=== PATIENT | female | born 1955 | race American Indian/Alaskan Native ===

== ENCOUNTER 2016-10-08 13:28 | Emergency (ER) | payer MEDICARE ==
--- NOTE | 2016-10-08 15:08 | Emergency Department Report ---
Chief Complaint: Urogenital-Female Stated Complaint: BURNING IN PRIVATE AREA Time Seen by Provider: 10/08/16 15:02 - HPI History of Present Illness: 61-year-old female comes in for complaint of vaginal discharge times one week. Patient reports that is very itchy and burning and increase urinary frequency and diarrhea. Patient has a past medical history of diabetes as now well controlled hypertension that is not well controlled. He should reports that she 's been using [id number] Monistat 7 days and not working. - Exam Vital Signs: Vital Signs 10/08/16 14:19 Temperature 98.1 F Pulse Rate 83 Respiratory 16 Rate Blood Pressure 211/122 O2 Sat by Pulse 97 Oximetry Physical Exam: Alert and oriented 3. Cardiovascular S1-S2 regular rate and rhythm respiratory clear to auscultation bilateral MSE screening note: Focused history and physical exam performed. Due to findings the following was ordered: Is been evaluated by physicians in as E provider. We will order a CBC CMP UA. ED Disposition for MSE Condition: Stable
[2016-10-08] MEDS ORDERED: CATAPRES PO ONE (15:20)
[2016-10-08 15:40] LABS: Hematocrit 46.9 % (30.3-42.9); Hemoglobin 15.7 gm/dl (10.1-14.3); Mean Corpuscular HGB Conc 34 % (30-34); Mean Corpuscular Hemoglobin 31 pg (28-32); Mean Corpuscular Volume 93 fl (79-97); Platelet Count 192 K/mm3 (140-440); Red Blood Count 5.06 M/mm3 (3.65-5.03); Red Cell Distribution Width 13.6 % (13.2-15.2); White Blood Count 5.1 K/mm3 (4.5-11.0)
[2016-10-08 16:03] LABS: Alanine Aminotransferase 14 units/L (7-56); Albumin 3.8 g/dL (3.9-5); Albumin/Globulin Ratio 1.1 %; Alkaline Phosphatase 60 units/L (35-129); Anion Gap 22 mmol/L; Bilirubin,Total 0.7 mg/dL (0.1-1.2); Blood Urea Nitrogen 6 mg/dL (7-17); Calcium 8.9 mg/dL (8.4-10.2); Carbon Dioxide 21 mmol/L (22-30); Chloride 99.4 mmol/L (98-107); Glucose 408 mg/dL (65-100); Potassium 4.2 mmol/L (3.6-5.0); Sodium 138 mmol/L (137-145); Total Protein 7.2 g/dL (6.3-8.2)
[2016-10-08 16:15] LABS: Bilirubin,Urine NEG (Negative); Blood,Urine NEG (Negative); Ketones,Urine TR mg/dL (Negative); Leukocyte Esterase,Urine TR (Negative); Nitrite,Urine POS (Negative); Protein,Urine <15 mg/dL mg/dL (Negative); Urobilinogen,Urine < 2.0 mg/dL (<2.0)
[2016-10-08 17:06] VITALS: BP 223/121
--- NOTE | 2016-10-12 13:47 | ED Elopement Review ---
ED Pt Elopement review - Results review Lab results: Laboratory Tests 10/08/16 10/08/16 10/08/16 14:25 15:28 15:28 WBC 5.1 RBC 5.06 H Hgb 15.7 H Hct 46.9 H MCV 93 MCH 31 MCHC 34 RDW 13.6 Plt Count 192 Carbon Dioxide 21 L BUN 6 L Creatinine 0.6 L Estimated GFR > 60 BUN/Creatinine Ratio 10.00 Glucose 408 H POC Glucose 367 H Calcium 8.9 Total Bilirubin 0.7 AST 13 ALT 14 Alkaline Phosphatase 60 Total Protein 7.2 Albumin 3.8 L Albumin/Globulin Ratio 1.1 Urine Color Urine Turbidity Urine pH Urine Protein Urine Glucose (UA) Urine Ketones Urine Blood Urine Nitrite Urine Bilirubin Urine Urobilinogen Ur Leukocyte Esterase Urine WBC (Auto) Urine RBC (Auto) U Epithel Cells (Auto) 10/08/16 15:40 WBC RBC Hgb Hct MCV MCH MCHC RDW Plt Count Carbon Dioxide BUN Creatinine Estimated GFR BUN/Creatinine Ratio Glucose POC Glucose Calcium Total Bilirubin AST ALT Alkaline Phosphatase Total Protein Albumin Albumin/Globulin Ratio Urine Color Yellow Urine Turbidity Clear Urine pH 5.0 Urine Protein <15 mg/dl Urine Glucose (UA) >=500 Urine Ketones Tr Urine Blood Neg Urine Nitrite Pos Urine Bilirubin Neg Urine Urobilinogen < 2.0 Ur Leukocyte Esterase Tr Urine WBC (Auto) 4.0 Urine RBC (Auto) 2.0 U Epithel Cells (Auto) 2.0 - Call Back decision Pt Call Back Decision: Call pt to return to ED SHANI (severe HTN)
== END 2016-10-08 22:36 | disposition left against medical advice (07) ==
LOC: ED 13:28
DX: N89.8 Other specified noninflammatory disorders of vagina (principal); E11.9 Type 2 diabetes mellitus without complications; I10 Essential (primary) hypertension; Z53.21 Procedure and treatment not carried out due to patient leaving prior to being seen by health care provider
CPT/HCPCS: 36415; 80053; 81001; 82962; 85027

== ENCOUNTER 2017-12-12 00:16 | Emergency (ER) | payer MEDICARE ==
[2017-12-12 02:12] LABS: Basophils # (Auto) 0.1 K/mm3 (0.0-0.1); Basophils % (Auto) 0.9 % (0.0-1.8); Eosinophils # (Auto) 0.2 K/mm3 (0.0-0.4); Eosinophils % (Auto) 3.9 % (0.0-4.3); Hematocrit 47.1 % (30.3-42.9); Hemoglobin 16.3 gm/dl (10.1-14.3); Lymphocytes # (Auto) 2.9 K/mm3 (1.2-5.4); Mean Corpuscular HGB Conc 35 % (30-34); Mean Corpuscular Hemoglobin 31 pg (28-32); Mean Corpuscular Volume 91 fl (79-97); Monocytes # (Auto) 0.3 K/mm3 (0.0-0.8); Monocytes % (Auto) 4.4 % (0.0-7.3); Platelet Count 210 K/mm3 (140-440); Red Blood Count 5.21 M/mm3 (3.65-5.03); Red Cell Distribution Width 13.4 % (13.2-15.2)
[2017-12-12] MEDS ORDERED: PERCOCET 5/325 PO ONE (02:16)
[2017-12-12] MEDS ORDERED: TORADOL IM ONE (02:16)
--- NOTE | 2017-12-12 02:24 | Emergency Department Report ---
ED Chest Pain HPI - General Chief Complaint: Chest Pain Stated Complaint: RT SIDE BODY PAIN Time Seen by Provider: 12/12/17 02:15 Source: patient Mode of arrival: Ambulatory Limitations: No Limitations - History of Present Illness Initial Comments: Ms. Jiang is a 62 yo female with hx of CVA DM HTN with right sided chest pain since near syncopal episode in Doctor's office on Friday. NO leg pain. NO hx of DVT. +tobacco use MD Complaint: chest pain -: Gradual, week(s) (1) Onset: during rest Pain Location: right chest Pain Radiation: other (shoulder) Severity: severe Severity scale (0 -10): 7 Quality: sharp Worsens With: movement - Related Data Home Medications Medication Instructions Recorded Confirmed Last Taken Aspirin [Aspirin BABY CHEW TAB] 81 mg PO QDAY 04/19/16 04/19/16 Unknown AtorvaSTATin 40 mg PO QDAY 04/19/16 04/19/16 Unknown Clopidogrel [Plavix] 75 mg PO QDAY 04/19/16 04/19/16 Unknown Ferrous Sulfate [Feosol 325 MG tab] 325 mg PO QDAY 04/19/16 04/19/16 Unknown Nitrostat 0.4 mg PO QDAY 04/19/16 04/19/16 Unknown metFORMIN [Glucophage] 1,000 mg PO BID 04/19/16 04/19/16 Unknown Previous Rx's Medication Instructions Recorded Last Taken Type Aspirin EC [Aspirin Enteric Coated 81 mg PO QDAY #30 tablet 12/20/15 Unknown Rx TAB] AtorvaSTATin [Lipitor] 40 mg PO QHS #30 tablet 12/20/15 Unknown Rx Carvedilol [Coreg] 25 mg PO BID #60 tablet 12/20/15 Unknown Rx Clopidogrel [Plavix] 75 mg PO QDAY #30 tablet 12/20/15 Unknown Rx Insulin NPH/Regular [NovoLIN 70/30] 30 unit SUB-Q BIDDIAB #3 units 12/20/15 Unknown Rx Losartan [Cozaar] 100 mg PO QDAY #30 tablet 12/20/15 Unknown Rx amLODIPine [Norvasc] 10 mg PO DAILY #30 tablet 12/20/15 Unknown Rx metFORMIN [Glucophage] 500 mg PO BID #60 tablet 12/20/15 Unknown Rx Cyclobenzaprine [Flexeril] 10 mg PO TID PRN #14 tablet 01/13/16 Unknown Rx Furosemide [Lasix] 20 mg PO QDAY #30 tablet 01/13/16 Unknown Rx HYDROcodone/APAP 5-325 [[place] 1 - 2 each PO Q6HR PRN #14 tablet 01/13/16 Unknown Rx 5/325] Ibuprofen [Motrin 800 MG tab] 800 mg PO Q8HR PRN #20 tablet 01/13/16 Unknown Rx Carvedilol [Coreg] 25 mg PO QDAY #30 tablet 04/19/16 Unknown Rx Clotrimazole [[place] Itch] 1 applic TP BID 28 Days cream..g. 04/19/16 Unknown Rx Fluconazole [Diflucan TAB] 150 mg PO QWEEK #2 tablet 04/19/16 Unknown Rx Furosemide [Lasix TAB] 80 mg PO QDAY #30 tablet 04/19/16 Unknown Rx Losartan [Cozaar] 100 mg PO QDAY #30 tablet 04/19/16 Unknown Rx amLODIPine [Norvasc] 10 mg PO QDAY #30 tablet 04/19/16 Unknown Rx traMADol [Ultram 50 MG tab] 50 mg PO Q6HR PRN #20 tablet 04/19/16 Unknown Rx HYDROcodone/ACETAMINOPHEN [[place] 1 each PO Q6H PRN #10 tablet 12/12/17 Unknown Rx 10-325 Tablet] Allergies Allergy/AdvReac Type Severity Reaction Status Date / Time MARIAN Inhibitors Allergy Angioedema Verified 11/15/16 15:42 esomeprazole magnesium Allergy Swelling Verified 11/15/16 15:42 [From Nexium] labetalol Allergy Itching Verified 11/15/16 15:42 Heart Score - HEART Score History: Slightly suspicious EKG: Normal Age: 45-65 Risk factors: > 3 risk factors or hx of atherosclerotic disease Troponin: < normal limit HEART Score: 3 ED Review of Systems ROS: Stated complaint: RT SIDE BODY PAIN Other details as noted in HPI Comment: All other systems reviewed and negative Respiratory: denies: cough Cardiovascular: chest pain Gastrointestinal: denies: abdominal pain ED Past Medical Hx - Past Medical History Previous Medical History?: Yes Hx Hypertension: Yes Hx CVA: Yes Hx Congestive Heart Failure: No Hx Diabetes: Yes Hx Pulmonary Embolism: No Hx Asthma: No Hx COPD: No Hx Tuberculosis: No Additional medical history: Angina - Surgical History Past Surgical History?: Yes Additional Surgical History: bilateral hip replacement; ankle surgery; back surgery - Social History Smoking Status: Current Every Day Smoker Substance Use Type: None - Medications Home Medications: Home Medications Medication Instructions Recorded Confirmed Last Taken Type Aspirin EC [Aspirin Enteric Coated 81 mg PO QDAY #30 tablet 12/20/15 01/13/16 Unknown Rx TAB] AtorvaSTATin [Lipitor] 40 mg PO QHS #30 tablet 12/20/15 01/13/16 Unknown Rx Carvedilol [Coreg] 25 mg PO BID #60 tablet 12/20/15 01/13/16 Unknown Rx Clopidogrel [Plavix] 75 mg PO QDAY #30 tablet 12/20/15 01/13/16 Unknown Rx Insulin NPH/Regular [NovoLIN 70/30] 30 unit SUB-Q BIDDIAB #3 units 12/20/15 Unknown Rx Losartan [Cozaar] 100 mg PO QDAY #30 tablet 12/20/15 01/13/16 Unknown Rx amLODIPine [Norvasc] 10 mg PO DAILY #30 tablet 12/20/15 01/13/16 Unknown Rx metFORMIN [Glucophage] 500 mg PO BID #60 tablet 12/20/15 01/13/16 Unknown Rx Cyclobenzaprine [Flexeril] 10 mg PO TID PRN #14 tablet 01/13/16 Unknown Rx Furosemide [Lasix] 20 mg PO QDAY #30 tablet 01/13/16 Unknown Rx HYDROcodone/APAP 5-325 [[place] 1 - 2 each PO Q6HR PRN #14 tablet 01/13/16 Unknown Rx 5/325] Ibuprofen [Motrin 800 MG tab] 800 mg PO Q8HR PRN #20 tablet 01/13/16 Unknown Rx Aspirin [Aspirin BABY CHEW TAB] 81 mg PO QDAY 04/19/16 04/19/16 Unknown History AtorvaSTATin 40 mg PO QDAY 04/19/16 04/19/16 Unknown History Carvedilol [Coreg] 25 mg PO QDAY #30 tablet 04/19/16 Unknown Rx Clopidogrel [Plavix] 75 mg PO QDAY 04/19/16 04/19/16 Unknown History Clotrimazole [Jock Itch] 1 applic TP BID 28 Days cream..g. 04/19/16 Unknown Rx Ferrous Sulfate [Feosol 325 MG tab] 325 mg PO QDAY 04/19/16 04/19/16 Unknown History Fluconazole [Diflucan TAB] 150 mg PO QWEEK #2 tablet 04/19/16 Unknown Rx Furosemide [Lasix TAB] 80 mg PO QDAY #30 tablet 04/19/16 Unknown Rx Losartan [Cozaar] 100 mg PO QDAY #30 tablet 04/19/16 Unknown Rx Nitrostat 0.4 mg PO QDAY 04/19/16 04/19/16 Unknown History amLODIPine [Norvasc] 10 mg PO QDAY #30 tablet 04/19/16 Unknown Rx metFORMIN [Glucophage] 1,000 mg PO BID 04/19/16 04/19/16 Unknown History traMADol [Ultram 50 MG tab] 50 mg PO Q6HR PRN #20 tablet 04/19/16 Unknown Rx HYDROcodone/ACETAMINOPHEN [[place] 1 each PO Q6H PRN #10 tablet 12/12/17 Unknown Rx 10-325 Tablet] ED Physical Exam - General Limitations: No Limitations General appearance: alert, in no apparent distress - Head Head exam: Present: atraumatic, normocephalic - Eye Eye exam: Present: normal appearance - ENT ENT exam: Present: mucous membranes moist - Neck Neck exam: Present: normal inspection - Respiratory Respiratory exam: Present: normal lung sounds bilaterally. Absent: respiratory distress, wheezes, rales, rhonchi - Cardiovascular Cardiovascular Exam: Present: regular rate, normal rhythm. Absent: systolic murmur, diastolic murmur, rubs, gallop - GI/Abdominal GI/Abdominal exam: Present: soft, normal bowel sounds. Absent: distended, tenderness, guarding, rebound - Extremities Exam Extremities exam: Present: normal inspection - Back Exam Back exam: Present: normal inspection - Neurological Exam Neurological exam: Present: alert, oriented X3 - Psychiatric Psychiatric exam: Present: normal affect, normal mood - Skin Skin exam: Present: warm, dry, intact, normal color. Absent: rash - Other Other exam information: right chest very tender to touch ED Course Vital Signs 12/12/17 12/12/17 01:32 02:51 Temperature 98.7 F Pulse Rate 83 Respiratory 17 20 Rate Blood Pressure 160/81 O2 Sat by Pulse 96 98 Oximetry FRANSISCO score - Fransisco Score Age > 65: (0) No Aspirin use within the Past 7 Days: (0) No 3 or more CAD Risk Factors: (1) Yes 2 or more Angina events in past 24 hrs: (0) No Known CAD with more than 50% Stenosis: (0) No Elevated Cardiac Markers: (0) No ST Deviation Greater than 0.5mm: (0) No FRANSISCO Score: 1 ED Medical Decision Making - Lab Data Result diagrams: 12/12/17 01:57 12/12/17 01:57 Laboratory Results - last 24 hr 12/12/17 12/12/17 12/12/17 01:57 01:57 01:57 WBC 6.3 RBC 5.21 H Hgb 16.3 H Hct 47.1 H MCV 91 MCH 31 MCHC 35 H RDW 13.4 Plt Count 210 Lymph % (Auto) 47.0 H [place] % (Auto) 4.4 Eos % (Auto) 3.9 Baso % (Auto) 0.9 Lymph # 2.9 [place] # 0.3 Eos # 0.2 Baso # 0.1 Seg Neutrophils % 43.8 Seg Neutrophils # 2.7 D-Dimer Sodium 139 Potassium 4.1 Chloride 101.5 Carbon Dioxide 24 Anion Gap 18 BUN 16 Creatinine 0.6 L Estimated GFR > 60 BUN/Creatinine Ratio 27 Glucose 310 H Calcium 8.9 Troponin T < 0.010 HCG, Qual Negative 12/12/17 02:19 WBC RBC Hgb Hct MCV MCH MCHC RDW Plt Count Lymph % (Auto) [place] % (Auto) Eos % (Auto) Baso % (Auto) Lymph # [place] # Eos # Baso # Seg Neutrophils % Seg Neutrophils # D-Dimer 138.77 Sodium Potassium Chloride Carbon Dioxide Anion Gap BUN Creatinine Estimated GFR BUN/Creatinine Ratio Glucose Calcium Troponin T HCG, Qual Vital Signs - 24 hr 12/12/17 12/12/17 01:32 02:51 Temperature 98.7 F Pulse Rate 83 Respiratory 17 20 Rate Blood Pressure 160/81 O2 Sat by Pulse 96 98 Oximetry - EKG Data 12/12/17 03:02 EKG obtained at 128 Normal Sinus rhythm rate of 85 bpm normal axis normal intervals no ST elevation diffuse T-wave inversions nonspecific T wave pattern - Medical Decision Making Ms. Jiang presents with musculoskeletal chest pain. Prescribed 10 tablets of [place]. Normal d-dimer. No indication of ACS. No indication of PTX or pneumonia. Critical care attestation.: If time is entered above; I have spent that time in minutes in the direct care of this critically ill patient, excluding procedure time. ED Disposition Clinical Impression: Chest wall pain Disposition: DC- TO HOME OR SELFCARE Is pt being admited?: No Does the pt Need Aspirin: No Condition: Stable Instructions: Chest Pain (ED), Thoracic Pain (ED) Prescriptions: HYDROcodone/ACETAMINOPHEN [[place] 10-325 Tablet] 1 each PO Q6H PRN #10 tablet PRN Reason: Pain Referrals: PRIMARY CARE, [Primary Care Provider] - 3-5 Days Time of Disposition: 03:44
--- NOTE | 2017-12-12 02:30 | XRay Report ---
FINAL REPORT EXAM: XR CHEST ROUTINE 2V HISTORY: chest pain COMPARISON: CT of the chest from December 2015. FINDINGS:: Frontal and lateral views of the chest obtained. Cardiac silhouette is within normal limits. No focal consolidation or effusion. No pneumothorax. Visualized bony thorax is grossly intact. IMPRESSION:: No acute findings.
[2017-12-12 02:35] LABS: BUN/Creatinine Ratio 27; Blood Urea Nitrogen 16 mg/dL (7-17); Calcium 8.9 mg/dL (8.4-10.2); Hemolysis Index 10
[2017-12-12 03:51] VITALS: BP 142/74
== END 2017-12-12 03:52 | disposition home or self-care (01) ==
LOC: ED 00:16
DX: R07.89 Other chest pain (principal); I10 Essential (primary) hypertension; E11.9 Type 2 diabetes mellitus without complications; F17.200 Nicotine dependence, unspecified, uncomplicated
CPT/HCPCS: 36415; 71046; 80048; 84484; 84703; 85025; 85379; 93005; 93010; 96372; 99284; J1885

== ENCOUNTER 2018-03-31 15:17 | Emergency (ER) | payer MEDICARE ==
--- NOTE | 2018-03-31 20:42 | Emergency Department Report ---
ED Fall HPI - General Chief Complaint: Dyspnea/Respdistress Stated Complaint: CHEST PAIN, NUMBNESS DOWN RT SIDE Time Seen by Provider: 03/31/18 20:29 Source: patient Mode of arrival: Ambulatory - History of Present Illness Initial Comments: Patient is 62 years old female with history of hypertension and CVA and bilateral hip replacement. Patient presented to the ER complaining of fall happened 2 days ago. 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 Complaint: fall -: Sudden, days(s) Fall From: standing Place Fall Occurred: work Loss of Consciousness: unsure Location: chest, pelvis Severity: moderate Context: tripped/slipped - Related Data Home Medications Medication Instructions Recorded Confirmed Last Taken Aspirin [Aspirin BABY CHEW TAB] 81 mg PO QDAY 04/19/16 04/19/16 Unknown AtorvaSTATin 40 mg PO QDAY 04/19/16 04/19/16 Unknown Clopidogrel [Plavix] 75 mg PO QDAY 04/19/16 04/19/16 Unknown Ferrous Sulfate [Feosol 325 MG tab] 325 mg PO QDAY 04/19/16 04/19/16 Unknown Nitrostat 0.4 mg PO QDAY 04/19/16 04/19/16 Unknown metFORMIN [Glucophage] 1,000 mg PO BID 04/19/16 04/19/16 Unknown Previous Rx's Medication Instructions Recorded Last Taken Type Aspirin EC [Aspirin Enteric Coated 81 mg PO QDAY #30 tablet 12/20/15 Unknown Rx TAB] AtorvaSTATin [Lipitor] 40 mg PO QHS #30 tablet 12/20/15 Unknown Rx Carvedilol [Coreg] 25 mg PO BID #60 tablet 12/20/15 Unknown Rx Clopidogrel [Plavix] 75 mg PO QDAY #30 tablet 12/20/15 Unknown Rx Insulin NPH/Regular [NovoLIN 70/30] 30 unit SUB-Q BIDDIAB #3 units 12/20/15 Unknown Rx Losartan [Cozaar] 100 mg PO QDAY #30 tablet 12/20/15 Unknown Rx amLODIPine [Norvasc] 10 mg PO DAILY #30 tablet 12/20/15 Unknown Rx metFORMIN [Glucophage] 500 mg PO BID #60 tablet 12/20/15 Unknown Rx Cyclobenzaprine [Flexeril] 10 mg PO TID PRN #14 tablet 01/13/16 Unknown Rx Furosemide [Lasix] 20 mg PO QDAY #30 tablet 01/13/16 Unknown Rx HYDROcodone/APAP 5-325 [[place] 1 - 2 each PO Q6HR PRN #14 tablet 01/13/16 Unknown Rx 5/325] Ibuprofen [Motrin 800 MG tab] 800 mg PO Q8HR PRN #20 tablet 01/13/16 Unknown Rx Carvedilol [Coreg] 25 mg PO QDAY #30 tablet 04/19/16 Unknown Rx Clotrimazole [Jock Itch] 1 applic TP BID 28 Days cream..g. 04/19/16 Unknown Rx Fluconazole [Diflucan TAB] 150 mg PO QWEEK #2 tablet 04/19/16 Unknown Rx Furosemide [Lasix TAB] 80 mg PO QDAY #30 tablet 04/19/16 Unknown Rx Losartan [Cozaar] 100 mg PO QDAY #30 tablet 04/19/16 Unknown Rx amLODIPine [Norvasc] 10 mg PO QDAY #30 tablet 04/19/16 Unknown Rx traMADol [Ultram 50 MG tab] 50 mg PO Q6HR PRN #20 tablet 04/19/16 Unknown Rx HYDROcodone/ACETAMINOPHEN [[place] 1 each PO Q6H PRN #10 tablet 12/12/17 Unknown Rx 10-325 Tablet] Allergies Allergy/AdvReac Type Severity Reaction Status Date / Time MARIAN Inhibitors Allergy Angioedema Verified 11/15/16 15:42 esomeprazole magnesium Allergy Swelling Verified 11/15/16 15:42 [From Nexium] labetalol Allergy Itching Verified 11/15/16 15:42 ED Review of Systems ROS: Stated complaint: CHEST PAIN, NUMBNESS DOWN RT SIDE Other details as noted in HPI Comment: All other systems reviewed and negative Constitutional: denies: chills, fever Respiratory: orthopnea, shortness of breath, SOB with exertion. denies: cough, wheezing Gastrointestinal: denies: abdominal pain, nausea, vomiting Musculoskeletal: denies: back pain, arthralgia Neurological: denies: headache, weakness, numbness, paresthesias, confusion, abnormal gait ED Past Medical Hx - Past Medical History Previous Medical History?: Yes Hx Hypertension: Yes Hx CVA: Yes (2016) Hx Congestive Heart Failure: No Hx Diabetes: Yes Hx Pulmonary Embolism: No Hx Asthma: No Hx COPD: No Hx Tuberculosis: No Additional medical history: Angina, Vertigo - Surgical History Past Surgical History?: Yes Additional Surgical History: bilateral hip replacement; ankle surgery; back surgery - Social History Smoking Status: Current Every Day Smoker Substance Use Type: None - Medications Home Medications: Home Medications Medication Instructions Recorded Confirmed Last Taken Type Aspirin EC [Aspirin Enteric Coated 81 mg PO QDAY #30 tablet 12/20/15 01/13/16 Unknown Rx TAB] AtorvaSTATin [Lipitor] 40 mg PO QHS #30 tablet 12/20/15 01/13/16 Unknown Rx Carvedilol [Coreg] 25 mg PO BID #60 tablet 12/20/15 01/13/16 Unknown Rx Clopidogrel [Plavix] 75 mg PO QDAY #30 tablet 12/20/15 01/13/16 Unknown Rx Insulin NPH/Regular [NovoLIN 70/30] 30 unit SUB-Q BIDDIAB #3 units 12/20/15 Unknown Rx Losartan [Cozaar] 100 mg PO QDAY #30 tablet 12/20/15 01/13/16 Unknown Rx amLODIPine [Norvasc] 10 mg PO DAILY #30 tablet 12/20/15 01/13/16 Unknown Rx metFORMIN [Glucophage] 500 mg PO BID #60 tablet 12/20/15 01/13/16 Unknown Rx Cyclobenzaprine [Flexeril] 10 mg PO TID PRN #14 tablet 01/13/16 Unknown Rx Furosemide [Lasix] 20 mg PO QDAY #30 tablet 01/13/16 Unknown Rx HYDROcodone/APAP 5-325 [[place] 1 - 2 each PO Q6HR PRN #14 tablet 01/13/16 Unknown Rx 5/325] Ibuprofen [Motrin 800 MG tab] 800 mg PO Q8HR PRN #20 tablet 01/13/16 Unknown Rx Aspirin [Aspirin BABY CHEW TAB] 81 mg PO QDAY 04/19/16 04/19/16 Unknown History AtorvaSTATin 40 mg PO QDAY 04/19/16 04/19/16 Unknown History Carvedilol [Coreg] 25 mg PO QDAY #30 tablet 04/19/16 Unknown Rx Clopidogrel [Plavix] 75 mg PO QDAY 04/19/16 04/19/16 Unknown History Clotrimazole [Jock Itch] 1 applic TP BID 28 Days cream..g. 04/19/16 Unknown Rx Ferrous Sulfate [Feosol 325 MG tab] 325 mg PO QDAY 04/19/16 04/19/16 Unknown History Fluconazole [Diflucan TAB] 150 mg PO QWEEK #2 tablet 04/19/16 Unknown Rx Furosemide [Lasix TAB] 80 mg PO QDAY #30 tablet 04/19/16 Unknown Rx Losartan [Cozaar] 100 mg PO QDAY #30 tablet 04/19/16 Unknown Rx Nitrostat 0.4 mg PO QDAY 04/19/16 04/19/16 Unknown History amLODIPine [Norvasc] 10 mg PO QDAY #30 tablet 04/19/16 Unknown Rx metFORMIN [Glucophage] 1,000 mg PO BID 04/19/16 04/19/16 Unknown History traMADol [Ultram 50 MG tab] 50 mg PO Q6HR PRN #20 tablet 04/19/16 Unknown Rx HYDROcodone/ACETAMINOPHEN [[place] 1 each PO Q6H PRN #10 tablet 12/12/17 Unknown Rx 10-325 Tablet] ED Physical Exam - General Limitations: No Limitations General appearance: alert, in no apparent distress - Head Head exam: Present: atraumatic, normocephalic, normal inspection - Eye Eye exam: Present: normal appearance - ENT ENT exam: Present: normal exam - Neck Neck exam: Present: normal inspection - Respiratory Respiratory exam: Present: normal lung sounds bilaterally. Absent: respiratory distress, wheezes, rales, rhonchi, chest wall tenderness, accessory muscle use, decreased breath sounds, prolonged expiratory - Cardiovascular Cardiovascular Exam: Present: regular rate, normal rhythm, normal heart sounds - GI/Abdominal GI/Abdominal exam: Present: soft, normal bowel sounds. Absent: distended, tenderness, guarding, rebound, rigid, organomegaly, mass, bruit, pulsatile mass , hernia - Extremities Exam Extremities exam: Present: other (right hip tenderness, no deformity or dislocation.) - Back Exam Back exam: Present: normal inspection, full ROM. Absent: tenderness, CVA tenderness (R), CVA tenderness (L), muscle spasm, paraspinal tenderness, vertebral tenderness, rash noted - Neurological Exam Neurological exam: Present: alert, oriented X3, CN II-XII intact, normal gait, reflexes normal - Skin Skin exam: Present: warm, intact, normal color ED Course Vital Signs 03/31/18 15:55 Temperature 98.9 F Pulse Rate 100 H Respiratory 18 Rate Blood Pressure 123/95 O2 Sat by Pulse 99 Oximetry ED Medical Decision Making - Lab Data Result diagrams: 03/31/18 21:00 03/31/18 21:00 - EKG Data -: EKG Interpreted by Co EKG shows normal: sinus rhythm Rate: normal - EKG Data Interpretation: no acute changes - Radiology Data Radiology results: report reviewed Referring Physician: MONCHO MCDONALD Patient Name: RAMEZ OSORIO Date of : 1955 Sex: Female Report Date: 2018-03-31 Report Status: Finalized Findings [address] [address] XRay Report Signed Patient: RAMEZ GARZA MR#: [id number] : 1955 Acct:[id number] Age/Sex: 62 / F ADM Date: 03/31/18 Loc: ED Attending Dr: Ordering Physician: MONCHO MCDONALD Date of Service: 03/31/18 Procedure(s): XR hip 2-3V RT Accession Number(s): [id number] cc: MONCHO MCDONALD Fluoro Time In Minutes: FINAL REPORT PROCEDURE: XR HIP 2-3V RT TECHNIQUE: LEFT hip radiographs, 2 views each, including AP view of the pelvis. HISTORY: hip pain COMPARISON: No prior studies are available for comparison. FINDINGS: Fracture (s) and/or Dislocation(s): None . Joint space(s): Bilateral total hip prostheses are noted with satisfactory alignment. Soft tissues: Normal. Bone mineralization: Normal. Foreign bodies: None. IMPRESSION: No acute fracture Bilateral hip prostheses are unremarkable. Transcribed By: [facility] [place] Dictated By: TATY SHEIKH Electronically Authenticated By: TATY SHEIKH Signed Date/Time: 03/31/182137 Referring Physician: MONCHO MCDONALD Patient Name: RAMEZ OSORIO Date of : 1955 Sex: Female Report Date: 2018-03-31 Report Status: Finalized Findings [address] [address] XRay Report Signed Patient: RAMEZ GARZA MR#: [id number] : 1955 Acct:[id number] Age/Sex: 62 / F ADM Date: 03/31/18 Loc: ED Attending Dr: Ordering Physician: MONCHO MCDONALD Date of Service: 03/31/18 Procedure(s): XR chest 1V ap Accession Number(s): [id number] cc: MONCHO MCDONALD Fluoro Time In Minutes: FINAL REPORT PROCEDURE: XR CHEST 1V AP TECHNIQUE: Chest radiograph anteroposterior view. CPT 55959 HISTORY: Dyspnea COMPARISON: 12/12/2017 FINDINGS: Heart: Normal. Mediastinum/Vessels: Normal. Lungs/Pleural space: Normal. Bony thorax: No acute osseous abnormality. Life support devices: None. IMPRESSION: No acute cardiopulmonary abnormality. Transcribed By: [facility] [place] Dictated By: TATY SHEIKH Electronically Authenticated By: TATY SHEIKH Signed Date/Time: 03/31/182136 DD/ 36 TD/TT: 03/31/182136 DD/ 37 TD/TT: 03/31/182137 Critical care attestation.: If time is entered above; I have spent that time in minutes in the direct care of this critically ill patient, excluding procedure time. ED Disposition Clinical Impression: Contusion of hip, right, Shortness of breath, Fall Disposition: DC-01 TO HOME OR SELFCARE Is pt being admited?: No Condition: Stable Instructions: Contusion in Adults (ED), Dyspnea (ED), Fall Prevention for Older Adults (ED) Referrals: JASON FERRER MD [Primary Care Provider] - 3-5 Days
[2018-03-31 21:23] LABS: Basophils % (Auto) 0.4 % (0.0-1.8); Eosinophils # (Auto) 0.3 K/mm3 (0.0-0.4); Eosinophils % (Auto) 3.8 % (0.0-4.3); Hematocrit 47.1 % (30.3-42.9); Hemoglobin 16.2 gm/dl (10.1-14.3); Lymphocytes # (Auto) 2.8 K/mm3 (1.2-5.4); Mean Corpuscular HGB Conc 34 % (30-34); Mean Corpuscular Hemoglobin 31 pg (28-32); Mean Corpuscular Volume 91 fl (79-97); Monocytes # (Auto) 0.4 K/mm3 (0.0-0.8); Monocytes % (Auto) 5.6 % (0.0-7.3); Platelet Count 212 K/mm3 (140-440); Red Blood Count 5.18 M/mm3 (3.65-5.03); Red Cell Distribution Width 13.9 % (13.2-15.2)
--- NOTE | 2018-03-31 21:41 | XRay Report ---
FINAL REPORT PROCEDURE: XR CHEST 1V AP TECHNIQUE: Chest radiograph anteroposterior view. CPT 97577 HISTORY: Dyspnea COMPARISON: 12/12/2017 FINDINGS: Heart: Normal. Mediastinum/Vessels: Normal. Lungs/Pleural space: Normal. Bony thorax: No acute osseous abnormality. Life support devices: None. IMPRESSION: No acute cardiopulmonary abnormality.
--- NOTE | 2018-03-31 21:43 | XRay Report ---
FINAL REPORT PROCEDURE: XR HIP 2-3V RT TECHNIQUE: LEFT hip radiographs, 2 views each, including AP view of the pelvis. HISTORY: hip pain COMPARISON: No prior studies are available for comparison. FINDINGS: Fracture (s) and/or Dislocation(s): None . Joint space(s): Bilateral total hip prostheses are noted with satisfactory alignment. Soft tissues: Normal. Bone mineralization: Normal. Foreign bodies: None. IMPRESSION: No acute fracture Bilateral hip prostheses are unremarkable.
[2018-03-31 21:45] LABS: BUN/Creatinine Ratio 19; Blood Urea Nitrogen 13 mg/dL (7-17); Calcium 9.7 mg/dL (8.4-10.2)
[2018-03-31 21:46] LABS: Alanine Aminotransferase 9 units/L (7-56); Albumin 4.4 g/dL (3.9-5); Hemolysis Index 7
[2018-03-31 22:01] VITALS: BP 132/89
== END 2018-03-31 22:30 | disposition home or self-care (01) ==
LOC: ED 15:17
DX: S70.01XA Contusion of right hip, initial encounter (principal); I10 Essential (primary) hypertension; E11.9 Type 2 diabetes mellitus without complications; I20.9 Angina pectoris, unspecified; F17.200 Nicotine dependence, unspecified, uncomplicated; Z96.643 Presence of artificial hip joint, bilateral; Z79.82 Long term (current) use of aspirin; Z88.8 Allergy status to other drugs, medicaments and biological substances; W01.198A Fall on same level from slipping, tripping and stumbling with subsequent striking against other object, initial encounter; Y93.89 Activity, other specified; Y92.89 Other specified places as the place of occurrence of the external cause; Y99.8 Other external cause status
CPT/HCPCS: 36415; 71045; 80053; 83880; 84484; 85025; 93005; 93010; 99284

== ENCOUNTER 2018-04-05 16:59 | Emergency (ER) | payer MEDICARE ==
[2018-04-05] MEDS ORDERED: BOOSTRIX IM ONE (17:49)
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
--- NOTE | 2018-04-05 20:05 | XRay Report ---
FINAL REPORT EXAM: XR HIP 2-3V LT HISTORY: left hip injury TECHNIQUE: AP pelvis and two views left hip were performed Comparison: Right hip 03/31/2018 FINDINGS: There are bilateral hip prostheses. The left hip prosthesis shows non screwed acetabular component. There is no subsidence of the femoral stem or significant periprosthetic lucency. There are arterial calcifications. The femoral head does not appear to be dislocated. There is mild superior migration of the left acetabular component relative to the right, unchanged. There is advanced degenerative arthritis of the imaged lower lumbar spine. IMPRESSION: No acute fracture or dislocation identified. Bilateral hip prostheses unchanged. Advanced degenerative arthritis lower lumbar spine.
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
[2018-04-05] MEDS ORDERED: XYLOCAINE 1% 20 mL ONE (20:53)
== END 2018-04-05 22:05 | disposition home or self-care (01) ==
LOC: ED 16:59
DX: S01.511A Laceration without foreign body of lip, initial encounter (principal); S80.812A Abrasion, left lower leg, initial encounter; S80.811A Abrasion, right lower leg, initial encounter; S60.512A Abrasion of left hand, initial encounter; S60.511A Abrasion of right hand, initial encounter; M25.552 Pain in left hip; I10 Essential (primary) hypertension; E11.9 Type 2 diabetes mellitus without complications; F17.200 Nicotine dependence, unspecified, uncomplicated; Z86.73 Personal history of transient ischemic attack (TIA), and cerebral infarction without residual deficits; Z88.8 Allergy status to other drugs, medicaments and biological substances; Z79.82 Long term (current) use of aspirin; Y04.8XXA Assault by other bodily force, initial encounter; Y93.89 Activity, other specified; Y92.89 Other specified places as the place of occurrence of the external cause; Y99.8 Other external cause status
CPT/HCPCS: 70450; 70486; 90471; 90715; 99284

== ENCOUNTER 2018-04-16 14:38 | Emergency (ER) | payer MEDICARE ==
[2018-04-16 15:06] VITALS: BP 159/102
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
[2018-04-16] MEDS ORDERED: PERCOCET 5/325 PO ONE (18:14)
[2018-04-16] MEDS ORDERED: CLEOCIN PO ONE (18:14)
[2018-04-16] MEDS ORDERED: TRIPLE ANTIBIOTIC TP ONE (18:22)
== END 2018-04-16 18:45 | disposition home or self-care (01) ==
LOC: ED 14:38
DX: T81.31XA Disruption of external operation (surgical) wound, not elsewhere classified, initial encounter (principal); I10 Essential (primary) hypertension; E11.9 Type 2 diabetes mellitus without complications; F17.200 Nicotine dependence, unspecified, uncomplicated; Z86.73 Personal history of transient ischemic attack (TIA), and cerebral infarction without residual deficits; Z79.82 Long term (current) use of aspirin; Z79.4 Long term (current) use of insulin; Z88.8 Allergy status to other drugs, medicaments and biological substances
CPT/HCPCS: 82962; 99283; A6250

== ENCOUNTER 2018-12-22 22:39 | Inpatient (IN) | payer MEDICARE ==
[2018-12-22] MEDS ORDERED: DIPRIVAN 10 MG/ML 1,000 MG/100 ML BOTTLE IV ONE (23:02)
[2018-12-22] MEDS: DIPRIVAN 10 MG/ML 1,000 MG/100 ML BOTTLE IV SCH (23:10)
[2018-12-22] MEDS ORDERED: ARTIFICIAL TEARS OPHTH OINT OU PRN (23:34)
[2018-12-22] MEDS ORDERED: NACL 0.9% 500 ML IV PRN (23:34)
[2018-12-22] MEDS ORDERED: VASELINE LIP THERAPY TP PRN (23:34)
--- NOTE | 2018-12-22 23:38 | Emergency Department Report ---
<EDDI BOWDEN - Last Filed: 12/23/18 02:18> ED CPR HPI - General Chief Complaint: Cardiac Arrest/CPR Stated Complaint: CARDIAC ARREST Time Seen by Provider: 12/22/18 23:32 Source: EMS (verbal report received from EMS.ems notes not available at time of chart dictation), RN notes reviewed, old records reviewed Mode of arrival: Stretcher Limitations: Altered Mental Status, Physical Limitation, Other - History of Present Illness Initial Comments: This is a 63-year-old female. Patient is not known to this provider previously. The patient has a history of obesity and alcohol hypertension, diabetes. The patient was brought to the hospital by emergency medical services has an out of hospital cardiac arrest. As per verbal report from EMS, the patient was complaining of chest pain, nausea, and then collapsed. Initially, the patient had thready pulses and was in a normal sinus rhythm. As per EMS verbal report, patient arrested in the field, and lost pulses. Rhythm in the field is pulseless electrical activity. EMS unable to intubate, and places Gerard airway, patient received multiple rounds of epinephrine in the field, and high quality CPR. Upon arrival to the emergency room, pupils are 2-3 mm bilaterally, and do not react to light, patient has a GCS of 3, is pulseless, in a pulseless electrical activity rhythm, and is receiving active CPR. Patient continues to receive high quality CPR, and standard ACLS medications. Patient is pulseless for approximately 10-12 minutes in the emergency room. She is also pulseless by EMS report 8-10 minutes prior to arrival. Ultimately, pulses are reobtained, and the patient regains normal sinus rhythm in the emergency room. She remains in a coma and obtunded, and is therefore intubated, without need for rapid sequence induction, using video laryngoscopy. Please note that EMS indicates the patient did not fall or hit her head. In addition, patient had labile hemodynamics, and an emergent right-sided internal jugular central line was placed by myself, using ultrasound guidance, 1 attempt, with no obvious difficulty. Patient initially had an abnormal EKG, with nonspecific findings, and this EKG was transmitted to the fishing worker, Dr. High, who reviewed the EKG, and indicated that the patient did not meet criteria for emergent act ivation of the catheterization lab. Recommends initiation of heparinization assuming no intracranial hemorrhage or aortic dissection. Case discussed with critical care physician, Dr. Ballesteros, who agreed with placement into the intensive care unit. In addition, this hospital does not have a hypothermia protocol, therefore, critical care physician does not recommend initiation of hypothermia. Given history of chest pain, cardiac arrest and collapse, and emergent CT scan of the chest and brain are ordered to exclude intracranial hemorrhage, and aortic dissection, pulmonary embolus. The patient is currently sedated on propofol, no family or friends are currently available for collateral information. MD Complaint: stopped breathing -: minute(s) Place: home Initial Findings in the Field: sinus rhythm, other rhythm ROSC in the Field: No Associated Symptoms: chest pain Treatments Prior to Arrival: intubation, other airway device, chest compressions, epinephrine mgs # - Related Data Home Medications Medication Instructions Recorded Confirmed Last Taken Aspirin [Aspirin BABY CHEW TAB] 81 mg PO QDAY 04/19/16 04/19/16 Unknown AtorvaSTATin 40 mg PO QDAY 04/19/16 04/19/16 Unknown Clopidogrel [Plavix] 75 mg PO QDAY 04/19/16 04/19/16 Unknown Ferrous Sulfate [Feosol 325 MG tab] 325 mg PO QDAY 04/19/16 04/19/16 Unknown Nitrostat 0.4 mg PO QDAY 04/19/16 04/19/16 Unknown metFORMIN [Glucophage] 1,000 mg PO BID 04/19/16 04/19/16 Unknown Previous Rx's Medication Instructions Recorded Last Taken Type Aspirin EC [Aspirin Enteric Coated 81 mg PO QDAY #30 tablet 12/20/15 Unknown Rx TAB] AtorvaSTATin [Lipitor] 40 mg PO QHS #30 tablet 12/20/15 Unknown Rx Carvedilol [Coreg] 25 mg PO BID #60 tablet 12/20/15 Unknown Rx Clopidogrel [Plavix] 75 mg PO QDAY #30 tablet 12/20/15 Unknown Rx Insulin NPH/Regular [NovoLIN 70/30] 30 unit SUB-Q BIDDIAB #3 units 12/20/15 Unknown Rx Losartan [Cozaar] 100 mg PO QDAY #30 tablet 12/20/15 Unknown Rx amLODIPine [Norvasc] 10 mg PO DAILY #30 tablet 12/20/15 Unknown Rx metFORMIN [Glucophage] 500 mg PO BID #60 tablet 12/20/15 Unknown Rx Cyclobenzaprine [Flexeril] 10 mg PO TID PRN #14 tablet 01/13/16 Unknown Rx Furosemide [Lasix] 20 mg PO QDAY #30 tablet 01/13/16 Unknown Rx HYDROcodone/APAP 5-325 [Creswell 1 - 2 each PO Q6HR PRN #14 tablet 01/13/16 Unknown Rx 5/325] Ibuprofen [Motrin 800 MG tab] 800 mg PO Q8HR PRN #20 tablet 01/13/16 Unknown Rx Carvedilol [Coreg] 25 mg PO QDAY #30 tablet 04/19/16 Unknown Rx Clotrimazole [Jock Itch] 1 applic TP BID 28 Days cream..g. 04/19/16 Unknown Rx Fluconazole [Diflucan TAB] 150 mg PO QWEEK #2 tablet 04/19/16 Unknown Rx Furosemide [Lasix TAB] 80 mg PO QDAY #30 tablet 04/19/16 Unknown Rx Losartan [Cozaar] 100 mg PO QDAY #30 tablet 04/19/16 Unknown Rx amLODIPine [Norvasc] 10 mg PO QDAY #30 tablet 04/19/16 Unknown Rx traMADol [Ultram 50 MG tab] 50 mg PO Q6HR PRN #20 tablet 04/19/16 Unknown Rx HYDROcodone/ACETAMINOPHEN [Creswell 1 each PO Q6H PRN #10 tablet 12/12/17 Unknown Rx 10-325 Tablet] Ondansetron [Zofran Odt] 4 mg PO Q8HR PRN #14 tab.rapdis 03/31/18 Unknown Rx traMADol [Ultram 50 MG tab] 50 mg PO Q4HR PRN #14 tablet 03/31/18 Unknown Rx Ondansetron [Zofran Odt] 4 mg PO Q8HR PRN #14 tab.rapdis 04/05/18 Unknown Rx traMADol [Ultram 50 MG tab] 50 mg PO Q4HR PRN #14 tablet 04/05/18 Unknown Rx Bacitracin Zinc Oint [Antibiotic 1 applicatio TP BID #1 tube 04/16/18 Unknown Rx Oint] Clindamycin [Clindamycin CAP] 300 mg PO Q6H #28 capsule 04/16/18 Unknown Rx oxyCODONE /ACETAMINOPHEN [Percocet 1 tab PO Q6HR PRN #14 tablet 04/16/18 Unknown Rx 5/325] Allergies Allergy/AdvReac Type Severity Reaction Status Date / Time MARIAN Inhibitors Allergy Angioedema Verified 11/15/16 15:42 esomeprazole magnesium Allergy Swelling Verified 11/15/16 15:42 [From Nexium] labetalol Allergy Itching Verified 11/15/16 15:42 ED Review of Systems Comment: Unobtainable due to pts medical conditions ED Past Medical Hx - Past Medical History Hx Hypertension: Yes Hx CVA: Yes (2016) Hx Congestive Heart Failure: No Hx Diabetes: Yes Hx Pulmonary Embolism: No Hx Asthma: No Hx COPD: No Hx Tuberculosis: No Additional medical history: Angina, Vertigo - Surgical History Additional Surgical History: bilateral hip replacement; ankle surgery; back surgery - Social History Smoking Status: Current Every Day Smoker Substance Use Type: None - Medications Home Medications: Home Medications Medication Instructions Recorded Confirmed Last Taken Type Aspirin EC [Aspirin Enteric Coated 81 mg PO QDAY #30 tablet 12/20/15 01/13/16 Unknown Rx TAB] AtorvaSTATin [Lipitor] 40 mg PO QHS #30 tablet 12/20/15 01/13/16 Unknown Rx Carvedilol [Coreg] 25 mg PO BID #60 tablet 12/20/15 01/13/16 Unknown Rx Clopidogrel [Plavix] 75 mg PO QDAY #30 tablet 12/20/15 01/13/16 Unknown Rx Insulin NPH/Regular [NovoLIN 70/30] 30 unit SUB-Q BIDDIAB #3 units 12/20/15 01/13/16 Unknown Rx Losartan [Cozaar] 100 mg PO QDAY #30 tablet 12/20/15 01/13/16 Unknown Rx amLODIPine [Norvasc] 10 mg PO DAILY #30 tablet 12/20/15 01/13/16 Unknown Rx metFORMIN [Glucophage] 500 mg PO BID #60 tablet 12/20/15 01/13/16 Unknown Rx Cyclobenzaprine [Flexeril] 10 mg PO TID PRN #14 tablet 01/13/16 Unknown Rx Furosemide [Lasix] 20 mg PO QDAY #30 tablet 01/13/16 Unknown Rx HYDROcodone/APAP 5-325 [C[place]well 1 - 2 each PO Q6HR PRN #14 tablet 01/13/16 Unknown Rx 5/325] Ibuprofen [Motrin 800 MG tab] 800 mg PO Q8HR PRN #20 tablet 01/13/16 Unknown Rx Aspirin [Aspirin BABY CHEW TAB] 81 mg PO QDAY 04/19/16 04/19/16 Unknown History AtorvaSTATin 40 mg PO QDAY 04/19/16 04/19/16 Unknown History Carvedilol [Coreg] 25 mg PO QDAY #30 tablet 04/19/16 Unknown Rx Clopidogrel [Plavix] 75 mg PO QDAY 04/19/16 04/19/16 Unknown History Clotrimazole [Jock Itch] 1 applic TP BID 28 Days cream..g. 04/19/16 Unknown Rx Ferrous Sulfate [Feosol 325 MG tab] 325 mg PO QDAY 04/19/16 04/19/16 Unknown History Fluconazole [Diflucan TAB] 150 mg PO QWEEK #2 tablet 04/19/16 Unknown Rx Furosemide [Lasix TAB] 80 mg PO QDAY #30 tablet 04/19/16 Unknown Rx Losartan [Cozaar] 100 mg PO QDAY #30 tablet 04/19/16 Unknown Rx Nitrostat 0.4 mg PO QDAY 04/19/16 04/19/16 Unknown History amLODIPine [Norvasc] 10 mg PO QDAY #30 tablet 04/19/16 Unknown Rx metFORMIN [Glucophage] 1,000 mg PO BID 04/19/16 04/19/16 Unknown History traMADol [Ultram 50 MG tab] 50 mg PO Q6HR PRN #20 tablet 04/19/16 Unknown Rx HYDROcodone/ACETAMINOPHEN [C[place]well 1 each PO Q6H PRN #10 tablet 12/12/17 Unknown Rx 10-325 Tablet] Ondansetron [Zofran Odt] 4 mg PO Q8HR PRN #14 tab.rapdis 03/31/18 Unknown Rx traMADol [Ultram 50 MG tab] 50 mg PO Q4HR PRN #14 tablet 03/31/18 Unknown Rx Ondansetron [Zofran Odt] 4 mg PO Q8HR PRN #14 tab.rapdis 04/05/18 Unknown Rx traMADol [Ultram 50 MG tab] 50 mg PO Q4HR PRN #14 tablet 04/05/18 Unknown Rx Bacitracin Zinc Oint [Antibiotic 1 applicatio TP BID #1 tube 04/16/18 Unknown Rx Oint] Clindamycin [Clindamycin CAP] 300 mg PO Q6H #28 capsule 04/16/18 Unknown Rx oxyCODONE /ACETAMINOPHEN [Percocet 1 tab PO Q6HR PRN #14 tablet 04/16/18 Unknown Rx 5/325] ED Physical Exam - General Limitations: Other (GCS of 3, nonverbal) General appearance: obtunded - Head Head exam: Present: atraumatic, normocephalic - Eye Eye exam: Present: other (pupils 2-3 mm, not reactive to light) - ENT ENT exam: Present: normal orophraynx, normal external ear exam, other (copious secretions noted in the oropharynx) - Neck Neck exam: Present: normal inspection. Absent: tenderness, meningismus - Respiratory Respiratory exam: Present: respiratory distress, wheezes, rhonchi - Cardiovascular Cardiovascular Exam: Present: normal rhythm, normal heart sounds. Absent: irregular rhythm, diastolic murmur - GI/Abdominal GI/Abdominal exam: Present: soft. Absent: distended, tenderness, guarding, rebound, normal bowel sounds - Rectal Rectal exam: Present: normal inspection - External exam: Present: normal external exam - Extremities Exam Extremities exam: Present: normal inspection, other (2+ pulses noted in the bilateral upper, lower extremities. Compartments soft. No long bony tenderne ss. The pelvis is stable.). Absent: calf tenderness - Back Exam Back exam: Present: normal inspection. Absent: tenderness, CVA tenderness (R), paraspinal tenderness - Neurological Exam Neurological exam: Present: altered, other (nonverbal, GCS of 3) - Psychiatric Psychiatric exam: Present: other (patient is nonverbal) - Skin Skin exam: Present: dry ED Course - Reevaluation(s) Reevaluation #1: 12/23/18 01:44 CT scan of the chest demonstrates no aortic dissection or pulmonary embolus. Post-CPR sequelae are reviewed and appreciated. Reevaluation #2: 12/23/18 02:18 Family and the bedside. Discussed laboratory studies, prognosis, CT scan of the chest with family. CT scan of the brain interpretation is pending. Care transferred to the overnight physician, Dr. Oli Hdz, to follow-up on CT scan of the brain. Plan is to initiate anticoagulation with unfractionated heparin, if CT scan shows no bleed, and admit patient to the medical service. - Central Line Placement Right IJ Consent Obtained: emergent situation Time Out Performed: Yes Patient Placed on Monitor/Pulse Ox: Yes MD Prep: mask, gown, gloves Central Line Prep: Chlorhexidine scrub Local Anesthesia Used: Lidocaine 1% Amount of Anesthesia Used (mls): 6 Ultrasound Used for Placement: Yes Central Line Lumen Inserted: triple Bloods Obtained for Lab: Yes Central Line Position: good blood return, all ports aspirated, flus, sutured in place with 2-0 Dressing Applied: Tegaderm Post Procedure X-Ray: tip of catheter in good p Patient Tolerated Procedure: well Complications: none - Intubation Time Out Performed: No (emergency situation) Sedative: none Laryngoscope: fiberoptic video scope Size: 4 ET Tube Size: 8 Tube Secured Depth (cm): 23 Tube Secured Location: teeth Tube Placement Confirmation: visualized tube passing t Patient Tolerated Procedure: well Intubation Complications: none ED Medical Decision Making - Lab Data Result diagrams: 12/22/18 23:44 12/22/18 23:44 Lab Results 12/22/18 12/22/18 12/22/18 Range/Units 23:44 23:44 23:44 WBC 12.1 H (4.5-11.0) K/mm3 RBC 4.30 (3.65-5.03) M/mm3 Hgb 13.4 (10.1-14.3) gm/dl Hct 40.4 (30.3-42.9) % MCV 94 (79-97) fl MCH 31 (28-32) pg MCHC 33 (30-34) % RDW 14.3 (13.2-15.2) % Lymph % (Auto) 25.1 (13.4-35.0) % Leon % (Auto) 2.6 (0.0-7.3) % Eos % (Auto) 1.4 (0.0-4.3) % Baso % (Auto) 0.7 (0.0-1.8) % Lymph # 3.0 (1.2-5.4) K/mm3 Leon # 0.3 (0.0-0.8) K/mm3 Eos # 0.2 (0.0-0.4) K/mm3 Baso # 0.1 (0.0-0.1) K/mm3 Seg Neutrophils % 70.2 H (40.0-70.0) % Seg Neutrophils # 8.5 H (1.8-7.7) K/mm3 PT 14.1 (12.2-14.9) Sec. INR 1.03 (0.87-1.13) APTT 25.4 (24.2-36.6) Sec. CK-MB (CK-2) 4.9 H (0.0-4.0) ng/mL Troponin T < 0.010 (0.00-0.029) ng/mL Plasma/Serum Alcohol (0-0.07) % 12/22/18 Range/Units 23:44 WBC (4.5-11.0) K/mm3 RBC (3.65-5.03) M/mm3 Hgb (10.1-14.3) gm/dl Hct (30.3-42.9) % MCV (79-97) fl MCH (28-32) pg MCHC (30-34) % RDW (13.2-15.2) % Lymph % (Auto) (13.4-35.0) % Leon % (Auto) (0.0-7.3) % Eos % (Auto) (0.0-4.3) % Baso % (Auto) (0.0-1.8) % Lymph # (1.2-5.4) K/mm3 Leon # (0.0-0.8) K/mm3 Eos # (0.0-0.4) K/mm3 Baso # (0.0-0.1) K/mm3 Seg Neutrophils % (40.0-70.0) % Seg Neutrophils # (1.8-7.7) K/mm3 PT (12.2-14.9) Sec. INR (0.87-1.13) APTT (24.2-36.6) Sec. CK-MB (CK-2) (0.0-4.0) ng/mL Troponin T (0.00-0.029) ng/mL Plasma/Serum Alcohol < 0.01 (0-0.07) % - EKG Data -: EKG Interpreted by Sd EKG shows normal: sinus rhythm Rate: normal - EKG Data 12/23/18 01:45 EKG #1 demonstrates normal sinus, 81 bpm, normal axis, QTC prolonged, incomplete right bundle branch block, premature ventricular contractions, ST depression in inferior leads, abnormal EKG, not consistent with ST elevation myocardial infarction. EKG #2 demonstrates sinus, 88 bpm, normal axis, QTC prolonged, poor R-wave progression, abnormal EKG, consistent with ST elevation myocardial infarction. - Radiology Data Radiology results: report reviewed, image reviewed Print Report Referring Physician: EDDI BOWDEN Patient Name: RAMEZ OSORIO Date of : 1955 Sex: Female Report Date: 2018-12-23 Report Status: Finalized Findings [address] [address] XRay Report Signed Patient: RAMEZ GARZA MR#: [id number] 800 : 1955 Acct:[id number] Age/Sex: 63 / F ADM Date: 12/22/18 Loc: ED Attending Dr: Ordering Physician: EDDI BOWDEN MD Date of Service: 12/22/18 Procedure(s): XR chest 1V ap Accession Number(s): [id number] cc: EDDI BOWDEN MD Fluoro Time In Minutes: PROCEDURE: XR CHEST 1V AP TECHNIQUE: Chest radiograph single view. HISTORY: ETT placement COMPARISONS: March 31, 2018 . FINDINGS: Heart: Normal. Mediastinum/Vessels: Normal. Lungs/Pleural space: Mild vascular congestion. No effusion or pneumothorax. Bony thorax: No acute osseous abnormality. Life support devices: The endotracheal tube ends 4 cm above the yuni. A right central catheter ends in the SVC. IMPRESSION: Mild vascular congestion. No acute consolidation, effusion or pneumothorax. The endotracheal tube ends 4 cm above the yuni. This document is electronically signed by Luly Richardson DO., December 23 2018 12:08:53 AM ET Transcribed By: [facility] Dictated By: LULY RICHARDSON MD Electronically Authenticated By: LULY RICHARDSON MD Signed Date/Time: 12/23/18 0010 ort Referring Physician: EDDI BOWDEN Patient Name: RAMEZ OSORIO Date of : 1955 Sex: Female Report Date: 2018-12-23 Report Status: Finalized Findings [address] [address] Cat Scan Report Signed Patient: RAMEZ GARZA MR#: [id number] 800 : 1955 Acct:[id number] Age/Sex: 63 / F ADM Date: 12/22/18 Loc: ED Attending Dr: Ordering Physician: EDDI BOWDEN MD Date of Service: 12/22/18 Procedure(s): CT angio chest Accession Number(s): [id number] cc: EDDI BOWDEN MD PROCEDURE: CT ANGIO CHEST Reconstructions were reviewed. TECHNIQUE: A CT angiogram was performed following the intravenous injection of iodinated contrast. Rotational, sagittal, and coronal MIP HISTORY: CP CARDIAC ARREST COMPARISONS: Chest x-ray 12/22/2018 FINDINGS: The heart size is normal. Fluid is not seen. The lungs are diffusely congested. There is no evidence of pulmonary embolus. There is no evidence of aortic dissection. The thoracic aorta is normal in caliber. The lungs reveal diffuse interstitial edema with patchy airspace disease noted in both upper lobes lingula right middle lobe and both lower lobes. There is a very small right-sided effusion. In the upper abdomen the adrenal glands appear normal. There is a nondisplaced obliquely oriented fracture of the body of the sternum which is of uncertain age. There are several acute nondisplaced right anterior rib fractures. . The tip of the ET tube is just above the yuni. The skeletal structures otherwise reveal disc degeneration in the dorsal spine. IMPRESSION: No evidence of pulmonary embolus or aortic dissection. Pulmonary congestion with interstitial edema and bilateral airspace disease com patible with pulmonary edema. Small right-sided effusion. Nondisplaced obliquely oriented fracture of the body of the sternum which is of uncertain age. Several acute right anterior rib fractures noted. Satisfactory intubation.. This document is electronically signed by Nikki Frank MD., December 23 2018 01:05:56 AM ET Transcribed By: RB Dictated By: NIKKI FRANK MD Electronically Authenticated By: NIKKI FRANK MD Signed Date/Time: 12/23/18 0108 DD/ TD/TT: 12/23/18 0049 Critical Care Time: Yes Critical care time in (mins) excluding proc time.: 60 ED Disposition Clinical Impression: Cardiopulmonary arrest Disposition: DC-09 OP ADMIT IP TO THIS HOSP Is pt being admited?: Yes Condition: Critical Referrals: DINORAH ARTHUR MD [Primary Care Provider] - 3-5 Days <MONCHO MCDONALD - Last Filed: 12/23/18 04:30> ED Review of Systems ROS: Stated complaint: CARDIAC ARREST Other details as noted in HPI ED Course Vital Signs 12/22/18 12/22/18 12/22/18 22:44 22:46 23:00 Pulse Rate 94 H 89 87 Respiratory 51 H 19 14 Rate Blood Pressure 194/114 O2 Sat by Pulse 100 Oximetry 12/22/18 12/22/18 12/23/18 23:15 23:31 00:41 Pulse Rate 114 H 90 Respiratory 16 18 Rate Blood Pressure 178/109 178/109 O2 Sat by Pulse 100 99 100 Oximetry 12/23/18 12/23/18 12/23/18 00:45 01:00 01:15 Pulse Rate 87 88 87 Respiratory 22 21 21 Rate Blood Pressure 92/44 100/60 99/58 O2 Sat by Pulse 99 96 95 Oximetry 12/23/18 12/23/18 12/23/18 01:30 01:45 01:55 Pulse Rate 85 83 83 Respiratory 20 22 Rate Blood Pressure 77/45 88/49 O2 Sat by Pulse 97 94 96 Oximetry 12/23/18 12/23/18 12/23/18 02:00 02:15 04:00 Pulse Rate 82 82 83 Respiratory 20 20 Rate Blood Pressure 113/71 118/68 121/70 O2 Sat by Pulse 96 95 100 Oximetry ED Medical Decision Making - Lab Data Result diagrams: 12/22/18 23:44 12/22/18 23:44 - Medical Decision Making CT brain reviewed and is negative for acute finding. Patient is started on heparin drip as per Dr. High recommendation. I discussed the patient is Dr. Karla Rock, she agreed to admit the patient to medical service. Critical care attestation.: If time is entered above; I have spent that time in minutes in the direct care of this critically ill patient, excluding procedure time.
[2018-12-22] MEDS ORDERED: NACL 0.9% 1000 ML 1,000 ML ONE (23:53)
[2018-12-23] MEDS ORDERED: NACL 0.9% 500 ML 500 ML IV ONE
[2018-12-23 00:03] LABS: Basophils # (Auto) 0.1 K/mm3 (0.0-0.1); Basophils % (Auto) 0.7 % (0.0-1.8); Eosinophils # (Auto) 0.2 K/mm3 (0.0-0.4); Eosinophils % (Auto) 1.4 % (0.0-4.3); Hematocrit 40.4 % (30.3-42.9); Hemoglobin 13.4 gm/dl (10.1-14.3); Lymphocytes % (Auto) 25.1 % (13.4-35.0); Mean Corpuscular HGB Conc 33 % (30-34); Mean Corpuscular Volume 94 fl (79-97); Monocytes # (Auto) 0.3 K/mm3 (0.0-0.8); Monocytes % (Auto) 2.6 % (0.0-7.3); Red Cell Distribution Width 14.3 % (13.2-15.2)
--- NOTE | 2018-12-23 00:10 | XRay Report ---
PROCEDURE: XR CHEST 1V AP TECHNIQUE: Chest radiograph single view. HISTORY: ETT placement COMPARISONS: March 31, 2018 . FINDINGS: Heart: Normal. Mediastinum/Vessels: Normal. Lungs/Pleural space: Mild vascular congestion. No effusion or pneumothorax. Bony thorax: No acute osseous abnormality. Life support devices: The endotracheal tube ends 4 cm above the yuni. A right central catheter ends in the SVC. IMPRESSION: Mild vascular congestion. No acute consolidation, effusion or pneumothorax. The endotrac heal tube ends 4 cm above the yuni. This document is electronically signed by Luly Richardson DO., December 23 2018 12:08:53 AM ET
[2018-12-23 00:12] LABS: INR 1.03 (0.87-1.13)
[2018-12-23 00:13] LABS: Partial Thromboplastin Time 25.4 Sec. (24.2-36.6)
[2018-12-23 00:25] LABS: Creatine Kinase MB 4.9 ng/mL (0.0-4.0)
[2018-12-23 00:27] LABS: Alanine Aminotransferase 430 units/L (7-56); Albumin 3.5 g/dL (3.9-5); BUN/Creatinine Ratio 17; Blood Urea Nitrogen 15 mg/dL (7-17); Calcium 8.7 mg/dL (8.4-10.2); Hemolysis Index 29
--- NOTE | 2018-12-23 01:08 | Cat Scan Report ---
PROCEDURE: CT ANGIO CHEST Reconstructions were reviewed. TECHNIQUE: A CT angiogram was performed following the intravenous injection of iodinated contrast. R otational, sagittal, and coronal MIP HISTORY: CP CARDIAC ARREST COMPARISONS: Chest x-ray 12/22/2018 FINDINGS: The heart size is normal. Fluid is not seen. The lungs are diffusely congested. There is no evidence of pulmonary embolus. Ther e is no evidence of aortic dissection. The thoracic aorta is normal in caliber. The lungs reveal diff use interstitial edema with patchy airspace disease noted in both upper lobes lingula right middle lo be and both lower lobes. There is a very small right-sided effusion. In the upper abdomen the adrenal glands appear normal. There is a nondisplaced obliquely oriented fracture of the body of the sternum which is of uncertain age. There are several acute nondisplaced right anterior rib fractures. . The tip of the ET tube is just above the yuni. The skeletal structures otherwise reveal disc degenerati on in the dorsal spine. IMPRESSION: No evidence of pulmonary embolus or aortic dissection. Pulmonary congestion with interstitial edema and bilateral airspace disease compatible with pulmonary edema. Small right-sided effusion. Nondisplaced obliquely oriented fracture of the body of the sternum which is of uncertain age. Severa l acute right anterior rib fractures noted. Satisfactory intubation.. This document is electronically signed by Jermaine Frank MD., December 23 2018 01:05:56 AM KATHIE
[2018-12-23] MEDS ORDERED: NACL 0.9% 1000 ML 1,000 ML ONE ×2 (01:27→11:43)
[2018-12-23] MEDS ORDERED: ZOFRAN ONE (01:52)
[2018-12-23] MEDS ORDERED: LEVOPHED DRIP 4 MG/NS 250 ML 4 MG/250 ML BAG IV ONE (01:54)
[2018-12-23 02:00] LABS: Platelet Count 68 K/mm3 (140-440)
[2018-12-23] MEDS ORDERED: LEVOPHED DRIP 4 MG/NS 250 ML 4 MG/250 ML BAG IV SCH (02:00)
[2018-12-23] MEDS ORDERED: ZOFRAN IV ONE (02:00)
--- NOTE | 2018-12-23 04:08 | Cat Scan Report ---
PROCEDURE: CT HEAD/BRAIN WO CON TECHNIQUE: Routine axial imaging was obtained of the brain without IV contrast. HISTORY: ams cardiac arrest COMPARISONS: 04/05/2018 FINDINGS: There is no evidence of acute stroke or hemorrhage. The ventricular system is appropriate in size and is symmetric. There is residual contrast enhancement of the vessels around the [place] to the earlier contrast injection. The visualized sinuses are clear. The mastoid air cells are we ll pneumatized. The calvarium appears intact. IMPRESSION: No acute intracranial process.. This document is electronically signed by Jermaine Frank MD., December 23 2018 04:06:43 AM ET
[2018-12-23 04:24] LABS: Creatine Kinase MB 15.5 ng/mL (0.0-4.0)
[2018-12-23] MEDS ORDERED: HEPARIN 10,000 UNITS/10 ML IV ONE (04:25)
--- NOTE | 2018-12-23 05:08 | History and Physical Report ---
History of Present Illness Date of examination: 12/23/18 History of present illness: 61-year-old woman with a history of hypertension, diabetes. The emergency room chart was brought to the emergency room because she complained of chest pain and subsequently had a cardiac arrest at home. She was resuscitated for 10 minutes in the field and then 10 minutes here in the emergency room. Unable to reach family, review of systems unobtainable PAST MEDICAL HISTORY: hypertension, diabetes. PAST SURGICAL HISTORY: Unknown SOCIAL HISTORY: Unknown FAMILY HISTORY:Unknown Medications and Allergies Allergies Allergy/AdvReac Type Severity Reaction Status Date / Time MARIAN Inhibitors Allergy Angioedema Verified 11/15/16 15:42 esomeprazole magnesium Allergy Swelling Verified 11/15/16 15:42 [From Nexium] labetalol Allergy Itching Verified 11/15/16 15:42 Home Medications Medication Instructions Recorded Confirmed Last Taken Type Aspirin EC [Aspirin Enteric Coated 81 mg PO QDAY #30 tablet 12/20/15 01/13/16 Unknown Rx TAB] AtorvaSTATin [Lipitor] 40 mg PO QHS #30 tablet 12/20/15 01/13/16 Unknown Rx Carvedilol [Coreg] 25 mg PO BID #60 tablet 12/20/15 01/13/16 Unknown Rx Clopidogrel [Plavix] 75 mg PO QDAY #30 tablet 12/20/15 01/13/16 Unknown Rx Insulin NPH/Regular [NovoLIN 70/30] 30 unit SUB-Q BIDDIAB #3 units 12/20/15 01/13/16 Unknown Rx Losartan [Cozaar] 100 mg PO QDAY #30 tablet 12/20/15 01/13/16 Unknown Rx amLODIPine [Norvasc] 10 mg PO DAILY #30 tablet 12/20/15 01/13/16 Unknown Rx metFORMIN [Glucophage] 500 mg PO BID #60 tablet 12/20/15 01/13/16 Unknown Rx Cyclobenzaprine [Flexeril] 10 mg PO TID PRN #14 tablet 01/13/16 Unknown Rx Furosemide [Lasix] 20 mg PO QDAY #30 tablet 01/13/16 Unknown Rx HYDROcodone/APAP 5-325 [[place] 1 - 2 each PO Q6HR PRN #14 tablet 01/13/16 Unknown Rx 5/325] Ibuprofen [Motrin 800 MG tab] 800 mg PO Q8HR PRN #20 tablet 01/13/16 Unknown Rx Aspirin [Aspirin BABY CHEW TAB] 81 mg PO QDAY 04/19/16 04/19/16 Unknown History AtorvaSTATin 40 mg PO QDAY 04/19/16 04/19/16 Unknown History Carvedilol [Coreg] 25 mg PO QDAY #30 tablet 04/19/16 Unknown Rx Clopidogrel [Plavix] 75 mg PO QDAY 04/19/16 04/19/16 Unknown History Clotrimazole [Jock Itch] 1 applic TP BID 28 Days cream..g. 04/19/16 Unknown Rx Ferrous Sulfate [Feosol 325 MG tab] 325 mg PO QDAY 04/19/16 04/19/16 Unknown History Fluconazole [Diflucan TAB] 150 mg PO QWEEK #2 tablet 04/19/16 Unknown Rx Furosemide [Lasix TAB] 80 mg PO QDAY #30 tablet 04/19/16 Unknown Rx Losartan [Cozaar] 100 mg PO QDAY #30 tablet 04/19/16 Unknown Rx Nitrostat 0.4 mg PO QDAY 04/19/16 04/19/16 Unknown History amLODIPine [Norvasc] 10 mg PO QDAY #30 tablet 04/19/16 Unknown Rx metFORMIN [Glucophage] 1,000 mg PO BID 04/19/16 04/19/16 Unknown History traMADol [Ultram 50 MG tab] 50 mg PO Q6HR PRN #20 tablet 04/19/16 Unknown Rx HYDROcodone/ACETAMINOPHEN [[place] 1 each PO Q6H PRN #10 tablet 12/12/17 Unknown Rx 10-325 Tablet] Ondansetron [Zofran Odt] 4 mg PO Q8HR PRN #14 tab.rapdis 03/31/18 Unknown Rx traMADol [Ultram 50 MG tab] 50 mg PO Q4HR PRN #14 tablet 03/31/18 Unknown Rx Ondansetron [Zofran Odt] 4 mg PO Q8HR PRN #14 tab.rapdis 04/05/18 Unknown Rx traMADol [Ultram 50 MG tab] 50 mg PO Q4HR PRN #14 tablet 04/05/18 Unknown Rx Bacitracin Zinc Oint [Antibiotic 1 applicatio TP BID #1 tube 04/16/18 Unknown Rx Oint] Clindamycin [Clindamycin CAP] 300 mg PO Q6H #28 capsule 04/16/18 Unknown Rx oxyCODONE /ACETAMINOPHEN [Percocet 1 tab PO Q6HR PRN #14 tablet 04/16/18 Unknown Rx 5/325] Active Meds: Active Medications Hydrophilic Ointment (Vaseline Lip Therapy) 1 applic TP Q2HR PRN PRN Reason: Dry Lips Propofol (Diprivan 10 Mg/Ml) 1,000 mg in 100 mls @ 3.3 mls/hr IV TITR ANGELICA; Protocol Norepinephrine (Levophed Drip 4 Mg/Ns 250 Ml) 4 mg in 250 mls @ 7.5 mls/hr IV TITR ANGELICA; Protocol Last Admin: 12/23/18 02:04 Dose: 2 mcg/min, 7.5 mls/hr Documented by: Heparin Sodium/Sodium Chloride (Heparin/ 0.45% Nacl-25,000 Unit/500 Ml) 25,000 unit in 500 mls @ 20 mls/hr IV TITRATE ANGELICA; Protocol Multi-Ingred Cream/Lotion/Oil/Oint (Artificial Tears Ophth Oint) 1 applic OU Q4HR PRN PRN Reason: Dry Eye(s) Sodium Chloride (Nacl 0.9% 500 Ml) 5 ml IV DIRECT PRN PRN 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 Pupils equally round and reactive to light, unable to do EOM, no sclericterus or JVD or thyromegaly or nodule. , no carotid bruit, mucous membranes moist, unable to examine oral cavity, ET tube in place Heart: S1-S2, regular is rhythm Lungs: Clear to auscultation bilaterally, breathing comfortable Abdomen: Positive bowel sounds, soft, nondistended, no organomegaly Extremities: No edema cyanosis clubbing Skin: no rash, nodule, warm and dry Neuro: Sedated - Constitutional Vitals: Temp Pulse Resp BP Pulse Ox 81 20 114/59 100 12/23/18 04:45 12/23/18 04:45 12/23/18 04:45 12/23/18 04:45 Results - Labs CBC & Chem 7: 12/23/18 05:16 12/22/18 23:44 Labs: Abnormal lab results 12/22/18 12/22/18 12/22/18 Range/Units 23:44 23:44 23:44 WBC 12.1 H (4.5-11.0) K/mm3 Plt Count 68 L (140-440) K/mm3 Seg Neutrophils % 70.2 H (40.0-70.0) % Seg Neutrophils # 8.5 H (1.8-7.7) K/mm3 POC ABG pH (7.35-7.45) POC ABG pCO2 (35-45) POC ABG pO2 (80-105) Carbon Dioxide 21 L (22-30) mmol/L Glucose 248 H (65-100) mg/dL AST 421 H (5-40) units/L ALT 430 H (7-56) units/L Total Creatine Kinase 219 H 222 H (30-135) units/L CK-MB (CK-2) 4.9 H (0.0-4.0) ng/mL Troponin T (0.00-0.029) ng/mL Total Protein 6.1 L (6.3-8.2) g/dL Albumin 3.5 L (3.9-5) g/dL Salicylates (2.8-20.0) mg/dL Acetaminophen (10.0-30.0) ug/mL 12/22/18 12/22/18 12/22/18 Range/Units 23:44 23:44 23:45 WBC (4.5-11.0) K/mm3 Plt Count (140-440) K/mm3 Seg Neutrophils % (40.0-70.0) % Seg Neutrophils # (1.8-7.7) K/mm3 POC ABG pH 7.111 L (7.35-7.45) POC ABG pCO2 65.8 H (35-45) POC ABG pO2 (80-105) Carbon Dioxide (22-30) mmol/L Glucose (65-100) mg/dL AST (5-40) units/L ALT (7-56) units/L Total Creatine Kinase (30-135) units/L CK-MB (CK-2) (0.0-4.0) ng/mL Troponin T (0.00-0.029) ng/mL Total Protein (6.3-8.2) g/dL Albumin (3.9-5) g/dL Salicylates < 0.3 L (2.8-20.0) mg/dL Acetaminophen < 5.0 L (10.0-30.0) ug/mL 12/23/18 12/23/18 Range/Units 03:06 03:26 WBC (4.5-11.0) K/mm3 Plt Count (140-440) K/mm3 Seg Neutrophils % (40.0-70.0) % Seg Neutrophils # (1.8-7.7) K/mm3 POC ABG pH 7.327 L (7.35-7.45) POC ABG pCO2 (35-45) POC ABG pO2 50 L (80-105) Carbon Dioxide (22-30) mmol/L Glucose (65-100) mg/dL AST (5-40) units/L ALT (7-56) units/L Total Creatine Kinase 542 H (30-135) units/L CK-MB (CK-2) 15.5 H (0.0-4.0) ng/mL Troponin T 0.041 H D (0.00-0.029) ng/mL Total Protein (6.3-8.2) g/dL Albumin (3.9-5) g/dL Salicylates (2.8-20.0) mg/dL Acetaminophen (10.0-30.0) ug/mL - Imaging and Cardiology CT scan - chest: report reviewed CT Scan - head: report reviewed Assessment and Plan Assessment Acute respiratory failure Cardiac arrest chest pain Hypertension Diabetes Obesity Plan Admit medicine Check cardiac enzymes, echo Continue heparin drip, start aspirin Consult cardiology, critical care Check fingersticks,
[2018-12-23] MEDS ORDERED: D50W (25GM) Syringe IV PRN (05:14)
[2018-12-23 05:54] LABS: Hematocrit 37.1 % (30.3-42.9); Hemoglobin 12.8 gm/dl (10.1-14.3)
[2018-12-23 06:06] LABS: Partial Thromboplastin Time 27.5 Sec. (24.2-36.6)
[2018-12-23] MEDS ORDERED: ZOFRAN IV PRN (06:19)
[2018-12-23] MEDS ORDERED: SODIUM CHLORIDE FLUSH SYRINGE 10 ML IV PRN (06:19)
[2018-12-23 06:28] LABS: Chol/HDL Ratio 1.96 %
[2018-12-23] MEDS ORDERED: HEPARIN/ 0.45% NACL-25,000 UNIT/500 ML 25,000 UNIT/500 ML BAG ONE (06:31)
[2018-12-23] MEDS ORDERED: HEPARIN 10,000 UNITS/10 ML ONE (06:31)
[2018-12-23] MEDS: HEPARIN/ 0.45% NACL-25,000 UNIT/500 ML 25,000 UNIT/500 ML BAG IV SCH (06:42)
[2018-12-23 07:44] LABS: Hematocrit 38.5 % (30.3-42.9); Mean Corpuscular HGB Conc 34 % (30-34); Mean Corpuscular Volume 94 fl (79-97); Platelet Count 163 K/mm3 (140-440); Red Blood Count 4.09 M/mm3 (3.65-5.03); Red Cell Distribution Width 14.5 % (13.2-15.2)
[2018-12-23] MEDS ORDERED: DIPRIVAN 10 MG/ML 1,000 MG/100 ML BOTTLE IV ONE ×3 (07:47→21:20)
[2018-12-23] MEDS: DIPRIVAN 10 MG/ML 1,000 MG/100 ML BOTTLE IV SCH (08:10)
[2018-12-23] MEDS: SODIUM CHLORIDE FLUSH SYRINGE 10 ML IV SCH ×2 (09:43→22:31)
[2018-12-23] MEDS: BABY ASPIRIN PO SCH (09:43)
[2018-12-23] MEDS ORDERED: BABY ASPIRIN ONE (09:46)
[2018-12-23 10:21] LABS: Total Cells Counted 100
[2018-12-23 10:22] LABS: Anisocytosis 1+; Basophils % (Manual) 0 % (0.0-1.8); Eosinophils % (Manual) 0 % (0.0-4.3); Macrocytosis Rare; Ovalocytes Few; Platelet Estimate Consistent w Auto; Poikilocytosis 1+
[2018-12-23] MEDS: NACL 0.9% 1000 ML 1,000 ML IV SCH (11:37)
[2018-12-23] MEDS ORDERED: VASELINE LIP THERAPY TP ONE (11:43)
--- NOTE | 2018-12-23 12:33 | Consultation ---
History of Present Illness Consult date: 12/23/18 Consult reason: cardiac arrest History of present illness: Patient is a 63 year old woman who is admitted with cardiopulmonary arrest. Family at bedside reports the patient was found gasping for air then loss consciousness. En-route, patient had pulseless electrical activity requiring ACLS. She was brought in and regained a pulse. An ECG shows sinus rhythm, RBBB with inferolateral Twave abnormalities. No significant change in her baseline EC G. Subsequently she was intubated and on mechanical ventilation. Head CT scan is negative. Chest CTA reports pulmonary edema, rib fractures but no evidence of pulmonary embolism. Cardiac consultation was requested. Review of history reports no history of coronary artery disease. In fact, she had 2 prior negative cardiac cath, most recent was done at [facility] in 2010. Most recent cardiac evaluation was a thallium stress test in 2014 that was normal. Medications and Allergies Allergies Allergy/AdvReac Type Severity Reaction Status Date / Time MARIAN Inhibitors Allergy Angioedema Verified 11/15/16 15:42 esomeprazole magnesium Allergy Swelling Verified 11/15/16 15:42 [From Nexium] labetalol Allergy Itching Verified 11/15/16 15:42 Home Medications Medication Instructions Recorded Confirmed Last Taken Type Aspirin EC [Aspirin Enteric Coated 81 mg PO QDAY #30 tablet 12/20/15 01/13/16 Unknown Rx TAB] AtorvaSTATin [Lipitor] 40 mg PO QHS #30 tablet 12/20/15 01/13/16 Unknown Rx Carvedilol [Coreg] 25 mg PO BID #60 tablet 12/20/15 01/13/16 Unknown Rx Clopidogrel [Plavix] 75 mg PO QDAY #30 tablet 12/20/15 01/13/16 Unknown Rx Insulin NPH/Regular [NovoLIN 70/30] 30 unit SUB-Q BIDDIAB #3 units 12/20/15 01/13/16 Unknown Rx Losartan [Cozaar] 100 mg PO QDAY #30 tablet 12/20/15 01/13/16 Unknown Rx amLODIPine [Norvasc] 10 mg PO DAILY #30 tablet 12/20/15 01/13/16 Unknown Rx metFORMIN [Glucophage] 500 mg PO BID #60 tablet 12/20/15 01/13/16 Unknown Rx Cyclobenzaprine [Flexeril] 10 mg PO TID PRN #14 tablet 01/13/16 Unknown Rx Furosemide [Lasix] 20 mg PO QDAY #30 tablet 01/13/16 Unknown Rx HYDROcodone/APAP 5-325 [[place] 1 - 2 each PO Q6HR PRN #14 tablet 01/13/16 Unknown Rx 5/325] Ibuprofen [Motrin 800 MG tab] 800 mg PO Q8HR PRN #20 tablet 01/13/16 Unknown Rx Aspirin [Aspirin BABY CHEW TAB] 81 mg PO QDAY 04/19/16 04/19/16 Unknown History AtorvaSTATin 40 mg PO QDAY 04/19/16 04/19/16 Unknown History Carvedilol [Coreg] 25 mg PO QDAY #30 tablet 04/19/16 Unknown Rx Clopidogrel [Plavix] 75 mg PO QDAY 04/19/16 04/19/16 Unknown History Clotrimazole [Jock Itch] 1 applic TP BID 28 Days cream..g. 04/19/16 Unknown Rx Ferrous Sulfate [Feosol 325 MG tab] 325 mg PO QDAY 04/19/16 04/19/16 Unknown History Fluconazole [Diflucan TAB] 150 mg PO QWEEK #2 tablet 04/19/16 Unknown Rx Furosemide [Lasix TAB] 80 mg PO QDAY #30 tablet 04/19/16 Unknown Rx Losartan [Cozaar] 100 mg PO QDAY #30 tablet 04/19/16 Unknown Rx Nitrostat 0.4 mg PO QDAY 04/19/16 04/19/16 Unknown History amLODIPine [Norvasc] 10 mg PO QDAY #30 tablet 04/19/16 Unknown Rx metFORMIN [Glucophage] 1,000 mg PO BID 04/19/16 04/19/16 Unknown History traMADol [Ultram 50 MG tab] 50 mg PO Q6HR PRN #20 tablet 04/19/16 Unknown Rx HYDROcodone/ACETAMINOPHEN [[place] 1 each PO Q6H PRN #10 tablet 12/12/17 Unknown Rx 10-325 Tablet] Ondansetron [Zofran Odt] 4 mg PO Q8HR PRN #14 tab.rapdis 03/31/18 Unknown Rx traMADol [Ultram 50 MG tab] 50 mg PO Q4HR PRN #14 tablet 03/31/18 Unknown Rx Ondansetron [Zofran Odt] 4 mg PO Q8HR PRN #14 tab.rapdis 04/05/18 Unknown Rx traMADol [Ultram 50 MG tab] 50 mg PO Q4HR PRN #14 tablet 04/05/18 Unknown Rx Bacitracin Zinc Oint [Antibiotic 1 applicatio TP BID #1 tube 04/16/18 Unknown Rx Oint] Clindamycin [Clindamycin CAP] 300 mg PO Q6H #28 capsule 04/16/18 Unknown Rx oxyCODONE /ACETAMINOPHEN [Percocet 1 tab PO Q6HR PRN #14 tablet 04/16/18 Unknown Rx 5/325] Active Meds: Active Medications Acetaminophen (Tylenol) 650 mg PO Q4H PRN PRN Reason: Pain MILD(1-3)/Fever >100.5/ETIENNE Aspirin (Baby Aspirin) 81 mg PO QDAY ANGELICA Last Admin: 12/23/18 09:43 Dose: 81 mg Documented by: Dextrose (D50w (25gm) Syringe) 50 ml IV PRN PRN PRN Reason: Hypoglycemia Hydrophilic Ointment (Vaseline Lip Therapy) 1 applic TP Q2HR PRN PRN Reason: Dry Lips Last Admin: 12/23/18 11:35 Dose: 1 applic Documented by: Propofol (Diprivan 10 Mg/Ml) 1,000 mg in 100 mls @ 3.3 mls/hr IV TITR ANGELICA; Protocol Last Admin: 12/23/18 08:10 Dose: 20 mcg/kg/min, 13.2 mls/hr Documented by: Norepinephrine (Levophed Drip 4 Mg/Ns 250 Ml) 4 mg in 250 mls @ 7.5 mls/hr IV TITR ANGELICA; Protocol Last Titration: 12/23/18 06:23 Dose: 0 mcg/min, 0 mls/hr Documented by: Heparin Sodium/Sodium Chloride (Heparin/ 0.45% Nacl-25,000 Unit/500 Ml) 25,000 unit in 500 mls @ 20 mls/hr IV TITRATE ANGELICA; Protocol Last Admin: 12/23/18 06:42 Dose: 1,000 units/hr, 20 mls/hr Documented by: Sodium Chloride (Nacl 0.9% 1000 Ml) 1,000 mls @ 75 mls/hr IV DIRECT ANGELICA Last Admin: 12/23/18 11:37 Dose: 75 mls/hr Documented by: Multi-Ingred Cream/Lotion/Oil/Oint (Artificial Tears Ophth Oint) 1 applic OU Q4HR PRN PRN Reason: Dry Eye(s) Ondansetron HCl (Zofran) 4 mg IV Q4H PRN PRN Reason: Nausea And Vomiting Sodium Chloride (Nacl 0.9% 500 Ml) 5 ml IV 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: 12/23/18 02:03 Dose: 5 ml Documented by: Sodium Chloride (Sodium Chloride Flush Syringe 10 Ml) 10 ml IV BID ANGELICA Last Admin: 12/23/18 09:43 Dose: 10 ml Documented by: Sodium Chloride (Sodium Chloride Flush Syringe 10 Ml) 10 ml IV PRN PRN PRN Reason: LINE FLUSH Physical Examination Vital Signs Pulse Resp 94 H 51 H 12/22/18 22:44 12/22/18 22:44 General appearance: other (intubated on the vent) Cardiac: Positive: Reg Rate and Rhythm Results 12/23/18 07:21 12/22/18 23:44 Cardiac Enzymes 12/22/18 12/23/18 12/23/18 Range/Units 23:44 03:26 05:16 AST 421 H (5-40) units/L CK-MB (CK-2) 4.9 H 15.5 H 18.0 H (0.0-4.0) ng/mL Coagulation 12/22/18 12/23/18 Range/Units 23:44 05:16 PT 14.1 13.8 (12.2-14.9) Sec. INR 1.03 1.00 (0.87-1.13) APTT 25.4 27.5 (24.2-36.6) Sec. Lipids 12/23/18 Range/Units 03:26 Triglycerides 52 (2-149) mg/dL Cholesterol 106 (50-199) mg/dL HDL Cholesterol 54 (40-59) mg/dL Cholesterol/HDL Ratio 1.96 % CBC 12/22/18 12/23/18 12/23/18 Range/Units 23:44 05:16 07:21 WBC 12.1 H 9.2 (4.5-11.0) K/mm3 RBC 4.30 4.09 (3.65-5.03) M/mm3 Hgb 13.4 12.8 13.0 (10.1-14.3) gm/dl Hct 40.4 37.1 38.5 (30.3-42.9) % Plt Count 68 L 175 D 163 (140-440) K/mm3 Lymph # 3.0 Host Hostess (1.2-5.4) K/mm3 [place] # 0.3 Host Hostess (0.0-0.8) K/mm3 Eos # 0.2 Host Hostess (0.0-0.4) K/mm3 Baso # 0.1 Host Hostess (0.0-0.1) K/mm3 Comprehensive Metabolic Panel 12/22/18 Range/Units 23:44 Sodium 143 (137-145) mmol/L Potassium 4.9 (3.6-5.0) mmol/L Chloride 105.4 (98-107) mmol/L Carbon Dioxide 21 L (22-30) mmol/L BUN 15 (7-17) mg/dL Creatinine 0.9 (0.7-1.2) mg/dL Glucose 248 H (65-100) mg/dL Calcium 8.7 (8.4-10.2) mg/dL AST 421 H (5-40) units/L ALT 430 H (7-56) units/L Alkaline Phosphatase 120 (35-129) units/L Total Protein 6.1 L (6.3-8.2) g/dL Albumin 3.5 L (3.9-5) g/dL
[2018-12-23] MEDS: COZAAR PO SCH (17:13)
[2018-12-23] MEDS: NORVASC PO SCH (17:13)
[2018-12-23] MEDS: CATAPRES-TTS PATCH TD SCH (17:45)
--- NOTE | 2018-12-23 18:32 | Consultation ---
History of Present Illness Consult date: 12/23/18 Requesting physician: EDDI BOWDEN Reason for consult: other (Cardiac Arrest) History of present illness: 63 y/o female with out of hospital cardiac arrest. Per report CPR in the field 8-10 minutes and then an additional 10-12 minutes here in the ED before ROSC achieved. Patient was then sedated with diprovan. Unable to obtain in further history. Medications and Allergies Allergies Allergy/AdvReac Type Severity Reaction Status Date / Time MARIAN Inhibitors Allergy Angioedema Verified 11/15/16 15:42 esomeprazole magnesium Allergy Swelling Verified 11/15/16 15:42 [From Nexium] labetalol Allergy Itching Verified 11/15/16 15:42 Home Medications Medication Instructions Recorded Confirmed Last Taken Type Carvedilol [Coreg] 25 mg PO BID #60 tablet 12/20/15 12/23/18 Unknown Rx Ferrous Sulfate [Feosol 325 MG tab] 325 mg PO QDAY 04/19/16 12/23/18 Unknown History Losartan [Cozaar] 100 mg PO QDAY #30 tablet 04/19/16 12/23/18 Unknown Rx Nitrostat 0.4 mg PO QDAY PRN 04/19/16 12/23/18 Unknown History metFORMIN [Glucophage] 1,000 mg PO BID 04/19/16 12/23/18 Unknown History Albuterol Sulfate [Ventolin HFA] 2 puff IH Q6HR PRN 12/23/18 12/23/18 Unknown History Orlistat [Antonio] 60 mg PO TID 12/23/18 12/23/18 Unknown History Tizanidine HCl [tiZANidine] 2 mg PO DAILY PRN 12/23/18 12/23/18 Unknown History Active Meds: Active Medications Acetaminophen (Tylenol) 650 mg PO Q4H PRN PRN Reason: Pain MILD(1-3)/Fever >100.5/ETIENNE Amlodipine Besylate (Norvasc) 10 mg PO QDAY [facility] Last Admin: 12/23/18 17:13 Dose: Not Given Documented by: Aspirin (Baby Aspirin) 81 mg PO QDAY [facility] Last Admin: 12/23/18 09:43 Dose: 81 mg Documented by: Carvedilol (Coreg) 25 mg PO BID [facility] Clonidine HCl (Catapres-Tts Patch) 0.2 mg TD We ANGELICA Last Admin: 12/23/18 17:45 Dose: 0.2 mg Documented by: Dextrose (D50w (25gm) Syringe) 50 ml IV PRN PRN PRN Reason: Hypoglycemia Hydrophilic Ointment (Vaseline Lip Therapy) 1 applic TP Q2HR PRN PRN Reason: Dry Lips Last Admin: 12/23/18 11:35 Dose: 1 applic Documented by: Propofol (Diprivan 10 Mg/Ml) 1,000 mg in 100 mls @ 3.3 mls/hr IV TITR ANGELICA; Protocol Last Admin: 12/23/18 08:10 Dose: 20 mcg/kg/min, 13.2 mls/hr Documented by: Norepinephrine (Levophed Drip 4 Mg/Ns 250 Ml) 4 mg in 250 mls @ 7.5 mls/hr IV TITR ANGELICA; Protocol Last Titration: 12/23/18 06:23 Dose: 0 mcg/min, 0 mls/hr Documented by: Heparin Sodium/Sodium Chloride (Heparin/ 0.45% Nacl-25,000 Unit/500 Ml) 25,000 unit in 500 mls @ 20 mls/hr IV TITRATE ANGELICA; Protocol Last Titration: 12/23/18 13:23 Dose: 1,000 units/hr, 20 mls/hr Documented by: Sodium Chloride (Nacl 0.9% 1000 Ml) 1,000 mls @ 75 mls/hr IV DIRECT ANGELICA Last Admin: 12/23/18 11:37 Dose: 75 mls/hr Documented by: Losartan Potassium (Cozaar) 100 mg PO QDAY ANGELICA Last Admin: 12/23/18 17:13 Dose: Not Given Documented by: Multi-Ingred Cream/Lotion/Oil/Oint (Artificial Tears Ophth Oint) 1 applic OU Q4HR PRN PRN Reason: Dry Eye(s) Ondansetron HCl (Zofran) 4 mg IV Q4H PRN PRN Reason: Nausea And Vomiting Sodium Chloride (Nacl 0.9% 500 Ml) 5 ml IV 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: 12/23/18 02:03 Dose: 5 ml Documented by: Sodium Chloride (Sodium Chloride Flush Syringe 10 Ml) 10 ml IV BID ANGELICA Last Admin: 12/23/18 09:43 Dose: 10 ml Documented by: Sodium Chloride (Sodium Chloride Flush Syringe 10 Ml) 10 ml IV PRN PRN PRN Reason: LINE FLUSH Physical Examination Vital signs: Vital Signs Pulse Resp 94 H 51 H 12/22/18 22:44 12/22/18 22:44 Results - Laboratory Findings CBC and BMP: 12/24/18 04:46 12/24/18 04:46 ABG POC ABG pH 7.368 (7.35-7.45) 12/23/18 05:18 POC ABG pCO2 37.6 (35-45) 12/23/18 05:18 POC ABG pO2 95 (80-105) 12/23/18 05:18 POC ABG HCO3 21.6 (22-26 mml/L) 12/23/18 05:18 POC ABG Total CO2 23 (23-27mmol/L) 12/23/18 05:18 POC ABG O2 Sat 97 12/23/18 05:18 PT/INR, D-dimer PT 13.8 Sec. (12.2-14.9) 12/23/18 05:16 INR 1.00 (0.87-1.13) 12/23/18 05:16 Abnormal lab findings: Abnormal Labs 12/22/18 12/22/18 12/22/18 22:48 23:44 23:44 WBC 12.1 H Plt Count 68 L Seg Neutrophils % 70.2 H Seg Neuts % (Manual) Lymphocytes % (Manual) Seg Neutrophils # 8.5 H Seg Neutrophils # Man Lymphocytes # (Manual) POC ABG pH POC ABG pCO2 POC ABG pO2 Carbon Dioxide 21 L Glucose 248 H POC Glucose 215 H AST 421 H ALT 430 H Total Creatine Kinase 219 H CK-MB (CK-2) 4.9 H Troponin T Total Protein 6.1 L Albumin 3.5 L Salicylates Acetaminophen 12/22/18 12/22/18 12/22/18 23:44 23:44 23:44 WBC Plt Count Seg Neutrophils % Seg Neuts % (Manual) Lymphocytes % (Manual) Seg Neutrophils # Seg Neutrophils # Man Lymphocytes # (Manual) POC ABG pH POC ABG pCO2 POC ABG pO2 Carbon Dioxide Glucose POC Glucose AST ALT Total Creatine Kinase 222 H CK-MB (CK-2) Troponin T Total Protein Albumin Salicylates < 0.3 L Acetaminophen < 5.0 L 12/22/18 12/23/18 12/23/18 23:45 03:06 03:26 WBC Plt Count Seg Neutrophils % Seg Neuts % (Manual) Lymphocytes % (Manual) Seg Neutrophils # Seg Neutrophils # Man Lymphocytes # (Manual) POC ABG pH 7.111 L 7.327 L POC ABG pCO2 65.8 H POC ABG pO2 50 L Carbon Dioxide Glucose POC Glucose AST ALT Total Creatine Kinase 542 H CK-MB (CK-2) 15.5 H Troponin T 0.041 H D Total Protein Albumin Salicylates Acetaminophen 12/23/18 12/23/18 12/23/18 05:16 07:21 08:36 WBC Plt Count Seg Neutrophils % Seg Neuts % (Manual) 95.0 H Lymphocytes % (Manual) 2.0 L Seg Neutrophils # Seg Neutrophils # Man 8.7 H Lymphocytes # (Manual) 0.2 L POC ABG pH POC ABG pCO2 POC ABG pO2 Carbon Dioxide Glucose POC Glucose 143 H AST ALT Total Creatine Kinase 652 H CK-MB (CK-2) 18.0 H Troponin T 0.074 H D Total Protein Albumin Salicylates Acetaminophen 12/23/18 Unknown WBC Plt Count Seg Neutrophils % Seg Neuts % (Manual) Lymphocytes % (Manual) Seg Neutrophils # Seg Neutrophils # Man Lymphocytes # (Manual) POC ABG pH POC ABG pCO2 POC ABG pO2 Carbon Dioxide Glucose POC Glucose AST ALT Total Creatine Kinase 722 H CK-MB (CK-2) 12.0 H Troponin T Total Protein Albumin Salicylates Acetaminophen Assessment and Plan 63 y/o female with out of hospital cardiac arrest and prolonged downtime without adequate cardiac circulation 1. Wean Diprovan to off 2. Wean FiO2 for sats >88% 3. restart home BP meds orally, will initiate drip if need be 4. Hopeful extubation in 24-48 hours. CCT 31 minutes
--- NOTE | 2018-12-23 18:34 | Event Note ---
Date: 12/23/18 Patient seen and examined this am, remains on full ventilatory support. will continue current management.
[2018-12-23] MEDS: COREG PO SCH (22:30)
[2018-12-24] MEDS ORDERED: NACL 0.9% 1000 ML 1,000 ML IV SCH (01:00)
[2018-12-24] MEDS: NACL 0.9% 1000 ML 1,000 ML IV SCH ×2 (01:51→13:37)
--- NOTE | 2018-12-24 02:28 | XRay Report ---
PROCEDURE: XR CHEST 1V AP TECHNIQUE: A portable upright view the chest was obtained. HISTORY: follow up respiratory failure COMPARISONS: 12/22/2018 FINDINGS: The heart is mildly enlarged. The lungs remain congested. There is bilateral interstitial edema. The tip of the ET tube is 3 cm above yuni. The tip of the right internal jugular line is in the mid SVC . The NG tube is in good position in the stomach. The skeletal structures are unchanged. IMPRESSION: Stable pulmonary edema. Satisfactory position of tubes and lines.. This document is electronically signed by Jermaine Frank MD., December 24 2018 02:26:26 AM ET
[2018-12-24] MEDS: HumaLOG SUB-Q SCH ×6 (02:58→21:46)
[2018-12-24] MEDS: DIPRIVAN 10 MG/ML 1,000 MG/100 ML BOTTLE IV SCH ×2 (04:20→11:49)
[2018-12-24 06:05] LABS: BUN/Creatinine Ratio 23; Blood Urea Nitrogen 21 mg/dL (7-17); Calcium 7.9 mg/dL (8.4-10.2); Hemolysis Index 26
[2018-12-24 06:43] LABS: Hematocrit 33.5 % (30.3-42.9); Hemoglobin 11.3 gm/dl (10.1-14.3); Mean Corpuscular HGB Conc 34 % (30-34); Mean Corpuscular Volume 93 fl (79-97); Platelet Count 137 K/mm3 (140-440); Red Blood Count 3.61 M/mm3 (3.65-5.03); Red Cell Distribution Width 14.9 % (13.2-15.2)
[2018-12-24 06:55] LABS: Basophils % (Auto) 0.3 % (0.0-1.8); Eosinophils % (Auto) 0.3 % (0.0-4.3); Lymphocytes # (Auto) 1.2 K/mm3 (1.2-5.4); Lymphocytes % (Auto) 14.8 % (13.4-35.0); Monocytes # (Auto) 0.7 K/mm3 (0.0-0.8); Monocytes % (Auto) 7.9 % (0.0-7.3)
[2018-12-24] MEDS: HEPARIN/ 0.45% NACL-25,000 UNIT/500 ML 25,000 UNIT/500 ML BAG IV SCH (08:25)
--- NOTE | 2018-12-24 09:55 | Progress Note ---
Assessment and Plan Out of the hospital cardiopulmonary arrest Head CT scan is negative. No evidence of PE by CTA Pulmonary edema Troponin is non-specific ECG showing non-specific ST-T changes Rhabdomyolysis Diabetes Hypertension Previous negative cardiac cath in 2010 . Normal thallium stress test in 2014. Echocardiogram this admission reports a normal left ventricular systolic function, EF 50-55%. Further cardiac work-up will depend on clinical course. Subjective Date of service: 12/24/18 Interval history: Patient is sedated and intubated on the vent. Objective Vital Signs Temp Pulse Pulse Pulse Pulse Pulse Pulse 12/24/18 08:33 98 H 12/24/18 07:11 92 H 12/24/18 07:00 93 H 12/24/18 06:51 94 H 12/24/18 06:41 97 H 12/24/18 06:30 94 H 12/24/18 06:21 92 H 12/24/18 06:11 92 H 12/24/18 06:00 92 H 12/24/18 05:51 92 H 12/24/18 05:41 92 H 12/24/18 05:30 93 H 12/24/18 05:21 92 H 12/24/18 05:11 93 H 12/24/18 05:00 92 H 12/24/18 04:51 93 H 12/24/18 04:41 93 H 12/24/18 04:30 92 H 12/24/18 04:21 94 H 12/24/18 04:11 92 H 12/24/18 04:00 100.5 F H 92 H 98 H 98 H 98 H 98 H 98 H 12/24/18 03:51 93 H 12/24/18 03:41 92 H 12/24/18 03:30 92 H 12/24/18 03:21 90 12/24/18 03:12 90 12/24/18 03:11 92 H 12/24/18 03:00 93 H 12/24/18 02:51 92 H 12/24/18 02:41 93 H 12/24/18 02:30 95 H 12/24/18 02:21 96 H 12/24/18 02:11 93 H 12/24/18 02:00 95 H 12/24/18 01:51 96 H 12/24/18 01:41 97 H 12/24/18 01:30 96 H 98 H 98 H 98 H 98 H 98 H 12/24/18 01:21 96 H 12/24/18 01:11 98 H 12/24/18 01:00 100 H 12/24/18 00:52 102 H 12/24/18 00:50 103 H 12/24/18 00:21 101 H 12/24/18 00:11 105 H 12/24/18 00:00 102 H 12/23/18 23:51 102 H 12/23/18 23:41 102 H 12/23/18 23:35 105 H 12/23/18 23:30 103 H 12/23/18 23:15 102 H 12/23/18 23:00 101 H 12/23/18 22:45 101 H 12/23/18 22:30 103 H 12/23/18 22:15 102 H 12/23/18 22:05 12/23/18 22:00 100 H 12/23/18 21:45 100 H 12/23/18 21:30 100 H 12/23/18 21:15 102 H 12/23/18 21:00 99 H 12/23/18 20:45 98 H 12/23/18 20:30 97 H 12/23/18 20:15 98 H 12/23/18 20:00 99 H 12/23/18 19:45 98 H 12/23/18 19:40 99 H 12/23/18 19:30 101 H 12/23/18 19:15 98.8 F 96 H 12/23/18 19:00 100 H 12/23/18 18:45 98 H 12/23/18 18:30 97 H 12/23/18 18:15 97 H 12/23/18 18:00 98 H 12/23/18 17:45 97 H 12/23/18 17:30 96 H 12/23/18 17:15 94 H 12/23/18 17:00 96 H 12/23/18 16:55 95 H 12/23/18 16:45 97 H 12/23/18 16:30 95 H 12/23/18 16:15 95 H 12/23/18 16:01 94 H 12/23/18 15:45 92 H 12/23/18 15:30 94 H 12/23/18 15:15 93 H 12/23/18 15:00 91 H 12/23/18 14:45 91 H 12/23/18 14:30 91 H 12/23/18 14:15 94 H 12/23/18 14:00 88 12/23/18 13:45 87 12/23/18 13:30 89 12/23/18 13:15 88 12/23/18 13:00 89 12/23/18 12:49 94 H 12/23/18 12:45 88 12/23/18 12:30 86 12/23/18 12:15 85 12/23/18 12:00 84 12/23/18 11:45 87 12/23/18 11:30 83 12/23/18 11:15 85 12/23/18 11:00 85 12/23/18 10:45 85 12/23/18 10:30 86 12/23/18 10:15 87 12/23/18 10:01 92 H Resp BP BP Pulse Ox 12/24/18 08:33 145/86 100 12/24/18 07:11 16 159/80 100 12/24/18 07:00 16 159/80 100 12/24/18 06:51 16 156/81 100 12/24/18 06:41 18 160/85 100 12/24/18 06:30 16 160/85 100 12/24/18 06:21 16 154/82 100 12/24/18 06:11 17 162/82 100 12/24/18 06:00 16 158/82 100 12/24/18 05:51 16 162/82 100 12/24/18 05:41 16 160/82 100 12/24/18 05:30 16 160/82 100 12/24/18 05:21 16 156/79 100 12/24/18 05:11 16 149/78 100 12/24/18 05:00 16 149/78 100 12/24/18 04:51 16 144/77 100 12/24/18 04:41 16 153/74 100 12/24/18 04:30 14 153/74 100 12/24/18 04:21 16 147/78 100 12/24/18 04:11 16 152/78 100 12/24/18 04:00 16 157/78 100 12/24/18 03:51 16 152/78 100 12/24/18 03:41 16 157/91 100 12/24/18 03:30 20 157/91 100 12/24/18 03:21 20 167/85 100 12/24/18 03:12 157/81 100 12/24/18 03:11 20 157/81 100 12/24/18 03:00 20 160/74 100 12/24/18 02:51 20 160/74 100 12/24/18 02:41 20 186/81 100 12/24/18 02:30 20 186/81 100 12/24/18 02:21 20 181/88 100 12/24/18 02:11 17 170/86 100 12/24/18 02:00 20 180/89 100 12/24/18 01:51 20 170/86 100 12/24/18 01:41 20 184/94 100 12/24/18 01:30 20 184/94 100 12/24/18 01:21 20 178/93 100 12/24/18 01:11 20 174/89 100 12/24/18 01:00 20 174/89 100 12/24/18 00:52 25 H 100 12/24/18 00:50 100 12/24/18 00:21 20 173/80 97 12/24/18 00:11 17 154/81 98 12/24/18 00:00 20 154/81 99 12/23/18 23:51 20 164/79 98 12/23/18 23:41 20 165/86 98 12/23/18 23:35 17 165/86 98 12/23/18 23:30 20 165/86 98 12/23/18 23:15 20 155/78 98 12/23/18 23:00 20 162/78 98 12/23/18 22:45 20 160/78 98 12/23/18 22:30 20 168/84 98 12/23/18 22:15 20 161/81 98 12/23/18 22:05 99 12/23/18 22:00 20 165/73 98 12/23/18 21:45 20 157/75 97 12/23/18 21:30 20 160/80 97 12/23/18 21:15 20 178/91 97 12/23/18 21:00 20 161/89 98 12/23/18 20:45 20 174/89 99 12/23/18 20:30 20 169/87 100 12/23/18 20:15 20 163/82 99 12/23/18 20:00 20 164/85 99 12/23/18 19:45 20 169/87 100 12/23/18 19:40 169/87 100 12/23/18 19:30 20 174/93 99 12/23/18 19:15 19 181/93 175/93 100 12/23/18 19:00 14 175/93 99 12/23/18 18:45 20 172/88 99 12/23/18 18:30 20 172/90 100 12/23/18 18:15 20 179/91 100 12/23/18 18:00 20 159/89 99 12/23/18 17:45 20 171/90 100 12/23/18 17:30 20 180/95 100 12/23/18 17:15 20 188/96 100 12/23/18 17:00 20 171/99 100 12/23/18 16:55 180/95 100 12/23/18 16:45 20 179/102 100 12/23/18 16:30 20 192/99 100 12/23/18 16:15 20 187/93 100 12/23/18 16:01 20 189/93 100 12/23/18 15:45 20 193/93 100 12/23/18 15:30 20 194/95 100 12/23/18 15:15 20 193/96 100 12/23/18 15:00 20 180/93 100 12/23/18 14:45 20 196/97 100 12/23/18 14:30 15 197/98 100 12/23/18 14:15 16 207/111 100 12/23/18 14:00 14 198/99 100 12/23/18 13:45 20 195/101 100 12/23/18 13:30 22 174/146 100 12/23/18 13:15 20 164/92 100 12/23/18 13:00 20 172/86 100 12/23/18 12:49 196/97 100 12/23/18 12:45 20 186/91 100 12/23/18 12:30 20 184/91 100 12/23/18 12:15 20 197/94 100 12/23/18 12:00 20 207/102 100 12/23/18 11:45 20 188/94 100 12/23/18 11:30 20 186/94 100 19 11:15 20 187/93 12/23/18 11:00 20 197/100 12/23/18 10:45 20 188/91 12/23/18 10:30 20 196/115 12/23/18 10:15 20 184/104 12/23/18 10:01 20 146/70 95 - Physical Examination General: Other (intubated on the vent) Cardiac: Positive: Reg Rate and Rhythm - Labs and Meds Cardiac Enzymes 12/23/18 Range/Units Unknown CK-MB (CK-2) 12.0 H (0.0-4.0) ng/mL CBC 12/24/18 Range/Units 04:46 WBC 8.4 (4.5-11.0) K/mm3 RBC 3.61 L (3.65-5.03) M/mm3 Hgb 11.3 (10.1-14.3) gm/dl Hct 33.5 (30.3-42.9) % Plt Count 137 L (140-440) K/mm3 Lymph # 1.2 (1.2-5.4) K/mm3 [place] # 0.7 (0.0-0.8) K/mm3 Eos # 0.0 (0.0-0.4) K/mm3 Baso # 0.0 (0.0-0.1) K/mm3 Comprehensive Metabolic Panel 12/24/18 Range/Units 04:46 Sodium 142 (137-145) mmol/L Potassium 3.9 D (3.6-5.0) mmol/L Chloride 107.3 H (98-107) mmol/L Carbon Dioxide 20 L (22-30) mmol/L BUN 21 H (7-17) mg/dL Creatinine 0.9 (0.7-1.2) mg/dL Glucose 205 H (65-100) mg/dL Calcium 7.9 L (8.4-10.2) mg/dL
[2018-12-24] MEDS: SODIUM CHLORIDE FLUSH SYRINGE 10 ML IV SCH ×2 (10:00→21:34)
[2018-12-24] MEDS: BABY ASPIRIN PO SCH (10:00)
[2018-12-24] MEDS: NORVASC PO SCH (10:00)
[2018-12-24] MEDS: COZAAR PO SCH (10:00)
[2018-12-24] MEDS: COREG PO SCH ×2 (10:16→21:32)
[2018-12-24] MEDS: APRESOLINE IV PRN (10:39)
[2018-12-24] MEDS: PEPCID IV SCH ×2 (10:49→21:33)
[2018-12-24] MEDS: TYLENOL PO PRN ×3 (12:56→21:32)
--- NOTE | 2018-12-24 13:41 | Progress Note ---
Assessment and Plan 63 y/o female with out of hospital cardiac arrest and prolonged downtime without adequate cardiac circulation 1. Stop sedation 2. Extubate 3. Will add lasix therapy 40 IV x1 4. BP control per primary and cards. Will initiate cardene drip if necessary CCT 31 minutes Subjective Date of service: 12/24/18 Interval history: Awake and alert. Following commands. Family at bedside. BP elevated even after restarting BP meds. Objective Vital Signs - 12hr 12/24/18 12/24/18 12/24/18 01:41 01:51 02:00 Temperature Pulse Rate 97 H 96 H 95 H Pulse Rate [ From Monitor] Pulse Rate [ Left Dorsalis Pedis] Pulse Rate [ Left Radial] Pulse Rate [ Radial] Pulse Rate [ Right Dorsalis Pedis] Respiratory 20 20 20 Rate Blood Pressure 184/94 170/86 180/89 O2 Sat by Pulse 100 100 100 Oximetry 12/24/18 12/24/18 12/24/18 02:11 02:21 02:30 Temperature Pulse Rate 93 H 96 H 95 H Pulse Rate [ From Monitor] Pulse Rate [ Left Dorsalis Pedis] Pulse Rate [ Left Radial] Pulse Rate [ Radial] Pulse Rate [ Right Dorsalis Pedis] Respiratory 17 20 20 Rate Blood Pressure 170/86 181/88 186/81 O2 Sat by Pulse 100 100 100 Oximetry 12/24/18 12/24/18 12/24/18 02:41 02:51 03:00 Temperature Pulse Rate 93 H 92 H 93 H Pulse Rate [ From Monitor] Pulse Rate [ Left Dorsalis Pedis] Pulse Rate [ Left Radial] Pulse Rate [ Radial] Pulse Rate [ Right Dorsalis Pedis] Respiratory 20 20 20 Rate Blood Pressure 186/81 160/74 160/74 O2 Sat by Pulse 100 100 100 Oximetry 12/24/18 12/24/18 12/24/18 03:11 03:12 03:21 Temperature Pulse Rate 92 H 90 90 Pulse Rate [ From Monitor] Pulse Rate [ Left Dorsalis Pedis] Pulse Rate [ Left Radial] Pulse Rate [ Radial] Pulse Rate [ Right Dorsalis Pedis] Respiratory 20 20 Rate Blood Pressure 157/81 157/81 167/85 O2 Sat by Pulse 100 100 100 Oximetry 12/24/18 12/24/18 12/24/18 03:30 03:41 03:51 Temperature Pulse Rate 92 H 92 H 93 H Pulse Rate [ From Monitor] Pulse Rate [ Left Dorsalis Pedis] Pulse Rate [ Left Radial] Pulse Rate [ Radial] Pulse Rate [ Right Dorsalis Pedis] Respiratory 20 16 16 Rate Blood Pressure 157/91 157/91 152/78 O2 Sat by Pulse 100 100 100 Oximetry 12/24/18 12/24/18 12/24/18 04:00 04:11 04:21 Temperature 100.5 F H Pulse Rate 92 H 92 H 94 H Pulse Rate [ 98 H From Monitor] Pulse Rate [ 98 H Left Dorsalis Pedis] Pulse Rate [ 98 H Left Radial] Pulse Rate [ 98 H Radial] Pulse Rate [ 98 H Right Dorsalis Pedis] Respiratory 16 16 16 Rate Blood Pressure 157/78 152/78 147/78 O2 Sat by Pulse 100 100 100 Oximetry 12/24/18 12/24/18 12/24/18 04:30 04:41 04:51 Temperature Pulse Rate 92 H 93 H 93 H Pulse Rate [ From Monitor] Pulse Rate [ Left Dorsalis Pedis] Pulse Rate [ Left Radial] Pulse Rate [ Radial] Pulse Rate [ Right Dorsalis Pedis] Respiratory 14 16 16 Rate Blood Pressure 153/74 153/74 144/77 O2 Sat by Pulse 100 100 100 Oximetry 12/24/18 12/24/18 12/24/18 05:00 05:11 05:21 Temperature Pulse Rate 92 H 93 H 92 H Pulse Rate [ From Monitor] Pulse Rate [ Left Dorsalis Pedis] Pulse Rate [ Left Radial] Pulse Rate [ Radial] Pulse Rate [ Right Dorsalis Pedis] Respiratory 16 16 16 Rate Blood Pressure 149/78 149/78 156/79 O2 Sat by Pulse 100 100 100 Oximetry 12/24/18 12/24/18 12/24/18 05:30 05:41 05:51 Temperature Pulse Rate 93 H 92 H 92 H Pulse Rate [ From Monitor] Pulse Rate [ Left Dorsalis Pedis] Pulse Rate [ Left Radial] Pulse Rate [ Radial] Pulse Rate [ Right Dorsalis Pedis] Respiratory 16 16 16 Rate Blood Pressure 160/82 160/82 162/82 O2 Sat by Pulse 100 100 100 Oximetry 12/24/18 12/24/18 12/24/18 06:00 06:11 06:21 Temperature Pulse Rate 92 H 92 H 92 H Pulse Rate [ From Monitor] Pulse Rate [ Left Dorsalis Pedis] Pulse Rate [ Left Radial] Pulse Rate [ Radial] Pulse Rate [ Right Dorsalis Pedis] Respiratory 16 17 16 Rate Blood Pressure 158/82 162/82 154/82 O2 Sat by Pulse 100 100 100 Oximetry 12/24/18 12/24/18 12/24/18 06:30 06:41 06:51 Temperature Pulse Rate 94 H 97 H 94 H Pulse Rate [ From Monitor] Pulse Rate [ Left Dorsalis Pedis] Pulse Rate [ Left Radial] Pulse Rate [ Radial] Pulse Rate [ Right Dorsalis Pedis] Respiratory 16 18 16 Rate Blood Pressure 160/85 160/85 156/81 O2 Sat by Pulse 100 100 100 Oximetry 12/24/18 12/24/18 12/24/18 07:00 07:11 07:21 Temperature Pulse Rate 93 H 92 H 94 H Pulse Rate [ From Monitor] Pulse Rate [ Left Dorsalis Pedis] Pulse Rate [ Left Radial] Pulse Rate [ Radial] Pulse Rate [ Right Dorsalis Pedis] Respiratory 16 16 17 Rate Blood Pressure 159/80 159/80 161/82 O2 Sat by Pulse 100 100 100 Oximetry 12/24/18 12/24/18 12/24/18 07:30 07:41 07:51 Temperature Pulse Rate 93 H 94 H 94 H Pulse Rate [ From Monitor] Pulse Rate [ Left Dorsalis Pedis] Pulse Rate [ Left Radial] Pulse Rate [ Radial] Pulse Rate [ Right Dorsalis Pedis] Respiratory 16 16 16 Rate Blood Pressure 153/81 153/81 165/78 O2 Sat by Pulse 100 100 100 Oximetry 12/24/18 12/24/18 12/24/18 08:00 08:11 08:21 Temperature 100.1 F H Pulse Rate 94 H 94 H 92 H Pulse Rate [ 93 H From Monitor] Pulse Rate [ 93 H Left Dorsalis Pedis] Pulse Rate [ 93 H Left Radial] Pulse Rate [ 98 H Radial] Pulse Rate [ 93 H Right Dorsalis Pedis] Respiratory 16 16 16 Rate Blood Pressure 169/82 169/82 162/82 O2 Sat by Pulse 100 100 100 Oximetry 12/24/18 12/24/18 12/24/18 08:30 08:33 08:41 Temperature Pulse Rate 94 H 98 H 98 H Pulse Rate [ From Monitor] Pulse Rate [ Left Dorsalis Pedis] Pulse Rate [ Left Radial] Pulse Rate [ Radial] Pulse Rate [ Right Dorsalis Pedis] Respiratory 17 19 Rate Blood Pressure 145/86 145/86 145/86 O2 Sat by Pulse 100 100 100 Oximetry 12/24/18 12/24/18 12/24/18 08:51 09:00 09:10 Temperature Pulse Rate 93 H 94 H 97 H Pulse Rate [ From Monitor] Pulse Rate [ Left Dorsalis Pedis] Pulse Rate [ Left Radial] Pulse Rate [ Radial] Pulse Rate [ Right Dorsalis Pedis] Respiratory 16 18 20 Rate Blood Pressure 167/77 168/87 168/87 O2 Sat by Pulse 100 100 100 Oximetry 12/24/18 12/24/18 12/24/18 09:21 09:30 09:41 Temperature Pulse Rate 95 H 93 H 93 H Pulse Rate [ From Monitor] Pulse Rate [ Left Dorsalis Pedis] Pulse Rate [ Left Radial] Pulse Rate [ Radial] Pulse Rate [ Right Dorsalis Pedis] Respiratory 16 16 16 Rate Blood Pressure 161/84 163/84 163/84 O2 Sat by Pulse 100 100 100 Oximetry 12/24/18 12/24/18 12/24/18 09:51 10:00 10:11 Temperature Pulse Rate 93 H 94 H 95 H Pulse Rate [ From Monitor] Pulse Rate [ Left Dorsalis Pedis] Pulse Rate [ Left Radial] Pulse Rate [ Radial] Pulse Rate [ Right Dorsalis Pedis] Respiratory 16 16 16 Rate Blood Pressure 169/85 173/84 173/84 O2 Sat by Pulse 100 100 100 Oximetry 12/24/18 12/24/18 12/24/18 10:21 10:30 10:39 Temperature Pulse Rate 92 H 94 H 93 H Pulse Rate [ From Monitor] Pulse Rate [ Left Dorsalis Pedis] Pulse Rate [ Left Radial] Pulse Rate [ Radial] Pulse Rate [ Right Dorsalis Pedis] Respiratory 16 16 Rate Blood Pressure 171/88 175/82 178/90 O2 Sat by Pulse 100 100 Oximetry 12/24/18 12/24/18 12/24/18 10:41 10:51 11:00 Temperature Pulse Rate 92 H 95 H 93 H Pulse Rate [ From Monitor] Pulse Rate [ Left Dorsalis Pedis] Pulse Rate [ Left Radial] Pulse Rate [ Radial] Pulse Rate [ Right Dorsalis Pedis] Respiratory 16 18 19 Rate Blood Pressure 178/90 176/78 179/86 O2 Sat by Pulse 100 100 100 Oximetry 03/28/19 03/28/19 03/28/19 11:11 11:21 11:30 Temperature Pulse Rate 94 H 94 H 94 H Pulse Rate [ From Monitor] Pulse Rate [ Left Dorsalis Pedis] Pulse Rate [ Left Radial] Pulse Rate [ Radial] Pulse Rate [ Right Dorsalis Pedis] Respiratory 19 19 18 Rate Blood Pressure 179/86 177/87 178/84 O2 Sat by Pulse 100 100 100 Oximetry 12/24/18 12/24/18 12/24/18 11:41 11:51 12:00 Temperature Pulse Rate 95 H 94 H 96 H Pulse Rate [ 93 H From Monitor] Pulse Rate [ 93 H Left Dorsalis Pedis] Pulse Rate [ 93 H Left Radial] Pulse Rate [ 98 H Radial] Pulse Rate [ 93 H Right Dorsalis Pedis] Respiratory 18 18 19 Rate Blood Pressure 178/84 179/85 163/82 O2 Sat by Pulse 100 100 100 Oximetry 12/24/18 12/24/18 12/24/18 12:11 12:21 12:31 Temperature Pulse Rate 97 H 90 96 H Pulse Rate [ From Monitor] Pulse Rate [ Left Dorsalis Pedis] Pulse Rate [ Left Radial] Pulse Rate [ Radial] Pulse Rate [ Right Dorsalis Pedis] Respiratory 17 18 14 Rate Blood Pressure 163/82 169/83 186/162 O2 Sat by Pulse 100 100 93 Oximetry 12/24/18 12/24/18 12/24/18 12:41 12:51 13:00 Temperature Pulse Rate 96 H 97 H 95 H Pulse Rate [ From Monitor] Pulse Rate [ Left Dorsalis Pedis] Pulse Rate [ Left Radial] Pulse Rate [ Radial] Pulse Rate [ Right Dorsalis Pedis] Respiratory 25 H 20 20 Rate Blood Pressure 175/92 186/162 164/83 O2 Sat by Pulse 100 100 100 Oximetry Constitutional: no acute distress, alert Eyes: non-icteric ENT: other (orally intubated) Neck: supple Ascultation: Bilateral: clear CBC and BMP: 12/24/18 04:46 12/24/18 04:46 ABG, PT/INR, D-dimer: ABG POC ABG pH 7.424 (7.35-7.45) 12/24/18 03:34 POC ABG pCO2 31.0 (35-45) L 12/24/18 03:34 POC ABG pO2 139 (80-105) H 12/24/18 03:34 POC ABG HCO3 20.3 (22-26 mml/L) 12/24/18 03:34 POC ABG Total CO2 21 (23-27mmol/L) 12/24/18 03:34 POC ABG O2 Sat 99 12/24/18 03:34 PT/INR, D-dimer PT 13.8 Sec. (12.2-14.9) 12/23/18 05:16 INR 1.00 (0.87-1.13) 12/23/18 05:16 Abnormal lab findings: Abnormal Labs 12/22/18 12/22/18 12/22/18 22:48 23:44 23:44 WBC 12.1 H RBC Plt Count 68 L [place] % (Auto) Seg Neutrophils % 70.2 H Seg Neuts % (Manual) Lymphocytes % (Manual) Seg Neutrophils # 8.5 H Seg Neutrophils # Man Lymphocytes # (Manual) Heparin Anti-Xa Level POC ABG pH POC ABG pCO2 POC ABG pO2 Chloride Carbon Dioxide 21 L BUN Glucose 248 H POC Glucose 215 H Calcium AST 421 H ALT 430 H Total Creatine Kinase 219 H CK-MB (CK-2) 4.9 H Troponin T Total Protein 6.1 L Albumin 3.5 L Salicylates Acetaminophen 12/22/18 12/22/18 12/22/18 23:44 23:44 23:44 WBC RBC Plt Count [place] % (Auto) Seg Neutrophils % Seg Neuts % (Manual) Lymphocytes % (Manual) Seg Neutrophils # Seg Neutrophils # Man Lymphocytes # (Manual) Heparin Anti-Xa Level POC ABG pH POC ABG pCO2 POC ABG pO2 Chloride Carbon Dioxide BUN Glucose POC Glucose Calcium AST ALT Total Creatine Kinase 222 H CK-MB (CK-2) Troponin T Total Protein Albumin Salicylates < 0.3 L Acetaminophen < 5.0 L 12/22/18 12/23/18 12/23/18 23:45 03:06 03:26 WBC RBC Plt Count [place] % (Auto) Seg Neutrophils % Seg Neuts % (Manual) Lymphocytes % (Manual) Seg Neutrophils # Seg Neutrophils # Man Lymphocytes # (Manual) Heparin Anti-Xa Level POC ABG pH 7.111 L 7.327 L POC ABG pCO2 65.8 H POC ABG pO2 50 L Chloride Carbon Dioxide BUN Glucose POC Glucose Calcium AST ALT Total Creatine Kinase 542 H CK-MB (CK-2) 15.5 H Troponin T 0.041 H D Total Protein Albumin Salicylates Acetaminophen 12/23/18 12/23/18 12/23/18 05:16 07:21 08:36 WBC RBC Plt Count [place] % (Auto) Seg Neutrophils % Seg Neuts % (Manual) 95.0 H Lymphocytes % (Manual) 2.0 L Seg Neutrophils # Seg Neutrophils # Man 8.7 H Lymphocytes # (Manual) 0.2 L Heparin Anti-Xa Level POC ABG pH POC ABG pCO2 POC ABG pO2 Chloride Carbon Dioxide BUN Glucose POC Glucose 143 H Calcium AST ALT Total Creatine Kinase 652 H CK-MB (CK-2) 18.0 H Troponin T 0.074 H D Total Protein Albumin Salicylates Acetaminophen 12/23/18 12/23/18 12/23/18 20:40 20:51 Unknown WBC RBC Plt Count [place] % (Auto) Seg Neutrophils % Seg Neuts % (Manual) Lymphocytes % (Manual) Seg Neutrophils # Seg Neutrophils # Man Lymphocytes # (Manual) Heparin Anti-Xa Level 0.19 L POC ABG pH POC ABG pCO2 POC ABG pO2 Chloride Carbon Dioxide BUN Glucose POC Glucose 150 H Calcium AST ALT Total Creatine Kinase 722 H CK-MB (CK-2) 12.0 H Troponin T Total Protein Albumin Salicylates Acetaminophen 12/24/18 12/24/18 12/24/18 01:57 03:34 04:46 WBC RBC 3.61 L Plt Count 137 L [place] % (Auto) 7.9 H Seg Neutrophils % 76.7 H Seg Neuts % (Manual) Lymphocytes % (Manual) Seg Neutrophils # Seg Neutrophils # Man Lymphocytes # (Manual) Heparin Anti-Xa Level POC ABG pH POC ABG pCO2 31.0 L POC ABG pO2 139 H Chloride Carbon Dioxide BUN Glucose POC Glucose 203 H Calcium AST ALT Total Creatine Kinase CK-MB (CK-2) Troponin T Total Protein Albumin Salicylates Acetaminophen 12/24/18 12/24/18 12/24/18 04:46 04:46 04:46 WBC RBC Plt Count [place] % (Auto) Seg Neutrophils % Seg Neuts % (Manual) Lymphocytes % (Manual) Seg Neutrophils # Seg Neutrophils # Man Lymphocytes # (Manual) Heparin Anti-Xa Level 0.24 L POC ABG pH POC ABG pCO2 POC ABG pO2 Chloride 107.3 H Carbon Dioxide 20 L BUN 21 H Glucose 205 H POC Glucose Calcium 7.9 L AST ALT Total Creatine Kinase 560 H CK-MB (CK-2) Troponin T Total Protein Albumin Salicylates Acetaminophen 12/24/18 12/24/18 05:29 10:30 WBC RBC Plt Count [place] % (Auto) Seg Neutrophils % Seg Neuts % (Manual) Lymphocytes % (Manual) Seg Neutrophils # Seg Neutrophils # Man Lymphocytes # (Manual) Heparin Anti-Xa Level POC ABG pH POC ABG pCO2 POC ABG pO2 Chloride Carbon Dioxide BUN Glucose POC Glucose 180 H 181 H Calcium AST ALT Total Creatine Kinase CK-MB (CK-2) Troponin T Total Protein Albumin Salicylates Acetaminophen
[2018-12-24] MEDS ORDERED: LASIX IV ONE (14:00)
--- NOTE | 2018-12-24 22:40 | Progress Note ---
Assessment and Plan Assessment and plan: 61-year-old woman with a history of hypertension, diabetes. The emergency room chart was brought to the emergency room because she complained of chest pain and subsequently had a cardiac arrest at home. She was resuscitated for 10 minutes in the field and then 10 minutes here in the emergency room. * Patient was successfully extubated * Information in chart obtained from family states that patient went into respiratory distress following returning from seafood restaurant and was noted to have lips swelling * Echocardiogram this admission reports a normal left ventricular systolic function, EF 50-55%. CXR: IMPRESSION: Stable pulmonary edema. Satisfactory position of tubes and lines. CT HEAD: IMPRESSION: No acute intracranial process.. Acute respiratory failure likely secondary to allergic reaction following seafood ingestion out of hospital Cardiac arrest Hypertension Diabetes Obesity Type 2 AL Rhabdomyolysis Plan Supportive care PRN BENADRYL, STEROIDS H2 VIV CARDIOLOGY AND PULMONARY INPUT NOTED ATTEMPTED TO DOCUMENT SEAFOOD ALLERGY BUT COULD NOT. NOTIFIED NURSING STAFF TO ASSIST Lasix per Pulmonary BP control DM Control Check fingersticks, DVT/GI prophy The high probability of a clinically significant, sudden or life threatening deterioration of the [cardiac, pulmonary] system(s) required my full and direct attention, intervention and personal management. The aggregate critical care time was [35] minutes. This time is in addition to time spent performing reported procedures but includes the following: [x] Data Review and interpretation [x] Patient assessment and monitoring of vital signs [x] Documentation [x] Medication orders and management History Interval history: Patient seen and examined post extubation, still lethargic but denies any new complaints, answers questions appropriately and following commands. Hospitalist Physical - Physical exam Narrative exam: VITAL SIGNS: Reviewed. GENERAL: The patient appeared very lethargic, Vital signs as documented. HEAD: No signs of head trauma. EYES: Pupils are equal. Extraocular motions intact. EARS: Hearing grossly intact. MOUTH: Oropharynx is normal. NECK: No adenopathy, no JVD. CHEST: Chest with diminshed breath sounds bilaterally. No wheezes, rales, or rhonchi. CARDIAC: Regular rate and rhythm. S1 and S2, without murmurs, gallops, or rubs. VASCULAR: No Edema. Peripheral pulses normal and equal in all extremities. ABDOMEN: Soft, non tender and non distended. No rebound or guarding, and no masses palpated. Bowel Sounds normal. MUSCULOSKELETAL: Extremities without clubbing, cyanosis or edema. NEUROLOGIC EXAM: awake, lethargic but oriented x 3 No focal sensory or strength deficits. Follows commands. PSYCHIATRIC: Mood normal. SKIN: No rash or lesions. - Constitutional Vitals: Temp Pulse Resp BP Pulse Ox 98.8 F 81 25 H 152/71 94 12/24/18 20:00 12/24/18 22:15 12/24/18 22:15 12/24/18 22:15 12/24/18 22:15 General appearance: Present: other (intubated on the vent) Results - Labs CBC & Chem 7: 12/24/18 04:46 12/24/18 04:46 Labs: Laboratory Last Values WBC 8.4 K/mm3 (4.5-11.0) 12/24/18 04:46 RBC 3.61 M/mm3 (3.65-5.03) L 12/24/18 04:46 Hgb 11.3 gm/dl (10.1-14.3) 12/24/18 04:46 Hct 33.5 % (30.3-42.9) 12/24/18 04:46 MCV 93 fl (79-97) 12/24/18 04:46 MCH 31 pg (28-32) 12/24/18 04:46 MCHC 34 % (30-34) 12/24/18 04:46 RDW 14.9 % (13.2-15.2) 12/24/18 04:46 Plt Count 137 K/mm3 (140-440) L 12/24/18 04:46 Lymph % (Auto) 14.8 % (13.4-35.0) 12/24/18 04:46 [place] % (Auto) 7.9 % (0.0-7.3) H 12/24/18 04:46 Eos % (Auto) 0.3 % (0.0-4.3) 12/24/18 04:46 Baso % (Auto) 0.3 % (0.0-1.8) 12/24/18 04:46 Lymph # 1.2 K/mm3 (1.2-5.4) 12/24/18 04:46 [place] # 0.7 K/mm3 (0.0-0.8) 12/24/18 04:46 Eos # 0.0 K/mm3 (0.0-0.4) 12/24/18 04:46 Baso # 0.0 K/mm3 (0.0-0.1) 12/24/18 04:46 Add Manual Diff Complete 12/23/18 07:21 Total Counted 100 12/23/18 07:21 Seg Neutrophils % 76.7 % (40.0-70.0) H 12/24/18 04:46 Seg Neuts % (Manual) 95.0 % (40.0-70.0) H 12/23/18 07:21 Band Neutrophils % 0 % 12/23/18 07:21 Lymphocytes % (Manual) 2.0 % (13.4-35.0) L 12/23/18 07:21 Reactive Lymphs % (Man) 0 % 12/23/18 07:21 Monocytes % (Manual) 3.0 % (0.0-7.3) 12/23/18 07:21 Eosinophils % (Manual) 0 % (0.0-4.3) 12/23/18 07:21 Basophils % (Manual) 0 % (0.0-1.8) 12/23/18 07:21 Metamyelocytes % 0 % 12/23/18 07:21 Myelocytes % 0 % 12/23/18 07:21 Promyelocytes % 0 % 12/23/18 07:21 Blast Cells % 0 % 12/23/18 07:21 Nucleated RBC % Not Reportable 12/23/18 07:21 Seg Neutrophils # 6.4 K/mm3 (1.8-7.7) 12/24/18 04:46 Seg Neutrophils # Man 8.7 K/mm3 (1.8-7.7) H 12/23/18 07:21 Band Neutrophils # 0.0 K/mm3 12/23/18 07:21 Lymphocytes # (Manual) 0.2 K/mm3 (1.2-5.4) L 12/23/18 07:21 Abs React Lymphs (Man) 0.0 K/mm3 12/23/18 07:21 Monocytes # (Manual) 0.3 K/mm3 (0.0-0.8) 12/23/18 07:21 Eosinophils # (Manual) 0.0 K/mm3 (0.0-0.4) 12/23/18 07:21 Basophils # (Manual) 0.0 K/mm3 (0.0-0.1) 12/23/18 07:21 Metamyelocytes # 0.0 K/mm3 12/23/18 07:21 Myelocytes # 0.0 K/mm3 12/23/18 07:21 Promyelocytes # 0.0 K/mm3 12/23/18 07:21 Blast Cells # 0.0 K/mm3 12/23/18 07:21 WBC Morphology Not Reportable 12/23/18 07:21 Hypersegmented Neuts Not Reportable 12/23/18 07:21 Hyposegmented Neuts Not Reportable 12/23/18 07:21 Hypogranular Neuts Not Reportable 12/23/18 07:21 Smudge Cells Not Reportable 12/23/18 07:21 Toxic Granulation Not Reportable 12/23/18 07:21 Toxic Vacuolation Not Reportable 12/23/18 07:21 Dohle Bodies Not Reportable 12/23/18 07:21 Pelger-Huet Anomaly Not Reportable 12/23/18 07:21 Isis Rods Not Reportable 12/23/18 07:21 Platelet Estimate Consistent w auto 12/23/18 07:21 Clumped Platelets Not Reportable 12/23/18 07:21 Plt Clumps, EDTA Not Reportable 12/23/18 07:21 Large Platelets Not Reportable 12/23/18 07:21 Giant Platelets Not Reportable 12/23/18 07:21 Platelet Satelliting Not Reportable 12/23/18 07:21 Plt Morphology Comment Not Reportable 12/23/18 07:21 RBC Morphology Not Reportable 12/23/18 07:21 Dimorphic RBCs Not Reportable 12/23/18 07:21 Polychromasia Not Reportable 12/23/18 07:21 Hypochromasia Not Reportable 12/23/18 07:21 Poikilocytosis 1+ 12/23/18 07:21 Anisocytosis 1+ 12/23/18 07:21 Microcytosis Not Reportable 12/23/18 07:21 Macrocytosis Rare 12/23/18 07:21 Spherocytes Not Reportable 12/23/18 07:21 Pappenheimer Bodies Not Reportable 12/23/18 07:21 Sickle Cells Not Reportable 12/23/18 07:21 Target Cells Not Reportable 12/23/18 07:21 Tear Drop Cells Not Reportable 12/23/18 07:21 Ovalocytes Few 12/23/18 07:21 Helmet Cells Not Reportable 12/23/18 07:21 [place] Bodies Not Reportable 12/23/18 07:21 [place] Rings Not Reportable 12/23/18 07:21 [place] Cells Not Reportable 12/23/18 07:21 Bite Cells Not Reportable 12/23/18 07:21 Crenated Cell Not Reportable 12/23/18 07:21 Elliptocytes Not Reportable 12/23/18 07:21 Acanthocytes (Spur) Not Reportable 12/23/18 07:21 Rouleaux Not Reportable 12/23/18 07:21 Hemoglobin C Crystals Not Reportable 12/23/18 07:21 Schistocytes Not Reportable 12/23/18 07:21 Malaria parasites Not Reportable 12/23/18 07:21 Tien Bodies Not Reportable 12/23/18 07:21 Hem Pathologist Commnt No 12/23/18 07:21 PT 13.8 Sec. (12.2-14.9) 12/23/18 05:16 INR 1.00 (0.87-1.13) 12/23/18 05:16 APTT 27.5 Sec. (24.2-36.6) 12/23/18 05:16 Heparin Anti-Xa Level 0.44 U.I./ml (0.3-0.7) 12/24/18 17:48 POC ABG pH 7.424 (7.35-7.45) 12/24/18 03:34 POC ABG pCO2 31.0 (35-45) L 12/24/18 03:34 POC ABG pO2 139 (80-105) H 12/24/18 03:34 POC ABG HCO3 20.3 (22-26 mml/L) 12/24/18 03:34 POC ABG Total CO2 21 (23-27mmol/L) 12/24/18 03:34 POC ABG O2 Sat 99 12/24/18 03:34 POC ABG Base Excess -4 ((-2) - (+3)mmol/L) 12/24/18 03:34 FiO2 45 % 12/24/18 03:34 Sodium 142 mmol/L (137-145) 12/24/18 04:46 Potassium 3.9 mmol/L (3.6-5.0) D 12/24/18 04:46 Chloride 107.3 mmol/L (98-107) H 12/24/18 04:46 Carbon Dioxide 20 mmol/L (22-30) L 12/24/18 04:46 Anion Gap 19 mmol/L 12/24/18 04:46 BUN 21 mg/dL (7-17) H 12/24/18 04:46 Creatinine 0.9 mg/dL (0.7-1.2) 12/24/18 04:46 Estimated GFR > 60 ml/min 12/24/18 04:46 BUN/Creatinine Ratio 23 % 12/24/18 04:46 Glucose 205 mg/dL (65-100) H 12/24/18 04:46 POC Glucose 189 (70-105) H 12/24/18 21:45 Calcium 7.9 mg/dL (8.4-10.2) L 12/24/18 04:46 Magnesium 2.10 mg/dL (1.7-2.3) 12/22/18 23:44 Total Bilirubin 0.70 mg/dL (0.1-1.2) 12/22/18 23:44 AST 421 units/L (5-40) H 12/22/18 23:44 ALT 430 units/L (7-56) H 12/22/18 23:44 Alkaline Phosphatase 120 units/L (35-129) 12/22/18 23:44 Total Creatine Kinase 560 units/L (30-135) H 12/24/18 04:46 CK-MB (CK-2) 12.0 ng/mL (0.0-4.0) H 12/23/18 Unknown CK-MB (CK-2) Rel Index 1.6 (0-4) 12/23/18 Unknown Troponin T 0.026 ng/mL (0.00-0.029) 12/23/18 Unknown Total Protein 6.1 g/dL (6.3-8.2) L 12/22/18 23:44 Albumin 3.5 g/dL (3.9-5) L 12/22/18 23:44 Albumin/Globulin Ratio 1.3 % 12/22/18 23:44 Triglycerides 52 mg/dL (2-149) 12/23/18 03:26 Cholesterol 106 mg/dL (50-199) 12/23/18 03:26 LDL Cholesterol Direct 58 mg/dL (50-130) 12/23/18 03:26 HDL Cholesterol 54 mg/dL (40-59) 12/23/18 03:26 Cholesterol/HDL Ratio 1.96 % 12/23/18 03:26 Salicylates < 0.3 mg/dL (2.8-20.0) L 12/22/18 23:44 Acetaminophen < 5.0 ug/mL (10.0-30.0) L 12/22/18 23:44 Plasma/Serum Alcohol < 0.01 % (0-0.07) 12/22/18 23:44 Blood Type A POSITIVE 12/22/18 23:44 Antibody Screen Negative 12/22/18 23:44 Active Medications - Current Medications Current Medications: Generic Name Dose Route Start Last Admin Trade Name Freq PRN Reason Stop Dose Admin Acetaminophen 650 mg 12/23/18 06:19 12/24/18 21:32 Tylenol PO 650 mg Q4H PRN Administration Pain MILD(1-3)/Fever >100.5/ETIENNE Amlodipine Besylate 10 mg 12/23/18 17:00 12/24/18 10:00 Norvasc PO 10 mg QDAY ANGELICA Administration Aspirin 81 mg 12/23/18 10:00 12/24/18 10:00 Baby Aspirin PO 81 mg QDAY ANGELICA Administration Carvedilol 25 mg 12/23/18 22:00 12/24/18 21:32 Coreg PO 25 mg BID ANGELICA Administration Clonidine HCl 0.2 mg 12/23/18 17:00 12/23/18 17:45 Catapres-Tts Patch TD 0.2 mg We ANGELICA Administration Dextrose 50 ml 12/23/18 05:14 D50w (25gm) Syringe IV PRN PRN Hypoglycemia Famotidine 20 mg 12/24/18 11:00 12/24/18 21:33 Pepcid IV 20 mg BID ANGELICA Administration Hydralazine HCl 5 mg 12/24/18 02:28 12/24/18 10:39 Apresoline IV 5 mg Q6H PRN Administration Hypertension Hydrophilic Ointment 1 applic 12/22/18 23:34 12/23/18 11:35 Vaseline Lip Therapy TP 1 applic Q2HR PRN Administration Dry Lips Propofol 1,000 mg in 100 mls @ 3.3 mls/hr 12/22/18 23:45 12/24/18 12:30 Diprivan 10 Mg/Ml IV 0 mcg/kg/min TITR ANGELICA 0 mls/hr Titration Protocol 5 MCG/KG/MIN Norepinephrine 4 mg in 250 mls @ 7.5 mls/hr 12/23/18 02:00 12/23/18 06:23 Levophed Drip 4 Mg/Ns 250 Ml IV 0 mcg/min TITR ANGELICA 0 mls/hr Titration Protocol 2 MCG/MIN Heparin Sodium/Sodium Chloride 25,000 unit in 500 mls @ 20 mls/hr 12/23/18 05:00 12/24/18 11:40 Heparin/ 0.45% Nacl-25,000 Unit/500 Ml IV 1,200 units/hr TITRATE ANGELICA 24 mls/hr Titration Protocol 1,000 UNITS/HR Sodium Chloride 1,000 mls @ 75 mls/hr 12/23/18 06:00 12/24/18 13:37 Nacl 0.9% 1000 Ml IV 75 mls/hr DIRECT ANGELICA Administration Insulin Human Lispro 0 unit 12/24/18 02:00 12/24/18 21:46 Humalog SUB-Q 2 unit Q4HR ANGELICA Administration Protocol Losartan Potassium 100 mg 12/23/18 17:00 12/24/18 10:00 Cozaar PO 100 mg QDAY ANGELICA Administration Multi-Ingred Cream/Lotion/Oil/Oint 1 applic 12/22/18 23:34 Artificial Tears Ophth Oint OU Q4HR PRN Dry Eye(s) Ondansetron HCl 4 mg 12/23/18 06:19 Zofran IV Q4H PRN Nausea And Vomiting Sodium Chloride 5 ml 12/22/18 23:34 12/23/18 02:03 Nacl 0.9% 500 Ml IV 5 ml DIRECT PRN Administration [employer] Sodium Chloride 10 ml 12/23/18 10:00 12/24/18 21:34 Sodium Chloride Flush Syringe 10 Ml IV 10 ml BID ANGELICA Administration Sodium Chloride 10 ml 12/23/18 06:19 Sodium Chloride Flush Syringe 10 Ml IV PRN PRN LINE FLUSH Nutrition/Malnutrition Assess - Dietary Evaluation Nutrition/Malnutrition Findings: Nutrition Notes Start: 12/23/18 11:47 Freq: Status: Active Protocol: Document 12/23/18 11:47 CP (Rec: 12/23/18 12:01 CP [id number]) Co-Sign 12/23/18 11:47 LP Nutrition Notes Need for Assessment generated from: MD Order Initial or Follow up Assessment Current Diagnosis Diabetes,Hypertension,Heart Failure Other Pertinent Diagnosis Obesity, cardiac arrest Current Diet NPO Labs/Tests Reviewed Pertinent Medications Propofol Height 5 ft 8 in Weight 110 kg [place] Body Weight (kg) 63.63 BMI 36.8 Weight Status Obese Subjective/Other Information Pt is intubated. Awaiting TF consult. Percent of energy/protein needs met: 0%/0% Burn Absent Trauma Absent #1 Nutrition Diagnosis Inadequate oral intake Etiology Cardiac arrest As Evidenced by Signs and Symptoms NPO status Is patient on ventilator? Yes Is Patient Ambulatory and/or Out of Bed No REE-([facility]-confined to bed) 2054.832 Kcal/Kg value to use for calculation 14 Approximate Energy Requirements Using 1540 kcal/Kg Calculation Used for Recommendations [facility] Additional Notes Protein needs: 127g (2g/kg IBW ) Fluid 1mL/kcal Nutrition Intervention Change Diet Order: Advance per MD request/TF consult Goal #1 Diet advancement/TF consult Anticipated Discharge Needs: Unable to determine at this time Follow-Up By: 12/25/18 Additional Comments F/U: TF consult
[2018-12-24] MEDS ORDERED: NITROSTAT 0.4 MG PO PRN (22:42)
[2018-12-24] MEDS ORDERED: PROAIR IH PRN (22:42)
[2018-12-24] MEDS ORDERED: NON-FORMULARY (Tizanidine Hcl [Tizanidine] 2 MG) PO PRN (22:42)
[2018-12-24] MEDS ORDERED: BENADRYL IV PRN (22:42)
[2018-12-24] MEDS ORDERED: ZANAFLEX PO PRN (22:45)
[2018-12-25] MEDS: HumaLOG SUB-Q SCH ×5 (02:13→19:51)
--- NOTE | 2018-12-25 02:38 | XRay Report ---
PROCEDURE: XR CHEST 1V AP TECHNIQUE: A portable semiupright view of the chest was obtained. HISTORY: follow up respiratory failure COMPARISONS: 12/24/2018 FINDINGS: The heart is mild to moderately enlarged. There is worsening bilateral pulmonary congestion with bila teral airspace disease and bilateral effusions. The tip of the right internal jugular line is in the proximal SVC. The NG tube is coursing well into the stomach. The skeletal structures do not show any acute changes. IMPRESSION: Worsening pulmonary edema pattern with bilateral effusions.. This document is electronically signed by Jermaine Frank MD., December 25 2018 02:37:08 AM ET
[2018-12-25] MEDS ORDERED: REGLAN IV ONE (03:13)
[2018-12-25] MEDS: TYLENOL PO PRN ×2 (04:58→18:33)
[2018-12-25 05:08] LABS: Hemoglobin 10.4 gm/dl (10.1-14.3); Mean Corpuscular HGB Conc 34 % (30-34); Mean Corpuscular Volume 92 fl (79-97); Platelet Count 120 K/mm3 (140-440); Red Blood Count 3.36 M/mm3 (3.65-5.03); Red Cell Distribution Width 14.6 % (13.2-15.2)
[2018-12-25] MEDS: HEPARIN/ 0.45% NACL-25,000 UNIT/500 ML 25,000 UNIT/500 ML BAG IV SCH (05:22)
[2018-12-25 05:25] LABS: Alanine Aminotransferase 126 units/L (7-56); Albumin 2.6 g/dL (3.9-5); BUN/Creatinine Ratio 22; Blood Urea Nitrogen 13 mg/dL (7-17); Calcium 7.8 mg/dL (8.4-10.2); Hemolysis Index 18
--- NOTE | 2018-12-25 07:55 | Progress Note ---
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 Information in chart obtained from family states that patient went into respiratory distress following returning from seafood restaurant and was noted to have lips swelling It appears she was resuscitated for 10 minutes in the field and then another 10 minutes here in the emergency room. Patient was intubated in the field and subsequently extubated on 12/24/18. CT HEAD reported No acute intracranial process. 2D Echocardiogram this admission reported a normal left ventricular systolic function, EF 50-55%. Repeat pCXR on 12/24/18 shows worsening pulmonary edema. -Acute Cardiopulmonary Arrest out the hospital most likely due to allergic reaction following seafood ingestion: treat with steriods, antihistamine blockers -Acute Respiratory Failure s/p ETT intubation with succesful extubation: Pulmonary following on Bipap 35% -Pulmonary Edema: Pulmonary and Cardiology are following. Lasix -Hypokalemia: replete and monitor closely -Severe malnutrition: consult Draw Furnace Tender -Hypertension: continue antihypertensives -Obesity, bmi 36.6 -Elevated troponin, non-specific per Cardiology -Rhabdomyolysis: repeat cpk CCT 32 minutes History Interval history: Patient was seen and examined. Follow-up on current diagnosis. Overnight uneventful. Patient denies any chest pain, shortness breath, nausea/vomiting or severe headaches. Imaging, nursing note, chart, labs and old chart reviewed. Discussed with patient. Hospitalist Physical - Physical exam Narrative exam: Gen: ill appearing, obese bmi 36.6, mild increase accessory muscles, on bipap Awake, reaching for bipap mask to be taken off, not talking much due to the bipap HEENT: NCAT, EOMI, PERRL, OP Clear Neck: supple, no adenopathy, no thyromegaly, no JVD CVS/Heart: RRR, normal S1S2, pulses present bilaterally Chest/Lungs: diminished bs bilateral, Symmetrical chest expansion, good air entry bilaterally GI/Abdomen: soft, epigastric tenderness, good bowel sounds, no guarding or rebound /Bladder: no suprapubic tenderness, no CVA or paraspinal tenderness Extermity/Skin: no obvious rash MSK: FROM x 4 Neuro: CN 2-12 grossly intact, no new focal deficits Psych: calm - Constitutional Vitals: Temp Pulse Resp BP Pulse Ox 99.3 F 85 29 H 169/86 93 12/25/18 04:00 12/25/18 07:00 12/25/18 07:00 12/25/18 07:00 12/25/18 07:00 General appearance: Present: other (intubated on the vent) Results - Labs CBC & Chem 7: 12/25/18 04:45 12/25/18 04:45 Labs: Laboratory Last Values WBC 8.6 K/mm3 (4.5-11.0) 12/25/18 04:45 RBC 3.36 M/mm3 (3.65-5.03) L 12/25/18 04:45 Hgb 10.4 gm/dl (10.1-14.3) 12/25/18 04:45 Hct 31.0 % (30.3-42.9) 12/25/18 04:45 MCV 92 fl (79-97) 12/25/18 04:45 MCH 31 pg (28-32) 12/25/18 04:45 MCHC 34 % (30-34) 12/25/18 04:45 RDW 14.6 % (13.2-15.2) 12/25/18 04:45 Plt Count 120 K/mm3 (140-440) L 12/25/18 04:45 Lymph % (Auto) 14.8 % (13.4-35.0) 12/24/18 04:46 [place] % (Auto) 7.9 % (0.0-7.3) H 12/24/18 04:46 Eos % (Auto) 0.3 % (0.0-4.3) 12/24/18 04:46 Baso % (Auto) 0.3 % (0.0-1.8) 12/24/18 04:46 Lymph # 1.2 K/mm3 (1.2-5.4) 12/24/18 04:46 [place] # 0.7 K/mm3 (0.0-0.8) 12/24/18 04:46 Eos # 0.0 K/mm3 (0.0-0.4) 12/24/18 04:46 Baso # 0.0 K/mm3 (0.0-0.1) 12/24/18 04:46 Add Manual Diff Complete 12/23/18 07:21 Total Counted 100 12/23/18 07:21 Seg Neutrophils % 76.7 % (40.0-70.0) H 12/24/18 04:46 Seg Neuts % (Manual) 95.0 % (40.0-70.0) H 12/23/18 07:21 Band Neutrophils % 0 % 12/23/18 07:21 Lymphocytes % (Manual) 2.0 % (13.4-35.0) L 12/23/18 07:21 Reactive Lymphs % (Man) 0 % 12/23/18 07:21 Monocytes % (Manual) 3.0 % (0.0-7.3) 12/23/18 07:21 Eosinophils % (Manual) 0 % (0.0-4.3) 12/23/18 07:21 Basophils % (Manual) 0 % (0.0-1.8) 12/23/18 07:21 Metamyelocytes % 0 % 12/23/18 07:21 Myelocytes % 0 % 12/23/18 07:21 Promyelocytes % 0 % 12/23/18 07:21 Blast Cells % 0 % 12/23/18 07:21 Nucleated RBC % Not Reportable 12/23/18 07:21 Seg Neutrophils # 6.4 K/mm3 (1.8-7.7) 12/24/18 04:46 Seg Neutrophils # Man 8.7 K/mm3 (1.8-7.7) H 12/23/18 07:21 Band Neutrophils # 0.0 K/mm3 12/23/18 07:21 Lymphocytes # (Manual) 0.2 K/mm3 (1.2-5.4) L 12/23/18 07:21 Abs React Lymphs (Man) 0.0 K/mm3 12/23/18 07:21 Monocytes # (Manual) 0.3 K/mm3 (0.0-0.8) 12/23/18 07:21 Eosinophils # (Manual) 0.0 K/mm3 (0.0-0.4) 12/23/18 07:21 Basophils # (Manual) 0.0 K/mm3 (0.0-0.1) 12/23/18 07:21 Metamyelocytes # 0.0 K/mm3 12/23/18 07:21 Myelocytes # 0.0 K/mm3 12/23/18 07:21 Promyelocytes # 0.0 K/mm3 12/23/18 07:21 Blast Cells # 0.0 K/mm3 12/23/18 07:21 WBC Morphology Not Reportable 12/23/18 07:21 Hypersegmented Neuts Not Reportable 12/23/18 07:21 Hyposegmented Neuts Not Reportable 12/23/18 07:21 Hypogranular Neuts Not Reportable 12/23/18 07:21 Smudge Cells Not Reportable 12/23/18 07:21 Toxic Granulation Not Reportable 12/23/18 07:21 Toxic Vacuolation Not Reportable 12/23/18 07:21 Dohle Bodies Not Reportable 12/23/18 07:21 Pelger-Huet Anomaly Not Reportable 12/23/18 07:21 Isis Rods Not Reportable 12/23/18 07:21 Platelet Estimate Consistent w auto 12/23/18 07:21 Clumped Platelets Not Reportable 12/23/18 07:21 Plt Clumps, EDTA Not Reportable 12/23/18 07:21 Large Platelets Not Reportable 12/23/18 07:21 Giant Platelets Not Reportable 12/23/18 07:21 Platelet Satelliting Not Reportable 12/23/18 07:21 Plt Morphology Comment Not Reportable 12/23/18 07:21 RBC Morphology Not Reportable 12/23/18 07:21 Dimorphic RBCs Not Reportable 12/23/18 07:21 Polychromasia Not Reportable 12/23/18 07:21 Hypochromasia Not Reportable 12/23/18 07:21 Poikilocytosis 1+ 12/23/18 07:21 Anisocytosis 1+ 12/23/18 07:21 Microcytosis Not Reportable 12/23/18 07:21 Macrocytosis Rare 12/23/18 07:21 Spherocytes Not Reportable 12/23/18 07:21 Pappenheimer Bodies Not Reportable 12/23/18 07:21 Sickle Cells Not Reportable 12/23/18 07:21 Target Cells Not Reportable 12/23/18 07:21 Tear Drop Cells Not Reportable 12/23/18 07:21 Ovalocytes Few 12/23/18 07:21 Helmet Cells Not Reportable 12/23/18 07:21 [place] Bodies Not Reportable 12/23/18 07:21 [place] Rings Not Reportable 12/23/18 07:21 Bone Gap Cells Not Reportable 12/23/18 07:21 Bite Cells Not Reportable 12/23/18 07:21 Crenated Cell Not Reportable 12/23/18 07:21 Elliptocytes Not Reportable 12/23/18 07:21 Acanthocytes (Spur) Not Reportable 12/23/18 07:21 Rouleaux Not Reportable 12/23/18 07:21 Hemoglobin C Crystals Not Reportable 12/23/18 07:21 Schistocytes Not Reportable 12/23/18 07:21 Malaria parasites Not Reportable 12/23/18 07:21 Tien Bodies Not Reportable 12/23/18 07:21 Hem Pathologist Commnt No 12/23/18 07:21 PT 13.8 Sec. (12.2-14.9) 12/23/18 05:16 INR 1.00 (0.87-1.13) 12/23/18 05:16 APTT 27.5 Sec. (24.2-36.6) 12/23/18 05:16 Heparin Anti-Xa Level 0.44 U.I./ml (0.3-0.7) 12/24/18 17:48 POC ABG pH 7.424 (7.35-7.45) 12/24/18 03:34 POC ABG pCO2 31.0 (35-45) L 12/24/18 03:34 POC ABG pO2 139 (80-105) H 12/24/18 03:34 POC ABG HCO3 20.3 (22-26 mml/L) 12/24/18 03:34 POC ABG Total CO2 21 (23-27mmol/L) 12/24/18 03:34 POC ABG O2 Sat 99 12/24/18 03:34 POC ABG Base Excess -4 ((-2) - (+3)mmol/L) 12/24/18 03:34 FiO2 45 % 12/24/18 03:34 Sodium 136 mmol/L (137-145) L 12/25/18 04:45 Potassium 3.5 mmol/L (3.6-5.0) L 12/25/18 04:45 Chloride 102.2 mmol/L (98-107) 12/25/18 04:45 Carbon Dioxide 22 mmol/L (22-30) 12/25/18 04:45 Anion Gap 15 mmol/L 12/25/18 04:45 BUN 13 mg/dL (7-17) 12/25/18 04:45 Creatinine 0.6 mg/dL (0.7-1.2) L 12/25/18 04:45 Estimated GFR > 60 ml/min 12/25/18 04:45 BUN/Creatinine Ratio 22 % 12/25/18 04:45 Glucose 159 mg/dL (65-100) H 12/25/18 04:45 POC Glucose 151 (70-105) H 12/25/18 05:28 Calcium 7.8 mg/dL (8.4-10.2) L 12/25/18 04:45 Magnesium 2.10 mg/dL (1.7-2.3) 12/22/18 23:44 Total Bilirubin 1.30 mg/dL (0.1-1.2) H 12/25/18 04:45 AST 33 units/L (5-40) 12/25/18 04:45 ALT 126 units/L (7-56) H 12/25/18 04:45 Alkaline Phosphatase 63 units/L (35-129) 12/25/18 04:45 Total Creatine Kinase 560 units/L (30-135) H 12/24/18 04:46 CK-MB (CK-2) 12.0 ng/mL (0.0-4.0) H 12/23/18 Unknown CK-MB (CK-2) Rel Index 1.6 (0-4) 12/23/18 Unknown Troponin T 0.026 ng/mL (0.00-0.029) 12/23/18 Unknown Total Protein 5.9 g/dL (6.3-8.2) L 12/25/18 04:45 Albumin 2.6 g/dL (3.9-5) L 12/25/18 04:45 Albumin/Globulin Ratio 0.8 % 12/25/18 04:45 Triglycerides 52 mg/dL (2-149) 12/23/18 03:26 Cholesterol 106 mg/dL (50-199) 12/23/18 03:26 LDL Cholesterol Direct 58 mg/dL (50-130) 12/23/18 03:26 HDL Cholesterol 54 mg/dL (40-59) 12/23/18 03:26 Cholesterol/HDL Ratio 1.96 % 12/23/18 03:26 Salicylates < 0.3 mg/dL (2.8-20.0) L 12/22/18 23:44 Acetaminophen < 5.0 ug/mL (10.0-30.0) L 12/22/18 23:44 Plasma/Serum Alcohol < 0.01 % (0-0.07) 12/22/18 23:44 Blood Type A POSITIVE 12/22/18 23:44 Antibody Screen Negative 12/22/18 23:44 Active Medications - Current Medications Current Medications: Generic Name Dose Route Start Last Admin Trade Name Freq PRN Reason Stop Dose Admin Acetaminophen 650 mg 12/23/18 06:19 12/25/18 04:58 Tylenol PO 650 mg Q4H PRN Administration Pain MILD(1-3)/Fever >100.5/ETIENNE Albuterol 2.5 mg 12/24/18 22:49 Proventil IH Q4HRT PRN Shortness Of Breath Amlodipine Besylate 10 mg 12/23/18 17:00 12/24/18 10:00 Norvasc PO 10 mg QDAY ANGELICA Administration Aspirin 81 mg 12/23/18 10:00 12/24/18 10:00 Baby Aspirin PO 81 mg QDAY ANGELICA Administration Carvedilol 25 mg 12/25/18 10:00 Coreg PO BID ANGELICA Clonidine HCl 0.2 mg 12/23/18 17:00 12/23/18 17:45 Catapres-Tts Patch TD 0.2 mg We ANGELICA Administration Dextrose 50 ml 12/23/18 05:14 D50w (25gm) Syringe IV PRN PRN Hypoglycemia Diphenhydramine HCl 25 mg 12/24/18 22:42 Benadryl IV Q6H PRN Itching Famotidine 20 mg 12/24/18 11:00 12/24/18 21:33 Pepcid IV 20 mg BID ANGELICA Administration Ferrous Sulfate 325 mg 12/25/18 10:00 Feosol PO QDAY ANGELICA Hydralazine HCl 5 mg 12/24/18 02:28 12/24/18 10:39 Apresoline IV 5 mg Q6H PRN Administration Hypertension Hydrophilic Ointment 1 applic 12/22/18 23:34 12/23/18 11:35 Vaseline Lip Therapy TP 1 applic Q2HR PRN Administration Dry Lips Propofol 1,000 mg in 100 mls @ 3.3 mls/hr 12/22/18 23:45 12/24/18 12:30 Diprivan 10 Mg/Ml IV 0 mcg/kg/min TITR ANGELICA 0 mls/hr Titration Protocol 5 MCG/KG/MIN Norepinephrine 4 mg in 250 mls @ 7.5 mls/hr 12/23/18 02:00 12/23/18 06:23 Levophed Drip 4 Mg/Ns 250 Ml IV 0 mcg/min TITR ANGELICA 0 mls/hr Titration Protocol 2 MCG/MIN Heparin Sodium/Sodium Chloride 25,000 unit in 500 mls @ 20 mls/hr 12/23/18 05:00 12/25/18 05:22 Heparin/ 0.45% Nacl-25,000 Unit/500 Ml IV 1,200 units/hr TITRATE ANGELICA 24 mls/hr Administration Protocol 1,000 UNITS/HR Sodium Chloride 1,000 mls @ 75 mls/hr 12/23/18 06:00 12/24/18 13:37 Nacl 0.9% 1000 Ml IV 75 mls/hr DIRECT ANGELICA Administration Insulin Human Lispro 0 unit 12/24/18 02:00 12/25/18 05:27 Humalog SUB-Q 2 unit Q4HR ANEGLICA Administration Protocol Losartan Potassium 100 mg 12/23/18 17:00 12/24/18 10:00 Cozaar PO 100 mg QDAY ANGELICA Administration Miscellaneous Medication 60 mg 12/25/18 08:00 Orlistat [Antonio] PO TID [facility] Multi-Ingred Cream/Lotion/Oil/Oint 1 applic 12/22/18 23:34 Artificial Tears Ophth Oint OU Q4HR PRN Dry Eye(s) Nitroglycerin 0.4 mg 12/24/18 22:48 Nitrostat SL .Q5MIN PRN Chest Pain Ondansetron HCl 4 mg 12/23/18 06:19 Zofran IV Q4H PRN Nausea And Vomiting Sodium Chloride 5 ml 12/22/18 23:34 12/23/18 02:03 Nacl 0.9% 500 Ml IV 5 ml DIRECT PRN Administration [employer] OPERATOR Sodium Chloride 10 ml 12/23/18 10:00 12/24/18 21:34 Sodium Chloride Flush Syringe 10 Ml IV 10 ml BID ANGELICA Administration Sodium Chloride 10 ml 12/23/18 06:19 Sodium Chloride Flush Syringe 10 Ml IV PRN PRN LINE FLUSH Tizanidine HCl 2 mg 12/24/18 22:45 Zanaflex PO DAILY PRN Muscle Spasm Nutrition/Malnutrition Assess - Dietary Evaluation Nutrition/Malnutrition Findings: Nutrition Notes Start: 12/23/18 11:47 Freq: Status: Active Protocol: Document 12/23/18 11:47 CP (Rec: 12/23/18 12:01 CP [id number]) Co-Sign 12/23/18 11:47 LP Nutrition Notes Need for Assessment generated from: MD Order Initial or Follow up Assessment Current Diagnosis Diabetes,Hypertension,Heart Failure Other Pertinent Diagnosis Obesity, cardiac arrest Current Diet NPO Labs/Tests Reviewed Pertinent Medications Propofol Height 5 ft 8 in Weight 110 kg [place] Body Weight (kg) 63.63 BMI 36.8 Weight Status Obese Subjective/Other Information Pt is intubated. Awaiting TF consult. Percent of energy/protein needs met: 0%/0% Burn Absent Trauma Absent #1 Nutrition Diagnosis Inadequate oral intake Etiology Cardiac arrest As Evidenced by Signs and Symptoms NPO status Is patient on ventilator? Yes Is Patient Ambulatory and/or Out of Bed No REE-([facility]-confined to bed) 4.832 Kcal/Kg value to use for calculation 14 Approximate Energy Requirements Using 1540 kcal/Kg Calculation Used for Recommendations [facility] Additional Notes Protein needs: 127g (2g/kg IBW ) Fluid 1mL/kcal Nutrition Intervention Change Diet Order: Advance per MD request/TF consult Goal #1 Diet advancement/TF consult Anticipated Discharge Needs: Unable to determine at this time Follow-Up By: 12/25/18 Additional Comments F/U: TF consult
[2018-12-25] MEDS ORDERED: ORLISTAT PO SCH (08:00)
[2018-12-25] MEDS: PEPCID IV SCH ×2 (10:30→23:05)
[2018-12-25] MEDS ORDERED: MORPHINE IV ONE (10:30)
[2018-12-25] MEDS ORDERED: NITRO-BID 2% TP ONE (10:30)
[2018-12-25] MEDS: NORVASC PO SCH (10:30)
[2018-12-25] MEDS: BABY ASPIRIN PO SCH (10:30)
[2018-12-25] MEDS: FEOSOL PO SCH (10:30)
[2018-12-25] MEDS ORDERED: LASIX IV ONE (10:30)
[2018-12-25] MEDS: COZAAR PO SCH (10:31)
[2018-12-25] MEDS: COREG PO SCH ×2 (10:31→23:05)
--- NOTE | 2018-12-25 10:31 | Progress Note ---
Assessment and Plan Out of the hospital cardiopulmonary arrest ? anaphylactic reaction from eating seafood Head CT scan is negative. No evidence of PE by CTA Epigastric pain and tenderness Pulmonary edema Troponin is non-specific ECG showing non-specific ST-T changes Rhabdomyolysis Diabetes Hypertension Previous negative cardiac cath in 2010 . Normal thallium stress test in 2014. Echocardiogram this admission reports a normal left ventricular systolic function, EF 50-55%. Recommendations: Order abdominal US to evaluate epigastric pain and tenderness Further cardiac work-up will depend on clinical course. Subjective Date of service: 12/25/18 Principal diagnosis: Cardiac arrest Interval history: Patient is awake, she is on BIPAP Tele is showing sinus rhythm She is complaining of epigastric tenderness and pain Objective Vital Signs Temp Pulse Pulse Pulse Pulse Pulse Pulse 12/25/18 09:13 80 12/25/18 08:00 98.0 F 12/25/18 07:00 85 12/25/18 06:45 89 12/25/18 06:30 82 12/25/18 06:15 82 12/25/18 06:00 80 12/25/18 05:45 80 12/25/18 05:30 80 12/25/18 05:15 80 12/25/18 05:00 81 12/25/18 04:45 80 12/25/18 04:30 89 12/25/18 04:15 82 12/25/18 04:00 99.3 F 85 79 12/25/18 03:45 82 12/25/18 03:30 91 H 12/25/18 03:15 89 12/25/18 03:00 83 12/25/18 02:45 81 12/25/18 02:30 88 12/25/18 02:15 80 12/25/18 02:00 78 12/25/18 01:45 87 12/25/18 01:30 79 12/25/18 01:15 87 12/25/18 01:00 85 12/25/18 00:45 79 12/25/18 00:30 80 12/25/18 00:15 82 12/25/18 00:00 98.9 F 79 81 12/24/18 23:45 82 12/24/18 23:30 82 12/24/18 23:15 85 12/24/18 23:00 84 12/24/18 22:45 83 12/24/18 22:30 84 12/24/18 22:16 84 12/24/18 22:15 81 12/24/18 22:00 82 12/24/18 21:45 82 12/24/18 21:32 85 12/24/18 21:30 89 12/24/18 21:15 85 12/24/18 21:00 87 12/24/18 20:45 91 H 12/24/18 20:30 90 12/24/18 20:15 91 H 12/24/18 20:00 98.8 F 95 H 97 H 12/24/18 19:45 94 H 12/24/18 19:30 90 12/24/18 19:26 12/24/18 19:20 90 12/24/18 19:10 94 H 12/24/18 19:00 93 H 12/24/18 18:50 94 H 12/24/18 18:40 94 H 12/24/18 18:30 93 H 12/24/18 18:20 97 H 12/24/18 18:10 89 12/24/18 18:00 90 12/24/18 17:50 92 H 12/24/18 17:40 86 12/24/18 17:30 91 H 12/24/18 17:20 92 H 12/24/18 17:10 91 H 12/24/18 17:00 85 12/24/18 16:50 85 12/24/18 16:40 89 12/24/18 16:30 95 H 12/24/18 16:20 86 12/24/18 16:10 87 12/24/18 16:00 99.3 F 85 96 H 96 H 96 H 92 H 96 H 12/24/18 15:50 86 12/24/18 15:40 86 12/24/18 15:30 85 12/24/18 15:20 91 H 12/24/18 15:12 89 12/24/18 15:00 88 12/24/18 14:51 89 12/24/18 14:41 88 12/24/18 14:30 89 12/24/18 14:21 89 12/24/18 14:11 89 12/24/18 14:00 91 H 12/24/18 13:51 88 12/24/18 13:41 91 H 12/24/18 13:30 92 H 12/24/18 13:22 12/24/18 13:21 94 H 12/24/18 13:11 94 H 12/24/18 13:00 95 H 12/24/18 12:51 97 H 12/24/18 12:41 96 H 12/24/18 12:31 96 H 12/24/18 12:21 90 12/24/18 12:11 97 H 12/24/18 12:05 12/24/18 12:00 99.5 F 91 H 93 H 93 H 93 H 98 H 93 H 12/24/18 11:51 94 H 12/24/18 11:41 95 H 12/24/18 11:30 94 H 12/24/18 11:21 94 H 12/24/18 11:11 94 H 12/24/18 11:00 93 H 12/24/18 10:51 95 H 12/24/18 10:41 92 H 12/24/18 10:39 93 H 12/24/18 10:30 94 H Resp BP Pulse Ox 12/25/18 09:13 25 H 162/83 95 12/25/18 08:00 12/25/18 07:00 29 H 169/86 93 12/25/18 06:45 31 H 172/91 93 12/25/18 06:30 24 159/83 94 12/25/18 06:15 25 H 168/79 95 12/25/18 06:00 24 159/82 95 12/25/18 05:45 23 165/79 95 12/25/18 05:30 26 H 166/79 95 12/25/18 05:15 23 160/80 95 12/25/18 05:00 24 165/82 95 12/25/18 04:45 25 H 165/81 94 12/25/18 04:30 33 H 164/88 93 12/25/18 04:15 18 160/85 92 12/25/18 04:00 31 H 168/87 92 12/25/18 03:45 27 H 163/77 92 12/25/18 03:30 15 164/88 92 12/25/18 03:15 31 H 161/82 92 12/25/18 03:00 25 H 157/87 93 12/25/18 02:45 25 H 157/79 94 12/25/18 02:30 30 H 144/84 94 12/25/18 02:15 28 H 156/78 94 12/25/18 02:00 25 H 152/75 95 12/25/18 01:45 30 H 160/81 94 12/25/18 01:30 24 163/71 95 12/25/18 01:15 23 163/76 94 12/25/18 01:00 26 H 157/67 94 12/25/18 00:45 24 151/71 95 12/25/18 00:30 24 148/72 95 12/25/18 00:15 27 H 141/66 94 12/25/18 00:00 25 H 146/64 94 12/24/18 23:45 23 167/74 97 12/24/18 23:30 23 161/80 97 12/24/18 23:15 23 150/84 96 12/24/18 23:00 24 139/69 96 12/24/18 22:45 23 143/71 94 12/24/18 22:30 23 143/81 93 12/24/18 22:16 24 152/71 93 12/24/18 22:15 25 H 152/71 94 12/24/18 22:00 23 168/85 97 12/24/18 21:45 24 168/85 96 12/24/18 21:32 170/89 12/24/18 21:30 22 170/89 95 12/24/18 21:15 23 165/79 94 12/24/18 21:00 24 167/83 96 12/24/18 20:45 25 H 159/91 96 12/24/18 20:30 26 H 164/88 95 12/24/18 20:15 27 H 167/80 93 12/24/18 20:00 29 H 165/84 89 12/24/18 19:45 31 H 178/83 94 12/24/18 19:30 26 H 165/77 93 12/24/18 19:26 93 12/24/18 19:20 25 H 166/87 92 12/24/18 19:10 23 118/92 93 12/24/18 19:00 24 171/97 92 12/24/18 18:50 30 H 175/89 93 12/24/18 18:40 22 162/87 92 12/24/18 18:30 30 H 153/102 94 12/24/18 18:20 22 184/85 76 L 12/24/18 18:10 25 H 164/85 99 12/24/18 18:00 29 H 164/85 87 12/24/18 17:50 21 162/87 83 L 12/24/18 17:40 28 H 157/107 99 12/24/18 17:30 30 H 156/83 94 12/24/18 17:20 23 151/73 100 12/24/18 17:10 27 H 166/78 12/24/18 17:00 25 H 166/78 99 12/24/18 16:50 24 157/107 99 12/24/18 16:40 29 H 136/76 12/24/18 16:30 21 136/76 12/24/18 16:20 23 154/79 100 12/24/18 16:10 25 H 154/74 100 12/24/18 16:00 25 H 154/74 100 12/24/18 15:50 24 154/79 100 12/24/18 15:40 25 H 158/80 100 12/24/18 15:30 24 158/80 100 12/24/18 15:20 29 H 147/82 100 12/24/18 15:12 27 H 100 12/24/18 15:00 26 H 154/82 100 12/24/18 14:51 26 H 154/82 100 12/24/18 14:41 26 H 151/77 100 12/24/18 14:30 24 151/77 100 12/24/18 14:21 25 H 151/81 100 12/24/18 14:11 23 160/84 100 12/24/18 14:00 23 160/84 100 12/24/18 13:51 23 150/84 100 12/24/18 13:41 24 160/79 100 12/24/18 13:30 25 H 160/79 100 12/24/18 13:22 96 12/24/18 13:21 30 H 159/79 100 12/24/18 13:11 26 H 164/83 99 12/24/18 13:00 20 164/83 100 12/24/18 12:51 20 186/162 100 12/24/18 12:41 25 H 175/92 100 12/24/18 12:31 14 186/162 93 12/24/18 12:21 18 169/83 100 /28/19 12:11 17 163/82 100 12/24/18 12:05 99 12/24/18 12:00 19 163/82 12/24/18 11:51 18 179/85 12/24/18 11:41 18 178/84 12/24/18 11:30 18 178/84 12/24/18 11:21 19 177/87 12/24/18 11:11 19 179/86 12/24/18 11:00 19 179/86 12/24/18 10:51 18 176/78 12/24/18 10:41 16 178/90 12/24/18 10:39 178/90 12/24/18 10:30 16 175/82 100 - Physical Examination General: Other (intubated on the vent) Neck: Positive: neck supple Cardiac: Positive: Reg Rate and Rhythm Lungs: Positive: Ventilated Respirations Abdomen: Positive: Soft, Tender - Labs and Meds Cardiac Enzymes 12/25/18 Range/Units 04:45 AST 33 (5-40) units/L CBC 12/25/18 Range/Units 04:45 WBC 8.6 (4.5-11.0) K/mm3 RBC 3.36 L (3.65-5.03) M/mm3 Hgb 10.4 (10.1-14.3) gm/dl Hct 31.0 (30.3-42.9) % Plt Count 120 L (140-440) K/mm3 Comprehensive Metabolic Panel 12/25/18 Range/Units 04:45 Sodium 136 L (137-145) mmol/L Potassium 3.5 L (3.6-5.0) mmol/L Chloride 102.2 (98-107) mmol/L Carbon Dioxide 22 (22-30) mmol/L BUN 13 (7-17) mg/dL Creatinine 0.6 L (0.7-1.2) mg/dL Glucose 159 H (65-100) mg/dL Calcium 7.8 L (8.4-10.2) mg/dL AST 33 (5-40) units/L ALT 126 H (7-56) units/L Alkaline Phosphatase 63 (35-129) units/L Total Protein 5.9 L (6.3-8.2) g/dL Albumin 2.6 L (3.9-5) g/dL
[2018-12-25] MEDS: SODIUM CHLORIDE FLUSH SYRINGE 10 ML IV SCH ×2 (10:33→23:15)
[2018-12-25] MEDS: KCL 10MEQ/100ML 10 MEQ/100 ML BAG IV SCH ×2 (18:33→19:50)
[2018-12-25] MEDS: LASIX IV SCH (18:33)
[2018-12-25] MEDS: NITROSTAT SL PRN ×2 (23:29→23:44)
[2018-12-26] MEDS: HumaLOG SUB-Q SCH ×6 (01:22→22:35)
[2018-12-26] MEDS: HEPARIN/ 0.45% NACL-25,000 UNIT/500 ML 25,000 UNIT/500 ML BAG IV SCH (02:16)
--- NOTE | 2018-12-26 03:48 | XRay Report ---
PROCEDURE: XR CHEST 1V AP TECHNIQUE: A portable view of the chest was obtained. HISTORY: follow up respiratory failure COMPARISONS: 12/25/2018 FINDINGS: The heart is moderately enlarged. The lungs remain diffusely congested. There is bilateral airspace d isease with the worst airspace disease throughout the right lung. This is unchanged. The tip of the r ight internal jugular line is in the proximal SVC. The NG tube is coursing well into the stomach. IMPRESSION: Stable pulmonary edema pattern with bilateral airspace disease as described.. This document is electronically signed by Jermaine Frank MD., December 26 2018 03:45:43 AM ET
[2018-12-26 04:29] LABS: Hematocrit 29.4 % (30.3-42.9); Hemoglobin 10.3 gm/dl (10.1-14.3); Mean Corpuscular HGB Conc 35 % (30-34); Mean Corpuscular Volume 91 fl (79-97); Platelet Count 126 K/mm3 (140-440); Red Blood Count 3.23 M/mm3 (3.65-5.03); Red Cell Distribution Width 14.4 % (13.2-15.2)
[2018-12-26 04:44] LABS: BUN/Creatinine Ratio 20; Blood Urea Nitrogen 12 mg/dL (7-17); Calcium 8.1 mg/dL (8.4-10.2); Hemolysis Index 14
[2018-12-26] MEDS: TYLENOL PO PRN (05:24)
[2018-12-26] MEDS: LASIX IV SCH ×2 (05:25→18:14)
[2018-12-26] MEDS: APRESOLINE IV PRN (05:42)
--- NOTE | 2018-12-26 08:29 | Progress Note ---
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 The cardiac arrest was suspected related to allergic reaction Seafood ingestion. Information in chart obtained from family states that patient went into respiratory distress following returning from a seafood restaurant and was noted to have lips swelling. It appears she was resuscitated for 10 minutes in the field and then another 10 minutes in the emergency room. Patient was intubated in the field and subsequently extubated on 12/24/18. CT HEAD reported No acute in tracranial process. 2D Echocardiogram this admission reported a normal left ventricular systolic function, EF 50-55%. Repeat pCXR on 12/24/18 shows worsening pulmonary edema. Repeat pCXR 12/26/18 shows stable pulmonary edema. -Acute Cardiopulmonary Arrest most likely due to allergic reaction following seafood ingestion: treat with steroids, antihistamine blockers -Acute Respiratory Failure s/p ETT intubation with succesful extubation: Pulmonary following on Bipap -Pulmonary Edema: Pulmonary and Cardiology are following. Lasix -Hypokalemia: replete and monitor closely -Severe malnutrition: consult Automotive [employer] -Hypertension: continue antihypertensives -Obesity, bmi 36.6 -Elevated troponin, non-specific per Cardiology -Rhabdomyolysis: repeat cpk CCT 31 minutes History Interval history: Patient was seen and examined. Follow-up on current diagnosis of respiratory failure. She has right and substernal chest wall pains. Patient denies any nausea/vomiting or severe headaches. Imaging, nursing note, chart, labs and old chart reviewed. Discussed with patient. Hospitalist Physical - Physical exam Narrative exam: Gen: ill appearing, obese bmi 36.6, mild increase accessory muscles, on bipap Awake, HEENT: NCAT, EOMI, PERRL, OP Clear Neck: supple, no adenopathy, no thyromegaly, no JVD CVS/Heart: RRR, normal S1S2, pulses present bilaterally Chest/Lungs: diminished bs bilateral, Symmetrical chest expansion, good air entry bilaterally, severe reproducible right and substernal chest wall tenderness GI/Abdomen: soft, epigastric tenderness, good bowel sounds, no guarding or rebound /Bladder: no suprapubic tenderness, no CVA or paraspinal tenderness Extermity/Skin: no obvious rash MSK: FROM x 4 Neuro: CN 2-12 grossly intact, no new focal deficits Psych: calm - Constitutional Vitals: Temp Pulse Resp BP Pulse Ox 99.4 F 82 28 H 158/86 96 12/26/18 02:49 12/26/18 06:16 12/26/18 06:16 12/26/18 06:16 12/26/18 04:46 General appearance: Present: other (intubated on the vent) Results - Labs CBC & Chem 7: 12/26/18 04:09 12/26/18 04:09 Labs: Laboratory Last Values WBC 6.4 K/mm3 (4.5-11.0) 12/26/18 04:09 RBC 3.23 M/mm3 (3.65-5.03) L 12/26/18 04:09 Hgb 10.3 gm/dl (10.1-14.3) 12/26/18 04:09 Hct 29.4 % (30.3-42.9) L 12/26/18 04:09 MCV 91 fl (79-97) 12/26/18 04:09 MCH 32 pg (28-32) 12/26/18 04:09 MCHC 35 % (30-34) H 12/26/18 04:09 RDW 14.4 % (13.2-15.2) 12/26/18 04:09 Plt Count 126 K/mm3 (140-440) L 12/26/18 04:09 Lymph % (Auto) 14.8 % (13.4-35.0) 12/24/18 04:46 Patrick % (Auto) 7.9 % (0.0-7.3) H 12/24/18 04:46 Eos % (Auto) 0.3 % (0.0-4.3) 12/24/18 04:46 Baso % (Auto) 0.3 % (0.0-1.8) 12/24/18 04:46 Lymph # 1.2 K/mm3 (1.2-5.4) 12/24/18 04:46 Patrick # 0.7 K/mm3 (0.0-0.8) 12/24/18 04:46 Eos # 0.0 K/mm3 (0.0-0.4) 12/24/18 04:46 Baso # 0.0 K/mm3 (0.0-0.1) 12/24/18 04:46 Add Manual Diff Complete 12/23/18 07:21 Total Counted 100 12/23/18 07:21 Seg Neutrophils % 76.7 % (40.0-70.0) H 12/24/18 04:46 Seg Neuts % (Manual) 95.0 % (40.0-70.0) H 12/23/18 07:21 Band Neutrophils % 0 % 12/23/18 07:21 Lymphocytes % (Manual) 2.0 % (13.4-35.0) L 12/23/18 07:21 Reactive Lymphs % (Man) 0 % 12/23/18 07:21 Monocytes % (Manual) 3.0 % (0.0-7.3) 12/23/18 07:21 Eosinophils % (Manual) 0 % (0.0-4.3) 12/23/18 07:21 Basophils % (Manual) 0 % (0.0-1.8) 12/23/18 07:21 Metamyelocytes % 0 % 12/23/18 07:21 Myelocytes % 0 % 12/23/18 07:21 Promyelocytes % 0 % 12/23/18 07:21 Blast Cells % 0 % 12/23/18 07:21 Nucleated RBC % Not Reportable 12/23/18 07:21 Seg Neutrophils # 6.4 K/mm3 (1.8-7.7) 12/24/18 04:46 Seg Neutrophils # Man 8.7 K/mm3 (1.8-7.7) H 12/23/18 07:21 Band Neutrophils # 0.0 K/mm3 12/23/18 07:21 Lymphocytes # (Manual) 0.2 K/mm3 (1.2-5.4) L 12/23/18 07:21 Abs React Lymphs (Man) 0.0 K/mm3 12/23/18 07:21 Monocytes # (Manual) 0.3 K/mm3 (0.0-0.8) 12/23/18 07:21 Eosinophils # (Manual) 0.0 K/mm3 (0.0-0.4) 12/23/18 07:21 Basophils # (Manual) 0.0 K/mm3 (0.0-0.1) 12/23/18 07:21 Metamyelocytes # 0.0 K/mm3 12/23/18 07:21 Myelocytes # 0.0 K/mm3 12/23/18 07:21 Promyelocytes # 0.0 K/mm3 12/23/18 07:21 Blast Cells # 0.0 K/mm3 12/23/18 07:21 WBC Morphology Not Reportable 12/23/18 07:21 Hypersegmented Neuts Not Reportable 12/23/18 07:21 Hyposegmented Neuts Not Reportable 12/23/18 07:21 Hypogranular Neuts Not Reportable 12/23/18 07:21 Smudge Cells Not Reportable 12/23/18 07:21 Toxic Granulation Not Reportable 12/23/18 07:21 Toxic Vacuolation Not Reportable 12/23/18 07:21 Dohle Bodies Not Reportable 12/23/18 07:21 Pelger-Huet Anomaly Not Reportable 12/23/18 07:21 Isis Rods Not Reportable 12/23/18 07:21 Platelet Estimate Consistent w auto 12/23/18 07:21 Clumped Platelets Not Reportable 12/23/18 07:21 Plt Clumps, EDTA Not Reportable 12/23/18 07:21 Large Platelets Not Reportable 12/23/18 07:21 Giant Platelets Not Reportable 12/23/18 07:21 Platelet Satelliting Not Reportable 12/23/18 07:21 Plt Morphology Comment Not Reportable 12/23/18 07:21 RBC Morphology Not Reportable 12/23/18 07:21 Dimorphic RBCs Not Reportable 12/23/18 07:21 Polychromasia Not Reportable 12/23/18 07:21 Hypochromasia Not Reportable 12/23/18 07:21 Poikilocytosis 1+ 12/23/18 07:21 Anisocytosis 1+ 12/23/18 07:21 Microcytosis Not Reportable 12/23/18 07:21 Macrocytosis Rare 12/23/18 07:21 Spherocytes Not Reportable 12/23/18 07:21 Pappenheimer Bodies Not Reportable 12/23/18 07:21 Sickle Cells Not Reportable 12/23/18 07:21 Target Cells Not Reportable 12/23/18 07:21 Tear Drop Cells Not Reportable 12/23/18 07:21 Ovalocytes Few 12/23/18 07:21 Helmet Cells Not Reportable 12/23/18 07:21 [place] Bodies Not Reportable 12/23/18 07:21 [place] Rings Not Reportable 12/23/18 07:21 [place] Cells Not Reportable 12/23/18 07:21 Bite Cells Not Reportable 12/23/18 07:21 Crenated Cell Not Reportable 12/23/18 07:21 Elliptocytes Not Reportable 12/23/18 07:21 Acanthocytes (Spur) Not Reportable 12/23/18 07:21 Rouleaux Not Reportable 12/23/18 07:21 Hemoglobin C Crystals Not Reportable 12/23/18 07:21 Schistocytes Not Reportable 12/23/18 07:21 Malaria parasites Not Reportable 12/23/18 07:21 Tien Bodies Not Reportable 12/23/18 07:21 Hem Pathologist Commnt No 12/23/18 07:21 PT 13.8 Sec. (12.2-14.9) 12/23/18 05:16 INR 1.00 (0.87-1.13) 12/23/18 05:16 APTT 27.5 Sec. (24.2-36.6) 12/23/18 05:16 Heparin Anti-Xa Level 0.33 U.I./ml (0.3-0.7) 12/26/18 04:09 POC ABG pH 7.424 (7.35-7.45) 12/24/18 03:34 POC ABG pCO2 31.0 (35-45) L 12/24/18 03:34 POC ABG pO2 139 (80-105) H 12/24/18 03:34 POC ABG HCO3 20.3 (22-26 mml/L) 12/24/18 03:34 POC ABG Total CO2 21 (23-27mmol/L) 12/24/18 03:34 POC ABG O2 Sat 99 12/24/18 03:34 POC ABG Base Excess -4 ((-2) - (+3)mmol/L) 12/24/18 03:34 FiO2 45 % 12/24/18 03:34 Sodium 136 mmol/L (137-145) L 12/26/18 04:09 Potassium 3.5 mmol/L (3.6-5.0) L 12/26/18 04:09 Chloride 98.7 mmol/L (98-107) 12/26/18 04:09 Carbon Dioxide 23 mmol/L (22-30) 12/26/18 04:09 Anion Gap 18 mmol/L 12/26/18 04:09 BUN 12 mg/dL (7-17) 12/26/18 04:09 Creatinine 0.6 mg/dL (0.7-1.2) L 12/26/18 04:09 Estimated GFR > 60 ml/min 12/26/18 04:09 BUN/Creatinine Ratio 20 % 12/26/18 04:09 Glucose 161 mg/dL (65-100) H 12/26/18 04:09 POC Glucose 165 (70-105) H 12/26/18 05:32 Calcium 8.1 mg/dL (8.4-10.2) L 12/26/18 04:09 Magnesium 2.10 mg/dL (1.7-2.3) 12/22/18 23:44 Total Bilirubin 1.30 mg/dL (0.1-1.2) H 12/25/18 04:45 AST 33 units/L (5-40) 12/25/18 04:45 ALT 126 units/L (7-56) H 12/25/18 04:45 Alkaline Phosphatase 63 units/L (35-129) 12/25/18 04:45 Total Creatine Kinase 331 units/L (30-135) H 12/26/18 04:09 CK-MB (CK-2) 12.0 ng/mL (0.0-4.0) H 12/23/18 Unknown CK-MB (CK-2) Rel Index 1.6 (0-4) 12/23/18 Unknown Troponin T 0.026 ng/mL (0.00-0.029) 12/23/18 Unknown Total Protein 5.9 g/dL (6.3-8.2) L 12/25/18 04:45 Albumin 2.6 g/dL (3.9-5) L 12/25/18 04:45 Albumin/Globulin Ratio 0.8 % 12/25/18 04:45 Triglycerides 52 mg/dL (2-149) 12/23/18 03:26 Cholesterol 106 mg/dL (50-199) 12/23/18 03:26 LDL Cholesterol Direct 58 mg/dL (50-130) 12/23/18 03:26 HDL Cholesterol 54 mg/dL (40-59) 12/23/18 03: Cholesterol/HDL Ratio 1.96 % 12/23/18 03:26 Salicylates < 0.3 mg/dL (2.8-20.0) L 12/22/18 23:44 Acetaminophen < 5.0 ug/mL (10.0-30.0) L 12/22/18 23:44 Plasma/Serum Alcohol < 0.01 % (0-0.07) 12/22/18 23:44 Blood Type A POSITIVE 12/22/18 23:44 Antibody Screen Negative 12/22/18 23:44 Active Medications - Current Medications Current Medications: Generic Name Dose Route Start Last Admin Trade Name Freq PRN Reason Stop Dose Admin Acetaminophen 650 mg 12/23/18 06:19 12/26/18 05:24 Tylenol PO 650 mg Q4H PRN Administration Pain MILD(1-3)/Fever >100.5/ETIENNE Albuterol 2.5 mg 12/24/18 22:49 Proventil IH Q4HRT PRN Shortness Of Breath Amlodipine Besylate 10 mg 12/23/18 17:00 12/25/18 10:30 Norvasc PO 10 mg QDAY ANGELICA Administration Aspirin 81 mg 12/23/18 10:00 12/25/18 10:30 Baby Aspirin PO 81 mg QDAY ANGELICA Administration Carvedilol 25 mg 12/25/18 10:00 12/25/18 23:05 Coreg PO 25 mg BID ANGELICA Administration Clonidine HCl 0.2 mg 12/23/18 17:00 12/23/18 17:45 Catapres-Tts Patch TD 0.2 mg We ANGELICA Administration Dextrose 50 ml 12/23/18 05:14 D50w (25gm) Syringe IV PRN PRN Hypoglycemia Diphenhydramine HCl 25 mg 12/24/18 22:42 Benadryl IV Q6H PRN Itching Famotidine 20 mg 12/24/18 11:00 12/25/18 23:05 Pepcid IV 20 mg BID ANGELICA Administration Ferrous Sulfate 325 mg 12/25/18 10:00 03/29/19 10:30 Feosol PO 325 mg QDAY ANGELICA Administration Furosemide 40 mg 12/25/18 18:00 12/26/18 05:25 Lasix IV 40 mg 0600,1800 ANGELICA Administration Hydralazine HCl 5 mg 12/24/18 02:28 12/26/18 05:42 Apresoline IV 5 mg Q6H PRN Administration Hypertension Hydrophilic Ointment 1 applic 12/22/18 23:34 12/23/18 11:35 Vaseline Lip Therapy TP 1 applic Q2HR PRN Administration Dry Lips Heparin Sodium/Sodium Chloride 25,000 unit in 500 mls @ 20 mls/hr 12/23/18 05:00 12/26/18 02:16 Heparin/ 0.45% Nacl-25,000 Unit/500 Ml IV 1,300 units/hr TITRATE ANGELICA 26 mls/hr Administration Protocol 1,000 UNITS/HR Sodium Chloride 1,000 mls @ 75 mls/hr 12/23/18 06:00 12/24/18 13:37 Nacl 0.9% 1000 Ml IV 75 mls/hr DIRECT ANGELICA Administration Insulin Human Lispro 0 unit 12/24/18 02:00 12/26/18 05:39 Humalog SUB-Q 2 unit Q4HR ANGELICA Administration Protocol Losartan Potassium 100 mg 12/23/18 17:00 12/25/18 10:31 Cozaar PO 100 mg QDAY ANGELICA Administration Miscellaneous Medication 60 mg 12/25/18 08:00 Orlistat [Antonio] PO TID ANGELICA Multi-Ingred Cream/Lotion/Oil/Oint 1 applic 12/22/18 23:34 Artificial Tears Ophth Oint OU Q4HR PRN Dry Eye(s) Nitroglycerin 0.4 mg 12/24/18 22:48 12/25/18 23:44 Nitrostat SL 0.4 mg .Q5MIN PRN Administration Chest Pain Ondansetron HCl 4 mg 12/23/18 06:19 Zofran IV Q4H PRN Nausea And Vomiting Sodium Chloride 5 ml 12/22/18 23:34 12/23/18 02:03 Nacl 0.9% 500 Ml IV 5 ml DIRECT PRN Administration [employer] Sodium Chloride 10 ml 12/23/18 10:00 12/25/18 23:15 Sodium Chloride Flush Syringe 10 Ml IV 10 ml BID ANGELICA Administration Sodium Chloride 10 ml 12/23/18 06:19 Sodium Chloride Flush Syringe 10 Ml IV PRN PRN LINE FLUSH Tizanidine HCl 2 mg 12/24/18 22:45 12/25/18 18:33 Zanaflex PO 2 mg DAILY PRN Administration Muscle Spasm Nutrition/Malnutrition Assess - Dietary Evaluation Nutrition/Malnutrition Findings: Nutrition Notes Start: 12/23/18 11:47 Freq: Status: Active Protocol: Document 12/25/18 08:58 CP (Rec: 12/25/18 09:10 CP [email or web address]) Co-Sign 12/25/18 08:58 LP Nutrition Notes Initial or Follow up Brief Note Subjective/Other Information Pt is extubated. Awaiting TF consult. Nutrition Intervention Follow-Up By: 12/28/18 Additional Comments F/U: TF consult
[2018-12-26] MEDS: BABY ASPIRIN PO SCH (09:12)
[2018-12-26] MEDS: PEPCID IV SCH ×2 (09:12→22:35)
[2018-12-26] MEDS: FEOSOL PO SCH (09:12)
[2018-12-26] MEDS: NORVASC PO SCH (09:13)
[2018-12-26] MEDS: COREG PO SCH ×2 (09:13→22:34)
[2018-12-26] MEDS: COZAAR PO SCH (09:15)
[2018-12-26] MEDS: SODIUM CHLORIDE FLUSH SYRINGE 10 ML IV SCH (10:16)
[2018-12-26] MEDS: PROVENTIL IH PRN (10:21)
--- NOTE | 2018-12-26 12:43 | Progress Note ---
Assessment and Plan 63 y/o female with out of hospital cardiac arrest and prolonged downtime without adequate cardiac circulation, now awake, extubated but in pulmonary edema secondary to hypertensive Urgency and no further positive pressure. Patient also with continued chest pain, likely musculoskeletal from CPR and stridor off bipap. 1. Will start Steroids (Solumedrol 60q8) for possible anaphylaxis related symptoms including stridor off bipap. Patient will remain NPO as she is still on continuous bipap and we will add D5 with K for hydration. This will likely increase her sugars which we will now check every 4 hours. If sugars become greater than 300 consistently then will start insulin drip. Increased sliding scale to high dose 2. Continue Lasix therapy with IVF's as patient cannot be fed right now. 3. BP cardene CCT 31 minutes Subjective Date of service: 12/26/18 Principal diagnosis: Cardiac arrest Interval history: Patient awake and alert but still complaining of chest pain, despite BP being better and fluid removal on yesterday. Remains on bipap with good sats at 35%, but not able to come off this am. From speaking with RT, she actually had stridor on removal. Also learned from cardiology there may have been an allergic component to this as patient had just come [place] prior to this. Objective Vital Signs - 12hr 12/26/18 12/26/18 12/26/18 00:46 01:00 01:16 Temperature Pulse Rate 76 82 80 Pulse Rate [ Bilateral Throughout] Pulse Rate [ From Monitor] Respiratory 20 22 20 Rate Respiratory Rate [Bilateral Throughout] Blood Pressure 144/73 136/73 136/73 O2 Sat by Pulse 98 97 98 Oximetry 12/26/18 12/26/18 12/26/18 01:30 01:46 02:00 Temperature Pulse Rate 76 76 76 Pulse Rate [ Bilateral Throughout] Pulse Rate [ From Monitor] Respiratory 22 24 20 Rate Respiratory Rate [Bilateral Throughout] Blood Pressure 136/61 136/61 133/62 O2 Sat by Pulse 96 97 97 Oximetry 12/26/18 12/26/18 12/26/18 02:16 02:30 02:46 Temperature Pulse Rate 73 80 77 Pulse Rate [ Bilateral Throughout] Pulse Rate [ From Monitor] Respiratory 24 22 22 Rate Respiratory Rate [Bilateral Throughout] Blood Pressure 133/62 133/62 129/88 O2 Sat by Pulse 96 98 96 Oximetry 12/26/18 12/26/18 12/26/18 02:49 03:00 03:16 Temperature 99.4 F Pulse Rate 77 84 Pulse Rate [ Bilateral Throughout] Pulse Rate [ From Monitor] Respiratory 21 22 Rate Respiratory Rate [Bilateral Throughout] Blood Pressure 129/88 O2 Sat by Pulse 97 97 Oximetry 12/26/18 12/26/18 12/26/18 03:30 03:46 04:00 Temperature Pulse Rate 75 74 84 Pulse Rate [ Bilateral Throughout] Pulse Rate [ 84 From Monitor] Respiratory 22 20 22 Rate Respiratory Rate [Bilateral Throughout] Blood Pressure 138/72 138/72 119/74 O2 Sat by Pulse 97 97 98 Oximetry 12/26/18 12/26/18 12/26/18 04:16 04:30 04:46 Temperature Pulse Rate 80 73 75 Pulse Rate [ Bilateral Throughout] Pulse Rate [ From Monitor] Respiratory 23 21 22 Rate Respiratory Rate [Bilateral Throughout] Blood Pressure 119/74 119/74 149/73 O2 Sat by Pulse 96 95 96 Oximetry 12/26/18 12/26/18 12/26/18 05:00 05:16 05:30 Temperature Pulse Rate 84 92 H 83 Pulse Rate [ Bilateral Throughout] Pulse Rate [ From Monitor] Respiratory 17 24 19 Rate Respiratory Rate [Bilateral Throughout] Blood Pressure 149/73 158/72 149/73 O2 Sat by Pulse Oximetry 12/26/18 12/26/18 12/26/18 05:42 05:46 06:00 Temperature Pulse Rate 76 76 77 Pulse Rate [ Bilateral Throughout] Pulse Rate [ From Monitor] Respiratory 24 24 Rate Respiratory Rate [Bilateral Throughout] Blood Pressure 186/92 186/92 158/86 O2 Sat by Pulse Oximetry 12/26/18 12/26/18 12/26/18 06:16 06:30 06:46 Temperature Pulse Rate 82 74 72 Pulse Rate [ Bilateral Throughout] Pulse Rate [ From Monitor] Respiratory 28 H 22 20 Rate Respiratory Rate [Bilateral Throughout] Blood Pressure 158/86 123/58 158/86 O2 Sat by Pulse Oximetry 12/26/18 12/26/18 12/26/18 07:00 07:16 07:30 Temperature Pulse Rate 71 81 75 Pulse Rate [ Bilateral Throughout] Pulse Rate [ From Monitor] Respiratory 21 19 21 Rate Respiratory Rate [Bilateral Throughout] Blood Pressure 145/67 145/67 131/62 O2 Sat by Pulse Oximetry 03/12/26/18 12/26/18 07:46 08:00 08:16 Temperature 98.4 F Pulse Rate 74 80 70 Pulse Rate [ Bilateral Throughout] Pulse Rate [ From Monitor] Respiratory 21 23 21 Rate Respiratory Rate [Bilateral Throughout] Blood Pressure 131/62 131/62 131/62 O2 Sat by Pulse Oximetry 12/26/18 12/26/18 12/26/18 08:25 08:30 08:46 Temperature Pulse Rate 70 72 75 Pulse Rate [ Bilateral Throughout] Pulse Rate [ From Monitor] Respiratory 22 22 20 Rate Respiratory Rate [Bilateral Throughout] Blood Pressure 141/58 140/68 140/68 O2 Sat by Pulse 98 98 99 Oximetry 12/26/18 12/26/18 12/26/18 09:00 09:13 09:15 Temperature Pulse Rate 75 70 74 Pulse Rate [ Bilateral Throughout] Pulse Rate [ From Monitor] Respiratory 22 Rate Respiratory Rate [Bilateral Throughout] Blood Pressure 154/73 133/73 133/73 O2 Sat by Pulse 99 Oximetry 12/26/18 12/26/18 12/26/18 09:16 09:30 09:46 Temperature Pulse Rate 83 69 76 Pulse Rate [ Bilateral Throughout] Pulse Rate [ From Monitor] Respiratory 23 20 24 Rate Respiratory Rate [Bilateral Throughout] Blood Pressure 140/68 140/69 154/73 O2 Sat by Pulse 98 98 98 Oximetry 12/26/18 12/26/18 12/26/18 10:00 10:23 10:43 Temperature Pulse Rate 69 Pulse Rate [ 67 72 Bilateral Throughout] Pulse Rate [ From Monitor] Respiratory 24 Rate Respiratory 24 21 Rate [Bilateral Throughout] Blood Pressure 145/67 O2 Sat by Pulse 96 Oximetry Constitutional: no acute distress, alert Eyes: non-icteric ENT: other (orally intubated) Neck: supple Ascultation: Bilateral: clear CBC and BMP: 12/26/18 04:09 12/26/18 04:09 ABG, PT/INR, D-dimer: ABG POC ABG pH 7.424 (7.35-7.45) 12/24/18 03:34 POC ABG pCO2 31.0 (35-45) L 12/24/18 03:34 POC ABG pO2 139 (80-105) H 12/24/18 03:34 POC ABG HCO3 20.3 (22-26 mml/L) 12/24/18 03:34 POC ABG Total CO2 21 (23-27mmol/L) 12/24/18 03:34 POC ABG O2 Sat 99 12/24/18 03:34 PT/INR, D-dimer PT 13.8 Sec. (12.2-14.9) 12/23/18 05:16 INR 1.00 (0.87-1.13) 12/23/18 05:16 Abnormal lab findings: Abnormal Labs 12/22/18 12/22/18 12/22/18 22:48 23:44 23:44 WBC 12.1 H RBC Hct MCHC Plt Count 68 L [place] % (Auto) Seg Neutrophils % 70.2 H Seg Neuts % (Manual) Lymphocytes % (Manual) Seg Neutrophils # 8.5 H Seg Neutrophils # Man Lymphocytes # (Manual) Heparin Anti-Xa Level POC ABG pH POC ABG pCO2 POC ABG pO2 Sodium Potassium Chloride Carbon Dioxide 21 L BUN Creatinine Glucose 248 H POC Glucose 215 H Calcium Total Bilirubin AST 421 H ALT 430 H Total Creatine Kinase 219 H CK-MB (CK-2) 4.9 H Troponin T Total Protein 6.1 L Albumin 3.5 L Salicylates Acetaminophen 12/22/18 12/22/18 12/22/18 23:44 23:44 23:44 WBC RBC Hct MCHC Plt Count [place] % (Auto) Seg Neutrophils % Seg Neuts % (Manual) Lymphocytes % (Manual) Seg Neutrophils # Seg Neutrophils # Man Lymphocytes # (Manual) Heparin Anti-Xa Level POC ABG pH POC ABG pCO2 POC ABG pO2 Sodium Potassium Chloride Carbon Dioxide BUN Creatinine Glucose POC Glucose Calcium Total Bilirubin AST ALT Total Creatine Kinase 222 H CK-MB (CK-2) Troponin T Total Protein Albumin Salicylates < 0.3 L Acetaminophen < 5.0 L 12/22/18 12/23/18 12/23/18 23:45 03:06 03:26 WBC RBC Hct MCHC Plt Count [place] % (Auto) Seg Neutrophils % Seg Neuts % (Manual) Lymphocytes % (Manual) Seg Neutrophils # Seg Neutrophils # Man Lymphocytes # (Manual) Heparin Anti-Xa Level POC ABG pH 7.111 L 7.327 L POC ABG pCO2 65.8 H POC ABG pO2 50 L Sodium Potassium Chloride Carbon Dioxide BUN Creatinine Glucose POC Glucose Calcium Total Bilirubin AST ALT Total Creatine Kinase 542 H CK-MB (CK-2) 15.5 H Troponin T 0.041 H D Total Protein Albumin Salicylates Acetaminophen 12/23/18 12/23/18 12/23/18 05:16 07:21 08:36 WBC RBC Hct MCHC Plt Count [place] % (Auto) Seg Neutrophils % Seg Neuts % (Manual) 95.0 H Lymphocytes % (Manual) 2.0 L Seg Neutrophils # Seg Neutrophils # Man 8.7 H Lymphocytes # (Manual) 0.2 L Heparin Anti-Xa Level POC ABG pH POC ABG pCO2 POC ABG pO2 Sodium Potassium Chloride Carbon Dioxide BUN Creatinine Glucose POC Glucose 143 H Calcium Total Bilirubin AST ALT Total Creatine Kinase 652 H CK-MB (CK-2) 18.0 H Troponin T 0.074 H D Total Protein Albumin Salicylates Acetaminophen 12/23/18 12/23/18 12/23/18 20:40 20:51 Unknown WBC RBC Hct MCHC Plt Count [place] % (Auto) Seg Neutrophils % Seg Neuts % (Manual) Lymphocytes % (Manual) Seg Neutrophils # Seg Neutrophils # Man Lymphocytes # (Manual) Heparin Anti-Xa Level 0.19 L POC ABG pH POC ABG pCO2 POC ABG pO2 Sodium Potassium Chloride Carbon Dioxide BUN Creatinine Glucose POC Glucose 150 H Calcium Total Bilirubin AST ALT Total Creatine Kinase 722 H CK-MB (CK-2) 12.0 H Troponin T Total Protein Albumin Salicylates Acetaminophen 12/24/18 12/24/18 12/24/18 01:57 03:34 04:46 WBC RBC 3.61 L Hct MCHC Plt Count 137 L [place] % (Auto) 7.9 H Seg Neutrophils % 76.7 H Seg Neuts % (Manual) Lymphocytes % (Manual) Seg Neutrophils # Seg Neutrophils # Man Lymphocytes # (Manual) Heparin Anti-Xa Level POC ABG pH POC ABG pCO2 31.0 L POC ABG pO2 139 H Sodium Potassium Chloride Carbon Dioxide BUN Creatinine Glucose POC Glucose 203 H Calcium Total Bilirubin AST ALT Total Creatine Kinase CK-MB (CK-2) Troponin T Total Protein Albumin Salicylates Acetaminophen 12/24/18 12/24/18 12/24/18 04:46 04:46 04:46 WBC RBC Hct MCHC Plt Count [place] % (Auto) Seg Neutrophils % Seg Neuts % (Manual) Lymphocytes % (Manual) Seg Neutrophils # Seg Neutrophils # Man Lymphocytes # (Manual) Heparin Anti-Xa Level 0.24 L POC ABG pH POC ABG pCO2 POC ABG pO2 Sodium Potassium Chloride 107.3 H Carbon Dioxide 20 L BUN 21 H Creatinine Glucose 205 H POC Glucose Calcium 7.9 L Total Bilirubin AST ALT Total Creatine Kinase 560 H CK-MB (CK-2) Troponin T Total Protein Albumin Salicylates Acetaminophen 12/24/18 12/24/18 12/24/18 05:29 10:30 14:30 WBC RBC Hct MCHC Plt Count [place] % (Auto) Seg Neutrophils % Seg Neuts % (Manual) Lymphocytes % (Manual) Seg Neutrophils # Seg Neutrophils # Man Lymphocytes # (Manual) Heparin Anti-Xa Level POC ABG pH POC ABG pCO2 POC ABG pO2 Sodium Potassium Chloride Carbon Dioxide BUN Creatinine Glucose POC Glucose 180 H 181 H 181 H Calcium Total Bilirubin AST ALT Total Creatine Kinase CK-MB (CK-2) Troponin T Total Protein Albumin Salicylates Acetaminophen 12/24/18 12/24/18 12/25/18 17:44 21:45 02:15 WBC RBC Hct MCHC Plt Count [place] % (Auto) Seg Neutrophils % Seg Neuts % (Manual) Lymphocytes % (Manual) Seg Neutrophils # Seg Neutrophils # Man Lymphocytes # (Manual) Heparin Anti-Xa Level POC ABG pH POC ABG pCO2 POC ABG pO2 Sodium Potassium Chloride Carbon Dioxide BUN Creatinine Glucose POC Glucose 179 H 189 H 175 H Calcium Total Bilirubin AST ALT Total Creatine Kinase CK-MB (CK-2) Troponin T Total Protein Albumin Salicylates Acetaminophen 12/25/18 12/25/18 12/25/18 04:45 04:45 05:28 WBC RBC 3.36 L Hct MCHC Plt Count 120 L [place] % (Auto) Seg Neutrophils % Seg Neuts % (Manual) Lymphocytes % (Manual) Seg Neutrophils # Seg Neutrophils # Man Lymphocytes # (Manual) Heparin Anti-Xa Level POC ABG pH POC ABG pCO2 POC ABG pO2 Sodium 136 L Potassium 3.5 L Chloride Carbon Dioxide BUN Creatinine 0.6 L Glucose 159 H POC Glucose 151 H Calcium 7.8 L Total Bilirubin 1.30 H AST ALT 126 H Total Creatine Kinase CK-MB (CK-2) Troponin T Total Protein 5.9 L Albumin 2.6 L Salicylates Acetaminophen 12/25/18 12/25/18 12/25/18 09:27 15:00 17:52 WBC RBC Hct MCHC Plt Count [place] % (Auto) Seg Neutrophils % Seg Neuts % (Manual) Lymphocytes % (Manual) Seg Neutrophils # Seg Neutrophils # Man Lymphocytes # (Manual) Heparin Anti-Xa Level 0.25 L POC ABG pH POC ABG pCO2 POC ABG pO2 Sodium Potassium Chloride Carbon Dioxide BUN Creatinine Glucose POC Glucose 144 H 159 H Calcium Total Bilirubin AST ALT Total Creatine Kinase CK-MB (CK-2) Troponin T Total Protein Albumin Salicylates Acetaminophen 12/25/18 12/25/18 12/26/18 18:00 21:42 01:42 WBC RBC Hct MCHC Plt Count [place] % (Auto) Seg Neutrophils % Seg Neuts % (Manual) Lymphocytes % (Manual) Seg Neutrophils # Seg Neutrophils # Man Lymphocytes # (Manual) Heparin Anti-Xa Level POC ABG pH POC ABG pCO2 POC ABG pO2 Sodium Potassium Chloride Carbon Dioxide BUN Creatinine Glucose POC Glucose 139 H 160 H 151 H Calcium Total Bilirubin AST ALT Total Creatine Kinase CK-MB (CK-2) Troponin T Total Protein Albumin Salicylates Acetaminophen 12/26/18 12/26/18 12/26/18 04:09 04:09 05:32 WBC RBC 3.23 L Hct 29.4 L MCHC 35 H Plt Count 126 L [place] % (Auto) Seg Neutrophils % Seg Neuts % (Manual) Lymphocytes % (Manual) Seg Neutrophils # Seg Neutrophils # Man Lymphocytes # (Manual) Heparin Anti-Xa Level POC ABG pH POC ABG pCO2 POC ABG pO2 Sodium 136 L Potassium 3.5 L Chloride Carbon Dioxide BUN Creatinine 0.6 L Glucose 161 H POC Glucose 165 H Calcium 8.1 L Total Bilirubin AST ALT Total Creatine Kinase 331 H CK-MB (CK-2) Troponin T Total Protein Albumin Salicylates Acetaminophen 12/26/18 09:24 WBC RBC Hct MCHC Plt Count [place] % (Auto) Seg Neutrophils % Seg Neuts % (Manual) Lymphocytes % (Manual) Seg Neutrophils # Seg Neutrophils # Man Lymphocytes # (Manual) Heparin Anti-Xa Level POC ABG pH POC ABG pCO2 POC ABG pO2 Sodium Potassium Chloride Carbon Dioxide BUN Creatinine Glucose POC Glucose 142 H Calcium Total Bilirubin AST ALT Total Creatine Kinase CK-MB (CK-2) Troponin T Total Protein Albumin Salicylates Acetaminophen
[2018-12-26] MEDS ORDERED: TORADOL IV ONE (13:00)
[2018-12-26] MEDS: SOLU-Medrol IV SCH ×2 (13:07→22:34)
[2018-12-26] MEDS ORDERED: KCL 20 MEQ in D5W 1,000 ML IV SCH (14:00)
[2018-12-26] MEDS ORDERED: IBUPROFEN PO PRN (14:16)
--- NOTE | 2018-12-26 14:52 | Progress Note ---
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 Subjective Date of service: 12/26/18 Principal diagnosis: Cardiac arrest Interval history: Patient is on BiPAP, no acute distress. Sinus rhythm at 70, blood pressure 125 systolic. Objective Vital Signs Temp Pulse Pulse Pulse Resp Resp BP 12/26/18 14:24 12/26/18 14:00 81 27 H 125/70 12/26/18 13:46 72 22 125/70 12/26/18 13:30 75 20 125/70 12/26/18 13:16 82 24 156/78 12/26/18 13:00 87 26 H 134/70 12/26/18 12:46 83 23 134/70 12/26/18 12:30 81 23 134/70 12/26/18 12:16 81 22 134/70 12/26/18 12:00 98.3 F 71 21 134/70 12/26/18 11:46 73 19 133/73 12/26/18 11:30 70 19 125/68 12/26/18 11:16 73 20 133/73 12/26/18 11:00 83 25 H 133/73 12/26/18 10:46 72 21 145/67 12/26/18 10:43 72 21 12/26/18 10:30 68 22 145/68 12/26/18 10:23 67 24 12/26/18 10:16 76 23 145/67 12/26/18 10:00 69 24 145/67 12/26/18 09:46 76 24 154/73 12/26/18 09:30 69 20 140/69 12/26/18 09:16 83 23 140/68 12/26/18 09:15 74 133/73 12/26/18 09:13 70 133/73 12/26/18 09:00 75 22 154/73 12/26/18 08:46 75 20 140/68 12/26/18 08:30 72 22 140/68 12/26/18 08:25 70 22 141/58 12/26/18 08:16 70 21 131/62 12/26/18 08:00 98.4 F 80 23 131/62 12/26/18 07:46 74 21 131/62 12/26/18 07:30 75 21 131/62 12/26/18 07:16 81 19 145/67 12/26/18 07:00 71 21 145/67 12/26/18 06:46 72 20 158/86 12/26/18 06:30 74 22 123/58 12/26/18 06:16 82 28 H 158/86 12/26/18 06:00 77 24 158/86 12/26/18 05:46 76 24 186/92 12/26/18 05:42 76 186/92 12/26/18 05:30 83 19 149/73 12/26/18 05:16 92 H 24 158/72 12/26/18 05:00 84 17 149/73 12/26/18 04:46 75 22 149/73 12/26/18 04:30 73 21 119/74 12/26/18 04:16 80 23 119/74 12/26/18 04:00 84 84 22 119/74 12/26/18 03:46 74 20 138/72 12/26/18 03:30 75 22 138/72 12/26/18 03:16 84 22 12/26/18 03:00 77 21 129/88 12/26/18 02:49 99.4 F 12/26/18 02:46 77 22 129/88 12/26/18 02:30 80 22 133/62 12/26/18 02:16 73 24 133/62 12/26/18 02:00 76 20 133/62 12/26/18 01:46 76 24 136/61 12/26/18 01:30 76 22 136/61 12/26/18 01:16 80 20 136/73 12/26/18 01:00 82 22 136/73 12/26/18 00:46 76 20 144/73 12/26/18 00:30 76 23 144/73 12/26/18 00:16 79 18 136/69 12/26/18 00:00 77 82 21 136/69 12/25/18 23:59 77 18 136/69 12/25/18 23:45 79 21 169/88 12/25/18 23:44 81 169/88 12/25/18 23:30 76 24 136/70 12/25/18 23:29 91 H 136/70 12/25/18 23:15 82 25 H 136/70 12/25/18 23:05 85 136/70 12/25/18 23:00 76 21 136/70 12/25/18 22:54 99.7 F H 12/25/18 22:46 75 21 158/76 12/25/18 22:30 75 24 154/75 12/25/18 22:16 82 21 158/76 12/25/18 22:00 75 18 158/76 12/25/18 21:46 84 16 151/71 12/25/18 21:30 77 23 151/71 12/25/18 21:16 79 21 172/90 12/25/18 21:00 82 24 160/82 12/25/18 20:46 74 22 172/90 12/25/18 20:30 92 H 27 H 172/90 12/25/18 20:16 85 20 156/85 12/25/18 20:00 92 H 79 24 156/85 12/25/18 19:46 99.7 F H 83 23 153/75 12/25/18 19:33 25 H 12/25/18 19:30 80 23 153/75 12/25/18 19:16 79 22 165/84 12/25/18 19:00 86 29 H 165/84 12/25/18 18:46 80 24 155/79 12/25/18 18:33 25 H 12/25/18 18:30 85 24 158/83 12/25/18 18:16 81 23 155/79 12/25/18 18:00 79 22 155/79 12/25/18 17:46 81 21 152/73 12/25/18 17:32 84 23 153/76 12/25/18 17:30 86 25 H 153/76 12/25/18 17:16 82 22 152/73 12/25/18 17:00 79 22 152/73 12/25/18 16:46 87 28 H 150/71 12/25/18 16:30 82 22 150/71 12/25/18 16:16 80 22 162/80 12/25/18 16:00 99.9 F H 83 85 20 161/75 12/25/18 15:46 86 25 H 161/75 12/25/18 15:30 83 24 154/76 12/25/18 15:16 85 27 H 161/75 12/25/18 15:00 88 24 177/90 Pulse Ox 12/26/18 14:24 97 12/26/18 14:00 98 12/26/18 13:46 98 12/26/18 13:30 98 12/26/18 13:16 100 12/26/18 13:00 97 12/26/18 12:46 97 12/26/18 12:30 97 12/26/18 12:16 97 12/26/18 12:00 96 12/26/18 11:46 96 12/26/18 11:30 96 12/26/18 11:16 97 12/26/18 11:00 98 12/26/18 10:46 96 12/26/18 10:43 12/26/18 10:30 96 12/26/18 10:23 12/26/18 10:16 98 12/26/18 10:00 96 12/26/18 09:46 98 12/26/18 09:30 98 12/26/18 09:16 98 12/26/18 09:15 12/26/18 09:13 12/26/18 09:00 99 12/26/18 08:46 99 12/26/18 08:30 98 12/26/18 08:25 98 12/26/18 08:16 12/26/18 08:00 12/26/18 07:46 12/26/18 07:30 12/26/18 07:16 12/26/18 07:00 12/26/18 06:46 12/26/18 06:30 12/26/18 06:16 12/26/18 06:00 12/26/18 05:46 12/26/18 05:42 12/26/18 05:30 12/26/18 05:16 12/26/18 05:00 12/26/18 04:46 96 12/26/18 04:30 95 12/26/18 04:16 96 12/26/18 04:00 98 12/26/18 03:46 97 12/26/18 03:30 97 12/26/18 03:16 97 12/26/18 03:00 97 12/26/18 02:49 12/26/18 02:46 96 12/26/18 02:30 98 12/26/18 02:16 96 12/26/18 02:00 97 12/26/18 01:46 97 12/26/18 01:30 96 12/26/18 01:16 98 12/26/18 01:00 97 12/26/18 00:46 98 12/26/18 00:30 97 12/26/18 00:16 97 12/26/18 00:00 97 12/25/18 23:59 96 12/25/18 23:45 97 12/25/18 23:44 12/25/18 23:30 97 12/25/18 23:29 12/25/18 23:15 99 12/25/18 23:05 12/25/18 23:00 97 12/25/18 22:54 12/25/18 22:46 98 12/25/18 22:30 98 12/25/18 22:16 99 12/25/18 22:00 98 12/25/18 21:46 98 12/25/18 21:30 97 12/25/18 21:16 97 12/25/18 21:00 92 12/25/18 20:46 98 12/25/18 20:30 85 12/25/18 20:16 93 12/25/18 20:00 96 12/25/18 19:46 96 12/25/18 19:33 12/25/18 19:30 96 12/25/18 19:16 97 12/25/18 19:00 94 12/25/18 18:46 96 12/25/18 18:33 12/25/18 18:30 93 12/25/18 18:16 97 12/25/18 18:00 95 12/25/18 17:46 96 12/25/18 17:32 95 12/25/18 17:30 93 12/25/18 17:16 96 12/25/18 17:00 96 12/25/18 16:46 94 12/25/18 16:30 97 12/25/18 16:16 95 12/25/18 16:00 96 12/25/18 15:46 97 12/25/18 15:30 96 12/25/18 15:16 97 12/25/18 15:00 95 - Physical Examination General: Other (on BiPAP) HEENT: Positive: PERRL Neck: Positive: neck supple Cardiac: Positive: Reg Rate and Rhythm Lungs: Positive: Decreased Breath Sounds Neuro: Positive: Grossly Intact Abdomen: Positive: Soft, Tender Skin: Positive: Clear Extremities: Absent: edema - Labs and Meds CBC 12/26/18 Range/Units 04:09 WBC 6.4 (4.5-11.0) K/mm3 RBC 3.23 L (3.65-5.03) M/mm3 Hgb 10.3 (10.1-14.3) gm/dl Hct 29.4 L (30.3-42.9) % Plt Count 126 L (140-440) K/mm3 Comprehensive Metabolic Panel 12/26/18 Range/Units 04:09 Sodium 136 L (137-145) mmol/L Potassium 3.5 L (3.6-5.0) mmol/L Chloride 98.7 (98-107) mmol/L Carbon Dioxide 23 (22-30) mmol/L BUN 12 (7-17) mg/dL Creatinine 0.6 L (0.7-1.2) mg/dL Glucose 161 H (65-100) mg/dL Calcium 8.1 L (8.4-10.2) mg/dL
--- NOTE | 2018-12-26 20:55 | Ultrasound Report ---
PROCEDURE: US ABDOMEN COMPLETE TECHNIQUE: Real-time sonography in multiple planes of the abdomen was performed with image documenta tion. HISTORY: Epigastric pain and tenderness COMPARISONS: None . FINDINGS: Liver: There are well-defined echogenic lesion measuring 1.5 cm is noted in the posterior portion of right lobe.. Gallbladder: Fluid filled. No gallstones, wall thickening, pericholecystic fluid, or sonographic Mur phy's sign. Mild degree of sludge is identified. Intrahepatic bile ducts: Normal caliber . Extrahepatic bile ducts: Normal caliber. Pancreas: Visualized pancreatic head and body demonstrate normal echotexture. Aorta: Visualized portions appear normal. RIGHT kidney: Normal echotexture. No focal renal mass, calculus, or hydronephrosis. Length: 12.2 x 5.0 x 5.7 cm. LEFT kidney: Normal echotexture. No focal renal mass, calculus, or hydronephrosis. Length: 10.8 x 6.2 x 5.9 cm. Spleen: Normal size. A small well-defined simple appearing cyst measuring 0.6 cm is noted in the po sterior portion.. Intraperitoneal fluid: Mild degree of free fluid is noted . Other: None . IMPRESSION: Small echogenic lesion of right lobe liver is a nonspecific nature. It may represent a be nign lesion such as a hemangioma versus a malignant lesion such as metastatic deposit. Dynamic postcontrast CT or MRI may be recommended for further evaluation. Small simple appearing cyst in the spleen Mild degree gallbladder sludge Mild degree of ascites . This document is electronically signed by Sourav Giron MD., December 26 2018 08:53:48 PM ET
[2018-12-27] MEDS: HumaLOG SUB-Q SCH ×6 (02:00→21:47)
--- NOTE | 2018-12-27 03:15 | XRay Report ---
PROCEDURE: XR CHEST 1V AP TECHNIQUE: Chest radiograph single view. HISTORY: follow up respiratory failure COMPARISONS: December 26, 2018 . FINDINGS: Heart: Normal. Mediastinum/Vessels: Normal. Lungs/Pleural space: Mild vascular congestion. No consolidation or effusion. Bony thorax: No acute osseous abnormality. Life support devices: Right central catheter ends in the SVC. IMPRESSION: Mild vascular congestion. A right central catheter ends in the SVC. This document is electronically signed by Luly Richardson DO., December 27 2018 03:13:33 AM ET
[2018-12-27] MEDS: LASIX IV SCH ×2 (05:24→17:28)
[2018-12-27] MEDS: SOLU-Medrol IV SCH ×3 (05:24→21:48)
[2018-12-27 06:48] LABS: Hematocrit 32.1 % (30.3-42.9); Hemoglobin 11.3 gm/dl (10.1-14.3); Mean Corpuscular HGB Conc 35 % (30-34); Mean Corpuscular Volume 89 fl (79-97); Platelet Count 155 K/mm3 (140-440); Red Blood Count 3.59 M/mm3 (3.65-5.03); Red Cell Distribution Width 14.5 % (13.2-15.2)
[2018-12-27 07:12] LABS: BUN/Creatinine Ratio 29; Blood Urea Nitrogen 20 mg/dL (7-17); Calcium 8.8 mg/dL (8.4-10.2); Hemolysis Index 6
[2018-12-27] MEDS: BABY ASPIRIN PO SCH (10:06)
[2018-12-27] MEDS: PEPCID IV SCH (10:06)
[2018-12-27] MEDS: FEOSOL PO SCH (10:06)
[2018-12-27] MEDS: COREG PO SCH ×2 (10:06→21:47)
[2018-12-27] MEDS: NORVASC PO SCH (10:07)
[2018-12-27] MEDS: COZAAR PO SCH (10:07)
[2018-12-27] MEDS: SODIUM CHLORIDE FLUSH SYRINGE 10 ML IV SCH ×2 (10:09→21:49)
--- NOTE | 2018-12-27 11:59 | Progress Note ---
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 after cardiac arrest outside of the hospital. The cardiac arrest was suspected related to allergic reaction Seafood ingestion. Information in chart obtained from family states that patient went into respiratory distress following returning from a seafood restaurant and was noted to have lips swelling. It appears she was resuscitated for 10 minutes in the field and then another 10 minutes in the emergency room. Patient was intubated in the field and subsequently extubated on 12/24/18. CT HEAD reported No acute in tracranial process. 2D Echocardiogram this admission reported a normal left ventricular systolic function, EF 50-55%. Repeat pCXR on 12/24/18 shows worsening pulmonary edema. Repeat pCXR 12/26/18 shows stable pulmonary edema. -Acute Cardiopulmonary Arrest most likely due to allergic reaction following seafood ingestion: treat with steroids, antihistamine blockers -Acute Respiratory Failure s/p ETT intubation with successful extubation: Pulmonary following off Bipap on VM 35% -Pulmonary Edema: Pulmonary and Cardiology are following. Lasix, stopped IVF -Hypokalemia: replete and monitor closely -Uncontrolled DM with hyperglycemia on steroids, she takes 20 units bid 70/30 and metformin at home: start diet, add Lantus at night with SSI -Severe malnutrition: consulted Director Of Optimization -Hypertension: continue antihypertensives -Obesity, bmi 36.6 -Elevated troponin, non-specific per Cardiology -Rhabdomyolysis, resolved -DVT ppx: add sq heparin transferred out ICU History Interval history: Patient was seen and examined. Follow-up on current diagnosis of respiratory failure, resolving. She has right and substernal chest wall pains. Patient denies any nausea/vomiting or severe headaches. Imaging, nursing note, chart, labs and old chart reviewed. Discussed with patient. Hospitalist Physical - Physical exam Narrative exam: Gen: ill appearing, obese bmi 36.6, mild increase accessory muscles, off bipap Awake, HEENT: NCAT, EOMI, PERRL, OP Clear Neck: supple, no adenopathy, no thyromegaly, no JVD CVS/Heart: RRR, normal S1S2, pulses present bilaterally Chest/Lungs: diminished bs bilateral, Symmetrical chest expansion, good air entry bilaterally, severe reproducible right and substernal chest wall tenderness GI/Abdomen: soft, epigastric tenderness, good bowel sounds, no guarding or rebound /Bladder: no suprapubic tenderness, no CVA or paraspinal tenderness Extermity/Skin: no obvious rash MSK: FROM x 4 Neuro: CN 2-12 grossly intact, no new focal deficits Psych: calm - Constitutional Vitals: Temp Pulse Resp BP Pulse Ox 99.4 F 81 21 169/92 98 12/27/18 08:00 12/27/18 10:07 12/27/18 09:30 12/27/18 10:07 12/27/18 09:43 General appearance: Present: other (intubated on the vent) Results - Labs CBC & Chem 7: 12/27/18 05:11 12/27/18 05:11 Labs: Laboratory Last Values WBC 5.4 K/mm3 (4.5-11.0) 12/27/18 05:11 RBC 3.59 M/mm3 (3.65-5.03) L 12/27/18 05:11 Hgb 11.3 gm/dl (10.1-14.3) 12/27/18 05:11 Hct 32.1 % (30.3-42.9) 12/27/18 05:11 MCV 89 fl (79-97) 12/27/18 05:11 MCH 31 pg (28-32) 12/27/18 05:11 MCHC 35 % (30-34) H 12/27/18 05:11 RDW 14.5 % (13.2-15.2) 12/27/18 05:11 Plt Count 155 K/mm3 (140-440) 12/27/18 05:11 Lymph % (Auto) 14.8 % (13.4-35.0) 12/24/18 04:46 [place] % (Auto) 7.9 % (0.0-7.3) H 12/24/18 04:46 Eos % (Auto) 0.3 % (0.0-4.3) 12/24/18 04:46 Baso % (Auto) 0.3 % (0.0-1.8) 12/24/18 04:46 Lymph # 1.2 K/mm3 (1.2-5.4) 12/24/18 04:46 [place] # 0.7 K/mm3 (0.0-0.8) 12/24/18 04:46 Eos # 0.0 K/mm3 (0.0-0.4) 12/24/18 04:46 Baso # 0.0 K/mm3 (0.0-0.1) 12/24/18 04:46 Add Manual Diff Complete 12/23/18 07:21 Total Counted 100 12/23/18 07:21 Seg Neutrophils % 76.7 % (40.0-70.0) H 12/24/18 04:46 Seg Neuts % (Manual) 95.0 % (40.0-70.0) H 12/23/18 07:21 Band Neutrophils % 0 % 12/23/18 07:21 Lymphocytes % (Manual) 2.0 % (13.4-35.0) L 12/23/18 07:21 Reactive Lymphs % (Man) 0 % 12/23/18 07:21 Monocytes % (Manual) 3.0 % (0.0-7.3) 12/23/18 07:21 Eosinophils % (Manual) 0 % (0.0-4.3) 12/23/18 07:21 Basophils % (Manual) 0 % (0.0-1.8) 12/23/18 07:21 Metamyelocytes % 0 % 12/23/18 07:21 Myelocytes % 0 % 12/23/18 07:21 Promyelocytes % 0 % 12/23/18 07:21 Blast Cells % 0 % 12/23/18 07:21 Nucleated RBC % Not Reportable 12/23/18 07:21 Seg Neutrophils # 6.4 K/mm3 (1.8-7.7) 12/24/18 04:46 Seg Neutrophils # Man 8.7 K/mm3 (1.8-7.7) H 12/23/18 07:21 Band Neutrophils # 0.0 K/mm3 12/23/18 07:21 Lymphocytes # (Manual) 0.2 K/mm3 (1.2-5.4) L 12/23/18 07:21 Abs React Lymphs (Man) 0.0 K/mm3 12/23/18 07:21 Monocytes # (Manual) 0.3 K/mm3 (0.0-0.8) 12/23/18 07:21 Eosinophils # (Manual) 0.0 K/mm3 (0.0-0.4) 12/23/18 07:21 Basophils # (Manual) 0.0 K/mm3 (0.0-0.1) 12/23/18 07:21 Metamyelocytes # 0.0 K/mm3 12/23/18 07:21 Myelocytes # 0.0 K/mm3 12/23/18 07:21 Promyelocytes # 0.0 K/mm3 12/23/18 07:21 Blast Cells # 0.0 K/mm3 12/23/18 07:21 WBC Morphology Not Reportable 12/23/18 07:21 Hypersegmented Neuts Not Reportable 12/23/18 07:21 Hyposegmented Neuts Not Reportable 12/23/18 07:21 Hypogranular Neuts Not Reportable 12/23/18 07:21 Smudge Cells Not Reportable 12/23/18 07:21 Toxic Granulation Not Reportable 12/23/18 07:21 Toxic Vacuolation Not Reportable 12/23/18 07:21 Dohle Bodies Not Reportable 12/23/18 07:21 Pelger-Huet Anomaly Not Reportable 12/23/18 07:21 Isis Rods Not Reportable 12/23/18 07:21 Platelet Estimate Consistent w auto 12/23/18 07:21 Clumped Platelets Not Reportable 12/23/18 07:21 Plt Clumps, EDTA Not Reportable 12/23/18 07:21 Large Platelets Not Reportable 12/23/18 07:21 Giant Platelets Not Reportable 12/23/18 07:21 Platelet Satelliting Not Reportable 12/23/18 07:21 Plt Morphology Comment Not Reportable 12/23/18 07:21 RBC Morphology Not Reportable 12/23/18 07:21 Dimorphic RBCs Not Reportable 12/23/18 07:21 Polychromasia Not Reportable 12/23/18 07:21 Hypochromasia Not Reportable 12/23/18 07:21 Poikilocytosis 1+ 12/23/18 07:21 Anisocytosis 1+ 12/23/18 07:21 Microcytosis Not Reportable 12/23/18 07:21 Macrocytosis Rare 12/23/18 07:21 Spherocytes Not Reportable 12/23/18 07:21 Pappenheimer Bodies Not Reportable 12/23/18 07:21 Sickle Cells Not Reportable 12/23/18 07:21 Target Cells Not Reportable 12/23/18 07:21 Tear Drop Cells Not Reportable 12/23/18 07:21 Ovalocytes Few 12/23/18 07:21 Helmet Cells Not Reportable 12/23/18 07:21 [place] Bodies Not Reportable 12/23/18 07:21 [place] Rings Not Reportable 12/23/18 07:21 [place] Cells Not Reportable 12/23/18 07:21 Bite Cells Not Reportable 12/23/18 07:21 Crenated Cell Not Reportable 12/23/18 07:21 Elliptocytes Not Reportable 12/23/18 07:21 Acanthocytes (Spur) Not Reportable 12/23/18 07:21 Rouleaux Not Reportable 12/23/18 07:21 Hemoglobin C Crystals Not Reportable 12/23/18 07:21 Schistocytes Not Reportable 12/23/18 07:21 Malaria parasites Not Reportable 12/23/18 07:21 Tien Bodies Not Reportable 12/23/18 07:21 Hem Pathologist Commnt No 12/23/18 07:21 PT 13.8 Sec. (12.2-14.9) 12/23/18 05:16 INR 1.00 (0.87-1.13) 12/23/18 05:16 APTT 27.5 Sec. (24.2-36.6) 12/23/18 05:16 Heparin Anti-Xa Level 0.33 U.I./ml (0.3-0.7) 12/26/18 04:09 POC ABG pH 7.424 (7.35-7.45) 12/24/18 03:34 POC ABG pCO2 31.0 (35-45) L 12/24/18 03:34 POC ABG pO2 139 (80-105) H 12/24/18 03:34 POC ABG HCO3 20.3 (22-26 mml/L) 12/24/18 03:34 POC ABG Total CO2 21 (23-27mmol/L) 12/24/18 03:34 POC ABG O2 Sat 99 12/24/18 03:34 POC ABG Base Excess -4 ((-2) - (+3)mmol/L) 12/24/18 03:34 FiO2 45 % 12/24/18 03:34 Sodium 138 mmol/L (137-145) 12/27/18 05:11 Potassium 3.5 mmol/L (3.6-5.0) L 12/27/18 05:11 Chloride 98.1 mmol/L (98-107) 12/27/18 05:11 Carbon Dioxide 23 mmol/L (22-30) 12/27/18 05:11 Anion Gap 20 mmol/L 12/27/18 05:11 BUN 20 mg/dL (7-17) H 12/27/18 05:11 Creatinine 0.7 mg/dL (0.7-1.2) 12/27/18 05:11 Estimated GFR > 60 ml/min 12/27/18 05:11 BUN/Creatinine Ratio 29 % 12/27/18 05:11 Glucose 286 mg/dL (65-100) H 12/27/18 05:11 POC Glucose 260 (70-105) H 12/27/18 10:09 Calcium 8.8 mg/dL (8.4-10.2) 12/27/18 05:11 Magnesium 2.10 mg/dL (1.7-2.3) 12/22/18 23:44 Total Bilirubin 1.30 mg/dL (0.1-1.2) H 12/25/18 04:45 AST 33 units/L (5-40) 12/25/18 04:45 ALT 126 units/L (7-56) H 12/25/18 04:45 Alkaline Phosphatase 63 units/L (35-129) 12/25/18 04:45 Total Creatine Kinase 331 units/L (30-135) H 12/26/18 04:09 CK-MB (CK-2) 12.0 ng/mL (0.0-4.0) H 12/23/18 Unknown CK-MB (CK-2) Rel Index 1.6 (0-4) 12/23/18 Unknown Troponin T 0.026 ng/mL (0.00-0.029) 12/23/18 Unknown Total Protein 5.9 g/dL (6.3-8.2) L 12/25/18 04:45 Albumin 2.6 g/dL (3.9-5) L 12/25/18 04:45 Albumin/Globulin Ratio 0.8 % 12/25/18 04:45 Triglycerides 52 mg/dL (2-149) 12/23/18 03:26 Cholesterol 106 mg/dL (50-199) 12/23/18 03:26 LDL Cholesterol Direct 58 mg/dL (50-130) 12/23/18 03:26 HDL Cholesterol 54 mg/dL (40-59) 12/23/18 03:26 Cholesterol/HDL Ratio 1.96 % 12/23/18 03:26 Salicylates < 0.3 mg/dL (2.8-20.0) L 12/22/18 23:44 Acetaminophen < 5.0 ug/mL (10.0-30.0) L 12/22/18 23:44 Plasma/Serum Alcohol < 0.01 % (0-0.07) 12/22/18 23:44 Blood Type A POSITIVE 12/22/18 23:44 Antibody Screen Negative 12/22/18 23:44 Active Medications - Current Medications Current Medications: Generic Name Dose Route Start Last Admin Trade Name Freq PRN Reason Stop Dose Admin Acetaminophen 650 mg 12/23/18 06:19 12/26/18 05:24 Tylenol PO 650 mg Q4H PRN Administration Pain MILD(1-3)/Fever >100.5/ETIENNE Albuterol 2.5 mg 12/24/18 22:49 12/26/18 10:21 Proventil IH 2.5 mg Q4HRT PRN Administration Shortness Of Breath Amlodipine Besylate 10 mg 12/23/18 17:00 12/27/18 10:07 Norvasc PO 10 mg QDAY ANGELICA Administration Aspirin 81 mg 12/23/18 10:00 12/27/18 10:06 Baby Aspirin PO 81 mg QDAY ANGELICA Administration Carvedilol 25 mg 12/25/18 10:00 12/27/18 10:06 Coreg PO 25 mg BID ANGELICA Administration Clonidine HCl 0.2 mg 12/23/18 17:00 12/23/18 17:45 Catapres-Tts Patch TD 0.2 mg We ANGELICA Administration Dextrose 50 ml 12/23/18 05:14 D50w (25gm) Syringe IV PRN PRN Hypoglycemia Diphenhydramine HCl 25 mg 12/24/18 22:42 Benadryl IV Q6H PRN Itching Famotidine 20 mg 12/24/18 11:00 12/27/18 10:06 Pepcid IV 20 mg BID ANGELICA Administration Ferrous Sulfate 325 mg 12/25/18 10:00 12/27/18 10:06 Feosol PO 325 mg QDAY ANGELICA Administration Furosemide 40 mg 12/25/18 18:00 12/27/18 05:24 Lasix IV 40 mg 0600,1800 ANGELICA Administration Hydralazine HCl 5 mg 12/24/18 02:28 12/26/18 05:42 Apresoline IV 5 mg Q6H PRN Administration Hypertension Hydrophilic Ointment 1 applic 12/22/18 23:34 12/23/18 11:35 Vaseline Lip Therapy TP 1 applic Q2HR PRN Administration Dry Lips Sodium Chloride 1,000 mls @ 75 mls/hr 12/23/18 06:00 12/24/18 13:37 Nacl 0.9% 1000 Ml IV 75 mls/hr DIRECT ANGELICA Administration Potassium Chloride 20 meq/ 1,010 mls @ 42 mls/hr 12/26/18 14:00 12/26/18 14:49 Dextrose IV 42 mls/hr DIRECT ANGELICA Administration Ibuprofen 600 mg 12/26/18 14:16 12/26/18 14:49 Motrin PO 600 mg Q6H PRN Administration Pain, Mild (1-3) Insulin Human Lispro 0 unit 12/24/18 02:00 12/27/18 10:29 Humalog SUB-Q 6 unit Q4HR ANGELICA Administration Protocol Losartan Potassium 100 mg 12/23/18 17:00 12/27/18 10:07 Cozaar PO 100 mg QDAY ANGELICA Administration Methylprednisolone Sodium Succinate 60 mg 12/26/18 14:00 12/27/18 05:24 Solu-Medrol IV 60 mg Q8HR ANGELICA Administration Multi-Ingred Cream/Lotion/Oil/Oint 1 applic 12/22/18 23:34 Artificial Tears Ophth Oint OU Q4HR PRN Dry Eye(s) Nitroglycerin 0.4 mg 12/24/18 22:48 12/25/18 23:44 Nitrostat SL 0.4 mg .Q5MIN PRN Administration Chest Pain Ondansetron HCl 4 mg 12/23/18 06:19 Zofran IV Q4H PRN Nausea And Vomiting Sodium Chloride 5 ml 12/22/18 23:34 12/23/18 02:03 Nacl 0.9% 500 Ml IV 5 ml DIRECT PRN Administration [employer] Sodium Chloride 10 ml 12/23/18 10:00 12/27/18 10:09 Sodium Chloride Flush Syringe 10 Ml IV 10 ml BID ANGELICA Administration Sodium Chloride 10 ml 12/23/18 06:19 Sodium Chloride Flush Syringe 10 Ml IV PRN PRN LINE FLUSH Nutrition/Malnutrition Assess - Dietary Evaluation Nutrition/Malnutrition Findings: Nutrition Notes Start: 12/23/18 11:47 Freq: Status: Active Protocol: Document 12/25/18 08:58 CP (Rec: 12/25/18 09:10 CP [id number]) Co-Sign 12/25/18 08:58 LP Nutrition Notes Initial or Follow up Brief Note Subjective/Other Information Pt is extubated. Awaiting TF consult. Nutrition Intervention Follow-Up By: 12/28/18 Additional Comments F/U: TF consult
[2018-12-27] MEDS ORDERED: D50W (25GM) Syringe IV PRN (12:37)
--- NOTE | 2018-12-27 12:44 | Progress Note ---
Assessment and Plan 63 y/o female with out of hospital cardiac arrest and prolonged downtime without adequate cardiac circulation, now awake, extubated but in pulmonary edema secondary to hypertensive Urgency and no further positive pressure. Patient also with continued chest pain, likely musculoskeletal from CPR and stridor off bipap. 1. Continue steroids but will drop down to 40q8. This is for possible allergic reaction and chest pain related to CPR, not COPD 2. Will D5W now that patient is off continuous bipap and tolerating PO. Will CC diet 3. Continue oral BP control 4. Chest pain I feel is more musculoskeletal. Continue roids and PRN Ib uprofen. 5. Stable for transfer to tele from. Continue wean FiO2 for sats >88% Subjective Date of service: 12/27/18 Principal diagnosis: Cardiac arrest Interval history: No acute events. patient was able to get up to the bedside commode today. No issues. BP improved. Off bipap and stable on Venti-mask. No family present. Objective Vital Signs - 12hr 12/27/18 12/27/18 12/27/18 00:46 01:00 01:16 Temperature Pulse Rate 79 78 67 Pulse Rate [ From Monitor] Respiratory 19 18 19 Rate Blood Pressure 153/78 153/78 124/64 O2 Sat by Pulse 97 97 98 Oximetry 12/27/18 12/27/18 12/27/18 01:30 01:34 01:46 Temperature Pulse Rate 71 72 73 Pulse Rate [ From Monitor] Respiratory 20 21 19 Rate Blood Pressure 124/64 126/66 124/64 O2 Sat by Pulse 97 99 99 Oximetry 12/27/18 12/27/18 12/27/18 02:00 02:16 02:30 Temperature Pulse Rate 73 78 71 Pulse Rate [ From Monitor] Respiratory 18 24 16 Rate Blood Pressure 124/64 128/72 128/72 O2 Sat by Pulse 99 99 98 Oximetry 12/27/18 12/27/18 12/27/18 02:46 03:00 03:16 Temperature Pulse Rate 66 67 64 Pulse Rate [ From Monitor] Respiratory 17 16 17 Rate Blood Pressure 128/72 122/68 122/68 O2 Sat by Pulse 99 99 98 Oximetry 12/27/18 12/27/18 12/27/18 03:30 03:41 03:46 Temperature 99.4 F Pulse Rate 64 71 Pulse Rate [ From Monitor] Respiratory 17 19 Rate Blood Pressure 122/68 122/68 O2 Sat by Pulse 98 99 Oximetry 12/27/18 12/27/18 12/27/18 04:00 04:16 04:30 Temperature Pulse Rate 75 81 74 Pulse Rate [ 86 From Monitor] Respiratory 25 H 26 H 17 Rate Blood Pressure 122/68 110/77 110/77 O2 Sat by Pulse 98 99 99 Oximetry 12/27/18 12/27/18 12/27/18 04:46 05:00 05:16 Temperature Pulse Rate 77 75 83 Pulse Rate [ From Monitor] Respiratory 24 24 24 Rate Blood Pressure 110/77 110/77 110/77 O2 Sat by Pulse 97 97 97 Oximetry 12/27/18 12/27/18 12/27/18 05:30 05:46 06:00 Temperature Pulse Rate 78 81 72 Pulse Rate [ From Monitor] Respiratory 21 22 18 Rate Blood Pressure 110/77 110/77 166/85 O2 Sat by Pulse 98 100 99 Oximetry 12/27/18 12/27/18 12/27/18 06:16 06:30 07:00 Temperature Pulse Rate 83 70 68 Pulse Rate [ From Monitor] Respiratory 19 19 17 Rate Blood Pressure 164/94 164/94 135/71 O2 Sat by Pulse 99 98 98 Oximetry 12/27/18 12/27/18 12/27/18 07:30 08:00 08:30 Temperature 99.4 F Pulse Rate 68 63 79 Pulse Rate [ From Monitor] Respiratory 19 18 11 L Rate Blood Pressure 135/71 135/71 162/72 O2 Sat by Pulse 98 98 99 Oximetry 12/27/18 12/27/18 12/27/18 09:00 09:30 09:43 Temperature Pulse Rate 80 81 Pulse Rate [ From Monitor] Respiratory 27 H 21 Rate Blood Pressure 162/72 168/94 O2 Sat by Pulse 100 99 98 Oximetry 12/27/18 12/27/18 12/27/18 10:06 10:07 12:00 Temperature 98.9 F Pulse Rate 79 81 Pulse Rate [ From Monitor] Respiratory Rate Blood Pressure 169/92 169/92 O2 Sat by Pulse Oximetry Constitutional: no acute distress, alert Eyes: non-icteric Neck: supple Ascultation: Bilateral: clear CBC and BMP: 12/27/18 05:11 12/27/18 05:11 ABG, PT/INR, D-dimer: ABG POC ABG pH 7.424 (7.35-7.45) 12/24/18 03:34 POC ABG pCO2 31.0 (35-45) L 12/24/18 03:34 POC ABG pO2 139 (80-105) H 12/24/18 03:34 POC ABG HCO3 20.3 (22-26 mml/L) 12/24/18 03:34 POC ABG Total CO2 21 (23-27mmol/L) 12/24/18 03:34 POC ABG O2 Sat 99 12/24/18 03:34 PT/INR, D-dimer PT 13.8 Sec. (12.2-14.9) 12/23/18 05:16 INR 1.00 (0.87-1.13) 12/23/18 05:16 Abnormal lab findings: Abnormal Labs 12/22/18 12/22/18 12/22/18 22:48 23:44 23:44 WBC 12.1 H RBC Hct MCHC Plt Count 68 L [place] % (Auto) Seg Neutrophils % 70.2 H Seg Neuts % (Manual) Lymphocytes % (Manual) Seg Neutrophils # 8.5 H Seg Neutrophils # Man Lymphocytes # (Manual) Heparin Anti-Xa Level POC ABG pH POC ABG pCO2 POC ABG pO2 Sodium Potassium Chloride Carbon Dioxide 21 L BUN Creatinine Glucose 248 H POC Glucose 215 H Calcium Total Bilirubin AST 421 H ALT 430 H Total Creatine Kinase 219 H CK-MB (CK-2) 4.9 H Troponin T Total Protein 6.1 L Albumin 3.5 L Salicylates Acetaminophen 12/22/18 12/22/18 12/22/18 23:44 23:44 23:44 WBC RBC Hct MCHC Plt Count [place] % (Auto) Seg Neutrophils % Seg Neuts % (Manual) Lymphocytes % (Manual) Seg Neutrophils # Seg Neutrophils # Man Lymphocytes # (Manual) Heparin Anti-Xa Level POC ABG pH POC ABG pCO2 POC ABG pO2 Sodium Potassium Chloride Carbon Dioxide BUN Creatinine Glucose POC Glucose Calcium Total Bilirubin AST ALT Total Creatine Kinase 222 H CK-MB (CK-2) Troponin T Total Protein Albumin Salicylates < 0.3 L Acetaminophen < 5.0 L 12/22/18 12/23/18 12/23/18 23:45 03:06 03:26 WBC RBC Hct MCHC Plt Count [place] % (Auto) Seg Neutrophils % Seg Neuts % (Manual) Lymphocytes % (Manual) Seg Neutrophils # Seg Neutrophils # Man Lymphocytes # (Manual) Heparin Anti-Xa Level POC ABG pH 7.111 L 7.327 L POC ABG pCO2 65.8 H POC ABG pO2 50 L Sodium Potassium Chloride Carbon Dioxide BUN Creatinine Glucose POC Glucose Calcium Total Bilirubin AST ALT Total Creatine Kinase 542 H CK-MB (CK-2) 15.5 H Troponin T 0.041 H D Total Protein Albumin Salicylates Acetaminophen 12/23/18 12/23/18 12/23/18 05:16 07:21 08:36 WBC RBC Hct MCHC Plt Count [place] % (Auto) Seg Neutrophils % Seg Neuts % (Manual) 95.0 H Lymphocytes % (Manual) 2.0 L Seg Neutrophils # Seg Neutrophils # Man 8.7 H Lymphocytes # (Manual) 0.2 L Heparin Anti-Xa Level POC ABG pH POC ABG pCO2 POC ABG pO2 Sodium Potassium Chloride Carbon Dioxide BUN Creatinine Glucose POC Glucose 143 H Calcium Total Bilirubin AST ALT Total Creatine Kinase 652 H CK-MB (CK-2) 18.0 H Troponin T 0.074 H D Total Protein Albumin Salicylates Acetaminophen 12/23/18 12/23/18 12/23/18 20:40 20:51 Unknown WBC RBC Hct MCHC Plt Count [place] % (Auto) Seg Neutrophils % Seg Neuts % (Manual) Lymphocytes % (Manual) Seg Neutrophils # Seg Neutrophils # Man Lymphocytes # (Manual) Heparin Anti-Xa Level 0.19 L POC ABG pH POC ABG pCO2 POC ABG pO2 Sodium Potassium Chloride Carbon Dioxide BUN Creatinine Glucose POC Glucose 150 H Calcium Total Bilirubin AST ALT Total Creatine Kinase 722 H CK-MB (CK-2) 12.0 H Troponin T Total Protein Albumin Salicylates Acetaminophen 12/24/18 12/24/18 12/24/18 01:57 03:34 04:46 WBC RBC 3.61 L Hct MCHC Plt Count 137 L [place] % (Auto) 7.9 H Seg Neutrophils % 76.7 H Seg Neuts % (Manual) Lymphocytes % (Manual) Seg Neutrophils # Seg Neutrophils # Man Lymphocytes # (Manual) Heparin Anti-Xa Level POC ABG pH POC ABG pCO2 31.0 L POC ABG pO2 139 H Sodium Potassium Chloride Carbon Dioxide BUN Creatinine Glucose POC Glucose 203 H Calcium Total Bilirubin AST ALT Total Creatine Kinase CK-MB (CK-2) Troponin T Total Protein Albumin Salicylates Acetaminophen 12/24/18 12/24/18 12/24/18 04:46 04:46 04:46 WBC RBC Hct MCHC Plt Count [place] % (Auto) Seg Neutrophils % Seg Neuts % (Manual) Lymphocytes % (Manual) Seg Neutrophils # Seg Neutrophils # Man Lymphocytes # (Manual) Heparin Anti-Xa Level 0.24 L POC ABG pH POC ABG pCO2 POC ABG pO2 Sodium Potassium Chloride 107.3 H Carbon Dioxide 20 L BUN 21 H Creatinine Glucose 205 H POC Glucose Calcium 7.9 L Total Bilirubin AST ALT Total Creatine Kinase 560 H CK-MB (CK-2) Troponin T Total Protein Albumin Salicylates Acetaminophen 12/24/18 12/24/18 12/24/18 05:29 10:30 14:30 WBC RBC Hct MCHC Plt Count [place] % (Auto) Seg Neutrophils % Seg Neuts % (Manual) Lymphocytes % (Manual) Seg Neutrophils # Seg Neutrophils # Man Lymphocytes # (Manual) Heparin Anti-Xa Level POC ABG pH POC ABG pCO2 POC ABG pO2 Sodium Potassium Chloride Carbon Dioxide BUN Creatinine Glucose POC Glucose 180 H 181 H 181 H Calcium Total Bilirubin AST ALT Total Creatine Kinase CK-MB (CK-2) Troponin T Total Protein Albumin Salicylates Acetaminophen 12/24/18 12/24/18 12/25/18 17:44 21:45 02:15 WBC RBC Hct MCHC Plt Count [place] % (Auto) Seg Neutrophils % Seg Neuts % (Manual) Lymphocytes % (Manual) Seg Neutrophils # Seg Neutrophils # Man Lymphocytes # (Manual) Heparin Anti-Xa Level POC ABG pH POC ABG pCO2 POC ABG pO2 Sodium Potassium Chloride Carbon Dioxide BUN Creatinine Glucose POC Glucose 179 H 189 H 175 H Calcium Total Bilirubin AST ALT Total Creatine Kinase CK-MB (CK-2) Troponin T Total Protein Albumin Salicylates Acetaminophen 12/25/18 12/25/18 12/25/18 04:45 04:45 05:28 WBC RBC 3.36 L Hct MCHC Plt Count 120 L [place] % (Auto) Seg Neutrophils % Seg Neuts % (Manual) Lymphocytes % (Manual) Seg Neutrophils # Seg Neutrophils # Man Lymphocytes # (Manual) Heparin Anti-Xa Level POC ABG pH POC ABG pCO2 POC ABG pO2 Sodium 136 L Potassium 3.5 L Chloride Carbon Dioxide BUN Creatinine 0.6 L Glucose 159 H POC Glucose 151 H Calcium 7.8 L Total Bilirubin 1.30 H AST ALT 126 H Total Creatine Kinase CK-MB (CK-2) Troponin T Total Protein 5.9 L Albumin 2.6 L Salicylates Acetaminophen 12/25/18 12/25/18 12/25/18 09:27 15:00 17:52 WBC RBC Hct MCHC Plt Count [place] % (Auto) Seg Neutrophils % Seg Neuts % (Manual) Lymphocytes % (Manual) Seg Neutrophils # Seg Neutrophils # Man Lymphocytes # (Manual) Heparin Anti-Xa Level 0.25 L POC ABG pH POC ABG pCO2 POC ABG pO2 Sodium Potassium Chloride Carbon Dioxide BUN Creatinine Glucose POC Glucose 144 H 159 H Calcium Total Bilirubin AST ALT Total Creatine Kinase CK-MB (CK-2) Troponin T Total Protein Albumin Salicylates Acetaminophen 12/25/18 12/25/18 12/26/18 18:00 21:42 01:42 WBC RBC Hct MCHC Plt Count [place] % (Auto) Seg Neutrophils % Seg Neuts % (Manual) Lymphocytes % (Manual) Seg Neutrophils # Seg Neutrophils # Man Lymphocytes # (Manual) Heparin Anti-Xa Level POC ABG pH POC ABG pCO2 POC ABG pO2 Sodium Potassium Chloride Carbon Dioxide BUN Creatinine Glucose POC Glucose 139 H 160 H 151 H Calcium Total Bilirubin AST ALT Total Creatine Kinase CK-MB (CK-2) Troponin T Total Protein Albumin Salicylates Acetaminophen 12/26/18 12/26/18 12/26/18 04:09 04:09 05:32 WBC RBC 3.23 L Hct 29.4 L MCHC 35 H Plt Count 126 L [place] % (Auto) Seg Neutrophils % Seg Neuts % (Manual) Lymphocytes % (Manual) Seg Neutrophils # Seg Neutrophils # Man Lymphocytes # (Manual) Heparin Anti-Xa Level POC ABG pH POC ABG pCO2 POC ABG pO2 Sodium 136 L Potassium 3.5 L Chloride Carbon Dioxide BUN Creatinine 0.6 L Glucose 161 H POC Glucose 165 H Calcium 8.1 L Total Bilirubin AST ALT Total Creatine Kinase 331 H CK-MB (CK-2) Troponin T Total Protein Albumin Salicylates Acetaminophen 12/26/18 12/26/18 12/26/18 09:24 14:55 17:41 WBC RBC Hct MCHC Plt Count [place] % (Auto) Seg Neutrophils % Seg Neuts % (Manual) Lymphocytes % (Manual) Seg Neutrophils # Seg Neutrophils # Man Lymphocytes # (Manual) Heparin Anti-Xa Level POC ABG pH POC ABG pCO2 POC ABG pO2 Sodium Potassium Chloride Carbon Dioxide BUN Creatinine Glucose POC Glucose 142 H 171 H 229 H Calcium Total Bilirubin AST ALT Total Creatine Kinase CK-MB (CK-2) Troponin T Total Protein Albumin Salicylates Acetaminophen 12/26/18 12/27/18 12/27/18 22:29 02:12 05:10 WBC RBC Hct MCHC Plt Count [place] % (Auto) Seg Neutrophils % Seg Neuts % (Manual) Lymphocytes % (Manual) Seg Neutrophils # Seg Neutrophils # Man Lymphocytes # (Manual) Heparin Anti-Xa Level POC ABG pH POC ABG pCO2 POC ABG pO2 Sodium Potassium Chloride Carbon Dioxide BUN Creatinine Glucose POC Glucose 281 H 257 H 252 H Calcium Total Bilirubin AST ALT Total Creatine Kinase CK-MB (CK-2) Troponin T Total Protein Albumin Salicylates Acetaminophen 12/27/18 12/27/18 12/27/18 05:11 05:11 10:09 WBC RBC 3.59 L Hct MCHC 35 H Plt Count [place] % (Auto) Seg Neutrophils % Seg Neuts % (Manual) Lymphocytes % (Manual) Seg Neutrophils # Seg Neutrophils # Man Lymphocytes # (Manual) Heparin Anti-Xa Level POC ABG pH POC ABG pCO2 POC ABG pO2 Sodium Potassium 3.5 L Chloride Carbon Dioxide BUN 20 H Creatinine Glucose 286 H POC Glucose 260 H Calcium Total Bilirubin AST ALT Total Creatine Kinase CK-MB (CK-2) Troponin T Total Protein Albumin Salicylates Acetaminophen
[2018-12-27] MEDS ORDERED: K-DUR PO ONE (13:00)
--- NOTE | 2018-12-27 14:17 | Progress Note ---
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 Subjective Date of service: 12/27/18 Principal diagnosis: Cardiac arrest Interval history: Patient is awake, breathing comfortably on O2 by facemask. Objective Vital Signs Temp Pulse Pulse Resp BP Pulse Ox 12/27/18 13:00 79 23 152/81 97 12/27/18 12:00 98.9 F 81 80 25 H 177/140 99 12/27/18 11:00 80 12 169/92 99 12/27/18 10:07 81 169/92 12/27/18 10:06 79 169/92 12/27/18 10:00 79 26 H 169/92 98 12/27/18 09:43 98 12/27/18 09:30 81 21 168/94 99 12/27/18 09:00 80 27 H 162/72 100 12/27/18 08:30 79 11 L 162/72 99 12/27/18 08:00 99.4 F 63 82 16 135/71 100 12/27/18 07:30 68 19 135/71 98 12/27/18 07:00 68 17 135/71 98 12/27/18 06:30 70 19 164/94 98 12/27/18 06:16 83 19 164/94 99 12/27/18 06:00 72 18 166/85 99 12/27/18 05:46 81 22 110/77 100 12/27/18 05:30 78 21 110/77 98 12/27/18 05:16 83 24 110/77 97 12/27/18 05:00 75 24 110/77 97 12/27/18 04:46 77 24 110/77 97 12/27/18 04:30 74 17 110/77 99 12/27/18 04:16 81 26 H 110/77 99 12/27/18 04:00 75 86 25 H 122/68 98 12/27/18 03:46 71 19 122/68 99 12/27/18 03:41 99.4 F 12/27/18 03:30 64 17 122/68 98 12/27/18 03:16 64 17 122/68 98 12/27/18 03:00 67 16 122/68 99 12/27/18 02:46 66 17 128/72 99 12/27/18 02:30 71 16 128/72 98 12/27/18 02:16 78 24 128/72 99 12/27/18 02:00 73 18 124/64 99 12/27/18 01:46 73 19 124/64 99 12/27/18 01:34 72 21 126/66 99 12/27/18 01:30 71 20 124/64 97 12/27/18 01:16 67 19 124/64 98 12/27/18 01:00 78 18 153/78 97 12/27/18 00:46 79 19 153/78 97 12/27/18 00:30 72 17 153/78 98 12/27/18 00:16 81 18 153/78 99 12/27/18 00:01 79 22 153/78 98 12/27/18 00:00 74 84 17 153/78 99 12/26/18 23:46 85 20 154/88 98 12/26/18 23:35 98.9 F 12/26/18 23:30 77 22 154/88 99 12/26/18 23:16 87 27 H 154/88 99 12/26/18 23:00 79 21 128/73 100 12/26/18 22:46 91 H 23 128/73 100 12/26/18 22:34 79 128/73 12/26/18 22:30 79 20 128/73 99 12/26/18 22:16 83 23 128/73 99 12/26/18 22:00 79 22 128/73 99 12/26/18 21:46 80 17 145/85 99 12/26/18 21:30 87 22 145/85 100 12/26/18 21:16 80 17 145/85 98 12/26/18 21:00 85 25 H 145/85 91 12/26/18 20:46 85 17 130/76 98 12/26/18 20:30 85 20 130/76 98 12/26/18 20:16 83 21 130/76 97 12/26/18 20:00 97.8 F 81 83 22 130/76 98 12/26/18 19:53 98 12/26/18 19:48 86 21 135/80 98 12/26/18 19:46 88 17 135/80 99 12/26/18 19:30 84 20 135/80 98 12/26/18 19:16 92 H 29 H 135/80 100 12/26/18 19:00 82 22 135/80 98 12/26/18 18:46 85 23 140/75 99 12/26/18 18:30 88 24 140/75 12/26/18 18:16 79 25 H 140/75 100 12/26/18 18:00 85 26 H 140/75 99 12/26/18 17:46 73 20 135/69 98 12/26/18 17:30 74 21 135/69 98 12/26/18 17:16 75 22 135/69 98 12/26/18 17:00 85 23 135/69 99 12/26/18 16:46 72 20 143/79 96 12/26/18 16:30 75 21 143/79 96 12/26/18 16:16 82 26 H 143/79 98 12/26/18 16:00 77 27 H 143/79 98 12/26/18 15:56 88 30 H 154/71 98 12/26/18 15:46 93 H 36 H 154/71 99 12/26/18 15:30 77 23 154/71 96 12/26/18 15:16 76 24 154/71 98 12/26/18 15:00 76 23 154/80 96 12/26/18 14:46 86 27 H 125/70 99 12/26/18 14:30 82 22 125/70 99 12/26/18 14:24 97 - Physical Examination General: Other (on face mask O2 oxygen) HEENT: Positive: PERRL Neck: Positive: neck supple Cardiac: Positive: Reg Rate and Rhythm Lungs: Positive: Decreased Breath Sounds Neuro: Positive: Grossly Intact Abdomen: Positive: Soft, Tender Skin: Positive: Clear Extremities: Absent: edema - Labs and Meds CBC 12/27/18 Range/Units 05:11 WBC 5.4 (4.5-11.0) K/mm3 RBC 3.59 L (3.65-5.03) M/mm3 Hgb 11.3 (10.1-14.3) gm/dl Hct 32.1 (30.3-42.9) % Plt Count 155 (140-440) K/mm3 Comprehensive Metabolic Panel 12/27/18 Range/Units 05:11 Sodium 138 (137-145) mmol/L Potassium 3.5 L (3.6-5.0) mmol/L Chloride 98.1 (98-107) mmol/L Carbon Dioxide 23 (22-30) mmol/L BUN 20 H (7-17) mg/dL Creatinine 0.7 (0.7-1.2) mg/dL Glucose 286 H (65-100) mg/dL Calcium 8.8 (8.4-10.2) mg/dL
[2018-12-27] MEDS: PEPCID PO SCH (21:48)
[2018-12-27] MEDS ORDERED: LANTUS SUB-Q SCH (22:00)
[2018-12-28] MEDS: LASIX IV SCH ×2 (05:50→17:22)
[2018-12-28] MEDS: SOLU-Medrol IV SCH ×3 (05:51→22:17)
[2018-12-28 07:56] LABS: Hematocrit 33.7 % (30.3-42.9); Hemoglobin 11.6 gm/dl (10.1-14.3); Mean Corpuscular HGB Conc 34 % (30-34); Mean Corpuscular Volume 91 fl (79-97); Platelet Count 209 K/mm3 (140-440); Red Blood Count 3.71 M/mm3 (3.65-5.03); Red Cell Distribution Width 14.2 % (13.2-15.2)
[2018-12-28 08:24] LABS: BUN/Creatinine Ratio 34; Blood Urea Nitrogen 27 mg/dL (7-17); Hemolysis Index 9
[2018-12-28] MEDS: NORVASC PO SCH ×2 (08:58→11:56)
[2018-12-28] MEDS: COREG PO SCH ×2 (08:59→22:19)
[2018-12-28] MEDS: PEPCID PO SCH ×2 (08:59→22:17)
[2018-12-28] MEDS: FEOSOL PO SCH (09:00)
[2018-12-28] MEDS: BABY ASPIRIN PO SCH (09:00)
[2018-12-28] MEDS: COZAAR PO SCH (09:00)
[2018-12-28] MEDS: SODIUM CHLORIDE FLUSH SYRINGE 10 ML IV SCH ×3 (09:01→22:19)
[2018-12-28] MEDS: HumaLOG SUB-Q SCH ×4 (09:12→22:41)
--- NOTE | 2018-12-28 12:27 | Progress Note ---
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 (2) Abnormal ECG Current Visit: Yes Status: Acute Plan to address problem: Nonspecific ECG abnormalities on presentation with cardiopulmonary arrest. We will plan a predischarge ischemic workup with a Lexiscan thallium stress test. Subjective Date of service: 12/28/18 Principal diagnosis: Cardiac arrest Interval history: Patient is on the telemetry floor, complaints of chest pain which is poorly characterized, associated with some shortness of breath. A 12-lead EKG has been ordered, and is pending. Objective Vital Signs Temp Pulse Pulse Resp BP BP Pulse Ox 12/28/18 08:58 151/94 12/28/18 08:00 7.7 F L 77 20 151/94 12/28/18 04:00 98.5 F 73 18 143/78 97 12/28/18 00:10 79 17 131/76 97 12/28/18 00:00 75 78 16 131/76 99 12/27/18 23:57 77 18 121/59 99 12/27/18 23:19 98.5 F 12/27/18 23:00 73 22 148/79 98 12/27/18 22:00 78 26 H 148/79 100 12/27/18 21:47 84 140/78 12/27/18 21:00 84 27 H 140/78 99 12/27/18 20:00 91 H 90 28 H 163/91 99 12/27/18 19:44 98.7 F 12/27/18 19:06 99 12/27/18 19:00 91 H 28 H 158/86 98 12/27/18 18:00 90 28 H 131/73 97 12/27/18 17:00 81 25 H 153/76 99 12/27/18 16:00 98.3 F 84 91 H 25 H 153/76 99 12/27/18 15:00 73 21 154/82 99 12/27/18 14:00 98.3 F 76 16 152/81 99 12/27/18 13:00 79 23 152/81 97 - Physical Examination General: No Apparent Distress HEENT: Positive: PERRL Neck: Positive: neck supple Cardiac: Positive: Reg Rate and Rhythm Lungs: Positive: Decreased Breath Sounds Neuro: Positive: Grossly Intact Abdomen: Positive: Soft, Tender Skin: Positive: Clear Extremities: Absent: edema - Labs and Meds CBC 12/28/18 Range/Units 07:05 WBC 9.3 (4.5-11.0) K/mm3 RBC 3.71 (3.65-5.03) M/mm3 Hgb 11.6 (10.1-14.3) gm/dl Hct 33.7 (30.3-42.9) % Plt Count 209 (140-440) K/mm3 Comprehensive Metabolic Panel 12/28/18 Range/Units 07:05 Sodium 140 (137-145) mmol/L Potassium 3.7 (3.6-5.0) mmol/L Chloride 98.1 (98-107) mmol/L Carbon Dioxide 24 (22-30) mmol/L BUN 27 H (7-17) mg/dL Creatinine 0.8 (0.7-1.2) mg/dL Glucose 370 H (65-100) mg/dL Calcium 9.0 (8.4-10.2) mg/dL
[2018-12-28] MEDS: PROVENTIL IH PRN (13:48)
[2018-12-28] MEDS: HEPARIN SUB-Q SCH ×2 (14:12→22:24)
--- NOTE | 2018-12-28 15:47 | Progress Note ---
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 The cardiac arrest was suspected related to allergic reaction Seafood ingestion. Information in chart obtained from family states that patient went into respiratory distress following returning from a seafood restaurant and was noted to have lips swelling. It appears she was resuscitated for 10 minutes in the field and then another 10 minutes in the emergency room. Patient was intubated in the field and subsequently extubated on 12/24/18. CT HEAD reported No acute in tracranial process. 2D Echocardiogram this admission reported a normal left ventricular systolic function, EF 50-55%. Repeat pCXR on 12/24/18 shows worsening pulmonary edema. Repeat pCXR 12/26/18 shows stable pulmonary edema. -Acute Cardiopulmonary Arrest most likely due to allergic reaction following seafood ingestion: treat with steroids, antihistamine blockers -Acute Respiratory Failure s/p ETT intubation with successful extubation: Pulmonary following off Bipap on nasal canula o2 -Pulmonary Edema: Pulmonary and Cardiology are following. 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 Hyperglycemia, Increased the Lantus to 20 units and Pulm weaning drop steroids. stress test planned prior to discharge but Cardiology History Interval history: Patient was seen and examined. Follow-up on current diagnosis of respiratory failure, resolving. She has right and substernal chest wall pains. Patient denies any nausea/vomiting or severe headaches. Imaging, nursing note, chart, labs and old chart reviewed. Discussed with patient. Hospitalist Physical - Physical exam Narrative exam: Gen: ill appearing, obese bmi 36.6, mild increase accessory muscles, off bipap Awake, HEENT: NCAT, EOMI, PERRL, OP Clear Neck: supple, no adenopathy, no thyromegaly, no JVD CVS/Heart: RRR, normal S1S2, pulses present bilaterally Chest/Lungs: diminished bs bilateral, Symmetrical chest expansion, good air entry bilaterally, severe reproducible right and substernal chest wall tenderness GI/Abdomen: soft, epigastric tenderness, good bowel sounds, no guarding or rebound /Bladder: no suprapubic tenderness, no CVA or paraspinal tenderness Extermity/Skin: no obvious rash MSK: FROM x 4 Neuro: CN 2-12 grossly intact, no new focal deficits Psych: calm - Constitutional Vitals: Temp Pulse Resp BP Pulse Ox 7.7 F L 78 18 151/94 100 12/28/18 08:00 12/28/18 14:17 12/28/18 14:17 12/28/18 08:58 12/28/18 10:00 General appearance: Present: other (intubated on the vent) Results - Labs CBC & Chem 7: 12/28/18 07:05 12/28/18 07:05 Labs: Laboratory Last Values WBC 9.3 K/mm3 (4.5-11.0) 12/28/18 07:05 RBC 3.71 M/mm3 (3.65-5.03) 12/28/18 07:05 Hgb 11.6 gm/dl (10.1-14.3) 12/28/18 07:05 Hct 33.7 % (30.3-42.9) 12/28/18 07:05 MCV 91 fl (79-97) 12/28/18 07:05 MCH 31 pg (28-32) 12/28/18 07:05 MCHC 34 % (30-34) 12/28/18 07:05 RDW 14.2 % (13.2-15.2) 12/28/18 07:05 Plt Count 209 K/mm3 (140-440) 12/28/18 07:05 Lymph % (Auto) 14.8 % (13.4-35.0) 12/24/18 04:46 Atlantic % (Auto) 7.9 % (0.0-7.3) H 12/24/18 04:46 Eos % (Auto) 0.3 % (0.0-4.3) 12/24/18 04:46 Baso % (Auto) 0.3 % (0.0-1.8) 12/24/18 04:46 Lymph # 1.2 K/mm3 (1.2-5.4) 12/24/18 04:46 Atlantic # 0.7 K/mm3 (0.0-0.8) 12/24/18 04:46 Eos # 0.0 K/mm3 (0.0-0.4) 12/24/18 04:46 Baso # 0.0 K/mm3 (0.0-0.1) 12/24/18 04:46 Add Manual Diff Complete 12/23/18 07:21 Total Counted 100 12/23/18 07:21 Seg Neutrophils % 76.7 % (40.0-70.0) H 12/24/18 04:46 Seg Neuts % (Manual) 95.0 % (40.0-70.0) H 12/23/18 07:21 Band Neutrophils % 0 % 12/23/18 07:21 Lymphocytes % (Manual) 2.0 % (13.4-35.0) L 12/23/18 07:21 Reactive Lymphs % (Man) 0 % 12/23/18 07:21 Monocytes % (Manual) 3.0 % (0.0-7.3) 12/23/18 07:21 Eosinophils % (Manual) 0 % (0.0-4.3) 12/23/18 07:21 Basophils % (Manual) 0 % (0.0-1.8) 12/23/18 07:21 Metamyelocytes % 0 % 12/23/18 07:21 Myelocytes % 0 % 12/23/18 07:21 Promyelocytes % 0 % 12/23/18 07:21 Blast Cells % 0 % 12/23/18 07:21 Nucleated RBC % Not Reportable 12/23/18 07:21 Seg Neutrophils # 6.4 K/mm3 (1.8-7.7) 12/24/18 04:46 Seg Neutrophils # Man 8.7 K/mm3 (1.8-7.7) H 12/23/18 07:21 Band Neutrophils # 0.0 K/mm3 12/23/18 07:21 Lymphocytes # (Manual) 0.2 K/mm3 (1.2-5.4) L 12/23/18 07:21 Abs React Lymphs (Man) 0.0 K/mm3 12/23/18 07:21 Monocytes # (Manual) 0.3 K/mm3 (0.0-0.8) 12/23/18 07:21 Eosinophils # (Manual) 0.0 K/mm3 (0.0-0.4) 12/23/18 07:21 Basophils # (Manual) 0.0 K/mm3 (0.0-0.1) 12/23/18 07:21 Metamyelocytes # 0.0 K/mm3 12/23/18 07:21 Myelocytes # 0.0 K/mm3 12/23/18 07:21 Promyelocytes # 0.0 K/mm3 12/23/18 07:21 Blast Cells # 0.0 K/mm3 12/23/18 07:21 WBC Morphology Not Reportable 12/23/18 07:21 Hypersegmented Neuts Not Reportable 12/23/18 07:21 Hyposegmented Neuts Not Reportable 12/23/18 07:21 Hypogranular Neuts Not Reportable 12/23/18 07:21 Smudge Cells Not Reportable 12/23/18 07:21 Toxic Granulation Not Reportable 12/23/18 07:21 Toxic Vacuolation Not Reportable 12/23/18 07:21 Dohle Bodies Not Reportable 12/23/18 07:21 Pelger-Huet Anomaly Not Reportable 12/23/18 07:21 Isis Rods Not Reportable 12/23/18 07:21 Platelet Estimate Consistent w auto 12/23/18 07:21 Clumped Platelets Not Reportable 12/23/18 07:21 Plt Clumps, EDTA Not Reportable 12/23/18 07:21 Large Platelets Not Reportable 12/23/18 07:21 Giant Platelets Not Reportable 12/23/18 07:21 Platelet Satelliting Not Reportable 12/23/18 07:21 Plt Morphology Comment Not Reportable 12/23/18 07:21 RBC Morphology Not Reportable 12/23/18 07:21 Dimorphic RBCs Not Reportable 12/23/18 07:21 Polychromasia Not Reportable 12/23/18 07:21 Hypochromasia Not Reportable 12/23/18 07:21 Poikilocytosis 1+ 12/23/18 07:21 Anisocytosis 1+ 12/23/18 07:21 Microcytosis Not Reportable 12/23/18 07:21 Macrocytosis Rare 12/23/18 07:21 Spherocytes Not Reportable 12/23/18 07:21 Pappenheimer Bodies Not Reportable 12/23/18 07:21 Sickle Cells Not Reportable 12/23/18 07:21 Target Cells Not Reportable 12/23/18 07:21 Tear Drop Cells Not Reportable 12/23/18 07:21 Ovalocytes Few 12/23/18 07:21 Helmet Cells Not Reportable 12/23/18 07:21 Garrett-Munden Bodies Not Reportable 12/23/18 07:21 Paicines Rings Not Reportable 12/23/18 07:21 Jr Cells Not Reportable 12/23/18 07:21 Bite Cells Not Reportable 12/23/18 07:21 Crenated Cell Not Reportable 12/23/18 07:21 Elliptocytes Not Reportable 12/23/18 07:21 Acanthocytes (Spur) Not Reportable 12/23/18 07:21 Rouleaux Not Reportable 12/23/18 07:21 Hemoglobin C Crystals Not Reportable 12/23/18 07:21 Schistocytes Not Reportable 12/23/18 07:21 Malaria parasites Not Reportable 12/23/18 07:21 Tien Bodies Not Reportable 12/23/18 07:21 Hem Pathologist Commnt No 12/23/18 07:21 PT 13.8 Sec. (12.2-14.9) 12/23/18 05:16 INR 1.00 (0.87-1.13) 12/23/18 05:16 APTT 27.5 Sec. (24.2-36.6) 12/23/18 05:16 Heparin Anti-Xa Level 0.33 U.I./ml (0.3-0.7) 12/26/18 04:09 POC ABG pH 7.424 (7.35-7.45) 12/24/18 03:34 POC ABG pCO2 31.0 (35-45) L 12/24/18 03:34 POC ABG pO2 139 (80-105) H 12/24/18 03:34 POC ABG HCO3 20.3 (22-26 mml/L) 12/24/18 03:34 POC ABG Total CO2 21 (23-27mmol/L) 12/24/18 03:34 POC ABG O2 Sat 99 12/24/18 03:34 POC ABG Base Excess -4 ((-2) - (+3)mmol/L) 12/24/18 03:34 FiO2 45 % 12/24/18 03:34 Sodium 140 mmol/L (137-145) 12/28/18 07:05 Potassium 3.7 mmol/L (3.6-5.0) 12/28/18 07:05 Chloride 98.1 mmol/L (98-107) 12/28/18 07:05 Carbon Dioxide 24 mmol/L (22-30) 12/28/18 07:05 Anion Gap 22 mmol/L 12/28/18 07:05 BUN 27 mg/dL (7-17) H 12/28/18 07:05 Creatinine 0.8 mg/dL (0.7-1.2) 12/28/18 07:05 Estimated GFR > 60 ml/min 12/28/18 07:05 BUN/Creatinine Ratio 34 % 12/28/18 07:05 Glucose 370 mg/dL (65-100) H 12/28/18 07:05 POC Glucose 337 (70-105) H 12/28/18 09:01 Calcium 9.0 mg/dL (8.4-10.2) 12/28/18 07:05 Magnesium 2.10 mg/dL (1.7-2.3) 12/22/18 23:44 Total Bilirubin 1.30 mg/dL (0.1-1.2) H 12/25/18 04:45 AST 33 units/L (5-40) 12/25/18 04:45 ALT 126 units/L (7-56) H 12/25/18 04:45 Alkaline Phosphatase 63 units/L (35-129) 12/25/18 04:45 Total Creatine Kinase 331 units/L (30-135) H 12/26/18 04:09 CK-MB (CK-2) 12.0 ng/mL (0.0-4.0) H 12/23/18 Unknown CK-MB (CK-2) Rel Index 1.6 (0-4) 12/23/18 Unknown Troponin T 0.026 ng/mL (0.00-0.029) 12/23/18 Unknown Total Protein 5.9 g/dL (6.3-8.2) L 12/25/18 04:45 Albumin 2.6 g/dL (3.9-5) L 12/25/18 04:45 Albumin/Globulin Ratio 0.8 % 12/25/18 04:45 Triglycerides 52 mg/dL (2-149) 12/23/18 03:26 Cholesterol 106 mg/dL (50-199) 12/23/18 03:26 LDL Cholesterol Direct 58 mg/dL (50-130) 12/23/18 03:26 HDL Cholesterol 54 mg/dL (40-59) 12/23/18 03:26 Cholesterol/HDL Ratio 1.96 % 12/23/18 03:26 Salicylates < 0.3 mg/dL (2.8-20.0) L 12/22/18 23:44 Acetaminophen < 5.0 ug/mL (10.0-30.0) L 12/22/18 23:44 Plasma/Serum Alcohol < 0.01 % (0-0.07) 12/22/18 23:44 Blood Type A POSITIVE 12/22/18 23:44 Antibody Screen Negative 12/22/18 23:44 Active Medications - Current Medications Current Medications: Generic Name Dose Route Start Last Admin Trade Name Freq PRN Reason Stop Dose Admin Acetaminophen 650 mg 12/23/18 06:19 12/26/18 05:24 Tylenol PO 650 mg Q4H PRN Administration Pain MILD(1-3)/Fever >100.5/ETIENNE Albuterol 2.5 mg 12/24/18 22:49 12/28/18 13:48 Proventil IH 2.5 mg Q4HRT PRN Administration Shortness Of Breath Amlodipine Besylate 10 mg 12/23/18 17:00 12/28/18 11:56 Norvasc PO Not Given QDAY ANGELICA Aspirin 81 mg 12/23/18 10:00 12/28/18 09:00 Baby Aspirin PO 81 mg QDAY ANGELICA Administration Carvedilol 25 mg 12/25/18 10:00 12/28/18 08:59 Coreg PO 25 mg BID ANGELICA Administration Clonidine HCl 0.2 mg 12/23/18 17:00 12/23/18 17:45 Catapres-Tts Patch TD 0.2 mg We ANGELICA Administration Dextrose 50 ml 12/27/18 12:37 D50w (25gm) Syringe IV PRN PRN Hypoglycemia Diphenhydramine HCl 25 mg 12/24/18 22:42 Benadryl IV Q6H PRN Itching Famotidine 20 mg 12/27/18 22:00 12/28/18 08:59 Pepcid PO 20 mg BID ANGELICA Administration Ferrous Sulfate 325 mg 12/25/18 10:00 12/28/18 09:00 Feosol PO 325 mg QDAY ANGELICA Administration Furosemide 40 mg 12/25/18 18:00 12/28/18 05:50 Lasix IV 40 mg 0600,1800 ANGELICA Administration Heparin Sodium (Porcine) 5,000 unit 12/28/18 12:30 12/28/18 14:12 Heparin SUB-Q 5,000 unit Q12HR ANGELICA Administration Hydralazine HCl 5 mg 12/24/18 02:28 12/26/18 05:42 Apresoline IV 5 mg Q6H PRN Administration Hypertension Insulin Glargine 20 units 12/28/18 22:00 Lantus SUB-Q QHS ANGELICA Insulin Human Lispro 0 unit 12/27/18 16:30 12/28/18 11:56 Humalog SUB-Q 10 unit ACHS ANGELICA Administration Protocol Losartan Potassium 100 mg 12/23/18 17:00 12/28/18 09:00 Cozaar PO 100 mg QDAY ANGELICA Administration Methylprednisolone Sodium Succinate 40 mg 12/28/18 14:00 12/28/18 14:12 Solu-Medrol IV 40 mg Q8HR ANGELICA Administration Nitroglycerin 0.4 mg 12/24/18 22:48 12/25/18 23:44 Nitrostat SL 0.4 mg .Q5MIN PRN Administration Chest Pain Ondansetron HCl 4 mg 12/23/18 06:19 Zofran IV Q4H PRN Nausea And Vomiting Sodium Chloride 10 ml 12/23/18 10:00 12/28/18 09:01 Sodium Chloride Flush Syringe 10 Ml IV 10 ml BID ANGELICA Administration Sodium Chloride 10 ml 12/23/18 06:19 Sodium Chloride Flush Syringe 10 Ml IV PRN PRN LINE FLUSH Nutrition/Malnutrition Assess - Dietary Evaluation Nutrition/Malnutrition Findings: Nutrition Notes Start: 12/23/18 11:47 Freq: Status: Active Protocol: Document 12/25/18 08:58 CP (Rec: 12/25/18 09:10 CP [id number]) Co-Sign 12/25/18 08:58 LP Nutrition Notes Initial or Follow up Brief Note Subjective/Other Information Pt is extubated. Awaiting TF consult. Nutrition Intervention Follow-Up By: 12/28/18 Additional Comments F/U: TF consult
[2018-12-28] MEDS ORDERED: LANTUS SUB-Q SCH (22:00)
[2018-12-29] MEDS: SOLU-Medrol IV SCH (05:54)
[2018-12-29] MEDS: APRESOLINE IV PRN (05:54)
[2018-12-29] MEDS: LASIX IV SCH ×2 (05:54→17:00)
[2018-12-29] MEDS: SODIUM CHLORIDE FLUSH SYRINGE 10 ML IV SCH ×2 (09:17→22:55)
[2018-12-29] MEDS: HEPARIN SUB-Q SCH ×2 (09:20→22:52)
[2018-12-29] MEDS: HumaLOG SUB-Q SCH ×4 (09:25→22:53)
[2018-12-29] MEDS: NORVASC PO SCH (09:27)
[2018-12-29] MEDS: BABY ASPIRIN PO SCH (09:28)
[2018-12-29] MEDS: PEPCID PO SCH ×2 (09:28→22:54)
[2018-12-29] MEDS: FEOSOL PO SCH (09:28)
[2018-12-29] MEDS: COZAAR PO SCH (09:28)
[2018-12-29] MEDS: COREG PO SCH ×2 (09:32→22:53)
--- NOTE | 2018-12-29 14:05 | Progress Note ---
Assessment and Plan - Patient Problems (1) Acute respiratory failure Current Visit: Yes Status: Acute Plan to address problem: Continue supportive management, continue medical therapy, continue physical rehabilitation. (2) Abnormal ECG Current Visit: Yes Status: Acute Plan to address problem: We will get a Lexiscan thallium stress test in the a.m. for cardiac assessment. Subjective Date of service: 12/29/18 Principal diagnosis: Cardiac arrest Interval history: Patient has improved clinically, being assisted by physical therapy to ambulate with her walker. Objective Vital Signs Temp Pulse Pulse Resp Resp BP BP 12/29/18 09:32 84 155/88 12/29/18 09:28 84 155/88 12/29/18 09:27 84 155/88 12/29/18 07:58 97.1 F L 18 155/88 12/29/18 05:00 97.4 F L 67 20 188/74 12/29/18 00:00 97.3 F L 67 16 153/89 12/28/18 22:00 22 12/28/18 21:08 72 18 12/28/18 21:05 12/28/18 20:00 97.4 F L 65 14 170/93 12/28/18 14:17 78 18 12/28/18 14:16 77 18 Pulse Ox 12/29/18 09:32 12/29/18 09:28 12/29/18 09:27 12/29/18 07:58 12/29/18 05:00 97 12/29/18 00:00 12/28/18 22:00 12/28/18 21:08 100 12/28/18 21:05 100 12/28/18 20:00 97 12/28/18 14:17 12/28/18 14:16 - Physical Examination General: No Apparent Distress HEENT: Positive: PERRL Neck: Positive: neck supple Cardiac: Positive: Reg Rate and Rhythm Lungs: Positive: Decreased Breath Sounds Neuro: Positive: Grossly Intact Abdomen: Positive: Soft, Tender Skin: Positive: Clear Extremities: Absent: edema
--- NOTE | 2018-12-29 16:41 | Progress Note ---
Assessment and Plan /Acute Cardiopulmonary Arrest - most likely due to allergic reaction following seafood ingestion: treated with steroids, antihistamine blockers /Acute Respiratory Failure s/p ETT intubation with successful extubation: Pulmonary following off Bipap and now on nasal canula o2 - wean off as tolerated /Pulmonary Edema: Pulmonary and Cardiology are following. 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 The cardiac arrest was suspected related to allergic reaction to Seafood ingestion. Information in chart obtained from family states that patient went into respiratory distress following returning from a seafood restaurant and was noted to have lips swelling. It appears she was resuscitated for 10 minutes in the field and then another 10 minutes in the emergency room. Patient was intubated in the field and subsequently extubated on 12/24/18. CT HEAD reported No acute intracranial process. 2D Echocardiogram this admission reported a normal left ventricular systolic function, EF 50-55%. Repeat pCXR on 12/24/18 shows worsening pulmonary edema. Repeat pCXR 12/26/18 shows stable pulmonary edema. Now weaning n/c O2, planned for stress test tomorrow. PT recommended HH. Hospitalist Physical Gen: NAD, off bipap Awake, HEENT: NCAT, EOMI, PERRL, OP Clear Neck: supple, no adenopathy, no thyromegaly, no JVD CVS/Heart: RRR, normal S1S2, pulses present bilaterally Chest/Lungs: diminished bs bilateral, Symmetrical chest expansion, good air entry bilaterally, severe reproducible right and substernal chest wall tenderness GI/Abdomen: soft, epigastric tenderness, good bowel sounds, no guarding or rebound /Bladder: no suprapubic tenderness, no CVA or paraspinal tenderness Extermity/Skin: no obvious rash MSK: FROM x 4 Neuro: follow commend Psych: calm Subjective Date of service: 12/29/18 Principal diagnosis: Cardiac arrest Interval history: Patient seen and examined c/o chest wall pain, no SOB tolerating diet, refusing finger stick - counseled and now agrees Objective - Constitutional Vitals: Vital Signs - 12hr 12/29/18 12/29/18 12/29/18 05:00 07:58 09:27 Temperature 97.4 F L 97.1 F L Pulse Rate 67 84 Respiratory 20 18 Rate Blood Pressure 155/88 155/88 Blood Pressure 188/74 [Right] O2 Sat by Pulse 97 Oximetry 12/29/18 12/29/18 12/29/18 09:28 09:32 10:03 Temperature Pulse Rate 84 84 74 Respiratory Rate Blood Pressure 155/88 155/88 Blood Pressure [Right] O2 Sat by Pulse Oximetry 12/29/18 12/29/18 12:45 14:10 Temperature 97.9 F Pulse Rate 71 Respiratory 18 Rate Blood Pressure Blood Pressure 148/86 [Right] O2 Sat by Pulse 97 100 Oximetry - Labs CBC & Chem 7: 12/28/18 07:05 12/28/18 07:05 Labs: Abnormal lab results 12/28/18 12/28/18 12/28/18 Range/Units 11:29 15:45 21:12 POC Glucose 418 H 300 H 443 H (70-105) 12/29/18 12/29/18 Range/Units 07:27 11:28 POC Glucose 311 H 316 H (70-105)
[2018-12-29] MEDS: TYLENOL PO PRN (23:31)
[2018-12-30] MEDS: NITROSTAT SL PRN (06:06)
[2018-12-30] MEDS: LASIX IV SCH ×2 (06:08→18:54)
[2018-12-30] MEDS ORDERED: LEXISCAN IV ONE ×2 (09:04)
[2018-12-30] MEDS: HumaLOG SUB-Q SCH ×2 (11:16)
[2018-12-30] MEDS: FEOSOL PO SCH (11:17)
[2018-12-30] MEDS: BABY ASPIRIN PO SCH (11:17)
[2018-12-30] MEDS: PEPCID PO SCH (11:17)
[2018-12-30] MEDS: HEPARIN SUB-Q SCH (11:18)
[2018-12-30] MEDS: COZAAR PO SCH (11:21)
[2018-12-30] MEDS: NORVASC PO SCH (11:21)
[2018-12-30] MEDS: COREG PO SCH (11:21)
[2018-12-30] MEDS: SODIUM CHLORIDE FLUSH SYRINGE 10 ML IV SCH (11:22)
--- NOTE | 2018-12-30 13:51 | Event Note ---
Date: 12/30/18 Patient underwent a Lexiscan thallium stress test today, essentially normal perfusion, no ischemic defects.
--- NOTE | 2018-12-30 16:58 | Discharge Summary ---
Providers - Providers Date of Admission: 12/23/18 04:54 Date of discharge: 12/30/18 Attending physician: LATIA SCHMITZ 12/22/18 23:33 Consult to Physician [CONS] Stat Comment: Consulting Provider: CASEY KIMBROUGH Physician Instructions: Reason For Exam: cardiac arrest 12/28/18 11:52 Physical Therapy Evaluation and Treat [CONS] Routine Comment: Reason For Exam: weakness Primary care physician: [facility], Hospitalization Condition: Critical Pertinent studies: Head CT Chest CTA 2d echo stress test CXR abdominal US Hospital course: Brief History Patient is a 63 yo woman with a history of a hypertension, DM type 2, 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 The cardiac arrest was suspected related to allergic reaction to Seafood ingestion. Information in chart obtained from family states that patient went into respiratory distress following returning from a seafood restaurant and was noted to have lips swelling. It appears she was resuscitated for 10 minutes in the field and then another 10 minutes in the emergency room. Patient was intubated in the field and subsequently extubated on 12/24/18. CT HEAD reported No acute intracranial process. 2D Echocardiogram this admission reported a normal left ventricular systolic function, EF 50-55%. Repeat pCXR on 12/24/18 shows worsening pulmonary edema, given lasix. Repeat pCXR 12/26/18 shows stable pulmonary edema. Weaned off n/c O2, s/p stress test showed no ischemia. PT recommended HH. She was discharged home in stable condition with outpt followup. Discharge Diagnosis and management: /Acute Cardiopulmonary Arrest - most likely due to allergic reaction following seafood ingestion: treated with steroids, antihistamine blockers /Acute Respiratory Failure s/p ETT intubation with successful extubation: Pulmonary following off Bipap and now on nasal canula o2 - weaned off as tolerated /Pulmonary Edema: Pulmonary and Cardiology are following. 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 /Hypertension: continue antihypertensives /Obesity, bmi 36.6 /Elevated troponin, s/p stress test per Cardiology, medical Mx /Rhabdomyolysis, resolved /DVT ppx: add sq heparin full code Hospitalist Physical Gen: NAD, off bipap Awake, HEENT: NCAT, EOMI, PERRL, OP Clear Neck: supple, no adenopathy, no thyromegaly, no JVD CVS/Heart: RRR, normal S1S2, pulses present bilaterally Chest/Lungs: diminished bs bilateral, Symmetrical chest expansion, good air entry bilaterally, severe reproducible right and substernal chest wall tenderne ss GI/Abdomen: soft, epigastric tenderness, good bowel sounds, no guarding or rebound /Bladder: no suprapubic tenderness, no CVA or paraspinal tenderness Extermity/Skin: no obvious rash MSK: FROM x 4 Neuro: follow commend Psych: calm Disposition: DC/[place]-06 HOME UNDER HOME HL Time spent for discharge: 34 minutes Core Measure Documentation - Palliative Care Palliative Care/ Comfort Measures: Not Applicable - Core Measures Any of the following diagnoses?: none Exam - Constitutional Vitals: Temp Pulse Resp BP Pulse Ox 98.1 F 72 22 133/75 99 12/30/18 11:20 12/30/18 11:21 12/30/18 11:20 12/30/18 11:21 12/30/18 08:57 Plan Activity: advance as tolerated, fall precautions Weight Bearing Status: Non-Weight Bearing Diet: low fat, diabetic Follow up with: DINORAH ARTHUR MD [Primary Care Provider] - 3-5 Days Prescriptions: amLODIPine [Norvasc] 10 mg PO QDAY #30 tablet
[2018-12-30 17:31] VITALS: BP 118/83
[2018-12-30] MEDS: CATAPRES-TTS PATCH TD SCH (18:39)
--- NOTE | 2018-12-30 20:53 | Treadmill Report ---
THALLIUM STRESS TEST LEFT VENTRICLE: Left ventricular chamber size is within normal spread. Perfusion study demonstrates mild attenuation artifact of the basal inferior wall, otherwise homogeneous uptake of the tracer in all segments, no significant defects identified. Gated analysis demonstrates left ventricular systolic function at the lower limits of normal, ejection fraction 50%. CONCLUSION: No demonstrable ischemia on thallium perfusion imaging. Negative study. Clinical correlation is recommended. [facility]# [id number] [place]/NTS
== END 2018-12-30 07:10 | disposition home health service (06) | DRG 208 ==
LOC: ED 22:39 → CC1 12-23 04:54 → 4A 12-28 04:03
PROVIDERS: ADMIT Internal Medicine; ATTEND Internal Medicine
PROC: 5A1945Z Respiratory Ventilation, 24-96 Consecutive Hours (ICD-10-PCS; principal; 2018-12-23)
PROC: 0BH17EZ Insertion of Endotracheal Airway into Trachea, Via Natural or Artificial Opening (ICD-10-PCS; 2018-12-23)
PROC: 5A12012 Performance of Cardiac Output, Single, Manual (ICD-10-PCS; 2018-12-23)
PROC: 02HV33Z Insertion of Infusion Device into Superior Vena Cava, Percutaneous Approach (ICD-10-PCS; 2018-12-23)
PROC: B548ZZA Ultrasonography of Superior Vena Cava, Guidance (ICD-10-PCS; 2018-12-23)
PROC: 4A033R1 Measurement of Arterial Saturation, Peripheral, Percutaneous Approach (ICD-10-PCS; 2018-12-23)
PROC: 5A09357 Assistance with Respiratory Ventilation, Less than 24 Consecutive Hours, Continuous Positive Airway Pressure (ICD-10-PCS; 2018-12-25)
PROC: 5A09357 Assistance with Respiratory Ventilation, Less than 24 Consecutive Hours, Continuous Positive Airway Pressure (ICD-10-PCS; 2018-12-26)
PROC: 5A09357 Assistance with Respiratory Ventilation, Less than 24 Consecutive Hours, Continuous Positive Airway Pressure (ICD-10-PCS; 2018-12-27)
DX: J96.00 Acute respiratory failure, unspecified whether with hypoxia or hypercapnia (principal); I46.9 Cardiac arrest, cause unspecified; E43 Unspecified severe protein-calorie malnutrition; I21.A1 Myocardial infarction type 2; M62.82 Rhabdomyolysis; I69.351 Hemiplegia and hemiparesis following cerebral infarction affecting right dominant side; T78.1XXA Other adverse food reactions, not elsewhere classified, initial encounter; Z96.643 Presence of artificial hip joint, bilateral; F17.200 Nicotine dependence, unspecified, uncomplicated; X58.XXXA Exposure to other specified factors, initial encounter; I10 Essential (primary) hypertension; E11.9 Type 2 diabetes mellitus without complications; E87.6 Hypokalemia; Z88.8 Allergy status to other drugs, medicaments and biological substances; Z79.82 Long term (current) use of aspirin; Z79.899 Other long term (current) drug therapy; Z79.4 Long term (current) use of insulin; Z68.33 Body mass index [BMI] 33.0-33.9, adult
CPT/HCPCS: 36415; 36600; 70450; 71045; 71275; 76700; 78452; 80048; 80053; 80061; 80320; 82550; 82553; 82803; 82962; 83036; 83735; 84484; 85007; 85014; 85018; 85025; 85027; 85049; 85520; 85610; 85730; 86850; 86900; 86901; 87070; 87205; 93005; 93010; 93017; 93306; 94002; 94003; 94640; 94660; 94760; G0378; A9502; G0480; J0360; J1644; J1815; J1885; J1940; J2270; J2405; J2704; J2785; J2920; J2930; J3480; J7030; J7070; Q9967

== ENCOUNTER 2019-01-01 00:49 | Inpatient (IN) | payer MEDICARE ==
[2019-01-01] MEDS ORDERED: ASPIRIN PO ONE (01:07)
[2019-01-01 01:43] LABS: Basophils % (Auto) 0.2 % (0.0-1.8); Eosinophils # (Auto) 0.2 K/mm3 (0.0-0.4); Eosinophils % (Auto) 1.7 % (0.0-4.3); Hematocrit 37.9 % (30.3-42.9); Hemoglobin 12.8 gm/dl (10.1-14.3); Lymphocytes # (Auto) 1.9 K/mm3 (1.2-5.4); Lymphocytes % (Auto) 17.4 % (13.4-35.0); Mean Corpuscular HGB Conc 34 % (30-34); Mean Corpuscular Volume 92 fl (79-97); Monocytes # (Auto) 0.7 K/mm3 (0.0-0.8); Monocytes % (Auto) 6.9 % (0.0-7.3); Platelet Count 271 K/mm3 (140-440); Red Blood Count 4.13 M/mm3 (3.65-5.03); Red Cell Distribution Width 14.5 % (13.2-15.2)
[2019-01-01 02:04] LABS: BUN/Creatinine Ratio 32; Blood Urea Nitrogen 32 mg/dL (7-17); Hemolysis Index 13
--- NOTE | 2019-01-01 02:06 | XRay Report ---
PROCEDURE: XR CHEST 1V AP TECHNIQUE: Single portable view of the chest. HISTORY: Chest Pain COMPARISONS: Several priors, most recent December 27, 2018. FINDINGS: Top normal cardiac silhouette. Probable coronary atherosclerotic vascular calcifications. Lungs are well inflated, no lobar consolidation or significant pleural effusion. Suggested mild prominence of the central pulmonary vascularity. No acute osseous abnormality. Multilevel degenerative changes of the thoracic spine and degenerative changes of the shoulder girdles. IMPRESSION: Mild prominence of the central pulmonary vascularity may be secondary to pulmonary venous congestion. There is no focal consolidation, pleural effusion or pneumothorax. This document is electronically signed by Andrei Chen DO., January 01 2019 02:04:26 AM ET
--- NOTE | 2019-01-01 03:07 | Emergency Department Report ---
ED Altered Mental Status HPI - General Chief Complaint: Chest Pain Stated Complaint: AMS Time Seen by Provider: 01/01/19 01:28 Source: patient, family, EMS Mode of arrival: Stretcher Limitations: Physical Limitation - History of Present Illness Initial Comments: 63-year-old female recently discharged from this facility a few days ago following admission for cardiac arrest. It was assumed at a time and patient went into cardiac arrest following an allergic reaction to seafood. Tonight, daughter states patient had episode of altered mental status, where she was unresponsive for approx 15 minutes. Patient started to respond upon EMS arrival. Accucheck was normal. Daughter states patient is currently at her baseline. Patient's only complaint is chest pain, which she was also complaining of while in the hospital, due to chest compressions. Patient states chest pain tonight is the same pain she has been experiencing. MD Complaint: decreased responsiveness -: This evening Severity: moderate Context: unknown Associated Symptoms: chest pain. denies: fever/chills, headaches, nausea/vomiting, shortness of breath - Related Data Home Medications Medication Instructions Recorded Confirmed Last Taken Ferrous Sulfate [Feosol 325 MG tab] 325 mg PO QDAY 04/19/16 12/23/18 12/31/18 Nitrostat 0.4 mg PO QDAY PRN 04/19/16 12/23/18 Unknown metFORMIN [Glucophage] 1,000 mg PO BID 04/19/16 12/23/18 12/31/18 Albuterol Sulfate [Ventolin HFA] 2 puff IH Q6HR PRN 12/23/18 12/23/18 12/31/18 Orlistat [Antonio] 60 mg PO TID 12/23/18 12/23/18 Unknown Tizanidine HCl [tiZANidine] 2 mg PO DAILY PRN 12/23/18 12/23/18 Unknown Atorvastatin Calcium [Lipitor] 40 mg PO DAILY 01/01/19 01/01/19 12/31/18 Benzonatate [Tessalon Perle] 100 mg PO BID 01/01/19 01/01/19 12/31/18 Furosemide [Lasix] 20 mg PO BID 01/01/19 01/01/19 12/31/18 Meloxicam 7.5 mg PO PRN 01/01/19 01/01/19 12/31/18 Tizanidine HCl [Zanaflex] 2 mg PO DAILY 01/01/19 01/01/19 12/31/18 Previous Rx's Medication Instructions Recorded Last Taken Type Carvedilol [Coreg] 25 mg PO BID #60 tablet 12/20/15 12/31/18 Rx Losartan [Cozaar] 100 mg PO QDAY #30 tablet 04/19/16 12/31/18 Rx Aspirin [Aspirin BABY CHEW TAB] 81 mg PO QDAY #30 tab.chew 12/30/18 12/31/18 Rx Insulin NPH/Regular [NovoLIN 70/30] 30 units SQ BID 30 Days 12/30/18 Unknown Rx amLODIPine [Norvasc] 10 mg PO QDAY #30 tablet 12/30/18 Unknown Rx Allergies Allergy/AdvReac Type Severity Reaction Status Date / Time MARIAN Inhibitors Allergy Angioedema Verified 11/15/16 15:42 esomeprazole magnesium Allergy Swelling Verified 11/15/16 15:42 [From Nexium] labetalol Allergy Itching Verified 11/15/16 15:42 Seafood Allergy Anaphylaxis Uncoded 12/27/18 11:59 ED Review of Systems ROS: Stated complaint: AMS Other details as noted in HPI Comment: All other systems reviewed and negative Constitutional: denies: fever Respiratory: denies: shortness of breath Cardiovascular: chest pain Gastrointestinal: denies: vomiting, diarrhea Neurological: denies: headache ED Past Medical Hx - Past Medical History Hx Hypertension: Yes Hx CVA: Yes (2016) Hx Congestive Heart Failure: No Hx Diabetes: Yes Hx Pulmonary Embolism: No Hx Asthma: No Hx COPD: No Hx Tuberculosis: No Additional medical history: Angina, Vertigo - Surgical History Additional Surgical History: bilateral hip replacement; ankle surgery; back surgery - Social History Smoking Status: Former Smoker Substance Use Type: None - Medications Home Medications: Home Medications Medication Instructions Recorded Confirmed Last Taken Type Carvedilol [Coreg] 25 mg PO BID #60 tablet 12/20/15 12/23/18 12/31/18 Rx Ferrous Sulfate [Feosol 325 MG tab] 325 mg PO QDAY 04/19/16 12/23/18 12/31/18 History Losartan [Cozaar] 100 mg PO QDAY #30 tablet 04/19/16 12/23/18 12/31/18 Rx Nitrostat 0.4 mg PO QDAY PRN 04/19/16 12/23/18 Unknown History metFORMIN [Glucophage] 1,000 mg PO BID 04/19/16 12/23/18 12/31/18 History Albuterol Sulfate [Ventolin HFA] 2 puff IH Q6HR PRN 12/23/18 12/23/18 12/31/18 History Orlistat [Antonio] 60 mg PO TID 12/23/18 12/23/18 Unknown History Tizanidine HCl [tiZANidine] 2 mg PO DAILY PRN 12/23/18 12/23/18 Unknown History Aspirin [Aspirin BABY CHEW TAB] 81 mg PO QDAY #30 tab.chew 12/30/18 12/31/18 Rx Insulin NPH/Regular [NovoLIN 70/30] 30 units SQ BID 30 Days 12/30/18 12/27/18 Unknown Rx amLODIPine [Norvasc] 10 mg PO QDAY #30 tablet 12/30/18 Unknown Rx Atorvastatin Calcium [Lipitor] 40 mg PO DAILY 01/01/19 01/01/19 12/31/18 History Benzonatate [Tessalon Perle] 100 mg PO BID 01/01/19 01/01/19 12/31/18 History Furosemide [Lasix] 20 mg PO BID 01/01/19 01/01/19 12/31/18 History Meloxicam 7.5 mg PO PRN 01/01/19 01/01/19 12/31/18 History Tizanidine HCl [Zanaflex] 2 mg PO DAILY 01/01/19 01/01/19 12/31/18 History ED Physical Exam - General Limitations: Physical Limitation General appearance: alert, in no apparent distress - Head Head exam: Present: atraumatic, normocephalic - Eye Eye exam: Present: normal appearance - ENT ENT exam: Present: mucous membranes moist - Neck Neck exam: Present: normal inspection - Respiratory Respiratory exam: Present: normal lung sounds bilaterally, chest wall tenderness. Absent: respiratory distress - Cardiovascular Cardiovascular Exam: Present: regular rate, normal rhythm - GI/Abdominal GI/Abdominal exam: Present: soft. Absent: distended, tenderness - Extremities Exam Extremities exam: Present: normal inspection - Neurological Exam Neurological exam: Present: alert, oriented X3 - Psychiatric Psychiatric exam: Present: normal affect, normal mood - Skin Skin exam: Present: warm, dry, intact, normal color ED Course Vital Signs 01/01/19 01/01/19 01/01/19 00:58 01:02 01:16 Pulse Rate 70 72 Respiratory 15 Rate Blood Pressure 132/52 132/57 132/57 O2 Sat by Pulse 93 98 Oximetry 01/01/19 01/01/19 01/01/19 01:30 01:45 02:01 Pulse Rate 79 63 68 Respiratory Rate Blood Pressure 142/74 116/55 O2 Sat by Pulse 97 98 98 Oximetry 01/01/19 01/01/19 01/01/19 02:15 02:31 02:45 Pulse Rate 66 63 69 Respiratory Rate Blood Pressure 116/55 137/70 137/70 O2 Sat by Pulse 97 98 97 Oximetry 01/01/19 01/01/19 01/01/19 03:01 03:15 03:31 Pulse Rate 65 65 65 Respiratory Rate Blood Pressure 130/67 130/67 127/62 O2 Sat by Pulse 98 97 98 Oximetry 01/01/19 01/01/19 03:45 04:00 Pulse Rate 77 71 Respiratory Rate Blood Pressure 127/62 129/67 O2 Sat by Pulse 95 96 Oximetry - Lab Data Result diagrams: 01/01/19 01:23 01/01/19 01:23 Lab Results 01/01/19 01/01/19 Range/Units 01:23 01:23 WBC 10.9 (4.5-11.0) K/mm3 RBC 4.13 (3.65-5.03) M/mm3 Hgb 12.8 (10.1-14.3) gm/dl Hct 37.9 (30.3-42.9) % MCV 92 (79-97) fl MCH 31 (28-32) pg MCHC 34 (30-34) % RDW 14.5 (13.2-15.2) % Plt Count 271 (140-440) K/mm3 Lymph % (Auto) 17.4 (13.4-35.0) % [place] % (Auto) 6.9 (0.0-7.3) % Eos % (Auto) 1.7 (0.0-4.3) % Baso % (Auto) 0.2 (0.0-1.8) % Lymph # 1.9 (1.2-5.4) K/mm3 Crisp # 0.7 (0.0-0.8) K/mm3 Eos # 0.2 (0.0-0.4) K/mm3 Baso # 0.0 (0.0-0.1) K/mm3 Seg Neutrophils % 73.8 H (40.0-70.0) % Seg Neutrophils # 8.1 H (1.8-7.7) K/mm3 Sodium 141 (137-145) mmol/L Potassium 3.2 L (3.6-5.0) mmol/L Chloride 100.1 (98-107) mmol/L Carbon Dioxide 24 (22-30) mmol/L Anion Gap 20 mmol/L BUN 32 H (7-17) mg/dL Creatinine 1.0 (0.7-1.2) mg/dL Estimated GFR > 60 ml/min BUN/Creatinine Ratio 32 % Glucose 169 H (65-100) mg/dL Calcium 9.0 (8.4-10.2) mg/dL Troponin T < 0.010 (0.00-0.029) ng/mL - EKG Data -: EKG Interpreted by Nc EKG shows normal: sinus rhythm, axis, intervals, QRS complexes, ST-T waves Rate: normal Interpretation: other (lateral T wave inversions present) - Radiology Data Radiology results: report reviewed, image reviewed - Medical Decision Making - recently d/c'd from hosp following out of hospital cardiac arrest; had nml stress and neg chest CTA during last admission - brief episode (15 min) of unresponsiveness tonight, per family - pt currently at baseline - EKG,labs unremarkable except for mild hypokalemia - vitals stable - will admit to hospitalist, Dr Rock - Differential Diagnosis TIA, arrythmia, ACS Critical care attestation.: If time is entered above; I have spent that time in minutes in the direct care of this critically ill patient, excluding procedure time. ED Disposition Clinical Impression: Altered mental status Disposition: [id number] OP ADMIT IP TO THIS HOSP Is pt being admited?: Yes Condition: Stable Referrals: DINORAH ARTHUR MD [Primary Care Provider] - 3-5 Days Time of Disposition: 04:40
--- NOTE | 2019-01-01 04:29 | Cat Scan Report ---
PROCEDURE: CT HEAD/BRAIN WO CON TECHNIQUE: CT imaging is acquired through the brain without contrast HISTORY: ams COMPARISONS: 12/23/2018 FINDINGS: The ventricles, cisterns and sulci are within normal limits. No intra parenchymal or extra-axial mass , hemorrhage, or mass effect. Sanchez and white-matter differentiation is within normal limits for consuelo ent age. Normal spherical shape of the globes. No significant abnormality involving the imaged portions of th e paranasal sinuses and mastoid air cells. No skull or facial fracture visualized. IMPRESSION: No acute intracranial abnormality. This document is electronically signed by Darin Sampson MD., January 01 2019 04:27:40 AM ET
[2019-01-01] MEDS ORDERED: K-DUR PO ONE (04:38)
[2019-01-01] MEDS ORDERED: TYLENOL PO PRN (05:25)
[2019-01-01] MEDS ORDERED: ZOFRAN IV PRN (05:25)
[2019-01-01] MEDS ORDERED: SODIUM CHLORIDE FLUSH SYRINGE 10 ML IV PRN (05:25)
[2019-01-01] MEDS ORDERED: D50W (25GM) Syringe IV PRN (05:25)
--- NOTE | 2019-01-01 05:34 | History and Physical Report ---
History of Present Illness Date of examination: 01/01/19 History of present illness: 63-year-old woman with a history of hypertension, diabetes, chronic kidney disease comes emergency room because she was sitting down and decreased responsiveness, shallow breathing per the daughter at bedside. She did not lose consciousness, the symptoms continued for 10 minutes. The patient was just discharged from the hospital 2 days ago, she was admitted for cardiac arrest, received CPR, symptoms are thought to be secondary to allergy to seafood. The patient has been complaining of chest pain during the hospitalization and c ontinues to have chest pain, sharp, constant, intensity 4/10 on a radiation, cannot identify exacerbating or relieving factors. Denies nausea vomiting, shortness breath, palpitation, admit to diaphoresis Review of systems Constitutional: no weight loss, chills, fever Ears, eyes, nose, mouth and throat: no nasal congestion, no nasal discharge, no sinus pressure, no vision change, no red eye. Neck: No neck pain or rigidity. Cardiovascular: no palpitations, chest pain Respiratory: no cough, shortness of breath Gastrointestinal: no hematochezia, abdominal pain Genitourinary : no frequency , no hematuria Musculoskeletal: no joint swelling or muscle ache Integumentary: no rash, no pruritis Neurological: no parathesias, no focal weakness Endocrine: no cold or heat intolerance, no polyuria or polydipsia Hematologic/Lymphatic: no easy bruising, no easy bleeding, no gland swelling Allergic/Immunologic: no urticaria, no angioedema. PAST MEDICAL HISTORY: hypertension, diabetes, chronic kidney disease PAST SURGICAL HISTORY: Hip, back, ankle SOCIAL HISTORY: Denies alcohol, drugs, smoke one pack a day FAMILY HISTORY: Hypertension Medications and Allergies Allergies Allergy/AdvReac Type Severity Reaction Status Date / Time MARIAN Inhibitors Allergy Angioedema Verified 11/15/16 15:42 esomeprazole magnesium Allergy Swelling Verified 11/15/16 15:42 [From Nexium] labetalol Allergy Itching Verified 11/15/16 15:42 Seafood Allergy Anaphylaxis Uncoded 12/27/18 11:59 Home Medications Medication Instructions Recorded Confirmed Last Taken Type Carvedilol [Coreg] 25 mg PO BID #60 tablet 12/20/15 01/02/19 12/31/18 Rx Ferrous Sulfate [Feosol 325 MG tab] 325 mg PO QDAY 04/19/16 01/02/19 12/31/18 History Losartan [Cozaar] 100 mg PO QDAY #30 tablet 04/19/16 01/02/19 12/31/18 Rx Nitrostat 0.4 mg PO QDAY PRN 04/19/16 01/02/19 Unknown History metFORMIN [Glucophage] 1,000 mg PO BID 04/19/16 01/02/19 12/31/18 History Albuterol Sulfate [Ventolin HFA] 2 puff IH Q6HR PRN 12/23/18 01/02/19 12/31/18 History Orlistat [Antonio] 60 mg PO TID 12/23/18 01/02/19 Unknown History Tizanidine HCl [tiZANidine] 2 mg PO DAILY PRN 12/23/18 01/02/19 Unknown History Aspirin [Aspirin BABY CHEW TAB] 81 mg PO QDAY #30 tab.chew 12/30/18 01/02/19 12/31/18 Rx Insulin NPH/Regular [NovoLIN 70/30] 30 units SQ BID 30 Days 12/30/18 01/02/19 Unknown Rx amLODIPine [Norvasc] 10 mg PO QDAY #30 tablet 12/30/18 01/02/19 Unknown Rx Atorvastatin Calcium [Lipitor] 40 mg PO DAILY 01/01/19 01/01/19 12/31/18 History Benzonatate [Tessalon Perle] 100 mg PO BID 01/01/19 01/01/19 12/31/18 History Furosemide [Lasix] 20 mg PO BID 01/01/19 01/01/19 12/31/18 History Meloxicam 7.5 mg PO PRN 01/01/19 01/01/19 12/31/18 History Tizanidine HCl [Zanaflex] 2 mg PO DAILY 01/01/19 01/01/19 12/31/18 History oxyCODONE /ACETAMINOPHEN [Percocet 1 tab PO Q6HR PRN #12 tablet 01/05/19 Unknown Rx 5/325] Ibuprofen [Motrin] 600 mg PO Q8H PRN #30 tablet 01/10/19 Unknown Rx Magnesium Oxide [Mgo] 400 mg PO BID #20 tablet 01/10/19 Unknown Rx Active Meds: Active Medications Acetaminophen (Tylenol) 650 mg PO Q4H PRN PRN Reason: Pain MILD(1-3)/Fever >100.5/ETIENNE Albuterol/Ipratropium (Duoneb *Not For Prn Use*) 1 ampul IH Q6HRT [facility] Dextrose (D50w (25gm) Syringe) 50 ml IV PRN PRN PRN Reason: Hypoglycemia Enoxaparin Sodium (Lovenox) 30 mg SUB-Q QDAY ANGELICA Insulin Human Lispro (Humalog) 0 unit SUB-Q ACHS ANGELICA; Protocol Morphine Sulfate (Morphine) 2 mg IV Q4H PRN PRN Reason: Pain, Moderate (4-6) Ondansetron HCl (Zofran) 4 mg IV Q8H PRN PRN Reason: Nausea And Vomiting Sodium Chloride (Sodium Chloride Flush Syringe 10 Ml) 10 ml IV BID ANGELICA Sodium Chloride (Sodium Chloride Flush Syringe 10 Ml) 10 ml IV PRN PRN PRN Reason: LINE FLUSH Exam - Physical Exam Narrative exam: General Apperance: The patient lying in bed, breathing comfortable HEENT: Normocephalic, atraumatic. Pupils equally round and reactive to light, EOMI, no sclericterus or JVD or thyromegaly or nodule. , no carotid bruit, mucous membranes moist, no exudate or erythema Heart: S1-S2, regular is rhythm Lungs: Clear to auscultation bilaterally, breathing comfortable Abdomen: Positive bowel sounds, soft, nontender, nondistended, no organomegaly Extremities: No edema cyanosis clubbing Skin: no rash, nodule, warm and dry Neuro: cranial nerves 2-12 intact, speech is fluent, motor/sensory intact - Constitutional Vitals: Temp Pulse Resp BP Pulse Ox 71 15 129/67 96 01/01/19 04:00 01/01/19 00:58 01/01/19 04:00 01/01/19 04:00 Results - Labs CBC & Chem 7: 01/05/19 05:32 01/05/19 05:32 Labs: Abnormal lab results 01/01/19 01/01/19 Range/Units 01:23 01:23 Seg Neutrophils % 73.8 H (40.0-70.0) % Seg Neutrophils # 8.1 H (1.8-7.7) K/mm3 Potassium 3.2 L (3.6-5.0) mmol/L BUN 32 H (7-17) mg/dL Glucose 169 H (65-100) mg/dL - Imaging and Cardiology EKG: image reviewed CT Scan - head: report reviewed Assessment and Plan Assessment Persistent chest pain, probably musculoskeletal Near syncope Hypertension Diabetes Obesity Plan Admit medicine Check cardiac enzymes,d-dimer, orthostatics Consult cardiology, Check fingersticks, DVT prophylaxis
[2019-01-01] MEDS ORDERED: AMMONIA INHALANT IH ONE (05:45)
[2019-01-01 06:41] LABS: Creatine Kinase MB 2.1 ng/mL (0.0-4.0)
[2019-01-01] MEDS: HumaLOG SUB-Q SCH ×4 (08:27→23:51)
[2019-01-01] MEDS: LOVENOX SUB-Q SCH (09:40)
[2019-01-01] MEDS: SODIUM CHLORIDE FLUSH SYRINGE 10 ML IV SCH ×2 (09:40→23:51)
[2019-01-01] MEDS: DUONEB *Not for PRN Use IH SCH ×3 (09:46→20:50)
[2019-01-01 12:34] LABS: Creatine Kinase MB 1.8 ng/mL (0.0-4.0)
--- NOTE | 2019-01-01 12:59 | Progress Note ---
Assessment and Plan Assessment and plan: Chest pain. Cardiology consultation. Patient underwent Lexiscan thallium 01/26/19 that revealed essentially normal perfusion with no ischemic defects. Etiology may be musculoskeletal secondary to recent cardiopulmonary arrest with subsequent compressions. Patient with recent hospitalization after cardiac arrest outside of the hospital. The cardiac arrest was suspected related to allergic reaction to Seafood ingestion. Information in chart obtained from family states that patient went into respiratory distress following returning from a seafood restaurant and was noted to have lips swelling. It appears she was resuscitated for 10 minutes in the field and then another 10 minutes in the emergency room. Cardiac isoenzymes are negative. Elevated d-dimer. Check CTA of chest. Diabetes mellitus type 2. Continue sliding scale insulin and Accu-Cheks. Hypertension. Resume antihypertensive medications. Hypokalemia. Replete potassium. Obesity. History Interval history: Patient still complains of chest pain. Hospitalist Physical - Constitutional Vitals: Temp Pulse Resp BP Pulse Ox 65 16 108/57 95 01/01/19 10:15 01/01/19 09:56 01/01/19 08:31 01/01/19 10:15 General appearance: Present: no acute distress, well-nourished - EENT Eyes: Present: PERRL, EOM intact ENT: hearing intact, clear oral mucosa, dentition normal - Neck Neck: Present: supple, normal ROM - Respiratory Respiratory effort: normal Respiratory: bilateral: CTA - Cardiovascular Rhythm: regular Heart Sounds: Present: S1 & S2. Absent: gallop, rub - Extremities Extremities: no ischemia, No edema, Full ROM - Abdominal General gastrointestinal: soft, non-tender, non-distended, normal bowel sounds - Integumentary Integumentary: Present: clear, warm, dry - Neurologic Neurologic: CNII-XII intact, moves all extremities Results - Labs CBC & Chem 7: 01/01/19 01:23 01/01/19 01:23 Labs: Laboratory Last Values WBC 10.9 K/mm3 (4.5-11.0) 01/01/19 01:23 RBC 4.13 M/mm3 (3.65-5.03) 01/01/19 01:23 Hgb 12.8 gm/dl (10.1-14.3) 01/01/19 01:23 Hct 37.9 % (30.3-42.9) 01/01/19 01:23 MCV 92 fl (79-97) 01/01/19 01:23 MCH 31 pg (28-32) 01/01/19 01:23 MCHC 34 % (30-34) 01/01/19 01:23 RDW 14.5 % (13.2-15.2) 01/01/19 01:23 Plt Count 271 K/mm3 (140-440) 01/01/19 01:23 Lymph % (Auto) 17.4 % (13.4-35.0) 01/01/19 01:23 [place] % (Auto) 6.9 % (0.0-7.3) 01/01/19 01:23 Eos % (Auto) 1.7 % (0.0-4.3) 01/01/19 01: Baso % (Auto) 0.2 % (0.0-1.8) 01/01/19 01:23 Lymph # 1.9 K/mm3 (1.2-5.4) 01/01/19 01:23 [place] # 0.7 K/mm3 (0.0-0.8) 01/01/19 01:23 Eos # 0.2 K/mm3 (0.0-0.4) 01/01/19 01:23 Baso # 0.0 K/mm3 (0.0-0.1) 01/01/19 01:23 Seg Neutrophils % 73.8 % (40.0-70.0) H 01/01/19 01:23 Seg Neutrophils # 8.1 K/mm3 (1.8-7.7) H 01/01/19 01:23 D-Dimer 1471.14 ng/mlDDU (0-234) H 01/01/19 05:59 Sodium 141 mmol/L (137-145) 01/01/19 01:23 Potassium 3.2 mmol/L (3.6-5.0) L 01/01/19 01:23 Chloride 100.1 mmol/L (98-107) 01/01/19 01:23 Carbon Dioxide 24 mmol/L (22-30) 01/01/19 01:23 Anion Gap 20 mmol/L 01/01/19 01:23 BUN 32 mg/dL (7-17) H 01/01/19 01:23 Creatinine 1.0 mg/dL (0.7-1.2) 01/01/19 01:23 Estimated GFR > 60 ml/min 01/01/19 01:23 BUN/Creatinine Ratio 32 % 01/01/19 01:23 Glucose 169 mg/dL (65-100) H 01/01/19 01:23 POC Glucose 139 (70-105) H 01/01/19 09:54 Calcium 9.0 mg/dL (8.4-10.2) 01/01/19 01:23 Total Creatine Kinase 74 units/L (30-135) 01/01/19 11:54 CK-MB (CK-2) 1.8 ng/mL (0.0-4.0) 01/01/19 11:54 CK-MB (CK-2) Rel Index 2.4 (0-4) 01/01/19 11:54 Troponin T < 0.010 ng/mL (0.00-0.029) 01/01/19 11:54 Active Medications - Current Medications Current Medications: Generic Name Dose Route Start Last Admin Trade Name Freq PRN Reason Stop Dose Admin Acetaminophen 650 mg 01/01/19 05:25 Tylenol PO Q4H PRN Pain MILD(1-3)/Fever >100.5/ETIENNE Albuterol/Ipratropium 1 ampul 01/01/19 08:00 01/01/19 09:46 Duoneb *Not For Prn Use* IH 1 ampul Q6HRT ANGELICA Administration Dextrose 50 ml 01/01/19 05:25 D50w (25gm) Syringe IV PRN PRN Hypoglycemia Enoxaparin Sodium 40 mg 01/01/19 10:00 01/01/19 09:40 Lovenox SUB-Q 40 mg QDAY@1000 ANGELICA Administration Insulin Human Lispro 0 unit 01/01/19 07:30 01/01/19 08:27 Humalog SUB-Q Not Given ACHS [facility] Protocol Morphine Sulfate 2 mg 01/01/19 05:25 Morphine IV Q4H PRN Pain, Moderate (4-6) Ondansetron HCl 4 mg 01/01/19 05:25 Zofran IV Q8H PRN Nausea And Vomiting Sodium Chloride 10 ml 01/01/19 10:00 01/01/19 09:40 Sodium Chloride Flush Syringe 10 Ml IV 10 ml BID ANGELICA Administration Sodium Chloride 10 ml 01/01/19 05:25 Sodium Chloride Flush Syringe 10 Ml IV PRN PRN LINE FLUSH
[2019-01-01] MEDS: MORPHINE IV PRN ×3 (13:24→23:54)
--- NOTE | 2019-01-01 15:28 | Nuclear Medicine Report ---
VENTILATION PERFUSION SCAN INDICATION: Elevated d-dimer. COMPARISON: None similar. FINDINGS: VQ scan performed in anterior, posterior, lateral and oblique projections. 4.6 mCi of technetium 99m MAA was used for the perfusion assessment while 18 millicuries of Xenon 133 was utilized for the ventilation portion of the study. Ventilation images demonstrate fairly homogenous radiotracer distribution throughout both lungs, though mild retention/air trapping suspected, more so on the left. The perfusion correlates with the ventilation without large lobar or definite segmental defects. Available chest radiograph from earlier this morning demonstrates clear lungs and mild exaggerated cardiomediastinal silhouette. CONCLUSION: Low probability exam for pulmonary embolism, as described. Thank you for the opportunity to participate in this patient's care.
--- NOTE | 2019-01-01 16:39 | Consultation ---
History of Present Illness Consult date: 01/01/19 Consult reason: chest pain History of present illness: Patient's this 63-year-old woman who was just discharged 2 days ago after a h ospitalization for acute respiratory failure, believed to have resulted from anaphylactic reaction to seafood. During the hospital course, due to ST segment abnormalities on her presenting EKG, she underwent noninvasive cardiac evaluation with echocardiogram and a Lexiscan stress test. Echocardiogram was ejection fraction 50-55%, and thallium stress test was normal. The patient remained very physically deconditioned during her hospitalization and up to her discharge. She is readmitted 2 days later with generalized weakness, some shortness of breath and alteration in her mental status. The EKG is sinus rhythm, nonspecific ST and T-wave abnormalities, no acute ischemia or infarction, no significant difference from her baseline ECG. There is no chest pain, no palpitations, no lower extremity edema. Past History Past Medical History: hypertension Medications and Allergies Allergies Allergy/AdvReac Type Severity Reaction Status Date / Time MARIAN Inhibitors Allergy Angioedema Verified 11/15/16 15:42 esomeprazole magnesium Allergy Swelling Verified 11/15/16 15:42 [From Nexium] labetalol Allergy Itching Verified 11/15/16 15:42 Seafood Allergy Anaphylaxis Uncoded 12/27/18 11:59 Home Medications Medication Instructions Recorded Confirmed Last Taken Type Carvedilol [Coreg] 25 mg PO BID #60 tablet 12/20/15 12/23/18 12/31/18 Rx Ferrous Sulfate [Feosol 325 MG tab] 325 mg PO QDAY 04/19/16 12/23/18 12/31/18 History Losartan [Cozaar] 100 mg PO QDAY #30 tablet 04/19/16 12/23/18 12/31/18 Rx Nitrostat 0.4 mg PO QDAY PRN 04/19/16 12/23/18 Unknown History metFORMIN [Glucophage] 1,000 mg PO BID 04/19/16 12/23/18 12/31/18 History Albuterol Sulfate [Ventolin HFA] 2 puff IH Q6HR PRN 12/23/18 12/23/18 12/31/18 History Orlistat [Antonio] 60 mg PO TID 12/23/18 12/23/18 Unknown History Tizanidine HCl [tiZANidine] 2 mg PO DAILY PRN 12/23/18 12/23/18 Unknown History Aspirin [Aspirin BABY CHEW TAB] 81 mg PO QDAY #30 tab.chew 12/30/18 12/31/18 Rx Insulin NPH/Regular [NovoLIN 70/30] 30 units SQ BID 30 Days 12/30/18 12/27/18 U nknown Rx amLODIPine [Norvasc] 10 mg PO QDAY #30 tablet 12/30/18 Unknown Rx Atorvastatin Calcium [Lipitor] 40 mg PO DAILY 01/01/19 01/01/19 12/31/18 History Benzonatate [Tessalon Perle] 100 mg PO BID 01/01/19 01/01/19 12/31/18 History Furosemide [Lasix] 20 mg PO BID 01/01/19 01/01/19 12/31/18 History Meloxicam 7.5 mg PO PRN 01/01/19 01/01/19 12/31/18 History Tizanidine HCl [Zanaflex] 2 mg PO DAILY 01/01/19 01/01/19 12/31/18 History Active Meds: Active Medications Acetaminophen (Tylenol) 650 mg PO Q4H PRN PRN Reason: Pain MILD(1-3)/Fever >100.5/ETIENNE Albuterol/Ipratropium (Duoneb *Not For Prn Use*) 1 ampul IH Q6HRT [facility] Last Admin: 01/01/19 15:06 Dose: 1 ampul Documented by: Dextrose (D50w (25gm) Syringe) 50 ml IV PRN PRN PRN Reason: Hypoglycemia Enoxaparin Sodium (Lovenox) 40 mg SUB-Q QDAY@1000 ANGELICA Last Admin: 01/01/19 09:40 Dose: 40 mg Documented by: Insulin Human Lispro (Humalog) 0 unit SUB-Q [facility]; Protocol Last Admin: 01/01/19 13:24 Dose: 3 unit Documented by: Morphine Sulfate (Morphine) 2 mg IV Q4H PRN PRN Reason: Pain, Moderate (4-6) Last Admin: 01/01/19 13:24 Dose: 2 mg Documented by: Ondansetron HCl (Zofran) 4 mg IV Q8H PRN PRN Reason: Nausea And Vomiting Sodium Chloride (Sodium Chloride Flush Syringe 10 Ml) 10 ml IV BID [facility] Last Admin: 01/01/19 09:40 Dose: 10 ml Documented by: Sodium Chloride (Sodium Chloride Flush Syringe 10 Ml) 10 ml IV PRN PRN PRN Reason: LINE FLUSH Review of Systems ROS unobtainable: due to mental status Physical Examination Vital Signs Pulse Resp BP Pulse Ox 70 15 132/52 93 01/01/19 00:58 01/01/19 00:58 01/01/19 00:58 01/01/19 00:58 General appearance: no acute distress, cachectic HEENT: Positive: PERRL Neck: Positive: neck supple Cardiac: Positive: Reg Rate and Rhythm Lungs: Positive: Decreased Breath Sounds Neuro: Positive: Weakness Abdomen: Positive: Soft Female genitourinary: deferred Skin: Positive: Clear Extremities: Absent: edema Results 01/01/19 01:23 01/01/19 01:23 Cardiac Enzymes 01/01/19 01/01/19 Range/Units 05:59 11:54 CK-MB (CK-2) 2.1 1.8 (0.0-4.0) ng/mL CBC 01/01/19 Range/Units 01:23 WBC 10.9 (4.5-11.0) K/mm3 RBC 4.13 (3.65-5.03) M/mm3 Hgb 12.8 (10.1-14.3) gm/dl Hct 37.9 (30.3-42.9) % Plt Count 271 (140-440) K/mm3 Lymph # 1.9 (1.2-5.4) K/mm3 [place] # 0.7 (0.0-0.8) K/mm3 Eos # 0.2 (0.0-0.4) K/mm3 Baso # 0.0 (0.0-0.1) K/mm3 Comprehensive Metabolic Panel 01/01/19 Range/Units 01:23 Sodium 141 (137-145) mmol/L Potassium 3.2 L (3.6-5.0) mmol/L Chloride 100.1 (98-107) mmol/L Carbon Dioxide 24 (22-30) mmol/L BUN 32 H (7-17) mg/dL Creatinine 1.0 (0.7-1.2) mg/dL Glucose 169 H (65-100) mg/dL Calcium 9.0 (8.4-10.2) mg/dL EKG interpretations - Telemetry EKG Rhythm: Sinus Rhythm Assessment and Plan - Patient Problems (1) Altered mental status Current Visit: Yes Status: Acute Plan to address problem: Patient has no cardiac symptoms, ECG shows no acute ischemic changes, a Lexiscan thallium stress test done just last week was normal. No further cardiac workup is indicated. Patient will likely benefit from a period of inpatient physical rehabilitation following her recent prolonged hospitalization for respiratory failure.
[2019-01-02] MEDS: DUONEB *Not for PRN Use IH SCH ×4 (02:55→19:47)
[2019-01-02 05:43] LABS: Basophils % (Auto) 0.1 % (0.0-1.8); Eosinophils # (Auto) 0.2 K/mm3 (0.0-0.4); Eosinophils % (Auto) 3.2 % (0.0-4.3); Hematocrit 35.2 % (30.3-42.9); Hemoglobin 11.9 gm/dl (10.1-14.3); Lymphocytes % (Auto) 32.5 % (13.4-35.0); Mean Corpuscular HGB Conc 34 % (30-34); Mean Corpuscular Volume 92 fl (79-97); Monocytes # (Auto) 0.6 K/mm3 (0.0-0.8); Monocytes % (Auto) 9.4 % (0.0-7.3); Platelet Count 301 K/mm3 (140-440); Red Blood Count 3.84 M/mm3 (3.65-5.03); Red Cell Distribution Width 14.7 % (13.2-15.2)
[2019-01-02 06:02] LABS: BUN/Creatinine Ratio 34; Blood Urea Nitrogen 24 mg/dL (7-17)
[2019-01-02 06:03] LABS: Calcium 8.4 mg/dL (8.4-10.2); Hemolysis Index 3
--- NOTE | 2019-01-02 07:15 | Progress Note ---
Assessment and Plan 1. Chest pain 2. Essential hypertension 3. Obesity Recent stress MPI negative echocardiogram normal global and regional LV function LVEF 50-55% Plan. Atypical chest pain probably noncardiac. Recommend GI evaluation Subjective Date of service: 01/02/19 Interval history: No cardiac symptoms Objective Vital Signs Temp Pulse Pulse Pulse Resp Resp BP 01/02/19 05:42 98.4 F 71 19 144/70 01/02/19 03:07 85 18 01/02/19 02:55 81 18 01/02/19 00:19 98.3 F 20 149/67 01/01/19 23:54 18 01/01/19 21:09 01/01/19 21:02 88 18 01/01/19 20:51 84 18 175/84 01/01/19 20:50 87 18 01/01/19 20:40 84 01/01/19 17:23 98.4 F 86 20 152/81 01/01/19 15:15 82 18 01/01/19 15:05 88 18 01/01/19 12:18 97.6 F 68 20 150/71 01/01/19 10:15 65 01/01/19 09:56 89 16 01/01/19 09:50 98.3 F 18 126/72 01/01/19 09:45 88 16 01/01/19 08:31 65 108/57 01/01/19 08:15 69 17 116/47 01/01/19 08:01 76 16 116/47 01/01/19 07:45 71 17 129/67 01/01/19 07:37 19 129/67 Pulse Ox 01/02/19 05:42 100 01/02/19 03:07 01/02/19 02:55 01/02/19 00:19 01/01/19 23:54 01/01/19 21:09 97 01/01/19 21:02 01/01/19 20:51 98 01/01/19 20:50 01/01/19 20:40 01/01/19 17:23 98 01/01/19 15:15 01/01/19 15:05 01/01/19 12:18 100 01/01/19 10:15 95 01/01/19 09:56 01/01/19 09:50 99 01/01/19 09:45 04/05/19 08:31 95 01/01/19 08:15 94 01/01/19 08:01 94 01/01/19 07:45 93 01/01/19 07:37 - Physical Examination General: Appears Well, No Apparent Distress HEENT: Positive: PERRL Neck: Positive: neck supple Cardiac: Positive: Regular Rate, S1/S2, PMI, Laterally Displaced. Negative: S3, S4 Lungs: Positive: clear to auscultation, No Wheeze, Rales, Rhonchi Neuro: Positive: Grossly Intact, Weakness Abdomen: Positive: Soft Skin: Positive: Clear Extremities: Absent: edema - Labs and Meds Cardiac Enzymes 01/01/19 Range/Units 11:54 CK-MB (CK-2) 1.8 (0.0-4.0) ng/mL CBC 01/02/19 Range/Units 05:04 WBC 6.2 (4.5-11.0) K/mm3 RBC 3.84 (3.65-5.03) M/mm3 Hgb 11.9 (10.1-14.3) gm/dl Hct 35.2 (30.3-42.9) % Plt Count 301 (140-440) K/mm3 Lymph # 2.0 (1.2-5.4) K/mm3 [place] # 0.6 (0.0-0.8) K/mm3 Eos # 0.2 (0.0-0.4) K/mm3 Baso # 0.0 (0.0-0.1) K/mm3 Comprehensive Metabolic Panel 01/02/19 Range/Units 05:04 Sodium 141 (137-145) mmol/L Potassium 3.3 L (3.6-5.0) mmol/L Chloride 101.7 (98-107) mmol/L Carbon Dioxide 28 (22-30) mmol/L BUN 24 H (7-17) mg/dL Creatinine 0.7 (0.7-1.2) mg/dL Glucose 293 H (65-100) mg/dL Calcium 8.4 (8.4-10.2) mg/dL - Imaging and Cardiology EKG: image reviewed
[2019-01-02] MEDS: MORPHINE IV PRN ×3 (08:13→22:01)
[2019-01-02] MEDS: HumaLOG SUB-Q SCH ×4 (08:13→22:43)
[2019-01-02] MEDS: SODIUM CHLORIDE FLUSH SYRINGE 10 ML IV SCH ×2 (10:00→21:55)
[2019-01-02] MEDS: LOVENOX SUB-Q SCH (10:00)
--- NOTE | 2019-01-02 12:53 | Progress Note ---
Assessment and Plan Assessment and plan: Chest pain. Cardiology consultation. Patient underwent Lexiscan thallium 01/26/19 that revealed essentially normal perfusion with no ischemic defects. Etiology may be musculoskeletal secondary to recent cardiopulmonary arrest with subsequent compressions. Patient with recent hospitalization after cardiac arrest outside of the hospital. The cardiac arrest was suspected related to allergic reaction to Seafood ingestion. Information in chart obtained from family states that patient went into respiratory distress following returning from a seafood restaurant and was noted to have lips swelling. It appears she was resuscitated for 10 minutes in the field and then another 10 minutes in the emergency room. Cardiac isoenzymes are negative. Pain continues to be reproducible with palpation Elevated d-dimer. VQ scan is negative. Diabetes mellitus type 2. Continue sliding scale insulin and Accu-Cheks. Hypertension. Resume antihypertensive medications. Hypokalemia. Replete potassium. Obesity. Disposition. PT evaluation for discharge planning. History Interval history: Patient still complains of chest pain. Hospitalist Physical - Constitutional Vitals: Temp Pulse Resp BP Pulse Ox 97.9 F 100 H 20 149/83 89 01/02/19 08:52 01/02/19 08:52 01/02/19 08:52 01/02/19 08:52 01/02/19 08:52 General appearance: Present: no acute distress, cachectic - EENT Eyes: Present: PERRL, EOM intact ENT: hearing intact, clear oral mucosa, dentition normal - Neck Neck: Present: supple, normal ROM - Respiratory Respiratory effort: normal Respiratory: bilateral: CTA - Cardiovascular Rhythm: regular Heart Sounds: Present: S1 & S2. Absent: gallop, rub - Extremities Extremities: no ischemia, No edema, Full ROM - Abdominal General gastrointestinal: soft, non-tender, non-distended, normal bowel sounds - Integumentary Integumentary: Present: clear, warm, dry - Neurologic Neurologic: CNII-XII intact, moves all extremities Results - Labs CBC & Chem 7: 01/02/19 05:04 01/02/19 05:04 Labs: Laboratory Last Values WBC 6.2 K/mm3 (4.5-11.0) 01/02/19 05:04 RBC 3.84 M/mm3 (3.65-5.03) 01/02/19 05:04 Hgb 11.9 gm/dl (10.1-14.3) 01/02/19 05:04 Hct 35.2 % (30.3-42.9) 01/02/19 05:04 MCV 92 fl (79-97) 01/02/19 05:04 MCH 31 pg (28-32) 01/02/19 05:04 MCHC 34 % (30-34) 01/02/19 05:04 RDW 14.7 % (13.2-15.2) 01/02/19 05:04 Plt Count 301 K/mm3 (140-440) 01/02/19 05:04 Lymph % (Auto) 32.5 % (13.4-35.0) 01/02/19 05:04 [place] % (Auto) 9.4 % (0.0-7.3) H 01/02/19 05:04 Eos % (Auto) 3.2 % (0.0-4.3) 01/02/19 05:04 Baso % (Auto) 0.1 % (0.0-1.8) 01/02/19 05:04 Lymph # 2.0 K/mm3 (1.2-5.4) 01/02/19 05:04 [place] # 0.6 K/mm3 (0.0-0.8) 01/02/19 05:04 Eos # 0.2 K/mm3 (0.0-0.4) 01/02/19 05:04 Baso # 0.0 K/mm3 (0.0-0.1) 01/02/19 05:04 Seg Neutrophils % 54.8 % (40.0-70.0) 01/02/19 05:04 Seg Neutrophils # 3.4 K/mm3 (1.8-7.7) 01/02/19 05:04 D-Dimer 1471.14 ng/mlDDU (0-234) H 01/01/19 05:59 Sodium 141 mmol/L (137-145) 01/02/19 05:04 Potassium 3.3 mmol/L (3.6-5.0) L 01/02/19 05:04 Chloride 101.7 mmol/L (98-107) 01/02/19 05:04 Carbon Dioxide 28 mmol/L (22-30) 01/02/19 05:04 Anion Gap 15 mmol/L 01/02/19 05:04 BUN 24 mg/dL (7-17) H 01/02/19 05:04 Creatinine 0.7 mg/dL (0.7-1.2) 01/02/19 05:04 Estimated GFR > 60 ml/min 01/02/19 05:04 BUN/Creatinine Ratio 34 % 01/02/19 05:04 Glucose 293 mg/dL (65-100) H 01/02/19 05:04 POC Glucose 295 (70-105) H 01/02/19 08:11 Calcium 8.4 mg/dL (8.4-10.2) 01/02/19 05:04 Total Creatine Kinase 74 units/L (30-135) 01/01/19 11:54 CK-MB (CK-2) 1.8 ng/mL (0.0-4.0) 01/01/19 11:54 CK-MB (CK-2) Rel Index 2.4 (0-4) 01/01/19 11:54 Troponin T < 0.010 ng/mL (0.00-0.029) 01/01/19 11:54 Active Medications - Current Medications Current Medications: Generic Name Dose Route Start Last Admin Trade Name Freq PRN Reason Stop Dose Admin Acetaminophen 650 mg 01/01/19 05:25 Tylenol PO Q4H PRN Pain MILD(1-3)/Fever >100.5/ETIENNE Albuterol/Ipratropium 1 ampul 01/01/19 08:00 01/02/19 08:17 Duoneb *Not For Prn Use* IH 1 ampul Q6HRT ANGELICA Administration Dextrose 50 ml 01/01/19 05:25 D50w (25gm) Syringe IV PRN PRN Hypoglycemia Enoxaparin Sodium 40 mg 01/01/19 10:00 01/02/19 10:00 Lovenox SUB-Q 40 mg QDAY@1000 ANGELICA Administration Insulin Human Lispro 0 unit 01/01/19 07:30 01/02/19 08:13 Humalog SUB-Q 6 unit ACHS ANGELICA Administration Protocol Morphine Sulfate 2 mg 01/01/19 05:25 01/02/19 08:13 Morphine IV 2 mg Q4H PRN Administration Pain, Moderate (4-6) Ondansetron HCl 4 mg 01/01/19 05:25 Zofran IV Q8H PRN Nausea And Vomiting Sodium Chloride 10 ml 01/01/19 10:00 01/02/19 10:00 Sodium Chloride Flush Syringe 10 Ml IV 10 ml BID ANGELICA Administration Sodium Chloride 10 ml 01/01/19 05:25 Sodium Chloride Flush Syringe 10 Ml IV PRN PRN LINE FLUSH
[2019-01-03] MEDS: MORPHINE IV PRN ×3 (05:35→21:46)
[2019-01-03] MEDS: DUONEB *Not for PRN Use IH SCH ×3 (08:10→21:21)
[2019-01-03] MEDS: HumaLOG SUB-Q SCH ×4 (09:34→21:45)
[2019-01-03] MEDS: LOVENOX SUB-Q SCH (10:10)
[2019-01-03] MEDS: SODIUM CHLORIDE FLUSH SYRINGE 10 ML IV SCH ×2 (10:10→21:46)
--- NOTE | 2019-01-03 11:13 | Progress Note ---
Assessment and Plan Assessment and plan: Chest pain. Cardiology consultation. Patient underwent Lexiscan thallium 01/26/19 that revealed essentially normal perfusion with no ischemic defects. Etiology may be musculoskeletal secondary to recent cardiopulmonary arrest with subsequent compressions. Patient with recent hospitalization after cardiac arrest outside of the hospital. The cardiac arrest was suspected related to allergic reaction to Seafood ingestion. Information in chart obtained from family states that patient went into respiratory distress following returning from a seafood restaurant and was noted to have lips swelling. It appears she was resuscitated for 10 minutes in the field and then another 10 minutes in the emergency room. Cardiac isoenzymes are negative. Pain continues to be reproducible with palpation Elevated d-dimer. VQ scan is negative. Diabetes mellitus type 2. Continue sliding scale insulin and Accu-Cheks. Hypertension. Resume antihypertensive medications. Hypokalemia. Replete potassium. Obesity. Disposition. PT evaluation for discharge planning. History Interval history: No new issues overnight Hospitalist Physical - Constitutional Vitals: Temp Pulse Resp BP Pulse Ox 97.9 F 47 L 18 130/65 90 01/03/19 09:02 01/03/19 09:02 01/03/19 09:02 01/03/19 09:02 01/03/19 09:02 General appearance: Present: no acute distress, cachectic - EENT Eyes: Present: PERRL, EOM intact ENT: hearing intact, clear oral mucosa, dentition normal - Neck Neck: Present: supple, normal ROM - Respiratory Respiratory effort: normal Respiratory: bilateral: CTA - Cardiovascular Rhythm: regular Heart Sounds: Present: S1 & S2. Absent: gallop, rub - Extremities Extremities: no ischemia, No edema, Full ROM - Abdominal General gastrointestinal: soft, non-tender, non-distended, normal bowel sounds - Integumentary Integumentary: Present: clear, warm, dry - Neurologic Neurologic: CNII-XII intact, moves all extremities Results - Labs CBC & Chem 7: 01/02/19 05:04 01/02/19 05:04 Labs: Laboratory Last Values WBC 6.2 K/mm3 (4.5-11.0) 01/02/19 05:04 RBC 3.84 M/mm3 (3.65-5.03) 01/02/19 05:04 Hgb 11.9 gm/dl (10.1-14.3) 01/02/19 05:04 Hct 35.2 % (30.3-42.9) 01/02/19 05:04 MCV 92 fl (79-97) 01/02/19 05:04 MCH 31 pg (28-32) 01/02/19 05:04 MCHC 34 % (30-34) 01/02/19 05:04 RDW 14.7 % (13.2-15.2) 01/02/19 05:04 Plt Count 301 K/mm3 (140-440) 01/02/19 05:04 Lymph % (Auto) 32.5 % (13.4-35.0) 01/02/19 05:04 [place] % (Auto) 9.4 % (0.0-7.3) H 01/02/19 05:04 Eos % (Auto) 3.2 % (0.0-4.3) 01/02/19 05:04 Baso % (Auto) 0.1 % (0.0-1.8) 01/02/19 05:04 Lymph # 2.0 K/mm3 (1.2-5.4) 01/02/19 05:04 [place] # 0.6 K/mm3 (0.0-0.8) 01/02/19 05:04 Eos # 0.2 K/mm3 (0.0-0.4) 01/02/19 05:04 Baso # 0.0 K/mm3 (0.0-0.1) 01/02/19 05:04 Seg Neutrophils % 54.8 % (40.0-70.0) 01/02/19 05:04 Seg Neutrophils # 3.4 K/mm3 (1.8-7.7) 01/02/19 05:04 D-Dimer 1471.14 ng/mlDDU (0-234) H 01/01/19 05:59 Sodium 141 mmol/L (137-145) 01/02/19 05:04 Potassium 3.3 mmol/L (3.6-5.0) L 01/02/19 05:04 Chloride 101.7 mmol/L (98-107) 01/02/19 05:04 Carbon Dioxide 28 mmol/L (22-30) 01/02/19 05:04 Anion Gap 15 mmol/L 01/02/19 05:04 BUN 24 mg/dL (7-17) H 01/02/19 05:04 Creatinine 0.7 mg/dL (0.7-1.2) 01/02/19 05:04 Estimated GFR > 60 ml/min 01/02/19 05:04 BUN/Creatinine Ratio 34 % 01/02/19 05:04 Glucose 293 mg/dL (65-100) H 01/02/19 05:04 POC Glucose 260 (70-105) H 01/03/19 09:02 Calcium 8.4 mg/dL (8.4-10.2) 01/02/19 05:04 Total Creatine Kinase 74 units/L (30-135) 01/01/19 11:54 CK-MB (CK-2) 1.8 ng/mL (0.0-4.0) 01/01/19 11:54 CK-MB (CK-2) Rel Index 2.4 (0-4) 01/01/19 11:54 Troponin T < 0.010 ng/mL (0.00-0.029) 01/01/19 11:54 Active Medications - Current Medications Current Medications: Generic Name Dose Route Start Last Admin Trade Name Freq PRN Reason Stop Dose Admin Acetaminophen 650 mg 01/01/19 05:25 Tylenol PO Q4H PRN Pain MILD(1-3)/Fever >100.5/ETIENNE Albuterol/Ipratropium 1 ampul 01/03/19 08:00 01/03/19 08:10 Duoneb *Not For Prn Use* IH 1 ampul TIDRT ANGELICA Administration Dextrose 50 ml 01/01/19 05:25 D50w (25gm) Syringe IV PRN PRN Hypoglycemia Enoxaparin Sodium 40 mg 01/01/19 10:00 01/03/19 10:10 Lovenox SUB-Q 40 mg QDAY@1000 ANGELICA Administration Insulin Human Lispro 0 unit 01/01/19 07:30 01/03/19 09:34 Humalog SUB-Q 6 unit ACHS ANGELICA Administration Protocol Morphine Sulfate 2 mg 01/01/19 05:25 01/03/19 05:35 Morphine IV 2 mg Q4H PRN Administration Pain, Moderate (4-6) Ondansetron HCl 4 mg 01/01/19 05:25 Zofran IV Q8H PRN Nausea And Vomiting Sodium Chloride 10 ml 01/01/19 10:00 01/03/19 10:10 Sodium Chloride Flush Syringe 10 Ml IV 10 ml BID ANGELICA Administration Sodium Chloride 10 ml 01/01/19 05:25 Sodium Chloride Flush Syringe 10 Ml IV PRN PRN LINE FLUSH
--- NOTE | 2019-01-03 12:06 | Progress Note ---
Assessment and Plan 1. Chest pain 2. Essential hypertension 3. Obesity Recent stress MPI negative. Echocardiogram normal global and regional LV function LVEF 50-55% Plan. Atypical chest pain probably noncardiac. Recommend GI evaluation Subjective Date of service: 01/03/19 Interval history: Patient states she still has chest tightness at rest. Objective Vital Signs Temp Pulse Pulse Resp Resp BP Pulse Ox 01/03/19 09:02 97.9 F 47 L 18 130/65 90 01/03/19 04:37 98.0 F 20 145/76 01/03/19 00:00 98.0 F 80 20 152/75 96 01/02/19 20:48 78 01/02/19 15:38 98.4 F 72 20 145/66 96 01/02/19 14:25 85 15 01/02/19 14:17 79 15 01/02/19 13:31 98.3 F 71 20 135/61 100 - Physical Examination General: Appears Well, No Apparent Distress, Other (moderately obese) HEENT: Positive: PERRL Neck: Positive: neck supple Cardiac: Positive: Reg Rate and Rhythm, S3, S4, PMI, Laterally Displaced Lungs: Positive: clear to auscultation, No Wheeze, Rales, Rhonchi Neuro: Positive: Grossly Intact, Weakness Abdomen: Positive: Soft Skin: Positive: Clear Extremities: Absent: edema - Imaging and Cardiology EKG: image reviewed
[2019-01-04] MEDS: MORPHINE IV PRN ×4 (06:02→22:06)
[2019-01-04] MEDS: DUONEB *Not for PRN Use IH SCH ×4 (07:35→21:06)
[2019-01-04] MEDS ORDERED: K-DUR PO NR (09:47)
--- NOTE | 2019-01-04 09:50 | Progress Note ---
Assessment and Plan Assessment and plan: Chest pain. Cardiology consultation. Patient underwent Lexiscan thallium 01/26/19 that revealed essentially normal perfusion with no ischemic defects. Etiology may be musculoskeletal secondary to recent cardiopulmonary arrest with subsequent compressions. Patient with recent hospitalization after cardiac arrest outside of the hospital. The cardiac arrest was suspected related to allergic reaction to Seafood ingestion. Information in chart obtained from family states that patient went into respiratory distress following returning from a seafood restaurant and was noted to have lips swelling. It appears she was resuscitated for 10 minutes in the field and then another 10 minutes in the emergency room. Cardiac isoenzymes are negative. Pain continues to be reproducible with palpation. Chest X-ray on admission does not show any osseous abnormality Elevated d-dimer. VQ scan is negative. Diabetes mellitus type 2. Continue sliding scale insulin and Accu-Cheks. Hypertension. Resume antihypertensive medications. Hypokalemia. Replete potassium. Obesity. Disposition. Await PT evaluation/determination for discharge planning. History Interval history: No new issues overnight Hospitalist Physical - Constitutional Vitals: Temp Pulse Resp BP Pulse Ox 98.2 F 79 20 163/85 100 01/04/19 08:19 01/04/19 08:19 01/04/19 08:19 01/04/19 08:19 01/04/19 08:19 General appearance: Present: no acute distress, cachectic - EENT Eyes: Present: PERRL, EOM intact ENT: hearing intact, clear oral mucosa, dentition normal - Neck Neck: Present: supple, normal ROM - Respiratory Respiratory effort: normal Respiratory: bilateral: CTA - Cardiovascular Rhythm: regular Heart Sounds: Present: S1 & S2. Absent: gallop, rub - Extremities Extremities: no ischemia, No edema, Full ROM - Abdominal General gastrointestinal: soft, non-tender, non-distended, normal bowel sounds - Integumentary Integumentary: Present: clear, warm, dry - Neurologic Neurologic: CNII-XII intact, moves all extremities Results - Labs CBC & Chem 7: 01/02/19 05:04 01/02/19 05:04 Labs: Laboratory Last Values WBC 6.2 K/mm3 (4.5-11.0) 01/02/19 05:04 RBC 3.84 M/mm3 (3.65-5.03) 01/02/19 05:04 Hgb 11.9 gm/dl (10.1-14.3) 01/02/19 05:04 Hct 35.2 % (30.3-42.9) 01/02/19 05:04 MCV 92 fl (79-97) 01/02/19 05:04 MCH 31 pg (28-32) 01/02/19 05:04 MCHC 34 % (30-34) 01/02/19 05:04 RDW 14.7 % (13.2-15.2) 01/02/19 05:04 Plt Count 301 K/mm3 (140-440) 01/02/19 05:04 Lymph % (Auto) 32.5 % (13.4-35.0) 01/02/19 05:04 [place] % (Auto) 9.4 % (0.0-7.3) H 01/02/19 05:04 Eos % (Auto) 3.2 % (0.0-4.3) 01/02/19 05:04 Baso % (Auto) 0.1 % (0.0-1.8) 01/02/19 05:04 Lymph # 2.0 K/mm3 (1.2-5.4) 01/02/19 05:04 [place] # 0.6 K/mm3 (0.0-0.8) 01/02/19 05:04 Eos # 0.2 K/mm3 (0.0-0.4) 01/02/19 05:04 Baso # 0.0 K/mm3 (0.0-0.1) 01/02/19 05:04 Seg Neutrophils % 54.8 % (40.0-70.0) 01/02/19 05:04 Seg Neutrophils # 3.4 K/mm3 (1.8-7.7) 01/02/19 05:04 D-Dimer 1471.14 ng/mlDDU (0-234) H 01/01/19 05:59 Sodium 141 mmol/L (137-145) 01/02/19 05:04 Potassium 3.3 mmol/L (3.6-5.0) L 01/02/19 05:04 Chloride 101.7 mmol/L (98-107) 01/02/19 05:04 Carbon Dioxide 28 mmol/L (22-30) 01/02/19 05:04 Anion Gap 15 mmol/L 01/02/19 05:04 BUN 24 mg/dL (7-17) H 01/02/19 05:04 Creatinine 0.7 mg/dL (0.7-1.2) 01/02/19 05:04 Estimated GFR > 60 ml/min 01/02/19 05:04 BUN/Creatinine Ratio 34 % 01/02/19 05:04 Glucose 293 mg/dL (65-100) H 01/02/19 05:04 POC Glucose 250 (70-105) H 01/04/19 07:44 Calcium 8.4 mg/dL (8.4-10.2) 01/02/19 05:04 Total Creatine Kinase 74 units/L (30-135) 01/01/19 11:54 CK-MB (CK-2) 1.8 ng/mL (0.0-4.0) 01/01/19 11:54 CK-MB (CK-2) Rel Index 2.4 (0-4) 01/01/19 11:54 Troponin T < 0.010 ng/mL (0.00-0.029) 01/01/19 11:54 Active Medications - Current Medications Current Medications: Generic Name Dose Route Start Last Admin Trade Name Freq PRN Reason Stop Dose Admin Acetaminophen 650 mg 01/01/19 05:25 01/04/19 08:38 Tylenol PO 650 mg Q4H PRN Administration Pain MILD(1-3)/Fever >100.5/ETIENNE Albuterol/Ipratropium 1 ampul 01/03/19 08:00 01/03/19 21:21 Duoneb *Not For Prn Use* IH 1 ampul TIDRT ANGELICA Administration Dextrose 50 ml 01/01/19 05:25 D50w (25gm) Syringe IV PRN PRN Hypoglycemia Enoxaparin Sodium 40 mg 01/01/19 10:00 01/03/19 10:10 Lovenox SUB-Q 40 mg QDAY@1000 ANGELICA Administration Insulin Human Lispro 0 unit 01/01/19 07:30 01/03/19 21:45 Humalog SUB-Q 4 unit ACHS ANGELICA Administration Protocol Morphine Sulfate 2 mg 01/01/19 05:25 01/04/19 06:02 Morphine IV 2 mg Q4H PRN Administration Pain, Moderate (4-6) Ondansetron HCl 4 mg 01/01/19 05:25 Zofran IV Q8H PRN Nausea And Vomiting Sodium Chloride 10 ml 01/01/19 10:00 01/03/19 21:46 Sodium Chloride Flush Syringe 10 Ml IV 10 ml BID ANGELICA Administration Sodium Chloride 10 ml 01/01/19 05:25 Sodium Chloride Flush Syringe 10 Ml IV PRN PRN LINE FLUSH
[2019-01-04] MEDS: LOVENOX SUB-Q SCH (10:05)
[2019-01-04] MEDS: HumaLOG SUB-Q SCH ×4 (10:05→22:01)
[2019-01-04] MEDS: SODIUM CHLORIDE FLUSH SYRINGE 10 ML IV SCH ×2 (10:13→22:02)
--- NOTE | 2019-01-04 12:08 | Progress Note ---
Assessment and Plan Alteration of mental status -resolved Chest pain, musculoskeletal Diabetes Hypertension Previous negative cardiac cath in 2010 . Normal thallium stress test 12/2018. Echocardiogram done 12/2018 reports a normal left ventricular systolic function, EF 50-55%. Subjective Date of service: 01/04/19 Interval history: Patient complains of chest pain. Worse with palpation, and deep inspirations. Objective Vital Signs Temp Pulse Pulse Resp Resp BP Pulse Ox 01/04/19 08:19 98.2 F 79 20 163/85 100 01/04/19 06:29 70 01/04/19 04:15 98.1 F 72 16 166/91 100 01/03/19 23:01 98.0 F 80 14 135/77 94 01/03/19 21:24 80 18 01/03/19 21:23 98 01/03/19 21:14 77 18 01/03/19 19:47 98.3 F 83 16 174/84 100 01/03/19 15:31 98.4 F 70 18 169/83 96 01/03/19 13:33 78 16 01/03/19 13:24 75 16 - Physical Examination General: No Apparent Distress HEENT: Positive: PERRL Neck: Positive: trachea midline Cardiac: Positive: Reg Rate and Rhythm Lungs: Positive: Decreased Breath Sounds Neuro: Positive: Grossly Intact, Weakness Extremities: Absent: edema
[2019-01-05 05:57] LABS: Basophils % (Auto) 0.3 % (0.0-1.8); Eosinophils # (Auto) 0.2 K/mm3 (0.0-0.4); Eosinophils % (Auto) 2.7 % (0.0-4.3); Hematocrit 33.2 % (30.3-42.9); Hemoglobin 11.4 gm/dl (10.1-14.3); Lymphocytes # (Auto) 1.9 K/mm3 (1.2-5.4); Lymphocytes % (Auto) 30.9 % (13.4-35.0); Mean Corpuscular HGB Conc 34 % (30-34); Mean Corpuscular Volume 91 fl (79-97); Monocytes # (Auto) 0.6 K/mm3 (0.0-0.8); Monocytes % (Auto) 10.2 % (0.0-7.3); Platelet Count 289 K/mm3 (140-440); Red Blood Count 3.65 M/mm3 (3.65-5.03); Red Cell Distribution Width 14.6 % (13.2-15.2)
[2019-01-05 06:22] LABS: BUN/Creatinine Ratio 28; Blood Urea Nitrogen 11 mg/dL (7-17); Calcium 8.7 mg/dL (8.4-10.2); Hemolysis Index 1
[2019-01-05] MEDS: MORPHINE IV PRN ×2 (07:35→13:55)
[2019-01-05] MEDS: DUONEB *Not for PRN Use IH SCH ×2 (08:01→13:18)
[2019-01-05] MEDS: HumaLOG SUB-Q SCH ×2 (09:35→13:54)
[2019-01-05] MEDS: LOVENOX SUB-Q SCH (09:36)
[2019-01-05] MEDS: SODIUM CHLORIDE FLUSH SYRINGE 10 ML IV SCH (09:36)
[2019-01-05] MEDS ORDERED: NORVASC PO SCH (10:00)
--- NOTE | 2019-01-05 11:11 | Discharge Summary ---
Providers - Providers Date of Admission: 01/01/19 05:25 Attending physician: ALETA KLEIN MD 01/01/19 05:25 Consult to Physician [CONS] Routine Comment: Consulting Provider: CASEY KIMBROUGH Physician Instructions: Reason For Exam: cp 01/02/19 10:48 Physical Therapy Evaluation and Treat [CONS] Routine Comment: Reason For Exam: deconditioning [facility] Reason for admission: musculoskeletal Chest pain Condition: Stable Pertinent studies: CT head V/Q scan CXR Hospital course: Chest pain. Cardiology consulted and recommended no further cardiac workup. patient underwent Lexiscan thallium 01/26/19 that revealed essentially normal perfusion with no ischemic defects. Etiology may be musculoskeletal secondary to recent cardiopulmonary arrest with subsequent compressions. Patient with recent hospitalization after cardiac arrest outside of the hospital. The cardiac arrest was suspected related to allergic reaction to Seafood ingestion. Information in chart obtained from family states that patient went into respiratory distress following returning from a seafood restaurant and was noted to have lips swelling. It appears she was resuscitated for 10 minutes in the field and then another 10 minutes in the emergency room. Cardiac isoenzymes are negative. Pain continues to be reproducible with palpation. Chest X-ray on admission does not show any osseous abnormality Elevated d-dimer. VQ scan is negative. Diabetes mellitus type 2. Continue sliding scale insulin and Accu-Cheks. Hypertension; continue anti hypertensives Hypokalemia; Replete potassium. Obesity; counselled about weight loss PT evaluated recommend home health PT. I have discussed with [facility]-care physician and said he will arrange follow up. Patient was hemodynamically stable at the time of discharge. Disposition: DC/[place]-06 HOME UNDER HOME [facility] Time spent for discharge: 32 minutes - Discharge Diagnoses (1) Altered mental status Status: Acute (2) Cardiac arrest Status: Acute (3) IDDM (insulin dependent diabetes mellitus) Status: Chronic Core Measure Documentation - Palliative Care Palliative Care/ Comfort Measures: Not Applicable - Core Measures Any of the following diagnoses?: none Exam - Physical Exam Narrative exam: Not in cardiopulmonary distress. The patient is obese. Vital signs as documented. Head exam is unremarkable. No scleral icterus . Neck is without jugular venous distension, thyromegaly, or carotid bruits. Lungs are clear to auscultation. Cardiac exam reveals regular rate and Rhythm. First and second heart sounds normal. No murmurs, rubs or gallops. Abdominal exam reveals normal bowel sounds, no masses, no organomegaly and no aortic enlargement. Extremities are nonedematous and both femoral and pedal pulses are normal. 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 No focal weakness. - Constitutional Vitals: Temp Pulse Resp BP Pulse Ox 97.9 F 87 20 189/84 96 01/05/19 09:13 01/05/19 09:13 01/05/19 09:13 01/05/19 09:13 01/05/19 09:13 Plan Activity: no restrictions Weight Bearing Status: Full Weight Bearing Diet: low salt, diabetic Special Instructions: physical therapy Additional Instructions: Discussed his [facility] physician and said he will arrange home PT and f/u in the office Follow up with: PANCHO ESPINOZAESCONDIDO MD JYOTI [Primary Care Provider] - 3-5 Days Prescriptions: oxyCODONE /ACETAMINOPHEN [Percocet 5/325] 1 tab PO Q6HR PRN #12 tablet PRN Reason: Pain
--- NOTE | 2019-01-05 14:30 | Progress Note ---
Assessment and Plan - Patient Problems (1) Altered mental status Current Visit: Yes Status: Acute Plan to address problem: Patient has no cardiac symptoms, ECG shows no acute ischemic changes, a Lexiscan thallium stress test done just last week was normal. No further cardiac workup is indicated. Patient will likely benefit from a period of inpatient physical rehabilitation following her recent prolonged hospitalization for respiratory failure. Subjective Date of service: 01/05/19 Interval history: Patient is comfortable, and no new cardiac complaints. Objective Vital Signs Temp Pulse Pulse Resp Resp BP BP 01/05/19 13:18 95 H 18 01/05/19 11:52 98.3 F 91 H 20 151/92 01/05/19 09:13 97.9 F 87 20 189/84 01/05/19 08:48 01/05/19 08:16 84 18 01/05/19 08:02 82 18 01/05/19 04:40 98.0 F 76 20 164/90 01/04/19 21:24 109 H 15 01/04/19 21:10 01/04/19 21:06 104 H 13 01/04/19 19:19 97.0 F L 81 18 160/80 01/04/19 18:00 81 01/04/19 16:10 98.0 F 99 H 20 142/89 Pulse Ox 01/05/19 13:18 01/05/19 11:52 100 01/05/19 09:13 96 01/05/19 08:48 100 01/05/19 08:16 01/05/19 08:02 01/05/19 04:40 98 01/04/19 21:24 01/04/19 21:10 91 01/04/19 21:06 01/04/19 19:19 95 01/04/19 18:00 01/04/19 16:10 100 - Physical Examination General: No Apparent Distress HEENT: Positive: PERRL Neck: Positive: trachea midline Cardiac: Positive: Reg Rate and Rhythm Lungs: Positive: Decreased Breath Sounds Neuro: Positive: Grossly Intact, Weakness Abdomen: Positive: Soft Skin: Positive: Clear Extremities: Absent: edema - Labs and Meds CBC 01/05/19 Range/Units 05:32 WBC 6.1 (4.5-11.0) K/mm3 RBC 3.65 (3.65-5.03) M/mm3 Hgb 11.4 (10.1-14.3) gm/dl Hct 33.2 (30.3-42.9) % Plt Count 289 (140-440) K/mm3 Lymph # 1.9 (1.2-5.4) K/mm3 [place] # 0.6 (0.0-0.8) K/mm3 Eos # 0.2 (0.0-0.4) K/mm3 Baso # 0.0 (0.0-0.1) K/mm3 Comprehensive Metabolic Panel 01/05/19 Range/Units 05:32 Sodium 142 (137-145) mmol/L Potassium 3.6 (3.6-5.0) mmol/L Chloride 104.5 (98-107) mmol/L Carbon Dioxide 26 (22-30) mmol/L BUN 11 (7-17) mg/dL Creatinine 0.4 L (0.7-1.2) mg/dL Glucose 72 (65-100) mg/dL Calcium 8.7 (8.4-10.2) mg/dL - Imaging and Cardiology EKG: image reviewed
[2019-01-05] MEDS ORDERED: APRESOLINE IV ONE (16:37)
[2019-01-05 17:02] VITALS: BP 194/99
== END 2019-01-05 17:49 | disposition home health service (06) | DRG 313 ==
LOC: SUATTDRO 00:49 → ED 00:49 → 4A 05:25
PROVIDERS: ADMIT Internal Medicine; ATTEND Internal Medicine
DX: R07.89 Other chest pain (principal); E87.6 Hypokalemia; I12.9 Hypertensive chronic kidney disease with stage 1 through stage 4 chronic kidney disease, or unspecified chronic kidney disease; E11.22 Type 2 diabetes mellitus with diabetic chronic kidney disease; F17.210 Nicotine dependence, cigarettes, uncomplicated; E66.9 Obesity, unspecified; F17.200 Nicotine dependence, unspecified, uncomplicated; Z96.643 Presence of artificial hip joint, bilateral; N18.9 Chronic kidney disease, unspecified; Z82.49 Family history of ischemic heart disease and other diseases of the circulatory system; Z88.8 Allergy status to other drugs, medicaments and biological substances; Z91.013 Allergy to seafood; Z79.4 Long term (current) use of insulin; Z79.899 Other long term (current) drug therapy; Z79.82 Long term (current) use of aspirin; Z68.34 Body mass index [BMI] 34.0-34.9, adult; Z86.74 Personal history of sudden cardiac arrest; Z86.73 Personal history of transient ischemic attack (TIA), and cerebral infarction without residual deficits; Z71.6 Tobacco abuse counseling
CPT/HCPCS: 36415; 70450; 71045; 78582; 80048; 82550; 82553; 82962; 84484; 85025; 85379; 87116; 93005; 93010; 94640; 99406; G0378; A9540; A9558; J1650; J1815; J2270

== ENCOUNTER 2019-01-10 00:19 | Emergency (ER) | payer MEDICARE ==
[2019-01-10] MEDS ORDERED: SUBLIMAZE IV ONE (00:47)
[2019-01-10] MEDS ORDERED: TORADOL IV ONE (00:47)
[2019-01-10] MEDS ORDERED: NACL 0.9% 500 ML 500 ML IV ONE (00:47)
--- NOTE | 2019-01-10 00:49 | Emergency Department Report ---
ED General Adult HPI - General Chief complaint: Chest Pain Stated complaint: CHEST SORENESS Time Seen by Provider: 01/10/19 00:34 Source: patient, EMS (verbal report received from EMS.ems notes not available at time of chart dictation), RN notes reviewed, old records reviewed Mode of arrival: Stretcher Limitations: No Limitations - History of Present Illness Initial comments: This is a 63-year-old female. I have evaluated this patient in the past. The patient was admitted to the hospital by myself last month for out of hospital cardiac and respiratory arrest. While in the emergency room, the patient was asystolic during her initial presentation, and received very aggressive CPR. Fortunately, return of spontaneous circulation was obtained. A postresuscitation CT scan of the chest at that time demonstrated no pulmonary embolus or aortic dissection, but pulmonary congestion with interstitial edema, and nondisplaced obliquely oriented fracture of the body of the sternum, and several acute right anterior rib fractures were noted. The patient went on to have a successful convalescence within this hospital, was extubated, and had a negative cardiac stress test, a low probability nuclear medicine study subsequently, and was ultimately suspected to have suffered an anaphylactic reaction, secondary to seafood, which is obviously resolved at this point in time. The patient is brought to the hospital by emergency medical services. The patient complains of persistent chest wall pain which has been present since her resuscitation. The pain is aching, increases with palpation, decreases with rest, and does not radiate anywhere. The patient was discharged with pain medication, which she reports is not really helping her out. She denies vomiting, diaphoresis. She denies leg pain, leg swelling. -: Gradual, week(s) Location: chest Radiation: non-radiation Severity scale (0 -10): 10 Quality: aching Consistency: other Improves with: other Worsens with: other - Related Data Home Medications Medication Instructions Recorded Confirmed Last Taken Ferrous Sulfate [Feosol 325 MG tab] 325 mg PO QDAY 04/19/16 01/02/19 12/31/18 Nitrostat 0.4 mg PO QDAY PRN 04/19/16 01/02/19 Unknown metFORMIN [Glucophage] 1,000 mg PO BID 04/19/16 01/02/19 12/31/18 Albuterol Sulfate [Ventolin HFA] 2 puff IH Q6HR PRN 12/23/18 01/02/19 12/31/18 Orlistat [Antonio] 60 mg PO TID 12/23/18 01/02/19 Unknown Tizanidine HCl [tiZANidine] 2 mg PO DAILY PRN 12/23/18 01/02/19 Unknown Atorvastatin Calcium [Lipitor] 40 mg PO DAILY 01/01/19 01/01/19 12/31/18 Benzonatate [Tessalon Perle] 100 mg PO BID 01/01/19 01/01/19 12/31/18 Furosemide [Lasix] 20 mg PO BID 01/01/19 01/01/19 12/31/18 Meloxicam 7.5 mg PO PRN 01/01/19 01/01/19 12/31/18 Tizanidine HCl [Zanaflex] 2 mg PO DAILY 01/01/19 01/01/19 12/31/18 Previous Rx's Medication Instructions Recorded Last Taken Type Carvedilol [Coreg] 25 mg PO BID #60 tablet 12/20/15 12/31/18 Rx Losartan [Cozaar] 100 mg PO QDAY #30 tablet 04/19/16 12/31/18 Rx Aspirin [Aspirin BABY CHEW TAB] 81 mg PO QDAY #30 tab.chew 12/30/18 12/31/18 Rx Insulin NPH/Regular [NovoLIN 70/30] 30 units SQ BID 30 Days 12/30/18 Unknown Rx amLODIPine [Norvasc] 10 mg PO QDAY #30 tablet 12/30/18 Unknown Rx oxyCODONE /ACETAMINOPHEN [Percocet 1 tab PO Q6HR PRN #12 tablet 01/05/19 Unknown Rx 5/325] Ibuprofen [Motrin] 600 mg PO Q8H PRN #30 tablet 01/10/19 Unknown Rx Magnesium Oxide [Mgo] 400 mg PO BID #20 tablet 01/10/19 Unknown Rx Allergies Allergy/AdvReac Type Severity Reaction Status Date / Time MARIAN Inhibitors Allergy Angioedema Verified 11/15/16 15:42 esomeprazole magnesium Allergy Swelling Verified 11/15/16 15:42 [From Nexium] labetalol Allergy Itching Verified 11/15/16 15:42 Seafood Allergy Anaphylaxis Uncoded 12/27/18 11:59 ED Review of Systems ROS: Stated complaint: CHEST SORENESS Other details as noted in HPI Constitutional: malaise. denies: fever Eyes: denies: eye discharge ENT: denies: epistaxis Respiratory: denies: cough Cardiovascular: chest pain Gastrointestinal: denies: vomiting Genitourinary: denies: dysuria Musculoskeletal: arthralgia, myalgia Skin: denies: lesions Neurological: weakness ED Past Medical Hx - Past Medical History Hx Hypertension: Yes Hx CVA: Yes (2016) Hx Congestive Heart Failure: No Hx Diabetes: Yes Hx Pulmonary Embolism: No Hx Asthma: No Hx COPD: No Hx Tuberculosis: No Additional medical history: Angina, Vertigo - Surgical History Additional Surgical History: bilateral hip replacement; ankle surgery; back surgery - Social History Smoking Status: Former Smoker Substance Use Type: None - Medications Home Medications: Home Medications Medication Instructions Recorded Confirmed Last Taken Type Carvedilol [Coreg] 25 mg PO BID #60 tablet 12/20/15 01/02/19 12/31/18 Rx Ferrous Sulfate [Feosol 325 MG tab] 325 mg PO QDAY 04/19/16 01/02/19 12/31/18 History Losartan [Cozaar] 100 mg PO QDAY #30 tablet 04/19/16 01/02/19 12/31/18 Rx Nitrostat 0.4 mg PO QDAY PRN 04/19/16 01/02/19 Unknown History metFORMIN [Glucophage] 1,000 mg PO BID 04/19/16 01/02/19 12/31/18 History Albuterol Sulfate [Ventolin HFA] 2 puff IH Q6HR PRN 12/23/18 01/02/19 12/31/18 History Orlistat [Antonio] 60 mg PO TID 12/23/18 01/02/19 Unknown History Tizanidine HCl [tiZANidine] 2 mg PO DAILY PRN 12/23/18 01/02/19 Unknown History Aspirin [Aspirin BABY CHEW TAB] 81 mg PO QDAY #30 tab.chew 12/30/18 01/02/19 12/31/18 Rx Insulin NPH/Regular [NovoLIN 70/30] 30 units SQ BID 30 Days 12/30/18 01/02/19 Unknown Rx amLODIPine [Norvasc] 10 mg PO QDAY #30 tablet 12/30/18 01/02/19 Unknown Rx Atorvastatin Calcium [Lipitor] 40 mg PO DAILY 01/01/19 01/01/19 12/31/18 History Benzonatate [Tessalon Perle] 100 mg PO BID 01/01/19 01/01/19 12/31/18 History Furosemide [Lasix] 20 mg PO BID 01/01/19 01/01/19 12/31/18 History Meloxicam 7.5 mg PO PRN 01/01/19 01/01/19 12/31/18 History Tizanidine HCl [Zanaflex] 2 mg PO DAILY 01/01/19 01/01/19 12/31/18 History oxyCODONE /ACETAMINOPHEN [Percocet 1 tab PO Q6HR PRN #12 tablet 01/05/19 Unknown Rx 5/325] Ibuprofen [Motrin] 600 mg PO Q8H PRN #30 tablet 01/10/19 Unknown Rx Magnesium Oxide [Mgo] 400 mg PO BID #20 tablet 01/10/19 Unknown Rx ED Physical Exam - General Limitations: No Limitations General appearance: alert, in no apparent distress, obese - Head Head exam: Present: atraumatic, normocephalic - Eye Eye exam: Present: normal appearance, EOMI. Absent: nystagmus - ENT ENT exam: Present: normal exam, normal orophraynx, mucous membranes moist, normal external ear exam - Neck Neck exam: Present: normal inspection, full ROM. Absent: tenderness, meningismus - Respiratory Respiratory exam: Present: normal lung sounds bilaterally, rhonchi (rhonchi noted in the right hemithorax, lower lung field), chest wall tenderness. Absent: respiratory distress - Cardiovascular Cardiovascular Exam: Present: regular rate, normal rhythm, normal heart sounds. Absent: bradycardia, tachycardia, irregular rhythm, systolic murmur, diastolic murmur, rubs, gallop - GI/Abdominal GI/Abdominal exam: Present: soft. Absent: distended, tenderness, guarding, rebound, rigid, pulsatile mass - Extremities Exam Extremities exam: Present: normal inspection, full ROM, other (2+ pulses noted in the bilateral upper, lower extremities. Compartments soft. No long bony tenderness. The pelvis is stable.). Absent: pedal edema, joint swelling, calf tenderness - Back Exam Back exam: Present: normal inspection, full ROM. Absent: tenderness, CVA tenderness (R), paraspinal tenderness, vertebral tenderness - Neurological Exam Neurological exam: Present: alert, other (Extraocular movements intact. Tongue midline. No facial droop. Facial sensation intact to light touch in the V1, V2, V3 distribution bilaterally. 5 and 5 strength in 4 extremities.. Sensation is intact to light touch in 4 extremities.). Absent: motor sensory deficit - Psychiatric Psychiatric exam: Present: anxious - Skin Skin exam: Present: warm, dry, intact, normal color. Absent: rash ED Course Vital Signs 01/10/19 01/10/19 00:31 01:25 Temperature 98.3 F 98.3 F Pulse Rate 63 73 Respiratory 20 22 Rate Blood Pressure 179/78 Blood Pressure 175/90 [Right] O2 Sat by Pulse 99 96 Oximetry - Reevaluation(s) Reevaluation #1: 01/10/19 01:40 Differential diagnosis, including but not limited to: Costochondritis, subacute sternal fracture, pulmonary contusion, pneumonia, pulmonary embolus, acute coronary syndrome Assessment and plan: 63-year-old female status post a prolonged hospitalization after out of hospital cardiac arrest, presumed secondary to anaphylactic/anaphylactoid reaction. On the first evening of her resuscitation, she had a CT scan which demonstrated sternal fracture, and multiple rib fractures. She had extensive cardiac workup and risk stratification while here in the hospital, and had a repeat evaluation for pulmonary embolus. Most likely, the patient is experienced in the known expected sequelae of fr actured ribs, and sternal fracture. These injuries are approximately 3-1/2 weeks old, and I have counseled the patient that she will likely be sore for the next couple weeks to months. We will treat her pain, obtain CT scan of the chest, and reassess. Given that her pain has been present for greater than 8 hours, one set of troponins is enough to exclude acute myocardial infarction, as per the [employer] clinical policy. Furthermore, the patient recently had a negative cardiac stress test at this hospital. Reevaluation #2: 01/10/19 02:11 Patient reassessed while in the emergency room multiple times. Appears comfortable. Using incentive spirometer. CT scan of the chest shows no acute disease. Subacute fractures are reviewed and appreciated. Pleural effusion appears to be subacute. 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 She will be discharged at this point in time. ED Medical Decision Making - Lab Data Result diagrams: 01/10/19 01:05 01/10/19 01:05 Vital Signs 01/10/19 01/10/19 00:31 01:25 Temperature 98.3 F 98.3 F Pulse Rate 63 73 Respiratory 20 22 Rate Blood Pressure 179/78 Blood Pressure 175/90 [Right] O2 Sat by Pulse 99 96 Oximetry - EKG Data -: EKG Interpreted by Ny EKG shows normal: sinus rhythm Rate: normal - EKG Data When compared to previous EKG there are: no significant change 01/10/19 01:42 EKG #1 demonstrates normal sinus, 71 bpm, normal axis, QTC 445 ms, poor R progression, motion artifact, not consistent with ST elevation myocardial infarction, unchanged from prior EKG from 01/01/2019. - Radiology Data Radiology results: pending, report reviewed, image reviewed Print Report Referring Physician: EDDI BOWDEN Patient Name: RAMEZ OSORIO Date of : 1955 Sex: Female Report Date: 2019-01-10 Report Status: Finalized Findings [facility] [address] [place] [address] Cat Scan Report Signed Patient: RAMEZ GARZA MR#: [id number] 800 : 1955 Acct:[id number] Age/Sex: 63 / F ADM Date: 01/10/19 Loc: ED Attending Dr: Ordering Physician: EDDI BOWDEN MD Date of Service: 01/10/19 Procedure(s): CT angio chest Accession Number(s): [id number] cc: EDDI BOWDEN MD PROCEDURE: CT ANGIO CHEST TECHNIQUE: Computerized tomographic angiography of the chest was performed after the IV injection of iodinated nonionic contrast including image processing. The image data was postprocessed using 2-dimensional multiplanar reformatted (MPR) and 3-dimensional (MIP and/or volume rendered) techniques. Automated exposure control, adjustment of mA and/or kV according to patient size, or iterative reconstruction dose optimization techniques were utilized. CT DOSE LENGTH PRODUCT: 969.5 mGycm HISTORY: cp, hx of cp last month, known sternal fx, rib fx COMPARISONS: December 23, 2018 . FINDINGS: Heart and pericardium: Normal. Thoracic aorta: Normal. Pulmonary vasculature: There is no evidence of pulmonary arterial emboli. Lymph nodes: No enlarged thoracic lymph nodes. Lungs: There is slight atelectasis in the right lower lung. Moderate right effusion. Slight pleural thickening left lower lung. The central airway is patent. Pleural space: Moderate right effusion.. Musculoskeletal structures: Moderate degenerative changes of the spine. There is an old oblique sternal body fracture. Old fractures of the anterior right third through seventh ribs are noted.. Upper abdominal structures: No significant abnormality. IMPRESSION: Moderate right effusion with slight atelectasis right lower lung. No evidence of pneumothorax. There is no evidence of pulmonary arterial emboli. Old fractures of the sternal body in the anterior right ribs are again noted and unchanged. . This document is electronically signed by Luly Richardson DO., January 10 2019 02:00:18 AM ET Transcribed By: [facility] Dictated By: LULY RICHARDSON MD Electronically Authenticated By: LULY RICHARDSON MD Signed Date/Time: 01/10/19 0202 X-ray of the chest is negative for acute disease. X-ray of the chest, negative for acute disease. Critical care attestation.: If time is entered above; I have spent that time in minutes in the direct care of this critically ill patient, excluding procedure time. ED Disposition Clinical Impression: Ribs, multiple fractures Qualifiers: Encounter type: subsequent encounter Fracture type: closed Laterality: right Fracture healing: with routine healing Qualified Code(s): S22.41XD - Multiple fractures of ribs, right side, subsequent encounter for fracture with routine healing Sternal fracture Qualifiers: Encounter type: subsequent encounter Sternal location: unspecified Fracture type: closed Disposition: DC-01 TO HOME OR SELFCARE Is pt being admited?: No Does the pt Need Aspirin: No Condition: Stable Additional Instructions: As we discussed, CT scan today has demonstrated multiple known right-sided rib fractures, ribs 3 through 7, which were present since the patient had her initial evaluation on 12/22/2018. In addition, there is a sternal fracture noted, which has been present since the same date. Please note that when the patient presented initially to this hospital, the patient was , and cardiac arrest, and required CPR, chest compressions to jump start and revive the patient's heart. The aforementioned fractures are unfortunately expected consequences and side effects of CPR, chest compressions. Patient will likely continue to have pain for the next 3-8 weeks. Use the incentive spirometer as directed. Take the pain medication as needed/directed. Follow-up with the primary care doctor or p ulmonologist for rib fractures, sternal fractures within the next 7-10 days. Return to the emergency room right away with new pain, worsening pain, migration of pain, projectile vomiting, change in mental status, confusion, inability to tolerate liquid feeds. Do not take metformin for the next 48 hours. Drink 4-5 cups of water per day. Referrals: RYAN BURGOS [Other] - 3-5 Days GUY GREER MD [Staff Physician] - 3-5 Days JOSE LUIS QUARLES MD [Staff Physician] - 3-5 Days SUNDAY PATEL MD [Staff Physician] - 3-5 Days [facility] [Provider Group] - 3-5 Days [facility] [Provider Group] - 3-5 Days
--- NOTE | 2019-01-10 01:16 | XRay Report ---
PROCEDURE: XR CHEST 1V AP TECHNIQUE: Chest radiograph single view. HISTORY: cp rhoncih COMPARISONS: None . FINDINGS: Heart: Normal. Mediastinum/Vessels: Normal. Lungs/Pleural space: Normal. Bony thorax: No acute osseous abnormality. Life support devices: None. IMPRESSION: No acute cardiopulmonary abnormality. This document is electronically signed by Luly Richardson DO., January 10 2019 01:14:18 AM ET
[2019-01-10 01:46] LABS: INR 0.9 (0.87-1.13)
[2019-01-10 01:47] LABS: Partial Thromboplastin Time 29.4 Sec. (24.2-36.6)
[2019-01-10 01:50] LABS: Hematocrit 33.8 % (30.3-42.9); Hemoglobin 11.5 gm/dl (10.1-14.3); Mean Corpuscular HGB Conc 34 % (30-34); Mean Corpuscular Volume 92 fl (79-97); Platelet Count 268 K/mm3 (140-440); Red Blood Count 3.69 M/mm3 (3.65-5.03); Red Cell Distribution Width 14.9 % (13.2-15.2)
[2019-01-10 01:53] LABS: Alanine Aminotransferase 13 units/L (7-56); Albumin 3.1 g/dL (3.9-5); BUN/Creatinine Ratio 18; Blood Urea Nitrogen 9 mg/dL (7-17); Calcium 8.6 mg/dL (8.4-10.2); Hemolysis Index 13
--- NOTE | 2019-01-10 02:02 | Cat Scan Report ---
PROCEDURE: CT ANGIO CHEST TECHNIQUE: Computerized tomographic angiography of the chest was performed after the IV injection of iodinated nonionic contrast including image processing. The image data was postprocessed using 2-di mensional multiplanar reformatted (MPR) and 3-dimensional (MIP and/or volume rendered) techniques. Au tomated exposure control, adjustment of mA and/or kV according to patient size, or iterative reconstr uction dose optimization techniques were utilized. CT DOSE LENGTH PRODUCT: 969.5 mGycm HISTORY: cp, hx of cp last month, known sternal fx, rib fx COMPARISONS: December 23, 2018 . FINDINGS: Heart and pericardium: Normal. Thoracic aorta: Normal. Pulmonary vasculature: There is no evidence of pulmonary arterial emboli. Lymph nodes: No enlarged thoracic lymph nodes. Lungs: There is slight atelectasis in the right lower lung. Moderate right effusion. Slight pleural thickening left lower lung. The central airway is patent. Pleural space: Moderate right effusion.. Musculoskeletal structures: Moderate degenerative changes of the spine. There is an old oblique ster nal body fracture. Old fractures of the anterior right third through seventh ribs are noted.. Upper abdominal structures: No significant abnormality. IMPRESSION: Moderate right effusion with slight atelectasis right lower lung. No evidence of pneumot horax. There is no evidence of pulmonary arterial emboli. Old fractures of the sternal body in the anterior right ribs are again noted and unchanged. . This document is electronically signed by Luly Richardson DO., January 10 2019 02:00:18 AM ET
[2019-01-10] MEDS ORDERED: MAGNESIUM SULFATE 2GM/50ML 2 GM/50 ML BAG IV ONE (02:09)
[2019-01-10 02:20] VITALS: BP 169/72
[2019-01-10 02:37] LABS: BUN/Creatinine Ratio 15; Blood Urea Nitrogen 9 mg/dL (7-17); Calcium 8.7 mg/dL (8.4-10.2); Hemolysis Index 7
== END 2019-01-10 03:15 | disposition home or self-care (01) ==
LOC: ED 00:19
DX: S22.41XD Multiple fractures of ribs, right side, subsequent encounter for fracture with routine healing (principal); S22.20XA Unspecified fracture of sternum, initial encounter for closed fracture; I10 Essential (primary) hypertension; E11.9 Type 2 diabetes mellitus without complications; Z86.73 Personal history of transient ischemic attack (TIA), and cerebral infarction without residual deficits; Z87.891 Personal history of nicotine dependence; X58.XXXA Exposure to other specified factors, initial encounter; Y93.89 Activity, other specified; Y92.89 Other specified places as the place of occurrence of the external cause; Y99.8 Other external cause status
CPT/HCPCS: 36415; 71045; 71275; 80048; 80053; 82550; 83735; 84484; 85027; 85610; 85730; 93005; 93010; 96365; 96375; 99285; J1885; J3010; J3475; J7040; Q9967

== ENCOUNTER 2019-01-30 22:26 | Emergency (ER) | payer MEDICARE ==
[2019-01-31] MEDS ORDERED: LASIX IV ONE (02:25)
[2019-01-31 02:26] LABS: Basophils % (Auto) 0.5 % (0.0-1.8); Eosinophils # (Auto) 0.1 K/mm3 (0.0-0.4); Eosinophils % (Auto) 2.6 % (0.0-4.3); Hematocrit 35.1 % (30.3-42.9); Hemoglobin 11.8 gm/dl (10.1-14.3); Lymphocytes # (Auto) 1.7 K/mm3 (1.2-5.4); Lymphocytes % (Auto) 36.1 % (13.4-35.0); Mean Corpuscular HGB Conc 34 % (30-34); Mean Corpuscular Volume 91 fl (79-97); Monocytes # (Auto) 0.3 K/mm3 (0.0-0.8); Monocytes % (Auto) 6.9 % (0.0-7.3); Platelet Count 211 K/mm3 (140-440); Red Blood Count 3.85 M/mm3 (3.65-5.03); Red Cell Distribution Width 14.7 % (13.2-15.2)
[2019-01-31 02:45] LABS: BUN/Creatinine Ratio 17; Blood Urea Nitrogen 10 mg/dL (7-17); Calcium 8.9 mg/dL (8.4-10.2); Hemolysis Index 5
[2019-01-31 03:24] LABS: Bacteria,Urine 4+ /HPF (Negative); Bilirubin,Urine NEG (Negative); Blood,Urine SM (Negative); Color,Urine Straw (Yellow); Hyaline Casts,Urine 1 /LPF; Mucus,Urine 1+ /HPF; Protein,Urine <15 mg/dL mg/dL (Negative); Urobilinogen,Urine < 2.0 mg/dL (<2.0)
--- NOTE | 2019-01-31 04:06 | XRay Report ---
PROCEDURE: XR CHEST 1V AP TECHNIQUE: AP portable view of the chest HISTORY: sob COMPARISONS: 01/10/2019 FINDINGS: The cardiomediastinal silhouette appears normal. The lungs are clear. The bones and soft tissues are unremarkable. IMPRESSION: No evidence of acute cardiopulmonary disease. This document is electronically signed by Martine Francisco MD., Jan 31 2019 04:03:59 AM ET
[2019-01-31] MEDS ORDERED: NORCO 7.5/325 PO ONE (04:24)
[2019-01-31] MEDS ORDERED: CATAPRES PO ONE (04:24)
--- NOTE | 2019-01-31 04:24 | Emergency Department Report ---
ED General Adult HPI - General Chief complaint: Medical Clearance Stated complaint: BOTH FEET SWOLLEN Time Seen by Provider: 01/31/19 02:05 Source: patient, family Mode of arrival: Wheelchair Limitations: Other - History of Present Illness Initial comments: Patient is a 63-year-old female who was admitted to the hospital approximately a month ago after a cardiopulmonary arrest likely secondary to anaphylaxis. During the resuscitation patient have a fractured sternum has several ribs. Patient had chronic pain in the chest since has been here several times. Cardiology has signed off on the patient regarding chest pain being from coronary arteries. Patient's had a recent coronary cath that was within normal limits. Patient does have the EF with the lower end of normal. Patient Z last EF was 5055%. Patient is complaining today of some persistent chest discomfort and shortness of breath. Chest discomfort as a soreness in the right lower chest. Patient also was noted several days of increased swelling to the feet and calves. Patient is on Lasix 20 mg twice a day. Patient is very inactive since the accident the patient. Severity scale (0 -10): 0 - Related Data Home Medications Medication Instructions Recorded Confirmed Last Taken Ferrous Sulfate [Feosol 325 MG tab] 325 mg PO QDAY 04/19/16 01/02/19 12/31/18 Nitrostat 0.4 mg PO QDAY PRN 04/19/16 01/02/19 Unknown metFORMIN [Glucophage] 1,000 mg PO BID 04/19/16 01/02/19 12/31/18 Albuterol Sulfate [Ventolin HFA] 2 puff IH Q6HR PRN 12/23/18 01/02/19 12/31/18 Orlistat [Antonio] 60 mg PO TID 12/23/18 01/02/19 Unknown Tizanidine HCl [tiZANidine] 2 mg PO DAILY PRN 12/23/18 01/02/19 Unknown Atorvastatin Calcium [Lipitor] 40 mg PO DAILY 01/01/19 01/01/19 12/31/18 Benzonatate [Tessalon Perle] 100 mg PO BID 01/01/19 01/01/19 12/31/18 Furosemide [Lasix] 20 mg PO BID 01/01/19 01/01/19 12/31/18 Meloxicam 7.5 mg PO PRN 01/01/19 01/01/1919 Tizanidine HCl [Zanaflex] 2 mg PO DAILY 01/01/19 01/01/19 12/31/18 Previous Rx's Medication Instructions Recorded Last Taken Type Carvedilol [Coreg] 25 mg PO BID #60 tablet 12/20/15 12/31/18 Rx Losartan [Cozaar] 100 mg PO QDAY #30 tablet 04/19/16 12/31/18 Rx Aspirin [Aspirin BABY CHEW TAB] 81 mg PO QDAY #30 tab.chew 12/30/18 12/31/18 Rx Insulin NPH/Regular [NovoLIN 70/30] 30 units SQ BID 30 Days 12/30/18 Unknown Rx amLODIPine [Norvasc] 10 mg PO QDAY #30 tablet 12/30/18 Unknown Rx oxyCODONE /ACETAMINOPHEN [Percocet 1 tab PO Q6HR PRN #12 tablet 01/05/19 Unknown Rx 5/325] Ibuprofen [Motrin] 600 mg PO Q8H PRN #30 tablet 01/10/19 Unknown Rx Magnesium Oxide [Mgo] 400 mg PO BID #20 tablet 01/10/19 Unknown Rx Furosemide [Lasix TAB] 40 mg PO BID #7 tablet 01/31/19 Unknown Rx Allergies Allergy/AdvReac Type Severity Reaction Status Date / Time MARIAN Inhibitors Allergy Angioedema Verified 11/15/16 15:42 esomeprazole magnesium Allergy Swelling Verified 11/15/16 15:42 [From Nexium] labetalol Allergy Itching Verified 11/15/16 15:42 Seafood Allergy Anaphylaxis Uncoded 12/27/18 11:59 ED Review of Systems ROS: Stated complaint: BOTH FEET SWOLLEN Other details as noted in HPI Comment: All other systems reviewed and negative ED Past Medical Hx - Past Medical History Previous Medical History?: Yes Hx Hypertension: Yes Hx CVA: Yes (2016) Hx Congestive Heart Failure: No Hx Diabetes: Yes Hx Pulmonary Embolism: No Hx Asthma: No Hx COPD: No Hx Tuberculosis: No Additional medical history: Angina, Vertigo - Surgical History Past Surgical History?: Yes Additional Surgical History: bilateral hip replacement; ankle surgery; back surgery - Social History Smoking Status: Unknown if ever smoked Substance Use Type: None - Medications Home Medications: Home Medications Medication Instructions Recorded Confirmed Last Taken Type Carvedilol [Coreg] 25 mg PO BID #60 tablet 12/20/15 01/02/1912/31/19 Rx Ferrous Sulfate [Feosol 325 MG tab] 325 mg PO QDAY 04/19/16 01/02/19 12/31/18 History Losartan [Cozaar] 100 mg PO QDAY #30 tablet 04/19/16 01/02/19 12/31/18 Rx Nitrostat 0.4 mg PO QDAY PRN 04/19/16 01/02/19 Unknown History metFORMIN [Glucophage] 1,000 mg PO BID 04/19/16 01/02/19 12/31/18 History Albuterol Sulfate [Ventolin HFA] 2 puff IH Q6HR PRN 12/23/18 01/02/19 12/31/18 History Orlistat [Antonio] 60 mg PO TID 12/23/18 01/02/19 Unknown History Tizanidine HCl [tiZANidine] 2 mg PO DAILY PRN 12/23/18 01/02/19 Unknown History Aspirin [Aspirin BABY CHEW TAB] 81 mg PO QDAY #30 tab.chew 12/30/18 01/02/19 12/31/18 Rx Insulin NPH/Regular [NovoLIN 70/30] 30 units SQ BID 30 Days 12/30/18 01/02/19 Unknown Rx amLODIPine [Norvasc] 10 mg PO QDAY #30 tablet 12/30/18 01/02/19 Unknown Rx Atorvastatin Calcium [Lipitor] 40 mg PO DAILY 01/01/19 01/01/19 12/31/18 History Benzonatate [Tessalon Perle] 100 mg PO BID 01/01/19 01/01/19 12/31/18 History Furosemide [Lasix] 20 mg PO BID 01/01/19 01/01/19 12/31/18 History Meloxicam 7.5 mg PO PRN 01/01/19 01/01/19 12/31/18 History Tizanidine HCl [Zanaflex] 2 mg PO DAILY 01/01/19 01/01/19 12/31/18 History oxyCODONE /ACETAMINOPHEN [Percocet 1 tab PO Q6HR PRN #12 tablet 01/05/19 Unknown Rx 5/325] Ibuprofen [Motrin] 600 mg PO Q8H PRN #30 tablet 01/10/19 Unknown Rx Magnesium Oxide [Mgo] 400 mg PO BID #20 tablet 01/10/19 Unknown Rx Furosemide [Lasix TAB] 40 mg PO BID #7 tablet 01/31/19 Unknown Rx ED Physical Exam - General Limitations: Other General appearance: alert, in no apparent distress - Head Head exam: Present: atraumatic, normocephalic - Eye Eye exam: Present: normal appearance - ENT ENT exam: Present: mucous membranes moist - Neck Neck exam: Present: normal inspection - Respiratory Respiratory exam: Present: normal lung sounds bilaterally. Absent: respiratory distress - Cardiovascular Cardiovascular Exam: Present: regular rate, normal rhythm. Absent: systolic murmur, diastolic murmur, rubs, gallop - GI/Abdominal GI/Abdominal exam: Present: soft, normal bowel sounds. Absent: distended, tenderness, guarding, rebound - Extremities Exam Extremities exam: Present: normal inspection, joint swelling (ankles bilaterally +2) - Back Exam Back exam: Present: normal inspection - Neurological Exam Neurological exam: Present: alert, oriented X3 - Psychiatric Psychiatric exam: Present: normal affect, normal mood - Skin Skin exam: Present: warm, dry, intact, normal color. Absent: rash ED Course Vital Signs 01/30/19 01/31/19 22:37 02:18 Temperature 98.5 F 98.6 F Pulse Rate 85 79 Respiratory 18 20 Rate Blood Pressure 150/77 Blood Pressure 176/91 [Left] O2 Sat by Pulse 97 100 Oximetry ED Medical Decision Making - Lab Data Result diagrams: 01/31/19 02:04 01/31/19 02:04 Labs 01/31/19 01/31/19 01/31/19 02:00 02:04 02:04 WBC 4.7 RBC 3.85 Hgb 11.8 Hct 35.1 MCV 91 MCH 31 MCHC 34 RDW 14.7 Plt Count 211 Lymph % (Auto) 36.1 H [place] % (Auto) 6.9 Eos % (Auto) 2.6 Baso % (Auto) 0.5 Lymph # 1.7 [place] # 0.3 Eos # 0.1 Baso # 0.0 Seg Neutrophils % 53.9 Seg Neutrophils # 2.5 Sodium 141 Potassium 3.4 L Chloride 101.6 Carbon Dioxide 25 Anion Gap 18 BUN 10 Creatinine 0.6 L Estimated GFR > 60 BUN/Creatinine Ratio 17 Glucose 219 H Calcium 8.9 NT-Pro-B Natriuret Pep 254.0 Urine Color Urine Turbidity Urine pH Ur Specific [place] Urine Protein Urine Glucose (UA) Urine Ketones Urine Blood Urine Nitrite Urine Bilirubin Urine Urobilinogen Ur Leukocyte Esterase Urine WBC (Auto) Urine RBC (Auto) U Epithel Cells (Auto) Urine Bacteria (Auto) Hyaline Casts Urine Mucus 01/31/19 Unknown WBC RBC Hgb Hct MCV MCH MCHC RDW Plt Count Lymph % (Auto) [place] % (Auto) Eos % (Auto) Baso % (Auto) Lymph # [place] # Eos # Baso # Seg Neutrophils % Seg Neutrophils # Sodium Potassium Chloride Carbon Dioxide Anion Gap BUN Creatinine Estimated GFR BUN/Creatinine Ratio Glucose Calcium NT-Pro-B Natriuret Pep Urine Color Straw Urine Turbidity Clear Urine pH 7.0 Ur Specific [place] 1.006 Urine Protein <15 mg/dl Urine Glucose (UA) 50 Urine Ketones Neg Urine Blood Sm Urine Nitrite Neg Urine Bilirubin Neg Urine Urobilinogen < 2.0 Ur Leukocyte Esterase Neg Urine WBC (Auto) 2.0 Urine RBC (Auto) 6.0 U Epithel Cells (Auto) 1.0 Urine Bacteria (Auto) 4+ Hyaline Casts 1 Urine Mucus 1+ - EKG Data -: EKG Interpreted by De - EKG Data 01/31/19 04:23 EKG shows a sinus rhythm a rate of 83, axis normal intervals normal. No ST segment elevations or depressions. Patient does have T-wave inversions in the lateral leads. - Radiology Data Radiology results: report reviewed (chest x-ray is within normal limits) - Medical Decision Making Patient likely with dependent edema secondary to inactivity. Patient will be started on double dose of her Lasix for the next several days and the patient will follow with primary care. Critical care attestation.: If time is entered above; I have spent that time in minutes in the direct care of this critically ill patient, excluding procedure time. ED Disposition Clinical Impression: Hypertension, Dependent edema Disposition: DC-01 TO HOME OR SELFCARE Is pt being admited?: No Does the pt Need Aspirin: No Condition: Stable Instructions: Hypertension (ED) Prescriptions: Furosemide [Lasix TAB] 40 mg PO BID #7 tablet Referrals: DINORAH ARTHUR MD [Primary Care Provider] - 3-5 Days Time of Disposition: 04:27
[2019-01-31 05:21] VITALS: BP 122/69
== END 2019-01-31 05:19 | disposition home or self-care (01) ==
LOC: ED 22:26
DX: I10 Essential (primary) hypertension (principal); R60.0 Localized edema; E11.9 Type 2 diabetes mellitus without complications; I20.9 Angina pectoris, unspecified; Z91.013 Allergy to seafood; Z88.8 Allergy status to other drugs, medicaments and biological substances; Z79.84 Long term (current) use of oral hypoglycemic drugs; Z79.4 Long term (current) use of insulin; Z96.643 Presence of artificial hip joint, bilateral
CPT/HCPCS: 36415; 71045; 80048; 81001; 83880; 85025; 93005; 93010; 96374; 99284; J1940

== ENCOUNTER 2019-03-08 09:16 | Inpatient (IN) | payer MEDICARE ==
--- NOTE | 2019-03-08 09:44 | Emergency Department Report ---
ED Neuro Deficit HPI - General Chief Complaint: Neuro Symptoms/Deficit Stated Complaint: FACE SWELLING/POSS STROKE Time Seen by Provider: 03/08/19 09:35 Source: patient, family Mode of arrival: Wheelchair Limitations: No Limitations - History of Present Illness Initial Comments: [facility] Date of Service: 03/08/19 Impression: Left facial droop: concern for a small R MCA territory infarct possibly escobedo radiata. - - - Not a tpa candidate due to: outside of time window Presentation is not suggestive of Large Vessel Occlusive Disease. Thrombectomy would not be recommended. Differential Diagnosis: 1. Cardioembolic 2. Small vessel disease/lacune 3. Thromboembolic, [id number] mechanism 4. Hypercoagulable state-related infarct 5. Transient ischemic attack Comments: LKN: 22:00 Door time: 9:16 [employer] contacted: 9:24 [employer] at bedside: 9:30 NIHSS assessment time: 9:45 Recommendations: -ASA -Permissive htn up to 220/120 -Check Hgb A1c and lipid panel -dysphagia screen -Telemetry -Glucose control per primary team, avoid hypo- and hyperglycemia -DVT prophylaxis -PT/OT/Speech Inpatient neurology consultation Inpatient stroke evaluation as per Neurology/ Internal Medicine Discussed with ED MD Please call with questions Shireen Gupta, DO [employer] [facility] left facial weakness History of Present Illness 63 yo F with history of CAD, stroke, and htn who is presenting with left facial weakness that she woke up with this morning. She was last normal when she went to bed at 22:00. She has some baseline weakness in her legs from prior stroke and deconditioning. Per her sister she is doing better strength velazquez in her legs and that weakness is not new. She denies any new symptoms other then left facial weakness. Diagnostic: CT head: no acute process seen Exam: NIHSS score: 5 Medical Decision Making: - Extensive number of diagnosis or management options are considered above. - Extensive amount of complex data reviewed. - High risk of complication and/or morbidity or mortality are associated with differential diagnostic considerations above. - There may be Uncertain outcome and increased probability of prolonged functional impairment or high probability of severe prolonged functional impairment associated with some of these differential diagnosis. Medical Data Reviewed: 1.Data reviewed include clinical labs, radiology, Medical Tests; 2.Tests results discussed w/performing or interpreting physician; 3.Obtaining/reviewing old medical records; 4.Obtaining case history from another source; 5.Independent review of image, tracing or specimen. Patient was informed the Neurology Consult would happen via TeleHealth consult by way of interactive audio and video telecommunications and consented to receiving care in this manner. - Related Data Home Medications: Home Medications Medication Instructions Recorded Confirmed Last Taken Ferrous Sulfate [Feosol 325 MG tab] 325 mg PO QDAY 04/19/16 01/02/19 12/31/18 Nitrostat 0.4 mg PO QDAY PRN 04/19/16 01/02/19 Unknown metFORMIN [Glucophage] 1,000 mg PO BID 04/19/16 01/02/19 12/31/18 Albuterol Sulfate [Ventolin HFA] 2 puff IH Q6HR PRN 12/23/18 01/02/19 12/31/18 Orlistat [Antonio] 60 mg PO TID 12/23/18 01/02/19 Unknown Tizanidine HCl [tiZANidine] 2 mg PO DAILY PRN 12/23/18 01/02/19 Unknown Atorvastatin Calcium [Lipitor] 40 mg PO DAILY 01/01/19 01/01/19 12/31/18 Benzonatate [Tessalon Perle] 100 mg PO BID 01/01/19 01/01/19 12/31/18 Furosemide [Lasix] 20 mg PO BID 01/01/19 01/01/19 12/31/18 Meloxicam 7.5 mg PO PRN 01/01/19 01/01/19 12/31/18 Tizanidine HCl [Zanaflex 2mg CAP] 2 mg PO DAILY 01/01/19 01/01/19 12/31/18 Previous Rx's Medication Instructions Recorded Last Taken Type Carvedilol [Coreg] 25 mg PO BID #60 tablet 12/20/15 12/31/18 Rx Losartan [Cozaar] 100 mg PO QDAY #30 tablet 04/19/16 12/31/18 Rx Aspirin [Aspirin BABY CHEW TAB] 81 mg PO QDAY #30 tab.chew 12/30/18 12/31/18 Rx Insulin NPH/Regular [NovoLIN 70/30] 30 units SQ BID 30 Days 12/30/18 Unknown Rx amLODIPine [Norvasc] 10 mg PO QDAY #30 tablet 12/30/18 Unknown Rx oxyCODONE /ACETAMINOPHEN [Percocet 1 tab PO Q6HR PRN #12 tablet 01/05/19 Unknown Rx 5/325] Ibuprofen [Motrin] 600 mg PO Q8H PRN #30 tablet 01/10/19 Unknown Rx Magnesium Oxide [Mgo] 400 mg PO BID #20 tablet 01/10/19 Unknown Rx Furosemide [Lasix TAB] 40 mg PO BID #7 tablet 01/31/19 Unknown Rx Allergies/Adverse Reactions: Allergies Allergy/AdvReac Type Severity Reaction Status Date / Time MARIAN Inhibitors Allergy Angioedema Verified 03/08/19 09:37 esomeprazole magnesium Allergy Swelling Verified 03/08/19 09:37 [From Nexium] labetalol Allergy Itching Verified 03/08/19 09:37 Seafood Allergy Anaphylaxis Uncoded 03/08/19 09:37 ED Review of Systems ROS: Stated complaint: FACE SWELLING/POSS STROKE Other details as noted in HPI ED Past Medical Hx - Past Medical History Previous Medical History?: Yes Hx Hypertension: Yes Hx CVA: Yes (2016) Hx Congestive Heart Failure: No Hx Diabetes: Yes Hx Pulmonary Embolism: No Hx Asthma: No Hx COPD: No Hx Tuberculosis: No Additional medical history: Angina, Vertigo. Cardiac arrest - Surgical History Past Surgical History?: Yes Additional Surgical History: bilateral hip replacement; ankle surgery; back surgery - Social History Smoking Status: Current Every Day Smoker - Medications Home Medications: Home Medications Medication Instructions Recorded Confirmed Last Taken Type Carvedilol [Coreg] 25 mg PO BID #60 tablet 12/20/15 01/02/19 12/31/18 Rx Ferrous Sulfate [Feosol 325 MG tab] 325 mg PO QDAY 04/19/16 01/02/19 12/31/18 History Losartan [Cozaar] 100 mg PO QDAY #30 tablet 04/19/16 01/02/19 12/31/18 Rx Nitrostat 0.4 mg PO QDAY PRN 04/19/16 01/02/19 Unknown History metFORMIN [Glucophage] 1,000 mg PO BID 04/19/16 01/02/19 12/31/18 History Albuterol Sulfate [Ventolin HFA] 2 puff IH Q6HR PRN 12/23/18 01/02/19 12/31/18 History Orlistat [Antonio] 60 mg PO TID 12/23/18 01/02/19 Unknown History Tizanidine HCl [tiZANidine] 2 mg PO DAILY PRN 12/23/18 01/02/19 Unknown History Aspirin [Aspirin BABY CHEW TAB] 81 mg PO QDAY #30 tab.chew 12/30/18 01/02/19 12/31/18 Rx Insulin NPH/Regular [NovoLIN 70/30] 30 units SQ BID 30 Days 12/30/18 01/02/19 Unknown Rx amLODIPine [Norvasc] 10 mg PO QDAY #30 tablet 12/30/18 01/02/19 Unknown Rx Atorvastatin Calcium [Lipitor] 40 mg PO DAILY 01/01/19 01/01/19 12/31/18 History Benzonatate [Tessalon Perle] 100 mg PO BID 01/01/19 01/01/19 12/31/18 History Furosemide [Lasix] 20 mg PO BID 01/01/19 01/01/19 12/31/18 History Meloxicam 7.5 mg PO PRN 01/01/19 01/01/19 12/31/18 History Tizanidine HCl [Zanaflex 2mg CAP] 2 mg PO DAILY 01/01/19 01/01/19 12/31/18 History oxyCODONE /ACETAMINOPHEN [Percocet 1 tab PO Q6HR PRN #12 tablet 01/05/19 Unknown Rx 5/325] Ibuprofen [Motrin] 600 mg PO Q8H PRN #30 tablet 01/10/19 Unknown Rx Magnesium Oxide [Mgo] 400 mg PO BID #20 tablet 01/10/19 Unknown Rx Furosemide [Lasix TAB] 40 mg PO BID #7 tablet 01/31/19 Unknown Rx ED Neuro Physical Exam - General Limitations: No Limitations Suspected Stroke: Yes - NIHSS Assessment Interval: Baseline 1a. Level of Consciousness: alert/keenly responsive 1b. LOC Questions: answers both correctly 1c. LOC Commands: performs tasks correctly 2. Best Gaze: normal 3. Visual: no visual loss 4. Facial Palsy: minor paralysis 5b. Motor Arm Right: no drift 5a. Motor Arm Left: no drift 6a. Motor Leg Left: drift 6b. Motor Leg Right: drift 7. Limb Ataxia: absent 8. Sensory: mild/moderate sensory loss 9. Best Language: no aphasia 10. Dysarthria: mild/moderate dysarthria 11. Extinction/Inattention: no abnormality Total Score: 5 Stroke Severity: Moderate Stroke - Lab Data Lab Results 03/08/19 Range/Units 09:37 POC Glucose 103 (70-105) Critical care attestation.: If time is entered above; I have spent that time in minutes in the direct care of this critically ill patient, excluding procedure time. ED Disposition Clinical Impression: Acute CVA (cerebrovascular accident) Disposition: -09 OP ADMIT IP TO THIS HOSP Is pt being admited?: Yes Condition: Stable
--- NOTE | 2019-03-08 09:57 | Cat Scan Report ---
CT HEAD WITHOUT CONTRAST: HISTORY: Neurological deficits less than 6 hours. TECHNIQUE: Sequential 2.5mm CT images. COMPARISON: 01/01/19. FINDINGS: Cerebral Parenchyma: Within normal limits. Cerebellum: Within normal limits. Brainstem: Within normal limits. Ventricles: Normal. Sella: Normal. Extra-axial spaces: Normal. Basal Cisterns: Normal. Intracranial Hemorrhage: None. Midline Shift: None. Calvarium: Normal. Sinuses: Normal. Mastoid Air Cells: Normal. Visualized Orbits: Normal. IMPRESSION: Cranial CT scan within normal limits. These findings were discussed with Dr. Schulz in the emergency department at 0951 hours
[2019-03-08 10:08] LABS: Basophils % (Auto) 0.8 % (0.0-1.8); Eosinophils # (Auto) 0.2 K/mm3 (0.0-0.4); Eosinophils % (Auto) 4.4 % (0.0-4.3); Hematocrit 39.1 % (30.3-42.9); Hemoglobin 13.3 gm/dl (10.1-14.3); Lymphocytes # (Auto) 1.4 K/mm3 (1.2-5.4); Mean Corpuscular HGB Conc 34 % (30-34); Mean Corpuscular Volume 88 fl (79-97); Monocytes # (Auto) 0.4 K/mm3 (0.0-0.8); Monocytes % (Auto) 8.4 % (0.0-7.3); Platelet Count 165 K/mm3 (140-440); Red Blood Count 4.44 M/mm3 (3.65-5.03); Red Cell Distribution Width 14.9 % (13.2-15.2)
[2019-03-08 10:12] LABS: BUN/Creatinine Ratio 22; Blood Urea Nitrogen 13 mg/dL (7-17); Calcium 8.5 mg/dL (8.4-10.2); Hemolysis Index 11
[2019-03-08 10:16] LABS: INR 0.92 (0.87-1.13); Partial Thromboplastin Time 27.6 Sec. (24.2-36.6)
--- NOTE | 2019-03-08 10:26 | Emergency Department Report ---
ED General Adult HPI - General Chief complaint: Neuro Symptoms/Deficit Stated complaint: FACE SWELLING/POSS STROKE Time Seen by Provider: 03/08/19 09:35 Source: patient, family Mode of arrival: Wheelchair Limitations: No Limitations - History of Present Illness Initial comments: Patient presents to the emergency department with a chief complaint of left facial weakness that was present upon awakening this morning. Patient states that she recently had a stroke 2 months ago after a cardiac arrest. Per the family left eye the patient was seen normal was at 8 PM last night. Patient states that she has weakness in her last for prior stroke and is "physical therapy currently for this. -: Sudden Radiation: non-radiation Severity scale (0 -10): 0 Consistency: constant Improves with: none Worsens with: none Associated Symptoms: denies other symptoms Treatments Prior to Arrival: none - Related Data Home Medications Medication Instructions Recorded Confirmed Last Taken Ferrous Sulfate [Feosol 325 MG tab] 325 mg PO QDAY 04/19/16 03/08/19 03/07/19 metFORMIN [Glucophage] 1,000 mg PO BID 04/19/16 03/08/19 03/07/19 Albuterol Sulfate [Ventolin HFA] 2 puff IH Q6HR PRN 12/23/18 03/08/19 03/07/19 Atorvastatin Calcium [Lipitor] 40 mg PO DAILY 01/01/19 03/08/19 03/07/19 Furosemide [Lasix] 20 mg PO BID 01/01/19 03/08/19 03/07/19 Hydralazine HCl 50 mg PO BID 03/08/19 03/08/19 03/07/19 Insulin Aspart Protam & Aspart 18 units SQ QPM 03/08/19 03/08/19 03/07/19 [NovoLOG Mix 70-30 Flexpen] Insulin Aspart Protam & Aspart 26 units SQ QAM 03/08/19 03/08/19 03/07/19 [NovoLOG Mix 70-30 Flexpen] Previous Rx's Medication Instructions Recorded Last Taken Type Carvedilol [Coreg] 25 mg PO BID #60 tablet 12/20/15 03/07/19 Rx Losartan [Cozaar] 100 mg PO QDAY #30 tablet 04/19/16 03/07/19 Rx Aspirin [Aspirin BABY CHEW TAB] 81 mg PO QDAY #30 tab.chew 12/30/18 03/07/19 Rx Ibuprofen [Motrin 600 MG tab] 600 mg PO Q8H PRN #30 tablet 01/10/19 03/07/19 Rx Furosemide [Lasix TAB] 40 mg PO BID #7 tablet 01/31/19 03/07/19 Rx Allergies Allergy/AdvReac Type Severity Reaction Status Date / Time MARIAN Inhibitors Allergy Angioedema Verified 03/08/19 09:37 esomeprazole magnesium Allergy Swelling Verified 03/08/19 09:37 [From Nexium] labetalol Allergy Itching Verified 03/08/19 09:37 Seafood Allergy Anaphylaxis Uncoded 03/08/19 09:37 ED Review of Systems ROS: Stated complaint: FACE SWELLING/POSS STROKE Other details as noted in HPI Constitutional: denies: chills, fever Eyes: denies: eye pain, eye discharge, vision change ENT: denies: ear pain, throat pain Respiratory: denies: cough, shortness of breath, wheezing Cardiovascular: denies: chest pain, palpitations Endocrine: no symptoms reported Gastrointestinal: denies: abdominal pain, nausea, diarrhea Genitourinary: denies: urgency, dysuria, discharge Musculoskeletal: denies: back pain, joint swelling, arthralgia Skin: denies: rash, lesions Neurological: other (facial droop). denies: headache, weakness, paresthesias Psychiatric: denies: anxiety, depression Hematological/Lymphatic: denies: easy bleeding, easy bruising ED Past Medical Hx - Past Medical History Previous Medical History?: Yes Hx Hypertension: Yes Hx CVA: Yes (2016) Hx Congestive Heart Failure: No Hx Diabetes: Yes Hx Pulmonary Embolism: No Hx Asthma: No Hx COPD: No Hx Tuberculosis: No Additional medical history: Angina, Vertigo. Cardiac arrest - Surgical History Past Surgical History?: Yes Additional Surgical History: bilateral hip replacement; ankle surgery; back surgery - Social History Smoking Status: Current Every Day Smoker - Medications Home Medications: Home Medications Medication Instructions Recorded Confirmed Last Taken Type Carvedilol [Coreg] 25 mg PO BID #60 tablet 12/20/15 03/08/19 03/07/19 Rx Ferrous Sulfate [Feosol 325 MG tab] 325 mg PO QDAY 04/19/16 03/08/19 03/07/19 History Losartan [Cozaar] 100 mg PO QDAY #30 tablet 04/19/16 03/08/19 03/07/19 Rx metFORMIN [Glucophage] 1,000 mg PO BID 04/19/16 03/08/19 03/07/19 History Albuterol Sulfate [Ventolin HFA] 2 puff IH Q6HR PRN 12/23/18 03/08/19 03/07/19 History Aspirin [Aspirin BABY CHEW TAB] 81 mg PO QDAY #30 tab.chew 12/30/18 03/08/19 03/07/19 Rx Atorvastatin Calcium [Lipitor] 40 mg PO DAILY 01/01/19 03/08/19 03/07/19 History Furosemide [Lasix] 20 mg PO BID 01/01/19 03/08/19 03/07/19 History Ibuprofen [Motrin 600 MG tab] 600 mg PO Q8H PRN #30 tablet 01/10/19 03/08/19 03/07/19 Rx Furosemide [Lasix TAB] 40 mg PO BID #7 tablet 01/31/19 03/08/19 03/07/19 Rx Hydralazine HCl 50 mg PO BID 03/08/19 03/08/19 03/07/19 History Insulin Aspart Protam & Aspart 18 units SQ QPM 03/08/19 03/08/19 03/07/19 History [NovoLOG Mix 70-30 Flexpen] Insulin Aspart Protam & Aspart 26 units SQ QAM 03/08/19 03/08/19 03/07/19 History [NovoLOG Mix 70-30 Flexpen] ED Physical Exam - General Limitations: No Limitations General appearance: alert, in no apparent distress - Head Head exam: Present: atraumatic, normocephalic - Eye Eye exam: Present: normal appearance, PERRL, EOMI - ENT ENT exam: Present: mucous membranes moist - Neck Neck exam: Present: normal inspection - Respiratory Respiratory exam: Present: normal lung sounds bilaterally. Absent: respiratory distress - Cardiovascular Cardiovascular Exam: Present: regular rate, normal rhythm. Absent: systolic murmur, diastolic murmur, rubs, gallop - GI/Abdominal GI/Abdominal exam: Present: soft, normal bowel sounds. Absent: distended, tenderness - Extremities Exam Extremities exam: Present: normal inspection - Back Exam Back exam: Present: normal inspection - Neurological Exam Neurological exam: Present: alert, oriented X3, CN II-XII intact, motor sensory deficit (patient has residual left lower extremity weakness and right lower extremity weakness from previous stroke), other (left-sided facial droop on exam) - Psychiatric Psychiatric exam: Present: normal affect, normal mood - Skin Skin exam: Present: warm, dry, intact, normal color. Absent: rash ED Course Vital Signs 03/08/19 03/08/19 03/08/19 09:44 10:00 11:00 Temperature 98.7 F Pulse Rate 72 84 71 Respiratory 18 17 17 Rate Blood Pressure Blood Pressure 147/62 154/69 135/70 [Right] O2 Sat by Pulse 100 100 100 Oximetry 03/08/19 03/08/19 03/08/19 12:00 13:00 15:00 Temperature Pulse Rate 66 85 78 Respiratory 17 18 18 Rate Blood Pressure Blood Pressure 137/64 120/63 125/75 [Right] O2 Sat by Pulse 100 100 100 Oximetry 03/08/19 03/08/19 03/08/19 15:06 15:16 15:30 Temperature Pulse Rate 70 86 66 Respiratory 24 18 24 Rate Blood Pressure Blood Pressure [Right] O2 Sat by Pulse 96 95 96 Oximetry 03/08/19 03/08/19 03/08/19 15:46 16:00 16:15 Temperature Pulse Rate 77 67 70 Respiratory 18 23 20 Rate Blood Pressure Blood Pressure 126/67 [Right] O2 Sat by Pulse 96 96 95 Oximetry 03/08/19 03/08/19 03/08/19 16:31 16:45 17:00 Temperature Pulse Rate 69 70 65 Respiratory 22 22 23 Rate Blood Pressure 144/75 Blood Pressure [Right] O2 Sat by Pulse 99 96 96 Oximetry 03/08/19 03/08/19 03/08/19 17:15 17:31 17:45 Temperature Pulse Rate 70 69 71 Respiratory 12 23 26 H Rate Blood Pressure 144/75 144/75 165/78 Blood Pressure [Right] O2 Sat by Pulse 98 96 97 Oximetry 03/08/19 03/08/19 03/08/19 18:01 18:15 18:31 Temperature Pulse Rate 69 67 68 Respiratory 21 21 21 Rate Blood Pressure 165/78 185/87 196/80 Blood Pressure [Right] O2 Sat by Pulse 96 97 96 Oximetry 03/08/19 03/08/19 03/08/19 19:01 19:31 19:47 Temperature Pulse Rate 78 80 74 Respiratory 26 H 27 H 28 H Rate Blood Pressure 196/80 186/76 186/76 Blood Pressure [Right] O2 Sat by Pulse 97 99 92 Oximetry 03/08/19 19:51 Temperature Pulse Rate 74 Respiratory 20 Rate Blood Pressure 186/76 Blood Pressure [Right] O2 Sat by Pulse 99 Oximetry ED Medical Decision Making - Lab Data Result diagrams: 03/08/19 09:50 03/10/19 07:07 - Medical Decision Making Telemetry neurology consult was obtained Patient is not a TPA candidate per neurology Laboratory values and CAT scan reviewed Patient given aspirin Patient will be admitted Critical care attestation.: If time is entered above; I have spent that time in minutes in the direct care of this critically ill patient, excluding procedure time. ED Disposition Clinical Impression: Acute CVA (cerebrovascular accident), Facial droop Disposition: OP ADMIT IP TO THIS HOSP Is pt being admited?: Yes Does the pt Need Aspirin: Yes Condition: Fair - Assessment Assessment Interval: Baseline - Level of Consciousness 1a. Level of Consciousness: alert/keenly responsive - LOC Questions 1b. LOC Questions: answers both correctly - LOC Command 1c. LOC Commands: performs tasks correctly - Best Gaze 2. Best Gaze: normal - Visual 3. Visual: no visual loss - Facial Palsy 4. Facial Palsy: minor paralysis - Motor Arm 5a. Motor Arm Left: no drift 5b. Motor Arm Right: no drift - Motor Leg 6a. Motor Leg Left: drift 6b. Motor Leg Right: drift - Limb Ataxia 7. Limb Ataxia: absent - Sensory 8. Sensory: mild/moderate sensory loss - Best Language 9. Best Language: no aphasia - Dysarthria 10. Dysarthria: mild/moderate dysarthria - Extinction and Inattention 11. Extinction/Inattention: no abnormality - Scoring Total Score: 5 Stroke Severity: Moderate Stroke
[2019-03-08] MEDS ORDERED: BABY ASPIRIN PO ONE (10:37)
--- NOTE | 2019-03-08 12:43 | History and Physical Report ---
History of Present Illness Date of examination: 03/08/19 Date of admission: 03/08/19 10:34 Chief complaint: Lt sided weakness History of present illness: Patient presents to the emergency department with a chief complaint of left facial weakness that was present upon awakening this morning. Patient states that she recently had a stroke 2 months ago after a cardiac arrest. Per the family left eye the patient was seen normal was at 8 PM last night. Patient states that she has weakness in her last for prior stroke and is "physical therapy currently for this. Past History Past Medical History: diabetes, hypertension, hyperlipidemia Past Surgical History: Other (bilateral hip surgery, ankle surgery, back surgery) Social history: smoking, full code. denies: alcohol abuse, prescription drug abuse Family history: hypertension Medications and Allergies Allergies Allergy/AdvReac Type Severity Reaction Status Date / Time MARIAN Inhibitors Allergy Angioedema Verified 03/08/19 09:37 esomeprazole magnesium Allergy Swelling Verified 03/08/19 09:37 [From Nexium] labetalol Allergy Itching Verified 03/08/19 09:37 Seafood Allergy Anaphylaxis Uncoded 03/08/19 09:37 Home Medications Medication Instructions Recorded Confirmed Last Taken Type Carvedilol [Coreg] 25 mg PO BID #60 tablet 12/20/15 03/08/19 03/07/19 Rx Ferrous Sulfate [Feosol 325 MG tab] 325 mg PO QDAY 04/19/16 03/08/19 03/07/19 History Losartan [Cozaar] 100 mg PO QDAY #30 tablet 04/19/16 03/08/19 03/07/19 Rx metFORMIN [Glucophage] 1,000 mg PO BID 04/19/16 03/08/19 03/07/19 History Albuterol Sulfate [Ventolin HFA] 2 puff IH Q6HR PRN 12/23/18 03/08/19 03/07/19 History Aspirin [Aspirin BABY CHEW TAB] 81 mg PO QDAY #30 tab.chew 12/30/18 03/08/19 03/07/19 Rx Atorvastatin Calcium [Lipitor] 40 mg PO DAILY 01/01/19 03/08/19 03/07/19 History Furosemide [Lasix] 20 mg PO BID 01/01/19 03/08/19 03/07/19 History Ibuprofen [Motrin] 600 mg PO Q8H PRN #30 tablet 01/10/19 03/08/19 03/07/19 Rx Furosemide [Lasix TAB] 40 mg PO BID #7 tablet 01/31/19 03/08/19 03/07/19 Rx Duloxetine HCl [Cymbalta] 60 mg PO DAILY 03/08/19 03/08/19 03/07/19 History Hydralazine HCl 50 mg PO BID 03/08/19 03/08/19 03/07/19 History Insulin Aspart Protam & Aspart 18 units SQ QPM 03/08/19 03/08/19 03/07/19 History [NovoLOG Mix 70-30 Flexpen] Insulin Aspart Protam & Aspart 26 units SQ QAM 03/08/19 03/08/19 03/07/19 History [NovoLOG Mix 70-30 Flexpen] Review of Systems Constitutional: no weight loss, no weight gain, no fever, no chills Ears, nose, mouth and throat: no nasal congestion, no nasal discharge Cardiovascular: no chest pain, no palpitations Respiratory: no cough, no hemoptysis Gastrointestinal: no abdominal pain, no nausea, no vomiting Genitourinary Female: no flank pain, no dysuria Musculoskeletal: no myalgias, no arthritis Integumentary: no rash, no lesions Neurological: weakness (Lt weakness ), other (lt facial droop), no seizures, no syncope Psychiatric: no anxiety, no depression Endocrine: no cold intolerance, no heat intolerance Hematologic/Lymphatic: no easy bruising, no easy bleeding Allergic/Immunologic: no urticaria, no allergic rhinitis Exam - Constitutional Vitals: Temp Pulse Resp BP Pulse Ox 98.7 F 84 17 154/69 100 03/08/19 10:00 03/08/19 10:00 03/08/19 10:00 03/08/19 10:03/08/19 10:00 General appearance: Present: no acute distress, well-nourished, obese - EENT Eyes: Present: PERRL, EOM intact - Neck Neck: Present: supple, normal ROM - Respiratory Respiratory effort: normal Respiratory: bilateral: diminished, negative: rales, rhonchi, wheezing - Cardiovascular Rhythm: regular Heart Sounds: Present: S1 & S2 - Extremities Extremities: no ischemia, No edema - Abdominal General gastrointestinal: Present: soft, non-tender, non-distended, normal bowel sounds - Integumentary Integumentary: Present: clear, warm - Musculoskeletal Musculoskeletal: left sided weakness - Psychiatric Psychiatric: appropriate mood/affect, cooperative - Neurologic Neurologic: CNII-XII intact, focal deficits, moves all extremities, other (Lt facial droop,Lt sided weakness) Results - Labs CBC & Chem 7: 03/08/19 09:50 03/08/19 09:50 Labs: Abnormal lab results 03/08/19 03/08/19 Range/Units 09:50 09:50 WBC 4.4 L (4.5-11.0) K/mm3 [place] % (Auto) 8.4 H (0.0-7.3) % Eos % (Auto) 4.4 H (0.0-4.3) % Potassium 3.2 L (3.6-5.0) mmol/L Creatinine 0.6 L (0.7-1.2) mg/dL Assessment and Plan --Acute CVA; left-sided hemiparesis; Not a candidate for TPA as the patient was outside the window, aspirin and statin Stroke protocol, MRI, MRA, carotid Doppler, echocardiogram, physical therapy occupational therapy Rehabilitation, neuro consult --Hypertension; moderate control, continue current antihypertensives Permissive hypertension per stroke protocol --Dyslipidemia; continue statin and low-cholesterol diet --Type 2 diabetes mellitus; Accu-Chek sliding scale coverage and ADA diet Insulin as needed, check A1c, diabetic education --History of CVA in the past; residual weakness, supportive care --DVT prophylaxis; Lovenox --Full code Monitor closely and adjust management as needed Plan of care reviewed with the patient and her I spent 50 minutes coordinating this admission Disposition : f/u neuro w/u and neuro evaluation
[2019-03-08] MEDS ORDERED: SODIUM CHLORIDE FLUSH SYRINGE 10 ML IV PRN (17:56)
[2019-03-08] MEDS ORDERED: PROAIR IH PRN (18:02)
[2019-03-08] MEDS ORDERED: PROVENTIL IH PRN (18:18)
[2019-03-08] MEDS ORDERED: HumaLOG SUB-Q ONE (19:40)
[2019-03-08] MEDS ORDERED: LASIX ONE (19:43)
[2019-03-08] MEDS: HumaLOG SUB-Q SCH (19:45)
[2019-03-08] MEDS: LASIX PO SCH (19:46)
[2019-03-08 20:43] LABS: INR 0.87 (0.87-1.13)
--- NOTE | 2019-03-08 21:12 | Vascular Lab Report ---
PROCEDURE: VL CAROTID DUPLEX BILAT TECHNIQUE: Carotid ultrasound pulse and color Doppler evaluation HISTORY: stroke COMPARISONS: FINDINGS: There is normal flow velocities sonographic appearance within the right common carotid artery peak sy stolic velocity 72 cm second and diastolic velocity 17 cm/s. Minimal plaque noted at the carotid bulb . Normal velocity and flow within the right ICA peak systolic velocity 2 cm/s and diastolic velocity 20 cm/s Antegrade flow within the right vertebral artery. There is normal sonographic appearance within the left common carotid artery peak systolic velocity 6 8 cm/s and diastolic velocity 14 cm/s Normal sonographic appearance flow from the left ICA peak systolic velocity 107 cm per sec and end-di astolic velocity 28 cm/s Antegrade flow present within the left CCA IMPRESSION: Minimal plaque within the right carotid bulb. No evidence for hemodynamically significant stenosis. L ess than 50% range bilaterally. This document is electronically signed by Yoandy Hawk MD., March 08 2019 09:10:24 PM ET
[2019-03-08] MEDS: COREG PO SCH (21:57)
[2019-03-09] MEDS: HumaLOG SUB-Q SCH ×4 (02:49→16:18)
[2019-03-09] MEDS: LASIX PO SCH ×3 (06:16→19:38)
[2019-03-09 08:33] LABS: BUN/Creatinine Ratio 23; Blood Urea Nitrogen 14 mg/dL (7-17); Calcium 8.7 mg/dL (8.4-10.2); Chol/HDL Ratio 2.02 %; HDL Cholesterol 68 mg/dL (40-59); Hemolysis Index 27; LDL Cholesterol,Direct 69 mg/dL (50-130)
[2019-03-09] MEDS ORDERED: NON-FORMULARY (Losartan [Cozaar] 100 MG) PO SCH (10:00)
[2019-03-09] MEDS ORDERED: NON-FORMULARY (Duloxetine Hcl [Cymbalta] 60 MG) PO SCH (10:00)
[2019-03-09] MEDS: FEOSOL PO SCH (10:01)
[2019-03-09] MEDS: BABY ASPIRIN PO SCH (10:01)
[2019-03-09] MEDS: CYMBALTA PO SCH (10:02)
[2019-03-09] MEDS: COREG PO SCH (10:02)
[2019-03-09] MEDS: COZAAR PO SCH (10:03)
[2019-03-09] MEDS ORDERED: K-DUR PO ONE (11:00)
[2019-03-09] MEDS ORDERED: APRESOLINE IV PRN (12:29)
--- NOTE | 2019-03-09 13:10 | Consultation ---
Past History Past Medical History: diabetes, hypertension, hyperlipidemia Past Surgical History: Other (bilateral hip surgery, ankle surgery, back surgery) Social history: smoking, full code. denies: alcohol abuse, prescription drug abuse Family history: hypertension Medications and Allergies Allergies Allergy/AdvReac Type Severity Reaction Status Date / Time MARIAN Inhibitors Allergy Angioedema Verified 03/08/19 09:37 esomeprazole magnesium Allergy Swelling Verified 03/08/19 09:37 [From Nexium] labetalol Allergy Itching Verified 03/08/19 09:37 Seafood Allergy Anaphylaxis Uncoded 03/08/19 09:37 Home Medications Medication Instructions Recorded Confirmed Last Taken Type Carvedilol [Coreg] 25 mg PO BID #60 tablet 12/20/15 03/08/19 03/07/19 Rx Ferrous Sulfate [Feosol 325 MG tab] 325 mg PO QDAY 04/19/16 03/08/19 03/07/19 History Losartan [Cozaar] 100 mg PO QDAY #30 tablet 04/19/16 03/08/19 03/07/19 Rx metFORMIN [Glucophage] 1,000 mg PO BID 04/19/16 03/08/19 03/07/19 History Albuterol Sulfate [Ventolin HFA] 2 puff IH Q6HR PRN 12/23/18 03/08/19 03/07/19 History Aspirin [Aspirin BABY CHEW TAB] 81 mg PO QDAY #30 tab.chew 12/30/18 03/08/19 03/07/19 Rx Atorvastatin Calcium [Lipitor] 40 mg PO DAILY 01/01/19 03/08/19 03/07/19 History Furosemide [Lasix] 20 mg PO BID 01/01/19 03/08/19 03/07/19 History Ibuprofen [Motrin] 600 mg PO Q8H PRN #30 tablet 01/10/19 03/08/19 03/07/19 Rx Furosemide [Lasix TAB] 40 mg PO BID #7 tablet 01/31/19 03/08/19 03/07/19 Rx Duloxetine HCl [Cymbalta] 60 mg PO DAILY 03/08/19 03/08/19 03/07/19 History Hydralazine HCl 50 mg PO BID 03/08/19 03/08/19 03/07/19 History Insulin Aspart Protam & Aspart 18 units SQ QPM 0603/08/19 03/07/19 History [NovoLOG Mix 70-30 Flexpen] Insulin Aspart Protam & Aspart 26 units SQ QAM 03/08/19 03/08/19 03/07/19 History [NovoLOG Mix 70-30 Flexpen] Active Meds: Active Medications Albuterol (Proventil) 2.5 mg IH Q6HRT PRN PRN Reason: Shortness Of Breath Aspirin (Baby Aspirin) 81 mg PO QDAY [facility] Last Admin: 03/09/19 10:01 Dose: 81 mg Documented by: Atorvastatin Calcium (Lipitor) 40 mg PO QHS [facility] Last Admin: 03/08/19 21:58 Dose: 40 mg Documented by: Carvedilol (Coreg) 25 mg PO BID [facility] Last Admin: 03/09/19 10:02 Dose: 25 mg Documented by: Duloxetine HCl (Cymbalta) 60 mg PO QDAY [facility] Last Admin: 03/09/19 10:02 Dose: 60 mg Documented by: Enoxaparin Sodium (Lovenox) 40 mg SUB-Q QDAY@2200 [facility] Ferrous Sulfate (Feosol) 325 mg PO QDAY [facility] Last Admin: 03/09/19 10:01 Dose: 325 mg Documented by: Furosemide (Lasix) 20 mg PO 0600,1800 [facility] Last Admin: 03/09/19 06:16 Dose: 20 mg Documented by: Furosemide (Lasix) 40 mg PO 0600,1800 [facility] Hydralazine HCl (Apresoline) 10 mg IV Q30MIN PRN PRN Reason: HTN SYS>180 LISA>100 Hydralazine HCl (Apresoline) 50 mg PO BID [facility] Insulin Human Isoph/Insulin Regular (Humulin 70/30) 10 unit SUB-Q BIDDIAB [facility] Last Admin: 03/09/19 09:31 Dose: 10 unit Documented by: Insulin Human Isoph/Insulin Regular (Humulin 70/30) 18 unit SUB-Q QPM [facility] Insulin Human Isoph/Insulin Regular (Humulin 70/30) 26 unit SUB-Q QAMDIAB [facility] Insulin Human Lispro (Humalog) 0 unit SUB-Q ACHS [facility]; Protocol Last Admin: 03/09/19 12:43 Dose: 3 unit Documented by: Losartan Potassium (Cozaar) 100 mg PO QDAY [facility] Last Admin: 03/09/19 10:03 Dose: 100 mg Documented by: Sodium Chloride (Sodium Chloride Flush Syringe 10 Ml) 10 ml IV PRN PRN PRN Reason: LINE FLUSH Last Admin: 03/08/19 21:58 Dose: 10 ml Documented by: Physical Examination - Vital Signs Vital Signs: Vital Signs Pulse Resp BP Pulse Ox 72 18 147/62 100 03/08/19 09:44 03/08/19 09:44 03/08/19 09:44 03/08/19 09:44 Results - Laboratory Findings CBC and BMP: 03/08/19 09:50 03/09/19 07:30 Abnormal Lab Findings: Abnormal Labs 03/08/19 03/08/19 03/08/19 09:50 09:50 17:11 WBC 4.4 L [place] % (Auto) 8.4 H Eos % (Auto) 4.4 H Potassium 3.2 L Creatinine 0.6 L Glucose POC Glucose 238 H HDL Cholesterol 03/08/19 03/08/19 03/09/19 19:37 21:18 07:30 WBC [place] % (Auto) Eos % (Auto) Potassium 3.3 L Creatinine 0.6 L Glucose 150 H POC Glucose 311 H 267 H HDL Cholesterol 68 H 03/09/19 03/09/19 08:16 12:06 WBC [place] % (Auto) Eos % (Auto) Potassium Creatinine Glucose POC Glucose 158 H 204 H HDL Cholesterol Assessment and Plan Mrs. Jiang is 63-year-old female with a history of hypertension or cardiac arrest who developed a stroke with left hemiparesis after cardiac arrest about 2 months ago and was getting physical therapy was brought in by the daughter because she found on waking up from sleep that her mother had left facial weakness. She noticed that her face was placed just to the right there does in new. Patientis to her diabetes hyperlipidemia. And there was taking as taking an aspirin regularly. Patient's medication list administered by the daughter who states that she did not miss any dose. After being admitted to the hospital patient had CT scan of the brain which did not show any infarct and had MRI of the brain which is at and I didn't see any infarct however the official report by the radiologist is not available yet. Patient had a carotid duplex which does not show significant stenosis. Physical examination. Patient is alert and appropriate has insight into her problems and answers questions appropriately patient Speech. Normal comprehension and expression, however patient is hypophonic. Heart. Normal rate and rhythm. Carotids. Both palpable. Cranial nerve. within NORMAL LIMIT EXCEPT FOR LEFT FACIAL WEAKNESS, UPPER MOTOR NEURON TYPE. MOTOR.. MILD LEFT HEMIPARESIS WITH INCREASED REFLEXES ON THE LEFT SIDE COMPARED TO THE RIGHT. Sensory.. PATIENT HAS DECREASED SENSATION IN THE LEFT UPPER AND LOWER EXTREMITIES. GAIT. Patient ambulates with walker. Impression Patient seems to have lacunar infarct in the right hemisphere small vessel disease in the right coronary radiata. Recommendation. #1. Continue aspirin and stating as prescribed #2 continue physical therapy, the patient is currently encouraged to walk without walker. #3 patient should get speech therapy for hypophonic speech
--- NOTE | 2019-03-09 13:16 | Consultation ---
Past History Past Medical History: diabetes, hypertension, hyperlipidemia Past Surgical History: Other (bilateral hip surgery, ankle surgery, back surgery) Social history: smoking, full code. denies: alcohol abuse, prescription drug abuse Family history: hypertension Medications and Allergies Allergies Allergy/AdvReac Type Severity Reaction Status Date / Time MARIAN Inhibitors Allergy Angioedema Verified 03/08/19 09:37 esomeprazole magnesium Allergy Swelling Verified 03/08/19 09:37 [From Nexium] labetalol Allergy Itching Verified 03/08/19 09:37 Seafood Allergy Anaphylaxis Uncoded 03/08/19 09:37 Home Medications Medication Instructions Recorded Confirmed Last Taken Type Carvedilol [Coreg] 25 mg PO BID #60 tablet 12/20/15 03/08/19 03/07/19 Rx Ferrous Sulfate [Feosol 325 MG tab] 325 mg PO QDAY 04/19/16 03/08/19 03/07/19 History Losartan [Cozaar] 100 mg PO QDAY #30 tablet 04/19/16 03/08/19 03/07/19 Rx metFORMIN [Glucophage] 1,000 mg PO BID 04/19/16 03/08/19 03/07/19 History Albuterol Sulfate [Ventolin HFA] 2 puff IH Q6HR PRN 12/23/18 03/08/19 03/07/19 History Aspirin [Aspirin BABY CHEW TAB] 81 mg PO QDAY #30 tab.chew 12/30/18 03/08/19 03/07/19 Rx Atorvastatin Calcium [Lipitor] 40 mg PO DAILY 01/01/19 03/08/19 03/07/19 History Furosemide [Lasix] 20 mg PO BID 01/01/19 03/08/19 03/07/19 History Ibuprofen [Motrin] 600 mg PO Q8H PRN #30 tablet 01/10/19 03/08/19 03/07/19 Rx Furosemide [Lasix TAB] 40 mg PO BID #7 tablet 01/31/19 03/08/19 03/07/19 Rx Duloxetine HCl [Cymbalta] 60 mg PO DAILY 03/08/19 03/08/19 03/07/19 History Hydralazine HCl 50 mg PO BID 03/08/19 03/08/19 03/07/19 History Insulin Aspart Protam & Aspart 18 units SQ QPM 0603/08/19 03/07/19 History [NovoLOG Mix 70-30 Flexpen] Insulin Aspart Protam & Aspart 26 units SQ QAM 03/08/19 03/08/19 03/07/19 History [NovoLOG Mix 70-30 Flexpen] Active Meds: Active Medications Albuterol (Proventil) 2.5 mg IH Q6HRT PRN PRN Reason: Shortness Of Breath Aspirin (Baby Aspirin) 81 mg PO QDAY [facility] Last Admin: 03/09/19 10:01 Dose: 81 mg Documented by: Atorvastatin Calcium (Lipitor) 40 mg PO QHS [facility] Last Admin: 03/08/19 21:58 Dose: 40 mg Documented by: Carvedilol (Coreg) 25 mg PO BID [facility] Last Admin: 03/09/19 10:02 Dose: 25 mg Documented by: Duloxetine HCl (Cymbalta) 60 mg PO QDAY [facility] Last Admin: 03/09/19 10:02 Dose: 60 mg Documented by: Enoxaparin Sodium (Lovenox) 40 mg SUB-Q QDAY@2200 [facility] Ferrous Sulfate (Feosol) 325 mg PO QDAY [facility] Last Admin: 03/09/19 10:01 Dose: 325 mg Documented by: Furosemide (Lasix) 20 mg PO 0600,1800 [facility] Last Admin: 03/09/19 06:16 Dose: 20 mg Documented by: Furosemide (Lasix) 40 mg PO 0600,1800 [facility] Hydralazine HCl (Apresoline) 10 mg IV Q30MIN PRN PRN Reason: HTN SYS>180 LISA>100 Hydralazine HCl (Apresoline) 50 mg PO BID [facility] Insulin Human Isoph/Insulin Regular (Humulin 70/30) 10 unit SUB-Q BIDDIAB [facility] Last Admin: 03/09/19 09:31 Dose: 10 unit Documented by: Insulin Human Isoph/Insulin Regular (Humulin 70/30) 18 unit SUB-Q QPM [facility] Insulin Human Isoph/Insulin Regular (Humulin 70/30) 26 unit SUB-Q QAMDIAB [facility] Insulin Human Lispro (Humalog) 0 unit SUB-Q ACHS [facility]; Protocol Last Admin: 03/09/19 12:43 Dose: 3 unit Documented by: Losartan Potassium (Cozaar) 100 mg PO QDAY [facility] Last Admin: 03/09/19 10:03 Dose: 100 mg Documented by: Sodium Chloride (Sodium Chloride Flush Syringe 10 Ml) 10 ml IV PRN PRN PRN Reason: LINE FLUSH Last Admin: 03/08/19 21:58 Dose: 10 ml Documented by: Physical Examination - Vital Signs Vital Signs: Vital Signs Pulse Resp BP Pulse Ox 72 18 147/62 100 03/08/19 09:44 03/08/19 09:44 03/08/19 09:44 03/08/19 09:44 Results - Laboratory Findings CBC and BMP: 03/08/19 09:50 03/09/19 07:30 Abnormal Lab Findings: Abnormal Labs 03/08/19 03/08/19 03/08/19 09:50 09:50 17:11 WBC 4.4 L [place] % (Auto) 8.4 H Eos % (Auto) 4.4 H Potassium 3.2 L Creatinine 0.6 L Glucose POC Glucose 238 H HDL Cholesterol 03/08/19 03/08/19 03/09/19 19:37 21:18 07:30 WBC [place] % (Auto) Eos % (Auto) Potassium 3.3 L Creatinine 0.6 L Glucose 150 H POC Glucose 311 H 267 H HDL Cholesterol 68 H 03/09/19 03/09/19 08:16 12:06 WBC [place] % (Auto) Eos % (Auto) Potassium Creatinine Glucose POC Glucose 158 H 204 H HDL Cholesterol
--- NOTE | 2019-03-09 14:08 | Magnetic Resonance Report ---
MRI BRAIN WITHOUT CONTRAST: 03/09/19 CLINICAL: Stroke. TECHNIQUE: Axial diffusion, T1, T2, gradient echo T2*, coronal and axial FLAIR and sagittal T1 sequences on a 1.5 [place] magnet. FINDINGS: The ventricles are normal size. Bilateral frontal lobe sulci are large but the remainder sulci are normal. No restricted diffusion. Abnormal relatively symmetric signal (T1 hyperintense and T2 hyperintense) involving bilateral basal ganglia (caudate nuclei and putamen). No corresponding hyperintensity on the gradient echo sequence. A few tiny nonspecific multifocal left frontal and parietal white matter hyperintensities on FLAIR and T2. No other abnormal signal. No chronic microbleeds in the gradient echo sequence. No mass or mass effect. No hemorrhage, edema or extra-axial collection. Normal pituitary and optic chiasm. The brainstem and cerebellum are normal. Intact vascular flow voids. Normal sinuses. The orbits, and soft tissues are normal. Normal calvarium and skull base. IMPRESSION: 1. Abnormal bilateral basal ganglia signal with a differential diagnosis that includes hypoxic-ischemic injury and carbon monoxide poisoning. 2. No evidence of acute/subacute infarct or hemorrhage. 3. Frontal lobe cortical atrophy. 4. Mild nonspecific multifocal left frontal and parietal lobe white matter hyperintensities on FLAIR and T2.
--- NOTE | 2019-03-09 14:11 | Magnetic Resonance Report ---
MRA HEAD WITHOUT CONTRAST: 03/09/19 CLINICAL: Stroke. TECHNIQUE: Axial 3-D [id number] MR angiography of the enterprise of [place] with review of axial source images. FINDINGS: Intact [place] of [place] with no aneurysm, stenosis or occlusion. Symmetric blood flow in the anterior, middle and posterior cerebral arteries. Normal basilar and vertebral arteries. Incidentally, T1 hyperintense bilateral basal ganglia (caudate nucleus and putamen). IMPRESSION: Normal cerebral vasculature. Abnormal basal ganglia signal with a differential diagnosis that includes hypoxic-ischemic injury and carbon monoxide poisoning.
--- NOTE | 2019-03-09 14:42 | Progress Note ---
Assessment and Plan /Acute CVA; left-sided hemiparesis; Not a candidate for TPA as the patient was outside the window, cont aspirin and statin Stroke protocol initiated, ordered MRI, MRA, carotid Doppler, echocardiogram, physical therapy occupational therapy Rehabilitation, neuro consult per neuro Patient seems to have lacunar infarct in the right hemisphere small vessel disease in the right coronary radiata. MRI brain showed Abnormal bilateral basal ganglia signal but no acute infract /Hypertension; s/p Permissive hypertension per stroke protocol will resume her home meds, adjust as needed /-Dyslipidemia; continue statin and low-cholesterol diet /-Type 2 diabetes mellitus; Accu-Chek sliding scale coverage and ADA diet Insulin as needed, A1c 6.0, diabetic education /-History of CVA in the past; residual weakness, supportive care, PT eval --DVT prophylaxis; Lovenox --Full code Monitor closely and adjust management as needed Plan of care reviewed with the patient and her family Disposition : f/u PT recommendation Brief history: Patient presents to the emergency department with a chief complaint of left facial weakness that was present upon awakening in the morning. Patient states that she recently had a stroke 2 months ago after a cardiac arrest. She was evaluated by the neurology in the ER and admitted to the acute stroke protocol. MRI brain: 1. Abnormal bilateral basal ganglia signal with a differential diagnosis that includes hypoxic-ischemic injury and carbon monoxide poisoning. 2. No evidence of acute/subacute infarct or hemorrhage. 3. Frontal lobe cortical atrophy. 4. Mild nonspecific multifocal left frontal and parietal lobe white matter hyperintensities on FLAIR and T2. Hospitalist physical: GENERAL: well-developed and obese elderly female lying on bed appeared to be in no discomfort. HEENT: Normocephalic. Atraumatic. No conjunctival congestion or icterus. Patient has moist mucous membranes. NECK: Supple. Trachea midline. CHEST/LUNGS: Clear to auscultated bilaterally, breathing nonlabored. No wheezes crackles or rhonchi. HEART/CARDIOVASCULAR: Regular in rate and rhythm. S1 and S2 positive. ABDOMEN: Abdomen is soft, nontender. Patient has normal bowel sounds. SKIN: There is no rash. Warm and dry. NEURO: Generalized weakness but more on left. Follows command. MUSCULOSKELETAL: No joint effusion or tenderness. EXTRIMITY: No edema, no cyanosis or clubbing. PSYCH: Cooperative. Subjective Date of service: 06/11/19 Interval history: Patient seen and examined. Medical records and medication list reviewed. No acute event overnight noted by the RN. Patient denies any chest pain or difficulty breathing. Patient is tolerating diet. c/o leftsided weakness Discussed plan of care at bedside with patient. Objective - Constitutional Vitals: Vital Signs - 12hr 03/09/19 03/09/19 03/09/19 06:10 08:18 09:52 Temperature 98.7 F Pulse Rate 70 Respiratory 22 20 Rate Blood Pressure 161/78 154/79 O2 Sat by Pulse 77 L 95 Oximetry 03/09/19 03/09/19 03/09/19 10:02 10:03 12:05 Temperature 97.8 F Pulse Rate 75 75 68 Respiratory 20 Rate Blood Pressure 154/79 154/79 181/86 O2 Sat by Pulse 100 Oximetry - Labs CBC & Chem 7: 03/08/19 09:50 03/10/19 07:07 Labs: Abnormal lab results 03/08/19 03/08/19 03/08/19 Range/Units 17:11 19:37 21:18 Potassium (3.6-5.0) mmol/L Creatinine (0.7-1.2) mg/dL Glucose (65-100) mg/dL POC Glucose 238 H 311 H 267 H (70-105) HDL Cholesterol (40-59) mg/dL 03/09/19 03/09/19 03/09/19 Range/Units 07:30 08:16 12:06 Potassium 3.3 L (3.6-5.0) mmol/L Creatinine 0.6 L (0.7-1.2) mg/dL Glucose 150 H (65-100) mg/dL POC Glucose 158 H 204 H (70-105) HDL Cholesterol 68 H (40-59) mg/dL
[2019-03-09 15:39] LABS: Amphetamine Screen,Urine PRESUMPTIVE NEGATIVE; Benzodiazepines Screen,Urine PRESUMPTIVE NEGATIVE; Cannabinoid Screen,Urine PRESUMPTIVE NEGATIVE; Cocaine Screen,Urine PRESUMPTIVE NEGATIVE; Methadone Screen,Urine PRESUMPTIVE NEGATIVE; Opiate Screen,Urine PRESUMPTIVE NEGATIVE
[2019-03-09] MEDS ORDERED: INSULIN ASPART PROTAMINE SQ SCH (18:00)
[2019-03-09] MEDS ORDERED: [UNRECOGNIZED DRUG - OTHER] SQ SCH (18:00)
[2019-03-09] MEDS ORDERED: NON-FORMULARY (Hydralazine Hcl [Hydralazine Hcl] 50 MG) PO SCH (22:00)
[2019-03-09] MEDS ORDERED: LOVENOX SUB-Q SCH (22:00)
[2019-03-10] MEDS: APRESOLINE PO SCH ×2 (05:15→11:00)
[2019-03-10] MEDS: HumaLOG SUB-Q SCH ×4 (05:16→17:38)
[2019-03-10] MEDS: COREG PO SCH ×2 (05:16→11:00)
[2019-03-10] MEDS: LASIX PO SCH (06:09)
[2019-03-10 08:07] LABS: BUN/Creatinine Ratio 24; Blood Urea Nitrogen 12 mg/dL (7-17); Calcium 8.7 mg/dL (8.4-10.2); Hemolysis Index 3
[2019-03-10] MEDS ORDERED: INSULIN ASPART PROTAMINE SQ SCH (10:00)
[2019-03-10] MEDS ORDERED: [UNRECOGNIZED DRUG - OTHER] SQ SCH (10:00)
[2019-03-10] MEDS: BABY ASPIRIN PO SCH (10:59)
[2019-03-10] MEDS: COZAAR PO SCH (11:00)
[2019-03-10] MEDS: FEOSOL PO SCH (11:00)
[2019-03-10] MEDS: CYMBALTA PO SCH (11:06)
[2019-03-10] MEDS ORDERED: K-DUR PO ONE ×2 (13:35→16:00)
--- NOTE | 2019-03-10 13:53 | Discharge Summary ---
Providers - Providers Date of Admission: 03/08/19 10:34 Date of discharge: 03/10/19 Attending physician: LATIA SCHMITZ 03/08/19 Consult to Physician [CONS] Routine Comment: Consulting Provider: RUBY MAN Physician Instructions: Reason For Exam: Acute CVA 03/08/19 12:45 Occupational Therapy Evaluate and Treat [CONS] Routine Comment: Reason For Exam: cva Physical Therapy Evaluation and Treat [CONS] Routine Comment: Reason For Exam: cva Speech Therapy Evaluation and Treat [CONS] Routine Reason For Exam: cva 03/10/19 13:46 Consult to Case Management [CONS] Routine Services Needed at Discharge: Other Comment:: leftsided weakness Additional Physician Instructions: Acute Rehab Hospitalization Condition: Fair Pertinent studies: MRI brain: 1. Abnormal bilateral basal ganglia signal with a differential diagnosis that includes hypoxic-ischemic injury and carbon monoxide poisoning. 2. No evidence of acute/subacute infarct or hemorrhage. 3. Frontal lobe cortical atrophy. 4. Mild nonspecific multifocal left frontal and parietal lobe white matter hyperintensities on FLAIR and T2. Carotid Doppler: No acute stenosis bilaterally 2-D echo: Preserved EF Hospital course: Brief history: Patient presents to the emergency department with a chief complaint of left facial weakness that was present upon awakening in the morning. Patient states that she recently had a stroke 2 months ago after a cardiac arrest. She was evaluated by the neurology in the ER and admitted to the acute stroke protocol. Discharge diagnosis and management: /Acute CVA; left-sided hemiparesis; Not a candidate for TPA as the patient was outside the window, will cont aspirin and statin Stroke protocol initiated, ordered MRI, MRA, carotid Doppler, echocardiogram, physical therapy occupational therapy Rehabilitation, neuro consult per neuro Patient seems to have lacunar infarct in the right hemisphere small vessel disease in the right coronary radiata. MRI brain showed Abnormal bilateral basal ganglia signal but no acute infract PT recommended outpt PT /Hypertension; s/p Permissive hypertension per stroke protocol then resumed her home meds, adjusted as needed /-Dyslipidemia; continue statin and low-cholesterol diet /-Type 2 diabetes mellitus; Accu-Chek sliding scale coverage and ADA diet A1c 6.0, diabetic education provided /-History of CVA in the past; residual weakness, supportive care, --DVT prophylaxis; Lovenox --Full code Disposition : home with outpt PT Hospitalist physical: GENERAL: well-developed and obese elderly female lying on bed appeared to be in no discomfort. HEENT: Normocephalic. Atraumatic. No conjunctival congestion or icterus. Patient has moist mucous membranes. NECK: Supple. Trachea midline. CHEST/LUNGS: Clear to auscultated bilaterally, breathing nonlabored. No wheezes crackles or rhonchi. HEART/CARDIOVASCULAR: Regular in rate and rhythm. S1 and S2 positive. ABDOMEN: Abdomen is soft, nontender. Patient has normal bowel sounds. SKIN: There is no rash. Warm and dry. NEURO: Generalized weakness but more on left. Follows command. MUSCULOSKELETAL: No joint effusion or tenderness. EXTRIMITY: No edema, no cyanosis or clubbing. PSYCH: Cooperative. Disposition: [id number] Time spent for discharge: 34 minutes Core Measure Documentation - Palliative Care Palliative Care/ Comfort Measures: Not Applicable - Core Measures Any of the following diagnoses?: stroke - Stroke Discharge Requirements Statin for LDL = or >70 mg/dl on DC: Yes Anticoag for atrial fib/atrial flutter: Not Applicable Antithrombotic for ischemic stroke: Yes Exam - Constitutional Vitals: Temp Pulse Resp BP Pulse Ox 97.6 F 77 20 198/109 100 03/10/19 11:31 03/10/19 11:31 03/10/19 11:31 03/10/19 11:31 03/10/19 11:31 Plan Activity: fall precautions Weight Bearing Status: Weight Bear as Tolerated Diet: low fat, low salt Special Instructions: record daily BP diary, physical therapy, occupational therapy Follow up with: RYAN MARES [Other] - 7 Days Other Discharge Orders: Physicial Therapy (Amb) Location: None Selected Physicial Therapy (Amb) Location: None Selected
[2019-03-10 18:12] VITALS: BP 191/88
== END 2019-03-10 18:00 | DRG 65 ==
LOC: ED 09:16 → 3A 10:34
PROVIDERS: ADMIT Internal Medicine; ATTEND Internal Medicine
DX: I63.9 Cerebral infarction, unspecified (principal); I69.354 Hemiplegia and hemiparesis following cerebral infarction affecting left non-dominant side; G31.9 Degenerative disease of nervous system, unspecified; R29.810 Facial weakness; I25.10 Atherosclerotic heart disease of native coronary artery without angina pectoris; I10 Essential (primary) hypertension; F17.210 Nicotine dependence, cigarettes, uncomplicated; E11.9 Type 2 diabetes mellitus without complications; E78.5 Hyperlipidemia, unspecified; R90.82 White matter disease, unspecified; Z96.643 Presence of artificial hip joint, bilateral; Z79.4 Long term (current) use of insulin
CPT/HCPCS: 36415; 70450; 70544; 70551; 80048; 80061; 80307; 82962; 83036; 84484; 85025; 85610; 85670; 85730; 93005; 93010; 93308; 93321; 93325; 93880; 96372; G0378; A9270-GY; J1650; J1815; J3246

== ENCOUNTER 2019-05-05 21:18 | Observation (INO) | payer MEDICARE ==
--- NOTE | 2019-05-05 21:35 | Emergency Department Report ---
ED General Adult HPI - General Chief complaint: Weakness Stated complaint: CVA Time Seen by Provider: 05/05/19 21:24 Source: patient, EMS (verbal report received from EMS. EMS notes unavailable at the time of chart dictation), RN notes reviewed, old records reviewed Mode of arrival: Stretcher Limitations: Physical Limitation - History of Present Illness Initial comments: This is a 64-year-old female. I have evaluated this patient in the past. [facility] er on this year, I took care of the patient's for presumed cardiac arrest, was deemed likely secondary to anaphylaxis. Patient was admitted to the hospital February 2019 for strokelike symptoms. Reportedly, she presents with left-sided hemiparesis, was continued on aspirin and statin therapy, MRI, MRA ordered, MRI showed abnormal basal ganglia, suggestive of possible hypoxic ischemic injury, carbon monoxide poisoning, however, no evidence of acute or subacute infarct or hemorrhage. She was also found to have frontal lobe cortical atrophy, and mild nonspecific multifocal left frontal and parietal lobe white matter hyperintensities. Her carotid Doppler was unremarkable, a 2-D echo was reported ly unremarkable. Today, the patient is brought to the hospital by EMS as a possible stroke. EMS states fingerstick is normal in the field. Apparently, the patient has been having some trouble with speech, and possible facial droop. Her last normal well time was surmised to be 1500 today. The patient is not sure when her last known well time his. The patient's has chronic pain, and endorses a frontal headache. The patient states that she feels weak all over. She is not sure she takes blood thinning medicines. She denies chest pain, new or different shortness of breath, denies focal extremity weakness, and denies urinary symptoms. Currently, no friends or family are available at this time for collateral information. The patient is somewhat of a poor historian. As per review of prior medical records, it does not appear that the patient had carboxyhemoglobin levels evaluated. -: hour(s) Location: head, face Consistency: constant Improves with: none Worsens with: none - Related Data Home Medications Medication Instructions Recorded Confirmed Last Taken Ferrous Sulfate [Feosol 325 MG tab] 325 mg PO QDAY 04/19/16 03/08/19 03/07/19 metFORMIN [Glucophage] 1,000 mg PO BID 04/19/16 03/08/19 03/07/19 Albuterol Sulfate [Ventolin HFA] 2 puff IH Q6HR PRN 12/23/18 03/08/19 03/07/19 Atorvastatin Calcium [Lipitor] 40 mg PO DAILY 01/01/19 03/08/19 03/07/19 Furosemide [Lasix] 20 mg PO BID 01/01/19 03/08/19 03/07/19 Hydralazine HCl 50 mg PO BID 03/08/19 03/08/19 03/07/19 Insulin Aspart Protam & Aspart 18 units SQ QPM 03/08/19 03/08/19 03/07/19 [NovoLOG Mix 70-30 Flexpen] Insulin Aspart Protam & Aspart 26 units SQ QAM 03/08/19 03/08/19 03/07/19 [NovoLOG Mix 70-30 Flexpen] Previous Rx's Medication Instructions Recorded Last Taken Type Carvedilol [Coreg] 25 mg PO BID #60 tablet 12/20/15 03/07/19 Rx Losartan [Cozaar] 100 mg PO QDAY #30 tablet 04/19/16 03/07/19 Rx Aspirin [Aspirin BABY CHEW TAB] 81 mg PO QDAY #30 tab.chew 12/30/18 03/07/19 Rx Ibuprofen [Motrin 600 MG tab] 600 mg PO Q8H PRN #30 tablet 01/10/19 03/07/19 Rx Furosemide [Lasix TAB] 40 mg PO BID #7 tablet 01/31/19 03/07/19 Rx Allergies Allergy/AdvReac Type Severity Reaction Status Date / Time MARIAN Inhibitors Allergy Angioedema Verified 03/08/19 09:37 esomeprazole magnesium Allergy Swelling Verified 03/08/19 09:37 [From Nexium] labetalol Allergy Itching Verified 03/08/19 09:37 Seafood Allergy Anaphylaxis Uncoded 03/08/19 09:37 ED Review of Systems ROS: Stated complaint: CVA Other details as noted in HPI Constitutional: malaise Eyes: denies: eye discharge ENT: denies: congestion Respiratory: denies: wheezing Cardiovascular: denies: syncope Gastrointestinal: denies: vomiting Genitourinary: denies: dysuria Musculoskeletal: myalgia Skin: denies: lesions Neurological: headache, weakness, confusion Psychiatric: anxiety ED Past Medical Hx - Past Medical History Hx Hypertension: Yes Hx CVA: Yes Hx Heart Attack/AMI: Yes Hx Congestive Heart Failure: No Hx Diabetes: Yes Hx Deep Vein Thrombosis: No Hx Pulmonary Embolism: No Hx Renal Disease: No Hx Sickle Cell Disease: No Hx Arthritis: No Hx Seizures: No Hx Kidney Stones: No Hx Asthma: No Hx COPD: No Hx Tuberculosis: No Hx Dementia: No Hx HIV: No Additional medical history: Angina, Vertigo. Cardiac arrest - Surgical History Hx Coronary Stent: No Hx Open Heart Surgery: No Hx Pacemaker: No Hx Internal Defibrillator: No Hx Cholecystectomy: No Additional Surgical History: bilateral hip replacement; ankle surgery; back surgery - Social History Smoking Status: Current Every Day Smoker - Medications Home Medications: Home Medications Medication Instructions Recorded Confirmed Last Taken Type Carvedilol [Coreg] 25 mg PO BID #60 tablet 12/20/15 03/08/19 03/07/19 Rx Ferrous Sulfate [Feosol 325 MG tab] 325 mg PO QDAY 04/19/16 03/08/19 03/07/19 History Losartan [Cozaar] 100 mg PO QDAY #30 tablet 04/19/16 03/08/19 03/07/19 Rx metFORMIN [Glucophage] 1,000 mg PO BID 04/19/16 03/08/19 03/07/19 History Albuterol Sulfate [Ventolin HFA] 2 puff IH Q6HR PRN 12/23/18 03/08/19 03/07/19 History Aspirin [Aspirin BABY CHEW TAB] 81 mg PO QDAY #30 tab.chew 12/30/18 03/08/19 03/07/19 Rx Atorvastatin Calcium [Lipitor] 40 mg PO DAILY 01/01/19 03/08/19 03/07/19 History Furosemide [Lasix] 20 mg PO BID 01/01/19 03/08/19 03/07/19 History Ibuprofen [Motrin 600 MG tab] 600 mg PO Q8H PRN #30 tablet 01/10/19 03/08/19 03/07/19 Rx Furosemide [Lasix TAB] 40 mg PO BID #7 tablet 01/31/19 03/08/19 03/07/19 Rx Hydralazine HCl 50 mg PO BID 03/08/19 03/08/19 03/07/19 History Insulin Aspart Protam & Aspart 18 units SQ QPM 03/08/19 03/08/19 03/07/19 History [NovoLOG Mix 70-30 Flexpen] Insulin Aspart Protam & Aspart 26 units SQ QAM 03/08/19 03/08/19 03/07/19 History [NovoLOG Mix 70-30 Flexpen] ED Physical Exam - General Limitations: Physical Limitation General appearance: alert, anxious, obese - Head Head exam: Present: atraumatic, normocephalic - Eye Eye exam: Present: normal appearance, EOMI. Absent: nystagmus - ENT ENT exam: Present: normal exam, normal orophraynx, mucous membranes moist, normal external ear exam - Neck Neck exam: Present: normal inspection, full ROM. Absent: tenderness, meningismus - Respiratory Respiratory exam: Present: rhonchi. Absent: respiratory distress - Cardiovascular Cardiovascular Exam: Present: regular rate, normal rhythm, normal heart sounds. Absent: bradycardia, tachycardia, irregular rhythm, systolic murmur, diastolic murmur, rubs, gallop - GI/Abdominal GI/Abdominal exam: Present: soft. Absent: distended, tenderness, guarding, rebound, rigid, pulsatile mass - Extremities Exam Extremities exam: Present: normal inspection, other (there is no long bony tenderness. The compartments are soft. The pelvis is stable. 2+ pulses noted in the bilateral upper, lower extremities.). Absent: calf tenderness - Back Exam Back exam: Present: normal inspection. Absent: tenderness, CVA tenderness (R), CVA tenderness (L), paraspinal tenderness, vertebral tenderness - Neurological Exam Neurological exam: Present: alert, oriented X3, other (there is bilateral facial asymmetry, however, no discrete facial droop. The extraocular movements are intact bilaterally. V1, V2, V3 intact bilaterally to light touch. 4 out of 5 strength bilateral upper, lower extremity is, may be effort related. Sensation intact to light touch bilateral upper, lower extremities.) - Psychiatric Psychiatric exam: Present: anxious - Skin Skin exam: Present: warm, dry, intact, normal color. Absent: rash ED Course Vital Signs 05/05/19 05/05/19 05/05/19 21:40 21:45 22:15 Temperature 98.5 F Pulse Rate 82 84 Respiratory 18 18 17 Rate Blood Pressure 171/85 Blood Pressure 171/85 131/84 [Left] O2 Sat by Pulse 97 97 97 Oximetry - Reevaluation(s) Reevaluation #1: 05/05/19 22:30 Differential diagnosis, including but not limited to: Stroke, seizure, TIA, multiple sclerosis, inversion disorder, pneumonia, urinary tract infection, neurodegenerative disease Assessment and plan: 64-year-old female with nonspecific neurologic symptoms, presents more than 4.5 hours after exposure last known well time, not a TPA candidate, as recommended by neurology, Dr Finesse Mansfield, and also on my evaluation as well. Screening laboratory studies ordered, CT scan of the brain ordered, urinalysis, x-ray of the chest ordered, arterial blood gas with carboxyhemoglobin ordered. Plan to admit patient to the medical service once initial diagnostics have resulted. Reevaluation #2: 05/05/19 23:48 Carboxyhemoglobin within normal limits. Patient found to be hypokalemic and hy pomagnesemic. X-ray of the chest unremarkable. Her analysis unremarkable. Remainder of laboratory studies unremarkable. Case presented to Hospital physician, Dr. Bronson Lowery who accepts the patient to his service. ED Medical Decision Making - Lab Data Result diagrams: 05/05/19 21:50 05/05/19 21:50 Vital Signs 05/05/19 05/05/19 21:40 21:45 Temperature 98.5 F Pulse Rate 82 Respiratory 18 18 Rate Blood Pressure 171/85 Blood Pressure 171/85 [Left] O2 Sat by Pulse 97 97 Oximetry Lab Results 05/05/19 Range/Units 22:16 Carboxyhemoglobin 3.7 - EKG Data -: EKG Interpreted by [facility] EKG shows normal: sinus rhythm Rate: normal - EKG Data 05/05/19 22:32 This is a normal sinus rhythm, 87 beats per minute, QTC 440 ms, low voltage, poor R progression, atrial enlargement, the EKG is abnormal, the EKG is not consistent with ST elevation myocardial infarction. - Radiology Data Radiology results: report reviewed, image reviewed nt Report Referring Physician: EDDI BOWDEN Patient Name: RAMEZ OSORIO Date of : 1955 Sex: Female Report Date: 2019-05-05 Report Status: Finalized Findings [facility] [address] [place] [address] Cat Scan Report Signed Patient: RAMEZ GARZA MR#: [id number] : 1955 Acct:[id number] Age/Sex: 64 / F ADM Date: 05/05/19 Loc: ED Attending Dr: Ordering Physician: EDDI BOWDEN MD Date of Service: 05/05/19 Procedure(s): CT head/brain wo con Accession Number(s): [id number] cc: EDDI BOWDEN MD CT HEAD WITHOUT CONTRAST INDICATION / CLINICAL INFORMATION: neuro deficits <6hrs or sx present upon awakening. TECHNIQUE: All CT scans at this location are performed using CT dose reduction for ALARA by means of automated exposure control. COMPARISON: Head CT 03/08/2019 and 01/01/2019. MRI brain 03/09/2019. FINDINGS: HEMORRHAGE: No evidence of intracranial hemorrhage or extra-axial fluid collection. EXTRA-AXIAL SPACES: Cortical sulci, sylvian fissures and basilar cisterns have an unremarkable appearance. VENTRICULAR SYSTEM: The ventricular system is of normal size and configuration. CEREBRAL PARENCHYMA: Areas of decreased brain parenchymal attenuation are observed in the gangliocapsular regions bilaterally including in the head of the caudate nuclei bilaterally. Similar findings are seen in a bilateral gangliocapsular distribution. These likely represent areas of remote or late subacute infarction. MIDLINE SHIFT OR HERNIATION: There is no mass effect. CEREBELLUM / BRAINSTEM: Brainstem and cerebellum have an unremarkable appearance. INTRACRANIAL VESSELS: Calcified atherosclerotic plaque is seen along the course of the cavernous segments of both internal carotid arteries with extension up into the supraclinoid regions. ORBITS: visualized portions of the orbits have an unremarkable appearance. SOFT TISSUES of HEAD: No significant abnormality. CALVARIUM: Evaluation of bone windows reveals no abnormalities. PARANASAL SINUSES / MASTOID AIR CELLS: Paranasal sinuses are free from inflammatory mucosal disease. Mastoid air cells are normally pneumatized. IMPRESSION: 1. Multiple foci of decreased brain parenchymal attenuation involving the gangliocapsular structures bilaterally consistent with late subacute or remote infarctions. Follow-up with magnetic resonance imaging would be helpful to more accurately date the suspected small deep infarctions. Signer Name: Adalberto Sales MD Signed: 05/05/2019 9:52 PM Workstation Name: [id number] Transcribed By: Dictated By: Adalberto Sales MD Electronically Authenticated By: Adalberto Sales MD Signed Date/Time: 05/05/19 2138 Critical care attestation.: If time is entered above; I have spent that time in minutes in the direct care of this critically ill patient, excluding procedure time. ED Disposition Clinical Impression: Facial droop, Hypokalemia, Hypomagnesemia Disposition: OP ADMIT IP TO THIS HOSP Is pt being admited?: Yes Does the pt Need Aspirin: Yes Condition: Good
--- NOTE | 2019-05-05 21:42 | Emergency Department Report ---
ED Neuro Deficit HPI - General Stated Complaint: CVA Time Seen by Provider: 05/05/19 21:24 - History of Present Illness Initial Comments: [facility] Date of Service: 05/05/2019 21:09:30 Impression: RO Acute Ischemic Stroke Right Hemispheric Mechanism of Stroke: Possible Thromboembolic Possible Cardioembolic Small Vessel Disease Metrics: Last Known Well: 05/05/2019 15:00:00 Start Time: 05/05/2019 21:07:35 Arrival Time: 05/05/2019 21:18:12 Stamp Time: 05/05/2019 21:09:30 Time First Login Attempt: 05/05/2019 21:17:47 Video Start Time: 05/05/2019 21:17:47 Symptoms: L facial droop; slurred speech NIHSS Start Assessment Time: 05/05/2019 21:32:28 Patient is not a candidate for tPA. Patient was not deemed candidate for tPA thrombolytics because of Last Well Known above 4.5 hours. Video End Time: 05/05/2019 21:39:21 CT head showed no acute hemorrhage or acute core infarct. CT head was reviewed. Advanced imaging was not obtained as the presentation was not suggestive of Large Vessel Occlusive Disease. ER physician not notified of the decision on thrombolytics management. Comments: acute left facial droop and slurred speech - ?chronic after cardiac arrest. She is currently worse than normal per the patient. LSN >4.5 hours. Recommend admission for stroke workup. Our recommendations are outlined below. Recommendations: Initiate Aspirin [address] head is neg for hemorrhage. Recommended Scan: MRI Head Lipid Panel to Be Obtained, if Not Done in the Last Three Months Therapies: Physical Therapy, Occupational Therapy, Speech Therapy Assessment When Applicable Dysphaghia Screen: Swallow Evaluation, Bedside NPO Until Swallow Evaluation DVT prophylaxis: Lovenox or LMW Heparin Disposition: Follow up with Teleneurology Follow up Sign Out: Discussed with Emergency Department Provider History of Present Illness: Patient is a 64 years old Female who presents with symptoms of L facial droop; slurred speech 64 yo woman with acute onset L facial droop and slurred speech. No reported focal weakness of her limbs. She takes no blood thinners. On exams, she has trouble lifting her legs, and she states they have been like that for a 'couple weeks'. She was evaluated in February with L facial droop. MRI showed B BG signal change consistent with hypoxic ischemic injury. She had a cardiac arrest in Oct 2018. No acute stroke. Stroke alert called for EMS presentations Examination: 1A: Level of Consciousness - Alert; keenly responsive + 0 1B: Ask Month and Age - Both Questions Right + 0 1C: Blink Eyes & Squeeze Hands - Performs Both Tasks + 0 2: Test Horizontal Extraocular Movements - Normal + 0 3: Test Visual [place] - No Visual Loss + 0 4: Test Facial Palsy (Use Grimace if Obtunded) - Minor paralysis (flat nasolabial fold, smile asymetry) + 1 5A: Test Left Arm Motor Drift - No Drift for 10 Seconds + 0 5B: Test Right Arm Motor Drift - No Drift for 10 Seconds + 0 6A: Test Left Leg Motor Drift - Drift, but doesn't hit bed + 1 6B: Test Right Leg Motor Drift - Drift, but doesn't hit bed + 1 7: Test Limb Ataxia (FNF/Heel-Sapmson) - No Ataxia + 0 8: Test Sensation - Mild-Moderate Loss: Less Sharp/More Dull + 1 9: Test Language/Aphasia - Normal; No aphasia + 0 10: Test Dysarthria - Normal + 0 11: Test Extinction/Inattention - No abnormality + 0 NIHSS Score: 4 Patient was informed the Neurology Consult would happen via TeleHealth consult by way of interactive audio and video telecommunications and consented to receiving care in this manner. Due to the immediate potential for life-threatening deterioration due to underlying acute neurologic illness, I spent 35 minutes providing critical care. This time includes time for face to face visit via telemedicine, review of medical records, imaging studies and discussion of findings with providers, the patient and/or family. Dr Bairon Mansfield [facility] - Related Data Home Medications: Home Medications Medication Instructions Recorded Confirmed Last Taken Ferrous Sulfate [Feosol 325 MG tab] 325 mg PO QDAY 04/19/16 03/08/1903/07/19 metFORMIN [Glucophage] 1,000 mg PO BID 04/19/16 03/08/19 03/07/19 Albuterol Sulfate [Ventolin HFA] 2 puff IH Q6HR PRN 12/23/18 03/08/19 03/07/19 Atorvastatin Calcium [Lipitor] 40 mg PO DAILY 01/01/19 03/08/19 03/07/19 Furosemide [Lasix] 20 mg PO BID 01/01/19 03/08/19 03/07/19 Hydralazine HCl 50 mg PO BID 03/08/19 03/08/19 03/07/19 Insulin Aspart Protam & Aspart 18 units SQ QPM 03/08/19 03/08/19 03/07/19 [NovoLOG Mix 70-30 Flexpen] Insulin Aspart Protam & Aspart 26 units SQ QAM 03/08/19 03/08/19 03/07/19 [NovoLOG Mix 70-30 Flexpen] Previous Rx's Medication Instructions Recorded Last Taken Type Carvedilol [Coreg] 25 mg PO BID #60 tablet 12/20/15 03/07/19 Rx Losartan [Cozaar] 100 mg PO QDAY #30 tablet 04/19/16 03/07/19 Rx Aspirin [Aspirin BABY CHEW TAB] 81 mg PO QDAY #30 tab.chew 12/30/18 03/07/19 Rx Ibuprofen [Motrin 600 MG tab] 600 mg PO Q8H PRN #30 tablet 01/10/19 03/07/19 Rx Furosemide [Lasix TAB] 40 mg PO BID #7 tablet 01/31/19 03/07/19 Rx Allergies/Adverse Reactions: Allergies Allergy/AdvReac Type Severity Reaction Status Date / Time MARIAN Inhibitors Allergy Angioedema Verified 03/08/19 09:37 esomeprazole magnesium Allergy Swelling Verified 03/08/19 09:37 [From Nexium] labetalol Allergy Itching Verified 03/08/19 09:37 Seafood Allergy Anaphylaxis Uncoded 03/08/19 09:37 ED Review of Systems ROS: Stated complaint: CVA Other details as noted in HPI ED Past Medical Hx - Past Medical History Hx Hypertension: Yes Hx CVA: Yes Hx Heart Attack/AMI: Yes Hx Congestive Heart Failure: No Hx Diabetes: Yes Hx Deep Vein Thrombosis: No Hx Pulmonary Embolism: No Hx Renal Disease: No Hx Sickle Cell Disease: No Hx Arthritis: No Hx Seizures: No Hx Kidney Stones: No Hx Asthma: No Hx COPD: No Hx Tuberculosis: No Hx Dementia: No Hx HIV: No Additional medical history: Angina, Vertigo. Cardiac arrest - Surgical History Hx Coronary Stent: No Hx Open Heart Surgery: No Hx Pacemaker: No Hx Internal Defibrillator: No Hx Cholecystectomy: No Additional Surgical History: bilateral hip replacement; ankle surgery; back surgery - Social History Smoking Status: Current Every Day Smoker - Medications Home Medications: Home Medications Medication Instructions Recorded Confirmed Last Taken Type Carvedilol [Coreg] 25 mg PO BID #60 tablet 12/20/15 03/08/19 03/07/19 Rx Ferrous Sulfate [Feosol 325 MG tab] 325 mg PO QDAY 04/19/16 03/08/19 03/07/19 History Losartan [Cozaar] 100 mg PO QDAY #30 tablet 04/19/16 03/08/19 03/07/19 Rx metFORMIN [Glucophage] 1,000 mg PO BID 04/19/16 03/08/19 03/07/19 History Albuterol Sulfate [Ventolin HFA] 2 puff IH Q6HR PRN 12/23/18 03/08/19 03/07/19 History Aspirin [Aspirin BABY CHEW TAB] 81 mg PO QDAY #30 tab.chew 12/30/18 03/08/19 03/07/19 Rx Atorvastatin Calcium [Lipitor] 40 mg PO DAILY 01/01/19 03/08/19 03/07/19 History Furosemide [Lasix] 20 mg PO BID 01/01/19 03/08/19 03/07/19 History Ibuprofen [Motrin 600 MG tab] 600 mg PO Q8H PRN #30 tablet 01/10/19 03/08/19 03/07/19 Rx Furosemide [Lasix TAB] 40 mg PO BID #7 tablet 01/31/19 03/08/19 03/07/19 Rx Hydralazine HCl 50 mg PO BID 03/08/19 03/08/19 03/07/19 History Insulin Aspart Protam & Aspart 18 units SQ QPM 03/08/19 03/08/19 03/07/19 History [NovoLOG Mix 70-30 Flexpen] Insulin Aspart Protam & Aspart 26 units SQ QAM 03/08/19 03/08/1919 History [NovoLOG Mix 70-30 Flexpen] ED Neuro Physical Exam - General Suspected Stroke: Yes - NIHSS Assessment Interval: Baseline 1a. Level of Consciousness: alert/keenly responsive 1b. LOC Questions: answers both correctly 1c. LOC Commands: performs tasks correctly 2. Best Gaze: normal 3. Visual: no visual loss 4. Facial Palsy: minor paralysis 5b. Motor Arm Right: no drift 5a. Motor Arm Left: no drift 6a. Motor Leg Left: drift 6b. Motor Leg Right: drift 7. Limb Ataxia: absent 8. Sensory: mild/moderate sensory loss 9. Best Language: no aphasia 10. Dysarthria: normal 11. Extinction/Inattention: no abnormality Total Score: 4 Stroke Severity: Minor Stroke Critical care attestation.: If time is entered above; I have spent that time in minutes in the direct care of this critically ill patient, excluding procedure time. ED Disposition Clinical Impression: Facial droop Disposition: OP ADMIT IP TO THIS HOSP Is pt being admited?: Yes Does the pt Need Aspirin: Yes Condition: Stable
--- NOTE | 2019-05-05 21:56 | Cat Scan Report ---
CT HEAD WITHOUT CONTRAST INDICATION / CLINICAL INFORMATION: neuro deficits <6hrs or sx present upon awakening. TECHNIQUE: All CT scans at this location are performed using CT dose reduction for ALARA by means of automated e xposure control. COMPARISON: Head CT 03/08/2019 and 01/01/2019. MRI brain 03/09/2019. FINDINGS: HEMORRHAGE: No evidence of intracranial hemorrhage or extra-axial fluid collection. EXTRA-AXIAL SPACES: Cortical sulci, sylvian fissures and basilar cisterns have an unremarkable appear ance. VENTRICULAR SYSTEM: The ventricular system is of normal size and configuration. CEREBRAL PARENCHYMA: Areas of decreased brain parenchymal attenuation are observed in the gangliocaps ular regions bilaterally including in the head of the caudate nuclei bilaterally. Similar findings ar e seen in a bilateral gangliocapsular distribution. These likely represent areas of remote or late drake bacute infarction. MIDLINE SHIFT OR HERNIATION: There is no mass effect. CEREBELLUM / BRAINSTEM: Brainstem and cerebellum have an unremarkable appearance. INTRACRANIAL VESSELS: Calcified atherosclerotic plaque is seen along the course of the cavernous segm ents of both internal carotid arteries with extension up into the supraclinoid regions. ORBITS: visualized portions of the orbits have an unremarkable appearance. SOFT TISSUES of HEAD: No significant abnormality. CALVARIUM: Evaluation of bone windows reveals no abnormalities. PARANASAL SINUSES / MASTOID AIR CELLS: Paranasal sinuses are free from inflammatory mucosal disease. Mastoid air cells are normally pneumatized. IMPRESSION: 1. Multiple foci of decreased brain parenchymal attenuation involving the gangliocapsular structures bilaterally consistent with late subacute or remote infarctions. Follow-up with magnetic resonance im aging would be helpful to more accurately date the suspected small deep infarctions. Signer Name: Adalberto Sales MD Signed: 05/05/2019 9:52 PM Workstation Name: [id number]
[2019-05-05] MEDS ORDERED: BABY ASPIRIN PO ONE (22:32)
--- NOTE | 2019-05-05 22:41 | XRay Report ---
CHEST 1 VIEW INDICATION: CVA. COMPARISON: None. FINDINGS: Support devices: None. Heart: Within normal limits. Lungs/Pleura: No acute air space or interstitial disease. Additional findings: None. IMPRESSION: No acute abnormality. Signer Name: Seven Peralta MD Signed: 05/05/2019 10:36 PM Workstation Name: [id number]
[2019-05-05 22:47] LABS: Basophils # (Auto) 0.1 K/mm3 (0.0-0.1); Basophils % (Auto) 0.8 % (0.0-1.8); Eosinophils # (Auto) 0.3 K/mm3 (0.0-0.4); Eosinophils % (Auto) 4.8 % (0.0-4.3); Hematocrit 36.2 % (30.3-42.9); Hemoglobin 12.4 gm/dl (10.1-14.3); Lymphocytes # (Auto) 1.4 K/mm3 (1.2-5.4); Lymphocytes % (Auto) 20.6 % (13.4-35.0); Mean Corpuscular HGB Conc 34 % (30-34); Mean Corpuscular Volume 89 fl (79-97); Monocytes # (Auto) 0.6 K/mm3 (0.0-0.8); Monocytes % (Auto) 9.5 % (0.0-7.3); Platelet Count 164 K/mm3 (140-440); Red Blood Count 4.09 M/mm3 (3.65-5.03); Red Cell Distribution Width 15.8 % (13.2-15.2)
[2019-05-05 22:55] LABS: VEN PH 7.359 (7.320-7.420)
[2019-05-05 22:56] LABS: INR 0.98 (0.87-1.13)
[2019-05-05 22:57] LABS: Partial Thromboplastin Time 25.1 Sec. (24.2-36.6)
[2019-05-05 22:58] LABS: BUN/Creatinine Ratio 14; Blood Urea Nitrogen 15 mg/dL (7-17); Calcium 9.5 mg/dL (8.4-10.2); Hemolysis Index 18
[2019-05-05] MEDS ORDERED: MAGNESIUM SULFATE 1 GM in NACL 0.9% 50 ML IV ONE (23:33)
[2019-05-05] MEDS ORDERED: K-DUR PO ONE (23:33)
[2019-05-05] MEDS ORDERED: TYLENOL PO ONE (23:33)
[2019-05-05] MEDS ORDERED: MAGNESIUM SULFATE 2GM/50ML 2 GM/50 ML BAG IV ONE (23:33)
[2019-05-05 23:35] LABS: Amorphous Crystals,Urine Few; Bilirubin,Urine NEG (Negative); Blood,Urine NEG (Negative); Color,Urine Yellow (Yellow); RBC,Urine < 1.0 /HPF (0.0-6.0); Urobilinogen,Urine < 2.0 mg/dL (<2.0)
[2019-05-05] MEDS ORDERED: KCL 10MEQ/100ML 10 MEQ/100 ML BAG IV SCH (23:45)
[2019-05-06] MEDS ORDERED: DULCOLAX PR PRN (00:16)
[2019-05-06] MEDS ORDERED: PHENERGAN PR PRN (00:16)
[2019-05-06] MEDS ORDERED: REGLAN PO PRN (00:16)
[2019-05-06] MEDS ORDERED: MILK OF MAGNESIA PO PRN (00:16)
[2019-05-06] MEDS ORDERED: ZOFRAN IV PRN (00:16)
[2019-05-06] MEDS ORDERED: SODIUM CHLORIDE FLUSH SYRINGE 10 ML IV PRN (00:16)
[2019-05-06] MEDS ORDERED: NACL 0.9% 500 ML 500 ML IV SCH (00:40)
[2019-05-06] MEDS ORDERED: NS/KCL 20MEQ 20 MEQ/1,000 ML BAG IV SCH (01:00)
--- NOTE | 2019-05-06 01:05 | History and Physical Report ---
History of Present Illness Date of examination: 05/06/19 Date of admission: 05/05/19 23:49 Chief complaint: dysarthria History of present illness: Patient is a 64-year-old female with PMHx of hypertension, prior IN, DM type II, stroke, hyperlipidemia, obesity who brought to the ER by EMS for facial droop and difficulty speaking. Pt was seen in the ER, she was alert and orientated, speech was slow,"broken" and uncoordinated but she was able to answer to questions and provide medical history. Pt reports that family called EMS because she had facial drooping and difficulty finding words. Pt had a similar episodes in February of this year and was diagnosed with TIA/CVA. Pt was also diagnosed with an IN 2 months ago. Pt c/o back pain, frontal headache, weakness and new onset cramps in the lower extremities. Pt was unsure when the symptoms started but states that she was ok until this after noon when family noticed her difficult speech and her face was drooping on side in the evening . She denies extremities weakness, denies blurry vision, denies difficulty walking, denies numbness. Tele Neurology was called in the ER and pt was admitted for further evaluation and treatment. Past History Past Medical History: acute IN, diabetes, hypertension, hyperlipidemia, stroke, other Past Surgical History: total hip replacement, Other (back surgery) Social history: lives with family Family history: no significant family history Medications and Allergies Allergies Allergy/AdvReac Type Severity Reaction Status Date / Time MARIAN Inhibitors Allergy Angioedema Verified 03/08/19 09:37 esomeprazole magnesium Allergy Swelling Verified 03/08/19 09:37 [From Nexium] labetalol Allergy Itching Verified 03/08/19 09:37 Seafood Allergy Anaphylaxis Uncoded 03/08/19 09:37 Home Medications Medication Instructions Recorded Confirmed Last Taken Type Carvedilol [Coreg] 25 mg PO BID #60 tablet 12/20/15 03/08/19 03/07/19 Rx Ferrous Sulfate [Feosol 325 MG tab] 325 mg PO QDAY 04/19/16 03/08/19 03/07/19 History Losartan [Cozaar] 100 mg PO QDAY #30 tablet 04/19/16 03/08/19 03/07/19 Rx metFORMIN [Glucophage] 1,000 mg PO BID 0703/08/19 03/07/19 History Albuterol Sulfate [Ventolin HFA] 2 puff IH Q6HR PRN 12/23/18 03/08/19 03/07/19 History Aspirin [Aspirin BABY CHEW TAB] 81 mg PO QDAY #30 tab.chew 12/30/18 03/08/19 03/07/19 Rx Atorvastatin Calcium [Lipitor] 40 mg PO DAILY 01/01/19 03/08/19 03/07/19 History Furosemide [Lasix] 20 mg PO BID 01/01/19 03/08/19 03/07/19 History Ibuprofen [Motrin 600 MG tab] 600 mg PO Q8H PRN #30 tablet 01/10/19 03/08/19 03/07/19 Rx Furosemide [Lasix TAB] 40 mg PO BID #7 tablet 01/31/19 03/08/19 03/07/19 Rx Hydralazine HCl 50 mg PO BID 03/08/19 03/08/19 03/07/19 History Insulin Aspart Protam & Aspart 18 units SQ QPM 03/08/19 03/08/19 03/07/19 History [NovoLOG Mix 70-30 Flexpen] Insulin Aspart Protam & Aspart 26 units SQ QAM 03/08/19 03/08/19 03/07/19 History [NovoLOG Mix 70-30 Flexpen] Active Meds: Active Medications Aspirin (Aspirin) 325 mg PO QDAY ANGELICA Atorvastatin Calcium (Lipitor) 40 mg PO QHS ANGELICA Bisacodyl (Dulcolax) 10 mg ND QDAY PRN PRN Reason: Constipation Docusate Sodium (Colace) 100 mg PO BID ANGELICA Potassium Chloride (Kcl 10meq/100ml) 10 meq in 100 mls @ 100 mls/hr IV Q1H ANGELICA Stop: 05/06/19 03:44 Potassium Chloride/Sodium Chloride (Ns/Kcl 20meq) 20 meq in 1,000 mls @ 100 mls/hr IV DIRECT ANGELICA Sodium Chloride (Nacl 0.9% 500 Ml) 500 mls @ 100 mls/hr IV DIRECT ANGELICA Magnesium Hydroxide (Milk Of Magnesia) 30 ml PO Q4H PRN PRN Reason: Constipation Metoclopramide HCl (Reglan) 10 mg PO Q6H PRN PRN Reason: Nausea And Vomiting Ondansetron HCl (Zofran) 4 mg IV Q8H PRN PRN Reason: Nausea And Vomiting Promethazine HCl (Phenergan) 25 mg ND Q6H PRN PRN Reason: Nausea And Vomiting Sodium Chloride (Sodium Chloride Flush Syringe 10 Ml) 10 ml IV PRN PRN PRN Reason: LINE FLUSH Review of Systems All systems: negative Breasts: deferred Exam - Constitutional Vitals: Temp Pulse Resp BP Pulse Ox 98.5 F 84 18 131/84 97 05/05/19 21:45 05/05/19 22:15 05/05/19 23:52 05/05/19 22:15 05/05/19 22:15 General appearance: Present: no acute distress - EENT Eyes: Present: EOM intact ENT: hearing intact - Neck Neck: Present: supple - Respiratory Respiratory effort: normal Respiratory: bilateral: CTA - Extremities Extremities: no ischemia, No edema, Full ROM Peripheral Pulses: within normal limits - Abdominal General gastrointestinal: Present: soft, non-tender, non-distended Female genitourinary: Present: deferred - Rectal Rectal Exam: deferred - Integumentary Integumentary: Present: clear, warm, dry - Musculoskeletal Musculoskeletal: strength equal bilaterally - Psychiatric Psychiatric: appropriate mood/affect - Neurologic Neurologic: moves all extremities Results - Labs CBC & Chem 7: 05/05/19 21:50 05/05/19 21:50 Labs: Laboratory Last Values WBC 6.7 K/mm3 (4.5-11.0) 05/05/19 21:50 RBC 4.09 M/mm3 (3.65-5.03) 05/05/19 21:50 Hgb 12.4 gm/dl (10.1-14.3) 05/05/19 21:50 Hct 36.2 % (30.3-42.9) 05/05/19 21:50 MCV 89 fl (79-97) 05/05/19 21:50 MCH 30 pg (28-32) 05/05/19 21:50 MCHC 34 % (30-34) 05/05/19 21:50 RDW 15.8 % (13.2-15.2) H 05/05/19 21:50 Plt Count 164 K/mm3 (140-440) 05/05/19 21:50 Lymph % (Auto) 20.6 % (13.4-35.0) 05/05/19 21:50 [place] % (Auto) 9.5 % (0.0-7.3) H 05/05/19 21:50 Eos % (Auto) 4.8 % (0.0-4.3) H 05/05/19 21:50 Baso % (Auto) 0.8 % (0.0-1.8) 05/05/19 21:50 Lymph # 1.4 K/mm3 (1.2-5.4) 05/05/19 21:50 [place] # 0.6 K/mm3 (0.0-0.8) 05/05/19 21:50 Eos # 0.3 K/mm3 (0.0-0.4) 05/05/19 21:50 Baso # 0.1 K/mm3 (0.0-0.1) 05/05/19 21:50 Seg Neutrophils % 64.3 % (40.0-70.0) 05/05/19 21:50 Seg Neutrophils # 4.3 K/mm3 (1.8-7.7) 05/05/19 21:50 PT 12.7 Sec. (12.2-14.9) 05/05/19 21:50 INR 0.98 (0.87-1.13) 05/05/19 21:50 APTT 25.1 Sec. (24.2-36.6) 05/05/19 21:50 17.1 Sec. (15.1-19.6) 05/05/19 21:50 ABG Carboxyhemoglobin 4.8 % (0.0-5.0) 05/05/19 21:50 VBG pH 7.359 (7.320-7.420) 05/05/19 21:50 3.7 05/05/19 22:16 Sodium 144 mmol/L (137-145) 05/05/19 21:50 Potassium 3.3 mmol/L (3.6-5.0) L 05/05/19 21:50 Chloride 101.1 mmol/L (98-107) 05/05/19 21:50 Carbon Dioxide 30 mmol/L (22-30) 05/05/19 21:50 16 mmol/L 05/05/19 21:50 BUN 15 mg/dL (7-17) 05/05/19 21:50 1.1 mg/dL (0.7-1.2) 05/05/19 21:50 Estimated GFR > 60 ml/min 05/05/19 21:50 14 % 05/05/19 21:50 Glucose 169 mg/dL (65-100) H 05/05/19 21:50 POC Glucose 190 (70-105) H 05/05/19 21:54 Calcium 9.5 mg/dL (8.4-10.2) 05/05/19 21:50 Magnesium 1.20 mg/dL (1.7-2.3) L 05/05/19 21:50 34.0 umol/L (25-60) 05/05/19 21:50 93 units/L (30-135) 05/05/19 21:50 < 0.010 ng/mL (0.00-0.029) 05/05/19 21:50 TSH 1.700 mlU/mL (0.270-4.200) 05/05/19 21:50 Yellow (Yellow) 05/05/19 22:15 Slightly-cloudy (Clear) 05/05/19 22:15 5.0 (5.0-7.0) 05/05/19 22:15 Ur Specific [place] 1.010 (1.003-1.030) 05/05/19 22:15 30 mg/dl mg/dL (Negative) 05/05/19 22:15 50 mg/dL (Negative) 05/05/19 22:15 Neg mg/dL (Negative) 05/05/19 22:15 Neg (Negative) 05/05/19 22:15 Neg (Negative) 05/05/19 22:15 Neg (Negative) 05/05/19 22:15 < 2.0 mg/dL (<2.0) 05/05/19 22:15 Ur Leukocyte Esterase Tr (Negative) 05/05/19 22:15 1.0 /HPF (0.0-6.0) 05/05/19 22:15 < 1.0 /HPF (0.0-6.0) 05/05/19 22:15 U Epithel Cells (Auto) 1.0 /HPF (0-13.0) 05/05/19 22:15 Amorphous Crystals Few 05/05/19 22:15 Salicylates 0.4 mg/dL (2.8-20.0) L 05/05/19 21:50 Acetaminophen < 5.0 ug/mL (10.0-30.0) L 05/05/19 21:50 Plasma/Serum Alcohol < 0.01 % (0-0.07) 05/05/19 21:50 Assessment and Plan Assessment and plan: 1. TIA r/o CVA 2. Hypokalemia 3. DM type2 4. CAD with Prior [place] 5. Hyperlipidemia 6. Hypertension 7. Obesity Plan: Admit to [facility] Consult neurology for eval MRI/MRA of the brain Carotid doppler study 2D echocardiogram Keep NPO until bedside swallow study If positive video swallow study lipid panel Hgb A1c start high dose statin, asa, Monitor blood glucose ACHS with insulin per sliding scale PT/OT to eval and treat Case management for DC plan Further plan per hospital course Advance Directives: Yes VTE prophylaxis?: Mechanical Plan of care discussed with patient/family: Yes
[2019-05-06] MEDS ORDERED: K-DUR PO ONE (03:20)
--- NOTE | 2019-05-06 11:48 | Vascular Lab Report ---
BILATERAL CAROTID DOPPLER ULTRASOUND INDICATION : stroke TECHNIQUE: Grayscale and color Doppler imaging performed through the neck. COMPARISON: None available FINDINGS: Right: There is minimal partially calcified plaque in the proximal right ICA. Peak systolic velocit y in the CCA is 90 cm/s with end-diastolic velocity of 16 cm/s. Peak systolic velocity in the proxima l ICA is 72 cm/s with end-diastolic velocity of 25 cm/s. ICA to CCA ratio is less than 2. There is an tegrade flow in the ECA and the vertebral artery. Left: There is no significant atherosclerotic disease. Peak systolic velocity in the CCA is 59 cm/s w ith end-diastolic velocity of 9 cm/s. Peak systolic velocity in the proximal ICA is 73 cm/s with end- diastolic velocity of 28 cm/s. ICA to CCA ratio is less than 2. There is antegrade flow in the ECA a nd the vertebral artery. IMPRESSION: No hemodynamically significant stenosis by NASCET criteria. Less than 50% stenosis bilate rally. Signer Name: Jeet Carney Jr, MD Signed: 05/06/2019 11:43 AM Workstation Name: [id number]
--- NOTE | 2019-05-06 12:00 | Progress Note ---
Assessment and Plan 1. TIA r/o CVA 2. Hypokalemia 3. DM type2 4. CAD with Prior [place] 5. Hyperlipidemia 6. Hypertension 7. Obesity Plan: cont to monitor at [facility] Consulted neurology/PT/OT/speech for eval MRI/MRA of the brain ordered - pending Carotid doppler study, 2D echocardiogram -pending Start on cardiac/diabetic diet as passed bedside swallow study cont high dose statin, asa, replete K Monitor blood glucose ACHS with insulin per sliding scale, follow A1c level Case management for DC plan Further plan per hospital course Subjective Date of service: 05/06/19 Interval history: Patient seen and examined c/o leftsided weakness PT at bedside, MRI pending Objective - Exam Narrative Exam: General appearance: Present: no acute distress - EENT Eyes: Present: EOM intact ENT: hearing intact - Neck Neck: Present: supple - Respiratory Respiratory effort: normal Respiratory: bilateral: CTA - Extremities Extremities: no ischemia, No edema, Full ROM Peripheral Pulses: within normal limits - Abdominal General gastrointestinal: Present: soft, non-tender, non-distended Female genitourinary: Present: deferred - Rectal Rectal Exam: deferred - Integumentary Integumentary: Present: clear, warm, dry - Musculoskeletal Musculoskeletal: strength equal bilaterally - Psychiatric Psychiatric: appropriate mood/affect - Neurologic Neurologic: moves all extremities, leftsided weakness - Constitutional Vitals: Vital Signs - 12hr 05/06/19 05/06/19 05/06/19 00:01 00:11 00:21 Temperature Pulse Rate 83 83 81 Respiratory 27 H 22 22 Rate Blood Pressure 153/71 153/71 124/56 Blood Pressure [Left] O2 Sat by Pulse 100 100 100 Oximetry 05/06/19 05/06/19 05/06/19 00:30 00:40 00:51 Temperature Pulse Rate 81 84 78 Respiratory 26 H 25 H 26 H Rate Blood Pressure 117/59 117/59 117/59 Blood Pressure 153/66 [Left] O2 Sat by Pulse 99 99 99 Oximetry 05/06/19 05/06/19 05/06/19 00:52 01:01 01:11 Temperature Pulse Rate 80 82 Respiratory 18 22 26 H Rate Blood Pressure 153/66 153/66 Blood Pressure [Left] O2 Sat by Pulse 100 100 Oximetry 05/06/19 05/06/19 01:39 05:46 Temperature 98.1 F 98.0 F Pulse Rate 82 80 Respiratory 20 20 Rate Blood Pressure 162/86 156/84 Blood Pressure [Left] O2 Sat by Pulse 97 98 Oximetry - Labs CBC & Chem 7: 05/05/19 21:50 05/07/19 11:30 Labs: Abnormal lab results 05/05/19 05/05/19 05/05/19 Range/Units 21:50 21:50 21:50 RDW 15.8 H (13.2-15.2) % [place] % (Auto) 9.5 H (0.0-7.3) % Eos % (Auto) 4.8 H (0.0-4.3) % POC ABG pO2 (80-105) Potassium 3.3 L (3.6-5.0) mmol/L Glucose 169 H (65-100) mg/dL POC Glucose (70-105) Magnesium 1.20 L (1.7-2.3) mg/dL Salicylates (2.8-20.0) mg/dL Acetaminophen (10.0-30.0) ug/mL 05/05/19 05/05/19 05/05/19 Range/Units 21:50 21:50 21:54 RDW (13.2-15.2) % [place] % (Auto) (0.0-7.3) % Eos % (Auto) (0.0-4.3) % POC ABG pO2 (80-105) Potassium (3.6-5.0) mmol/L Glucose (65-100) mg/dL POC Glucose 190 H (70-105) Magnesium (1.7-2.3) mg/dL Salicylates 0.4 L (2.8-20.0) mg/dL Acetaminophen < 5.0 L (10.0-30.0) ug/mL 05/05/19 05/06/19 05/06/19 Range/Units 22:24 07:59 09:02 RDW (13.2-15.2) % [place] % (Auto) (0.0-7.3) % Eos % (Auto) (0.0-4.3) % POC ABG pO2 75 L (80-105) Potassium (3.6-5.0) mmol/L Glucose (65-100) mg/dL POC Glucose 61 L 107 H (70-105) Magnesium (1.7-2.3) mg/dL Salicylates (2.8-20.0) mg/dL Acetaminophen (10.0-30.0) ug/mL
--- NOTE | 2019-05-06 14:13 | Magnetic Resonance Report ---
MRI BRAIN without and with contrast 05/06/2019 INDICATION / CLINICAL INFORMATION: stroke. Slurred speech. TECHNIQUE: Multiplanar, multisequence MR images of the brain were obtained. COMPARISON: 03/09/2019 FINDINGS: BRAIN / INTRACRANIAL CONTENTS: Unenhanced and enhanced MR images of the brain were obtained. Patient motion artifact is present in many of these images. Comparison is made to the previous exam from 03/09/2019. There has been an interval decrease in the extent of abnormal increased T2-weighted signal and T1-nakia ghted signal involving the basal ganglia bilaterally and diffusely. It appears that the previous sign al change and mineralization has diminished somewhat, although still present. There is no evidence of superimposed contrast enhancement. There is no abnormal diffusion weighted signal. No other or new areas of abnormal signal or enhancement are present. Ventricles and sulci are within normal limits of size and shape for a patient of this age. EXTRACRANIAL: Unremarkable CRANIOCERVICAL JUNCTION: No significant abnormality. VASCULAR FLOW-VOIDS: No significant abnormality. IMPRESSION: Persistent signal abnormality in the basal ganglia, although less prominent in intensity on the prio r exam from 03/09/2019. This pattern can be seen in cases of toxic injury such as carbon monoxide pois oning or hypoxic ischemic injury. There is no evidence of acute superimposed abnormality. Signer Name: Seth Boss MD Signed: 05/06/2019 2:09 PM Workstation Name: [id number]
--- NOTE | 2019-05-06 14:15 | Magnetic Resonance Report ---
MRA HEAD 05/06/2019 INDICATION / CLINICAL INFORMATION: stroke. Slurred speech. TECHNIQUE: Routine MRA of the head is performed. 3-D/MIP reformats postprocessed. COMPARISON: None available. FINDINGS: MRA HEAD: Intracranial internal carotid arteries: No significant abnormality. Anterior cerebral arteries: No significant abnormality. Middle cerebral arteries: No significant abnormality. Intracranial vertebral arteries: No significant abnormality. Basilar artery: No significant abnormality. Posterior cerebral arteries: No significant abnormality. IMPRESSION: No significant abnormality. Signer Name: Seth Boss MD Signed: 05/06/2019 2:11 PM Workstation Name: [id number]
[2019-05-06] MEDS: ASPIRIN PO SCH (14:23)
[2019-05-06] MEDS: COLACE PO SCH ×2 (14:23→21:55)
[2019-05-07 06:37] LABS: Chol/HDL Ratio 2.07 %
[2019-05-07] MEDS: FEOSOL PO SCH (09:29)
[2019-05-07] MEDS: ASPIRIN PO SCH (09:29)
[2019-05-07] MEDS: COREG PO SCH ×2 (09:29→21:27)
[2019-05-07] MEDS: COLACE PO SCH ×2 (09:30→21:27)
[2019-05-07] MEDS ORDERED: NON-FORMULARY (Hydralazine Hcl [Hydralazine Hcl] 50 MG) PO SCH (10:00)
[2019-05-07] MEDS ORDERED: COREG PO SCH (10:00)
[2019-05-07] MEDS ORDERED: NON-FORMULARY (Losartan [Cozaar] 100 MG) PO SCH (10:00)
[2019-05-07] MEDS ORDERED: BABY ASPIRIN PO SCH (10:00)
[2019-05-07] MEDS: APRESOLINE PO SCH ×2 (10:36→21:26)
[2019-05-07] MEDS: GLUCOPHAGE PO SCH ×2 (10:37→17:50)
[2019-05-07] MEDS: COZAAR PO SCH (10:37)
[2019-05-07] MEDS: LASIX PO SCH ×2 (10:39→17:51)
[2019-05-07] MEDS ORDERED: HALDOL IM ONE (11:00)
[2019-05-07 12:17] LABS: BUN/Creatinine Ratio 17; Blood Urea Nitrogen 12 mg/dL (7-17); Calcium 9.1 mg/dL (8.4-10.2); Hemolysis Index 1
[2019-05-07] MEDS: K-DUR PO SCH (13:12)
--- NOTE | 2019-05-07 14:19 | Progress Note ---
Assessment and Plan 1. TIA r/o CVA 2. Hypokalemia 3. DM type2 4. CAD with Prior [place] 5. Hyperlipidemia 6. Hypertension 7. Obesity 8. acute delirium, s/p haldol, now appears clam Plan: cont to monitor at [facility] r/o seizure, will obtain EEG Consulted neurology/PT/OT/speech for eval MRI/MRA of the brain ordered - no acute CVA Carotid doppler study - no stenosis, 2D echocardiogram -reserved EF cont on cardiac/diabetic diet as passed bedside swallow study cont high dose statin, asa, replete K Monitor blood glucose ACHS with insulin per sliding scale, follow A1c level Case management for DC plan - Per PT at her baseline Haldol as needed for agitation, monitor clinically Further plan per hospital course Subjective Date of service: 05/07/19 Interval history: Patient seen and examined appeared agitated this am, pulled out iv lines - given a dose of haldol Objective - Exam Narrative Exam: General appearance: Present: no acute distress - EENT Eyes: Present: EOM intact ENT: hearing intact - Neck Neck: Present: supple - Respiratory Respiratory effort: normal Respiratory: bilateral: CTA - Extremities Extremities: no ischemia, No edema, Full ROM Peripheral Pulses: within normal limits - Abdominal General gastrointestinal: Present: soft, non-tender, non-distended Female genitourinary: Present: deferred - Rectal Rectal Exam: deferred - Integumentary Integumentary: Present: clear, warm, dry - Musculoskeletal Musculoskeletal: strength equal bilaterally - Psychiatric Psychiatric: appropriate mood/affect - Neurologic Neurologic: moves all extremities, leftsided weakness - Constitutional Vitals: Vital Signs - 12hr 05/07/19 05/07/19 05/07/19 06:35 06:48 09:29 Temperature 98.1 F Pulse Rate 63 74 74 Respiratory 20 18 Rate Blood Pressure 183/87 165/97 165/74 O2 Sat by Pulse 94 95 Oximetry 05/07/19 05/07/19 05/07/19 10:36 10:37 12:28 Temperature 98.0 F Pulse Rate 74 74 77 Respiratory 18 Rate Blood Pressure 165/97 165/97 143/71 O2 Sat by Pulse 95 Oximetry - Labs CBC & Chem 7: 05/05/19 21:50 05/08/19 04:58 Labs: Abnormal lab results 05/06/19 05/06/19 05/07/19 Range/Units 15:54 22:52 05:45 Glucose (65-100) mg/dL POC Glucose 110 H 236 H (70-105) Hemoglobin A1c 6.2 H (4-6) % 05/07/19 05/07/19 05/07/19 Range/Units 06:39 11:30 11:49 Glucose 218 H (65-100) mg/dL POC Glucose 115 H 216 H (70-105) Hemoglobin A1c (4-6) %
[2019-05-07] MEDS ORDERED: HALDOL IM PRN (16:32)
--- NOTE | 2019-05-07 23:59 | Consultation ---
History of Present Illness Consult date: 05/07/19 Reason for Consult: Possible CVA Chief complaint: difficulty speaking and facial droop History of present illness: Patient is a 64 y/o woman w/ a h/o HTN, CAD, DM, h/o stroke w/ residual left sided weakness, HLD. Patient was noted to have left facial droop and difficulty speaking on friday, at approximately noon. Patient was brought to [facility], however was not felt to be a tPA candidate. Patient has now returned to baseline. Of note, patient also had a cardiac arrest in the past, after which she recovered. Past History Past Medical History: acute [place], diabetes, hypertension, hyperlipidemia, stroke, other Past Surgical History: total hip replacement, Other (back surgery) Social history: lives with family, smoking Family history: no significant family history Medications and Allergies Allergies Allergy/AdvReac Type Severity Reaction Status Date / Time MARIAN Inhibitors Allergy Angioedema Verified 03/08/19 09:37 esomeprazole magnesium Allergy Swelling Verified 03/08/19 09:37 [From Nexium] labetalol Allergy Itching Verified 03/08/19 09:37 Seafood Allergy Anaphylaxis Uncoded 03/08/19 09:37 Home Medications Medication Instructions Recorded Confirmed Last Taken Type Carvedilol [Coreg] 25 mg PO BID #60 tablet 12/20/15 03/08/19 03/07/19 Rx Ferrous Sulfate [Feosol 325 MG tab] 325 mg PO QDAY 04/19/16 03/08/19 03/07/19 History Losartan [Cozaar] 100 mg PO QDAY #30 tablet 04/19/16 03/08/19 03/07/19 Rx metFORMIN [Glucophage] 1,000 mg PO BID 04/19/16 03/08/19 03/07/19 History Albuterol Sulfate [Ventolin HFA] 2 puff IH Q6HR PRN 12/23/18 03/08/19 03/07/19 History Aspirin [Aspirin BABY CHEW TAB] 81 mg PO QDAY #30 tab.chew 12/30/18 03/08/19 03/07/19 Rx Atorvastatin Calcium [Lipitor] 40 mg PO DAILY 01/01/19 03/08/19 03/07/19 History Furosemide [Lasix] 20 mg PO BID 01/01/19 03/08/19 03/07/19 History Ibuprofen [Motrin 600 MG tab] 600 mg PO Q8H PRN #30 tablet 01/10/19 03/08/19 Rx Furosemide [Lasix TAB] 40 mg PO BID #7 tablet 01/31/19 03/08/19 03/07/19 Rx Hydralazine HCl 50 mg PO BID 03/08/19 03/08/19 03/07/19 History Insulin Aspart Protam & Aspart 18 units SQ QPM 03/08/19 03/08/19 03/07/19 History [NovoLOG Mix 70-30 Flexpen] Insulin Aspart Protam & Aspart 26 units SQ QAM 03/08/19 03/08/19 03/07/19 History [NovoLOG Mix 70-30 Flexpen] Active Meds: Active Medications Aspirin (Aspirin) 325 mg PO QDAY [facility] Last Admin: 05/07/19 09:29 Dose: 325 mg Documented by: Atorvastatin Calcium (Lipitor) 40 mg PO QHS [facility] Last Admin: 05/07/19 21:26 Dose: 40 mg Documented by: Bisacodyl (Dulcolax) 10 mg NJ QDAY PRN PRN Reason: Constipation Carvedilol (Coreg) 3.125 mg PO BID [facility] Last Admin: 05/07/19 21:27 Dose: 3.125 mg Documented by: Docusate Sodium (Colace) 100 mg PO BID [facility] Last Admin: 05/07/19 21:27 Dose: 100 mg Documented by: Ferrous Sulfate (Feosol) 325 mg PO QDAY [facility] Last Admin: 05/07/19 09:29 Dose: 325 mg Documented by: Furosemide (Lasix) 20 mg PO 0600,1800 [facility] Last Admin: 05/07/19 17:51 Dose: 20 mg Documented by: Haloperidol Lactate (Haldol) 2.5 mg IM Q6H PRN PRN Reason: Agitation Hydralazine HCl (Apresoline) 50 mg PO BID [facility] Last Admin: 05/07/19 21:26 Dose: 50 mg Documented by: Losartan Potassium (Cozaar) 100 mg PO QDAY [facility] Last Admin: 05/07/19 10:37 Dose: 100 mg Documented by: Magnesium Hydroxide (Milk Of Magnesia) 30 ml PO Q4H PRN PRN Reason: Constipation Metformin HCl (Glucophage) 1,000 mg PO BIDDIAB [facility] Last Admin: 05/07/19 17:50 Dose: 1,000 mg Documented by: Metoclopramide HCl (Reglan) 10 mg PO Q6H PRN PRN Reason: Nausea And Vomiting Ondansetron HCl (Zofran) 4 mg IV Q8H PRN PRN Reason: Nausea And Vomiting Potassium Chloride (K-Dur) 20 meq PO QDAY [facility] Last Admin: 05/07/19 13:12 Dose: 20 meq Documented by: Promethazine HCl (Phenergan) 25 mg NJ Q6H PRN PRN Reason: Nausea And Vomiting Sodium Chloride (Sodium Chloride Flush Syringe 10 Ml) 10 ml IV PRN PRN PRN Reason: LINE FLUSH Last Admin: 05/07/19 21:27 Dose: 10 ml Documented by: Review of Systems All systems: negative Neurological: change in speech, other (facial droop) Physical Examination - Vital Signs Vital Signs: Vital Signs Resp Pulse Ox 18 97 05/05/19 21:40 05/05/19 21:40 - Physical Exam Narrative exam: Gen: no distress, cooperative Neck: no JVD, masses, or bruits HEENT: atraumatic, sclera anicteric CV RRR Lung symmetric chest expansion Abd: soft, non-tender, non-distended Ext: no edema Neurological Examination: Mental status: Alert, oriented x 3, appropriate in conversation to recent and remote events, follows complex commands. Language: Fluent, comprehension, repetition and naming intact CN: VF full, pupils ERR, EOMi, V1-3 equal to light touch No droop, no dysarthria Uvula are midline Tongue midline Motor system: Muscle tone and appearance are normal Strength: RUE: proximal: 5/5, distal: 5/5 LUE: proximal: 4/5, distal: 4/5 RLE: proximal: 5/5, distal: 5/5 LLE: proximal: 4/5, distal: 4/5 Reflexes: 2+ in biceps/brachioradialis/triceps/patellar/ankle Sensory: Grossly symmetric Coord: No tremor, FTN, HTS intact Gait: deferred - Assessment Assessment Interval: Baseline - Level of Consciousness 1a. Level of Consciousness: alert/keenly responsive - LOC Questions 1b. LOC Questions: answers both correctly - LOC Command 1c. LOC Commands: performs tasks correctly - Best Gaze 2. Best Gaze: normal - Visual 3. Visual: no visual loss - Facial Palsy 4. Facial Palsy: normal symmetrical movement - Motor Arm 5a. Motor Arm Left: no drift 5b. Motor Arm Right: no drift - Motor Leg 6a. Motor Leg Left: no drift 6b. Motor Leg Right: no drift - Limb Ataxia 7. Limb Ataxia: absent - Sensory 8. Sensory: normal - Best Language 9. Best Language: no aphasia - Dysarthria 10. Dysarthria: normal - Extinction and Inattention 11. Extinction/Inattention: no abnormality - Scoring Total Score: 0 Stroke Severity: No Stroke Symptoms Results - Laboratory Findings CBC and BMP: 05/05/19 21:50 05/08/19 04:58 Abnormal Lab Findings: Abnormal Labs 05/05/19 05/05/19 05/05/19 21:50 21:50 21:50 RDW 15.8 H [place] % (Auto) 9.5 H Eos % (Auto) 4.8 H POC ABG pO2 Potassium 3.3 L Glucose 169 H POC Glucose Hemoglobin A1c Magnesium 1.20 L Salicylates Acetaminophen 05/05/19 05/05/19 05/05/19 21:50 21:50 21:54 RDW [place] % (Auto) Eos % (Auto) POC ABG pO2 Potassium Glucose POC Glucose 190 H Hemoglobin A1c Magnesium Salicylates 0.4 L Acetaminophen < 5.0 L 05/05/19 05/06/19 05/06/19 22:24 07:59 09:02 RDW [place] % (Auto) Eos % (Auto) POC ABG pO2 75 L Potassium Glucose POC Glucose 61 L 107 H Hemoglobin A1c Magnesium Salicylates Acetaminophen 05/06/19 05/06/19 05/07/19 15:54 22:52 05:45 RDW [place] % (Auto) Eos % (Auto) POC ABG pO2 Potassium Glucose POC Glucose 110 H 236 H Hemoglobin A1c 6.2 H Magnesium Salicylates Acetaminophen 05/07/19 05/07/19 05/07/19 06:39 11:30 11:49 RDW [place] % (Auto) Eos % (Auto) POC ABG pO2 Potassium Glucose 218 H POC Glucose 115 H 216 H Hemoglobin A1c Magnesium Salicylates Acetaminophen 05/07/19 05/07/19 16:40 21:56 RDW [place] % (Auto) Eos % (Auto) POC ABG pO2 Potassium Glucose POC Glucose 127 H 165 H Hemoglobin A1c Magnesium Salicylates Acetaminophen Assessment and Plan Patient is a 64 y/o woman w/ a h/o HTN, CAD, DM, h/o stroke w/ residual left sided weakness, HLD, who p/w an episode of left facial droop and difficulty speaking. According to the patient's clinical findings, it is possible that she has had a TIA. MRI does not reveal any evidence of acute infarct. MRI did show areas of hyperintensity in bilateral basal ganglia, which was also present on a previous MRI from February 2019. It is felt that these are likely due to hypoxic- ischemic event which likely occurred when patient had a cardiac arrest in the past. Plan: #TIA - MRI brain without contrast did not reveal any evidence of acute abnormality - MRI did show areas of hyperintensity in bilateral basal ganglia, which was also present on a previous MRI from February 2019. It is felt that these are likely due to hypoxic-ischemic event which likely occurred when patient had a cardiac arrest in the past. - Echocardiogram: EF 50-555, bubble study negative, LA size normal. - EEG did not reveal any epileptiform activity. - MRA head and CUS did not reveal any significant stenosis. - Labs to include CBC, TSH, fT4, Urinalysis. - Recommend 30-day cardiac monitoring or implantable loop recorder placement as outpatient if no a-fib noted on telemetry during this admission. - Secondary prevention - Cont. pt on Aspirin 81 mg daily - Cont. on high-intensity statin with LDL goal <70. Current LDL 57 - HbA1C 6.2 - Telemetry monitoring while in house. - Physical therapy and occupational therapy for evaluation of mobility - Speech therapy consultation for swallow evaluation. - DVT ppx - SCD for now. Consider lovenox. #Blood pressure - Recommend BP goal of normotension, as it has been >24 hours since symptom onset. - Recommend for patient to follow up as outpatient with neurology. -Will sign off, as I am not covering the weekend. Please consult neurologist that is covering on the weekend, as patient will require neurologic monitoring. Henry Padilla MD Neurology
[2019-05-08 05:52] LABS: BUN/Creatinine Ratio 18; Blood Urea Nitrogen 11 mg/dL (7-17); Calcium 8.8 mg/dL (8.4-10.2); Hemolysis Index 5
[2019-05-08] MEDS: LASIX PO SCH (06:48)
[2019-05-08] MEDS: GLUCOPHAGE PO SCH (09:35)
[2019-05-08] MEDS: APRESOLINE PO SCH (11:09)
[2019-05-08] MEDS: COLACE PO SCH (11:09)
[2019-05-08] MEDS: K-DUR PO SCH (11:10)
[2019-05-08] MEDS: FEOSOL PO SCH (11:10)
[2019-05-08] MEDS: ASPIRIN PO SCH (11:10)
[2019-05-08] MEDS: COZAAR PO SCH (11:11)
[2019-05-08] MEDS: COREG PO SCH (11:11)
--- NOTE | 2019-05-08 11:17 | Electroencephalogram Report ---
Electroencephalogram EEG Date of exam: 05/07/19 History: Patient is a 64 y/o woman w/ a h/o HTN, CAD, DM, h/o stroke w/ residual left sided weakness, HLD, who p/w an episode of left facial droop and difficulty speaking. Description: MEDICATIONS: Current medication list reviewed. DESCRIPTION OF THE PROCEDURE: Electrodes were applied using Paste technique in positions dictated by International 10-20 system of placement. In addition to EEG data EKG and eye movements were recorded. DESCRIPTION OF ACTIVITIY: At the onset of this recording, the patient is lying supine. In the background we note a 9 Hz alpha posterior dominant rhythm. There are no asymmetries in amplitude or frequency between hemispheres. During drowsiness, there is attenuation of alpha rhythm and low voltage theta activity occurs bilaterally. Photic stimulation was not performed. Hyperventilation was not performed. EEG Impression: 1) Normal awake activity. 2) No epileptiform activity or seizures were noted CLINICAL INTERPRETATION: This routine EEG, performed during wakefulness and drowsiness is normal. [Note that a normal routine EEG does not rule out of the diagnosis of epilepsy. Should there be continued suspicion of seizures, a repeat study of longer duration can be considered.]
--- NOTE | 2019-05-08 12:52 | Discharge Summary ---
Providers - Providers Date of Admission: 05/05/19 23:49 Date of discharge: 05/08/19 Attending physician: LATIA SCHMITZ 05/05/19 21:33 Consult to Physician [CONS] Urgent Comment: DR BOWDEN SPClaudia W/TELE NEURO @[phone] Consulting Provider: ALBAN SHEPHERD Physician Instructions: Reason For Exam: NEUROLOGIC SYMPTOMS 05/06/19 00:17 Consult to Case Management [CONS] Routine Services Needed at Discharge: Other Occupational Therapy Physical Therapy Notified:: copy left for CM Consult to Dietitian/Nutrition [CONS] Routine Physician Instructions: Reason For Exam: Reason for Consult: Nutrition Recommendations Reason for Consult: Diet education Occupational Therapy Evaluate and Treat [CONS] Routine Comment: Reason For Exam: Neuro deficits Physical Therapy Evaluation and Treat [CONS] Routine Comment: Reason For Exam: Neuro deficits 05/07/19 14:18 Consult to Physician [CONS] Routine Comment: Consulting Provider: SARITA FRANKLIN Physician Instructions: Reason For Exam: possible CVA Hospitalization Condition: Good Hospital course: Discharge diagnosis: 1. TIA ruled out CVA - MRI brain without contrast did not reveal any evidence of acute abnormality - MRI did show areas of hyperintensity in bilateral basal ganglia, which was also present on a previous MRI from February 2019. It is felt that these are likely due to hypoxic-ischemic event which likely occurred when patient had a cardiac arrest in the past. - Echocardiogram: EF 50-555, bubble study negative, LA size normal. - EEG did not reveal any epileptiform activity. - MRA head and CUS did not reveal any significant stenosis. - Labs to include CBC, TSH, fT4, Urinalysis. - Recommend 30-day cardiac monitoring or implantable loop recorder placement as outpatient by neurology. 2. Hypokalemia, repleted 3. DM type2 4. CAD with Prior CT 5. Hyperlipidemia 6. Hypertension, uncontrolled 7. Obesity, due to access calorie 8. Acute delirium, not POA - s/p haldol, now appears clam, resolved Disposition: DC/TX-06 HOME [facility] Time spent for discharge: 34 minutes Core Measure Documentation - Palliative Care Palliative Care/ Comfort Measures: Not Applicable - Core Measures Any of the following diagnoses?: stroke - Stroke Discharge Requirements Statin for LDL = or >70 mg/dl on DC: Yes Anticoag for atrial fib/atrial flutter: Not Applicable Antithrombotic for ischemic stroke: Yes Exam - Physical Exam Narrative exam: General appearance: Present: no acute distress - EENT Eyes: Present: EOM intact ENT: hearing intact - Neck Neck: Present: supple - Respiratory Respiratory effort: normal Respiratory: bilateral: CTA - Extremities Extremities: no ischemia, No edema, Full ROM Peripheral Pulses: within normal limits - Abdominal General gastrointestinal: Present: soft, non-tender, non-distended Female genitourinary: Present: deferred - Rectal Rectal Exam: deferred - Integumentary Integumentary: Present: clear, warm, dry - Musculoskeletal Musculoskeletal: strength equal bilaterally - Psychiatric Psychiatric: appropriate mood/affect - Neurologic Neurologic: moves all extremities, leftsided weakness - Constitutional Vitals: Temp Pulse Resp BP Pulse Ox 97.9 F 77 20 151/77 95 05/08/19 06:31 05/08/19 11:11 05/08/19 06:31 05/08/19 11:11 05/08/19 06:31 Plan Activity: fall precautions Weight Bearing Status: Non-Weight Bearing Diet: low fat, low salt, diabetic Special Instructions: record daily weights, record daily BP diary Durable Medical Equipment Needed Upon Discharge: Walker-Rolling Additional Instructions: needs event monitor outpt Follow up with: IVONE PEREIRA MD [Staff Physician] - 3-5 Days
[2019-05-08 12:56] VITALS: BP 164/105
== END 2019-05-08 15:30 | disposition home health service (06) ==
LOC: ED 21:18 → 3A 23:49
PROVIDERS: ADMIT Internal Medicine; ATTEND Internal Medicine
DX: G45.9 Transient cerebral ischemic attack, unspecified (principal); R13.10 Dysphagia, unspecified; R41.0 Disorientation, unspecified; E11.9 Type 2 diabetes mellitus without complications; I10 Essential (primary) hypertension; E78.5 Hyperlipidemia, unspecified; E87.6 Hypokalemia; I25.2 Old myocardial infarction; I25.10 Atherosclerotic heart disease of native coronary artery without angina pectoris; E66.9 Obesity, unspecified; Z86.73 Personal history of transient ischemic attack (TIA), and cerebral infarction without residual deficits; Z96.649 Presence of unspecified artificial hip joint; Z79.899 Other long term (current) drug therapy
CPT/HCPCS: 36415; 70450; 70544; 70553; 71045; 80048; 80061; 81001; 82140; 82375; 82550; 82803; 82805; 82962; 83036; 83735; 84439; 84443; 84484; 85025; 85610; 85670; 85730; 87116; 92610; 93005; 93010; 93306; 93880; 95819; 96365; 96366; 96368; 96372; 97116; 97161; 99284; 99406; A9270; A9577; G0378; J1630; J3475; J3480; J7040; 80320; G0480

== ENCOUNTER 2021-01-20 19:19 | Observation (INO) | payer MEDICARE ==
[2021-01-20] MEDS ORDERED: MECLIZINE 25 MG TAB PO ONE (21:32)
[2021-01-20] MEDS ORDERED: ONDANSETRON 4 MG/2 ML INJ IV ONE (21:32)
[2021-01-20] MEDS ORDERED: fentaNYL 100 MCG/2 ML INJ IV ONE (21:32)
[2021-01-20] MEDS ORDERED: NITROGLYCERIN 2% OINT 1 GM TP ONE (21:32)
--- NOTE | 2021-01-20 21:37 | Emergency Department Report ---
HPI - General Chief Complaint: Dizziness Time Seen by Provider: 01/20/21 21:20 - HPI HPI: Room 23 The patient is a 65-year-old female present with a chief complaint of dizziness. The patient states he developed substernal chest pain this morning and has been constant. Patient describes the chest pain as feeling as though there is "an elephant sitting on my chest." Patient admits to shortness of breath and nausea/vomiting with this chest pain but denies diaphoresis. The patient states a few hours ago she developed dizziness and a headache. Patient denies any history of fever. Patient denies any new weakness. Patient has left-sided weakness from previous CVA and states this is unchanged. The patient currently gives her chest pain score of 10/10. Patient states she is never had a cardiac catheterization ED Past Medical Hx - Past Medical History Previous Medical History?: Yes Hx Hypertension: Yes Hx CVA: Yes (Left sided weakness) Hx Heart Attack/AMI: Yes Hx Diabetes: Yes Additional medical history: Angina, Vertigo. Cardiac arrest - Surgical History Past Surgical History?: Yes Additional Surgical History: bilateral hip replacement; ankle surgery; back surgery, - Family History Family history: no significant - Social History Smoking Status: Current Every Day Smoker (1/2 pack/day) Substance Use Type: None (Denies illicit drug use) - Medications Home Medications: Home Medications Medication Instructions Recorded Confirmed Last Taken Type Ferrous Sulfate [Feosol 325 MG tab] 325 mg PO QDAY 04/19/16 03/08/19 03/07/19 History Losartan [Cozaar] 100 mg PO QDAY #30 tablet 04/19/16 03/08/19 03/07/19 Rx metFORMIN [Glucophage] 1,000 mg PO BID 04/19/16 03/08/19 03/07/19 History Albuterol Sulfate [Ventolin HFA] 2 puff IH Q6HR PRN 12/23/18 03/08/19 03/07/19 History Aspirin [Aspirin BABY CHEW TAB] 81 mg PO QDAY #30 tab.chew 12/30/18 03/08/19 03/07/19 Rx Atorvastatin Calcium [Lipitor] 40 mg PO DAILY 01/01/19 03/08/19 03/07/19 History Furosemide [Lasix] 20 mg PO BID 01/01/19 03/08/19 03/07/19 History Ibuprofen [Motrin 600 MG tab] 600 mg PO Q8H PRN #30 tablet 01/10/19 03/08/19 03/07/19 Rx Hydralazine HCl 50 mg PO BID 03/08/19 03/08/19 03/07/19 History Furosemide [Lasix TAB] 40 mg PO DAILY #30 tablet 05/08/19 03/08/19 03/07/19 Rx Insulin Aspart Protam & Aspart 10 units SQ QPM 30 Days 05/08/19 03/08/19 03/07/19 Rx [NovoLOG Mix 70-30 Flexpen] Insulin Aspart Protam & Aspart 15 units SQ QAM 30 Days 05/08/19 03/08/19 03/07/19 Rx [NovoLOG Mix 70-30 Flexpen] carvediloL [Coreg] 12.5 mg PO BID #60 tablet 05/08/19 03/08/19 03/07/19 Rx ED Review of Systems ROS: Stated complaint: WEAKNESS/HYPERGLYCERIA Other details as noted in HPI Constitutional: denies: diaphoresis, fever Eyes: denies: eye pain ENT: denies: throat pain Respiratory: shortness of breath Cardiovascular: chest pain Endocrine: no symptoms reported Gastrointestinal: nausea, vomiting Genitourinary: denies: dysuria Musculoskeletal: denies: back pain Neurological: headache, vertigo Physical Exam - Physical Exam Vital Signs: Vital Signs 01/20/21 01/20/21 01/20/21 20:51 20:53 20:54 Temperature 98.4 F Pulse Rate 71 72 Respiratory 18 23 Rate Blood Pressure 168/80 O2 Sat by Pulse 95 94 Oximetry 01/20/21 01/20/21 01/20/21 20:55 20:57 20:59 Temperature Pulse Rate 74 72 77 Respiratory 28 H 26 H 14 Rate Blood Pressure 168/80 168/80 168/80 O2 Sat by Pulse 95 93 94 Oximetry Physical Exam: GENERAL: The patient is well-developed well-nourished female lying on stretcher not appearing to be in acute distress. [] HEENT: Normocephalic. Atraumatic. Extraocular motions are intact. Patient has moist mucous membranes. NECK: Supple. Trachea midline CHEST/LUNGS: Clear to auscultation. There is no respiratory distress noted. HEART/CARDIOVASCULAR: Regular. There is no tachycardia. There is no gallop rub or murmur. ABDOMEN: Abdomen is soft, nontender. Patient has normal bowel sounds. There is no abdominal distention. SKIN: There is no rash. There is no edema. There is no diaphoresis. NEURO: The patient is awake, alert, and oriented. The patient is cooperative. The patient has left-sided weakness from previous CVA. Cranial nerves II through XII grossly intact with exception of cranial nerve #11 on the left. The patient has slow but normal speech. GCS 15 MUSCULOSKELETAL:There is no evidence of acute injury. ED Course Vital Signs 01/20/21 01/20/21 01/20/21 20:51 20:53 20:54 Temperature 98.4 F Pulse Rate 71 72 Respiratory 18 23 Rate Blood Pressure 168/80 O2 Sat by Pulse 95 94 Oximetry 01/20/21 01/20/21 01/20/21 20:55 20:57 20:59 Temperature Pulse Rate 74 72 77 Respiratory 28 H 26 H 14 Rate Blood Pressure 168/80 168/80 168/80 O2 Sat by Pulse 95 93 94 Oximetry ED Medical Decision Making - Lab Data Result diagrams: 01/20/21 22:13 01/20/21 22:13 - EKG Data -: EKG Interpreted by Me EKG shows normal: sinus rhythm Rate: normal (82 bpm) - EKG Data When compared to previous EKG there are: previous EKG unavailable Interpretation: other (No ischemic changes seen) - Radiology Data Radiology results: image reviewed (Chest x-ray, CT head) interpreted by me: Chest x-ray-left lower lobe atelectasis. No pneumothorax. No foreign body seen [facility] [address] [place] [address] XRay Report Signed Patient: RAMEZ GARZA MR#: [id number] 800 : 1955 Acct:[id number] Age/Sex: 65 / F ADM Date: 01/20/21 Loc: ED Attending Dr: Ordering Physician: ERIKA CALI MD Date of Service: 01/20/21 Procedure(s): XR chest 1V ap Accession Number(s): [id number] cc: ERIKA CALI MD Fluoro Time In Nina angelina: CHEST 1 VIEW 01/20/2021 9:36 PM INDICATION / CLINICAL INFORMATION: Chest pain. COMPARISON: 05/05/19. FINDINGS: There is mild patient rotation to the left. SUPPORT DEVICES: None. HEART / MEDIASTINUM: The heart size and pulmonary vasculature are normal. The aorta is normal in caliber. LUNGS / PLEURA: There is mild focal linear parenchymal opacity in the left midlung, new since the prior exam. The lungs are otherwise clear. No pleural abnormality. No pneumothorax. ADDITIONAL FINDINGS: No significant additional findings. IMPRESSION: Subsegmental parenchymal disease in the left midlung is more likely related to subsegmental atelectasis than pneumonia. Signer Name: Jermaine Borjas MD Signed: 01/20/2021 10:11 PM Workstation Name: [id number] Transcribed By: RT Dictated By: Jermaine Borjas MD Electronically Authenticated By: Jermaine Borjas MD Signed Date/Time: 01/20/212210 DD/ 08 TD/TT: Print Cancel [facility] [address] [place] [address] Cat Scan Report Signed Patient: RAMEZ GARZA MR#: [id number] 800 : 1955 Acct:[id number] Age/Sex: 65 / F ADM Date: 01/20/21 Loc: ED Attending Dr: Order ing Physician: ERIKA CALI MD Date of Service: 01/20/21 Procedure(s): CT head/brain wo con Accession Number(s): [id number] cc: ERIKA CALI MD CT HEAD WITHOUT CONTRAST INDICATION / CLINICAL INFORMATION: Dizziness. TECHNIQUE: All CT scans at this location are performed using CT dose reduction for ALARA by means of automated exposure control. COMPARISON: CT dated 05/05/19 FINDINGS: HEMORRHAGE: None. EXTRA-AXIAL SPACES: Normal in size and morphology for the patient's age. VENTRICULAR SYSTEM: Normal in size and morphology for the patient's age. CEREBRAL PARENCHYMA: No acute territorial infarct. White matter hypodensities may be related to microangiopathy. MIDLINE SHIFT / HERNIATION: None. CEREBELLUM / BRAINSTEM: No significant abnormality. ORBITS: Normal as visualized. SOFT TISSUES: No significant abnormality. SKULL: No significant abnormality. PARANASAL SINUSES / MASTOID AIR CELLS: Normal as visualized. ADDITIONAL FINDINGS: None. IMPRESSION: 1. No acute intracranial abnormality. 2. Chronic and age-related findings. Signer Name: Alma Rosa Amado MD Signed: 01/20/2021 10:11 PM Workstation Name: [id number] Transcribed By: DT Dictated By: Andrei Amado MD Electronically Authenticated By: Andrei Amado MD Signed Date/Time: 01/20/212210 DD/ 09 TD/TT: Print Cancel - Differential Diagnosis ACS, vertigo, intracranial mass, ICH, DKA Critical care attestation.: If time is entered above; I have spent that time in minutes in the direct care of this critically ill patient, excluding procedure time. ED Disposition Clinical Impression: Chest pain Disposition: OP ADMIT IP TO THIS HOSP Is pt being admited?: Yes Does the pt Need Aspirin: Yes Condition: Stable Instructions: Nonspecific Chest Pain, Adult Referrals: PRIMARY CARE, [Primary Care Provider] - 3-5 Days Time of Disposition: 00:13 (Hospitalist notified (Dr Thao)) Heart Score - HEART Score History: Highly suspicious EKG: Normal Age: 45-65 Risk factors: > 3 risk factors or hx of atherosclerotic disease Troponin: < normal limit HEART Score: 5 - EKG Read Time Time EKG Completed: 00:08 EKG Read Time: 00:10
--- NOTE | 2021-01-20 22:15 | XRay Report ---
CHEST 1 VIEW 01/20/2021 9:36 PM INDICATION / CLINICAL INFORMATION: Chest pain. COMPARISON: 05/05/19. FINDINGS: There is mild patient rotation to the left. SUPPORT DEVICES: None. HEART / MEDIASTINUM: The heart size and pulmonary vasculature are normal. The aorta is normal in pool marti. LUNGS / PLEURA: There is mild focal linear parenchymal opacity in the left midlung, new since the faustino or exam. The lungs are otherwise clear. No pleural abnormality. No pneumothorax. ADDITIONAL FINDINGS: No significant additional findings. IMPRESSION: Subsegmental parenchymal disease in the left midlung is more likely related to subsegment al atelectasis than pneumonia. Signer Name: Jermaine Borjas MD Signed: 01/20/2021 10:11 PM Workstation Name: [id number]
--- NOTE | 2021-01-20 22:16 | Cat Scan Report ---
CT HEAD WITHOUT CONTRAST INDICATION / CLINICAL INFORMATION: Dizziness. TECHNIQUE: All CT scans at this location are performed using CT dose reduction for ALARA by means of automated exposure control. COMPARISON: CT dated 05/05/19 FINDINGS: HEMORRHAGE: None. EXTRA-AXIAL SPACES: Normal in size and morphology for the patient's age. VENTRICULAR SYSTEM: Normal in size and morphology for the patient's age. CEREBRAL PARENCHYMA: No acute territorial infarct. White matter hypodensities may be related to micro angiopathy. MIDLINE SHIFT / HERNIATION: None. CEREBELLUM / BRAINSTEM: No significant abnormality. ORBITS: Normal as visualized. SOFT TISSUES: No significant abnormality. SKULL: No significant abnormality. PARANASAL SINUSES / MASTOID AIR CELLS: Normal as visualized. ADDITIONAL FINDINGS: None. IMPRESSION: 1. No acute intracranial abnormality. 2. Chronic and age-related findings. Signer Name: Alma Rosa Amado MD Signed: 01/20/2021 10:11 PM Workstation Name: [id number]
[2021-01-20] MEDS ORDERED: ASPIRIN 325 MG TAB PO ONE (22:25)
[2021-01-20 22:47] LABS: Basophils % (Auto) 0.2 % (0.0-1.8); Eosinophils # (Auto) 0.1 K/mm3 (0.0-0.4); Eosinophils % (Auto) 1.1 % (0.0-4.3); Hematocrit 28.6 % (30.3-42.9); Hemoglobin 9.7 gm/dl (10.1-14.3); Lymphocytes # (Auto) 1.1 K/mm3 (1.2-5.4); Lymphocytes % (Auto) 10.9 % (13.4-35.0); Mean Corpuscular HGB Conc 34 % (30-34); Mean Corpuscular Volume 85 fl (79-97); Monocytes # (Auto) 0.4 K/mm3 (0.0-0.8); Monocytes % (Auto) 3.7 % (0.0-7.3); Platelet Count 295 K/mm3 (140-440); Red Blood Count 3.36 M/mm3 (3.65-5.03); Red Cell Distribution Width 14.5 % (13.2-15.2)
[2021-01-20 23:01] LABS: Alanine Aminotransferase 16 units/L (7-56); BUN/Creatinine Ratio 13; Blood Urea Nitrogen 10 mg/dL (7-17); Calcium 8.5 mg/dL (8.4-10.2); Creatine Kinase MB 1.2 ng/mL (0.0-4.0); Hemolysis Index 171
[2021-01-20 23:11] LABS: Free T4 (Free Thyroxine) 1.25 ng/dL (0.76-1.46)
[2021-01-21] MEDS ORDERED: ALBUTEROL 8.5 GM MDI INHALATION IH PRN (00:38)
[2021-01-21] MEDS ORDERED: IBUPROFEN 600 MG TAB PO PRN (00:38)
[2021-01-21] MEDS ORDERED: ACETAMINOPHEN 325 MG TAB PO PRN (00:41)
--- NOTE | 2021-01-21 00:48 | History and Physical Report ---
History of Present Illness Date of examination: 01/21/21 Date of admission: 01/21/21 Chief complaint: Dizziness Chest pain History of present illness: 65-year-old female with past medical history of hypertension, history of CVA, diabetes angina vertigo was brought to the emergency room because of dizziness and substernal chest pain this morning and has been constant. Patient describes the chest pain 10/10 as feeling as though there is "an elephant sitting on my chest." Patient admits to shortness of breath and nausea/vomiting with this chest pain but denies diaphoresis. The patient states a few hours ago she developed dizziness and a headache. Patient denies any history of fever. Patient denies any new weakness. Patient has left-sided weakness from previous CVA and states this is unchanged. Patient states she is never had a cardiac catheterization In the emergency room initial cardiac enzyme is negative troponin is 0.010 Past History Past Medical History: diabetes, hypertension, stroke, other (Angina, vertigo, but cardiac arrest) Medications and Allergies Allergies Allergy/AdvReac Type Severity Reaction Status Date / Time MARIAN Inhibitors Allergy Angioedema Verified 03/08/19 09:37 esomeprazole magnesium Allergy Swelling Verified 03/08/19 09:37 [From Nexium] labetalol Allergy Itching Verified 03/08/19 09:37 Seafood Allergy Anaphylaxis Uncoded 03/08/19 09:37 Home Medications Medication Instructions Recorded Confirmed Last Taken Type Ferrous Sulfate [Feosol 325 MG tab] 325 mg PO QDAY 04/19/16 03/08/19 03/07/19 History Losartan [Cozaar] 100 mg PO QDAY #30 tablet 04/19/16 03/08/19 03/07/19 Rx metFORMIN [Glucophage] 1,000 mg PO BID 04/19/16 03/08/19 03/07/19 History Albuterol Sulfate [Ventolin HFA] 2 puff IH Q6HR PRN 12/23/18 03/08/19 03/07/19 History Aspirin [Aspirin BABY CHEW TAB] 81 mg PO QDAY #30 tab.chew 12/30/18 03/08/19 03/07/19 Rx Atorvastatin Calcium [Lipitor] 40 mg PO DAILY 01/01/19 03/08/19 03/07/19 History Furosemide [Lasix] 20 mg PO BID 01/01/19 03/08/19 03/07/19 History Ibuprofen [Motrin 600 MG tab] 600 mg PO Q8H PRN #30 tablet 01/10/19 03/08/19 03/07/19 Rx Hydralazine HCl 50 mg PO BID 03/08/19 03/08/19 03/07/19 History Furosemide [Lasix TAB] 40 mg PO DAILY #30 tablet 05/08/19 03/08/19 03/07/19 Rx Insulin Aspart Protam & Aspart 10 units SQ QPM 30 Days 05/08/19 03/08/19 03/07/19 Rx [NovoLOG Mix 70-30 Flexpen] Insulin Aspart Protam & Aspart 15 units SQ QAM 30 Days 05/08/19 03/08/19 03/07/19 Rx [NovoLOG Mix 70-30 Flexpen] carvediloL [Coreg] 12.5 mg PO BID #60 tablet 05/08/19 03/08/19 03/07/19 Rx Review of Systems Cardiovascular: chest pain, shortness of breath Respiratory: shortness of breath Gastrointestinal: nausea, vomiting Exam - Constitutional Vitals: Temp Pulse Resp BP Pulse Ox 98.4 F 76 27 H 185/78 94 01/20/21 20:54 01/20/21 23:20 01/20/21 23:17 01/20/21 23:20 01/20/21 23:17 General appearance: Present: mild distress, well-nourished - EENT Eyes: Present: PERRL ENT: hearing intact, clear oral mucosa - Neck Neck: Present: supple, normal ROM - Respiratory Respiratory effort: normal Respiratory: bilateral: diminished - Cardiovascular Heart Sounds: Present: S1 & S2. Absent: rub, click - Extremities Extremities: pulses symmetrical, No edema Peripheral Pulses: within normal limits - Abdominal General gastrointestinal: Present: soft, non-tender, non-distended, normal bowel sounds Female genitourinary: Present: normal - Integumentary Integumentary: Present: clear, warm, dry - Musculoskeletal Musculoskeletal: gait normal, strength equal bilaterally - Psychiatric Psychiatric: appropriate mood/affect, intact judgment & insight - Neurologic Neurologic: CNII-XII intact, moves all extremities HEART Score - HEART Score EKG: Normal Age: 45-65 Risk factors: > 3 risk factors or hx of atherosclerotic disease Troponin: Troponin T < 0.010 ng/mL (0.00-0.029) 01/20/21 22:13 Troponin: < normal limit Results - Labs CBC & Chem 7: 01/20/21 22:13 01/20/21 22:13 Labs: Laboratory Last Values WBC 10.5 K/mm3 (4.5-11.0) 01/20/21 22:13 RBC 3.36 M/mm3 (3.65-5.03) L 01/20/21 22:13 Hgb 9.7 gm/dl (10.1-14.3) L 01/20/21 22:13 Hct 28.6 % (30.3-42.9) L 01/20/21 22:13 MCV 85 fl (79-97) 01/20/21 22:13 MCH 29 pg (28-32) 01/20/21 22:13 MCHC 34 % (30-34) 01/20/21 22:13 RDW 14.5 % (13.2-15.2) 01/20/21 22:13 Plt Count 295 K/mm3 (140-440) 01/20/21 22:13 Lymph % (Auto) 10.9 % (13.4-35.0) L 01/20/21 22:13 [place] % (Auto) 3.7 % (0.0-7.3) 01/20/21 22:13 Eos % (Auto) 1.1 % (0.0-4.3) 01/20/21 22:13 Baso % (Auto) 0.2 % (0.0-1.8) 01/20/21 22:13 Lymph # (Auto) 1.1 K/mm3 (1.2-5.4) L 01/20/21 22:13 [place] # (Auto) 0.4 K/mm3 (0.0-0.8) 01/20/21 22:13 Eos # (Auto) 0.1 K/mm3 (0.0-0.4) 01/20/21 22:13 Baso # (Auto) 0.0 K/mm3 (0.0-0.1) 01/20/21 22:13 Seg Neutrophils % 84.1 % (40.0-70.0) H 01/20/21 22:13 Seg Neutrophils # 8.8 K/mm3 (1.8-7.7) H 01/20/21 22:13 VBG pH 7.470 (7.320-7.420) H 01/20/21 22:13 Sodium 139 mmol/L (137-145) 01/20/21 22:13 Potassium 4.3 mmol/L (3.6-5.0) 01/20/21 22:13 Chloride 100.5 mmol/L (98-107) 01/20/21 22:13 Carbon Dioxide 28 mmol/L (22-30) 01/20/21 22:13 Anion Gap 15 mmol/L 01/20/21 22:13 BUN 10 mg/dL (7-17) 01/20/21 22:13 Creatinine 0.8 mg/dL (0.6-1.2) 01/20/21 22:13 Estimated GFR > 60 ml/min 01/20/21 22:13 BUN/Creatinine Ratio 13 % 01/20/21 22:13 Glucose 211 mg/dL (65-100) H 01/20/21 22:13 Calcium 8.5 mg/dL (8.4-10.2) 01/20/21 22:13 Magnesium 1.90 mg/dL (1.7-2.3) 01/20/21 22:13 Total Bilirubin 0.60 mg/dL (0.1-1.2) 01/20/21 22:13 AST 27 units/L (5-40) 01/20/21 22:13 ALT 16 units/L (7-56) 01/20/21 22:13 Alkaline Phosphatase 56 units/L (35-129) 01/20/21 22:13 Ammonia 24.0 umol/L (25-60) L 01/20/21 22:13 Total Creatine Kinase 108 units/L (30-135) 01/20/21 22:13 CK-MB (CK-2) 1.2 ng/mL (0.0-4.0) 01/20/21 22:13 CK-MB (CK-2) Rel Index 1.1 (0-4) 01/20/21 22:13 Troponin T < 0.010 ng/mL (0.00-0.029) 01/20/21 22:13 Total Protein 7.2 g/dL (6.3-8.2) 01/20/21 22:13 Albumin 3.0 g/dL (3.9-5) L 01/20/21 22:13 Albumin/Globulin Ratio 0.7 % 01/20/21 22:13 TSH 1.360 mlU/mL (0.270-4.200) 01/20/21 22:13 Free T4 1.25 ng/dL (0.76-1.46) 01/20/21 22:13 Plasma/Serum Alcohol < 0.01 % (0-0.07) 01/20/21 22:13 - Imaging and Cardiology Chest x-ray: image reviewed CT Scan - head: image reviewed Assessment and Plan VTE prophylaxis?: Chemical Plan of care discussed with patient/family: Yes - Patient Problems (1) Chest pain Current Visit: Yes Status: Acute Plan to address problem: Admit the patient to the medical floor telemetry. Put the patient on chest pain pathway. Aspirin 81 mg p.o. daily. Lipitor 40 mg p.o. daily. Nitroglycerin as needed. We will do the serial cardiac enzyme. We also do a echocardiogram. Will consult cardiology for further evaluation and treatment. (2) Hypertension Current Visit: No Status: Chronic Plan to address problem: Coreg 12.5 mg p.o. twice daily hydralazine 50 mg p.o. twice daily furosemide 20 mg p.o. twice daily. We monitor the blood pressure closely (3) HLD (hyperlipidemia) Current Visit: No Status: Chronic Qualifiers: Hyperlipidemia type: Mixed hyperlipidemia Qualified Code(s): E78.2 - Mixed hyperlipidemia Plan to address problem: Patient is on Lipitor 40 mg p.o. daily. We will recheck the lipid panel. (4) IDDM (insulin dependent diabetes mellitus) Current Visit: No Status: Chronic Plan to address problem: Patient is on insulin as part 10 units subcu every afternoon and 15 units subcu every morning. Repeat BMP in the morning. Diabetic education (5) DVT prophylaxis Current Visit: Yes Status: Acute Plan to address problem: Heparin 5000 units subcu every 8 hours for DVT prophylaxis. Protonix 40 mg p.o. daily for GI prophylaxis. Patient is a full code
[2021-01-21] MEDS ORDERED: hydrALAZINE 20 MG/1 ML INJ IV PRN (00:52)
[2021-01-21] MEDS ORDERED: ALBUTEROL 2.5 MG/3 ML NEBU IH PRN (01:05)
[2021-01-21] MEDS: traMADol 50 MG TAB PO PRN ×2 (03:19→19:45)
[2021-01-21] MEDS: HEPARIN 5,000 UNIT/1 ML VIAL SUB-Q SCH ×3 (05:13→21:59)
[2021-01-21 06:42] LABS: BUN/Creatinine Ratio 10; Blood Urea Nitrogen 10 mg/dL (7-17); Calcium 8.1 mg/dL (8.4-10.2); Chol/HDL Ratio 2.84 %; HDL Cholesterol 39 mg/dL (40-59); Hemolysis Index 49; LDL Cholesterol,Direct 63 mg/dL (50-130)
[2021-01-21] MEDS ORDERED: POTASSIUM CHLORIDE ER 20 MEQ TAB PO ONE (08:00)
[2021-01-21] MEDS: PANTOPRAZOLE 40 MG TAB PO SCH (08:54)
[2021-01-21] MEDS: metFORMIN 500 MG TAB PO SCH ×2 (08:55→16:45)
[2021-01-21] MEDS: ASPIRIN 81 MG TAB CHEW PO SCH (09:02)
[2021-01-21] MEDS: LOSARTAN 50 MG TAB PO SCH (09:02)
[2021-01-21] MEDS: FUROSEMIDE 40 MG TAB PO SCH (09:02)
[2021-01-21] MEDS: FERROUS SULFATE 325 MG TAB PO SCH (09:02)
[2021-01-21] MEDS: carvediloL 12.5 MG TAB PO SCH ×2 (09:02→21:59)
[2021-01-21] MEDS: hydrALAZINE 25 MG TAB PO SCH ×2 (09:03→21:58)
[2021-01-21] MEDS: INSULIN NPH/REGULAR 70/30 INJ SUB-Q SCH ×2 (09:34→16:46)
[2021-01-21] MEDS ORDERED: PANTOPRAZOLE 40 MG TAB PO SCH (10:00)
[2021-01-21] MEDS ORDERED: NON-FORMULARY EACH (Hydralazine Hcl [Hydralazine Hcl] 50 MG Tablet) PO SCH (10:00)
[2021-01-21] MEDS ORDERED: [UNRECOGNIZED DRUG - OTHER] SQ SCH ×2 (10:00→18:00)
[2021-01-21] MEDS ORDERED: ASPART SQ SCH ×2 (10:00→18:00)
[2021-01-21] MEDS ORDERED: FUROSEMIDE 20 MG TAB PO SCH (10:00)
[2021-01-21] MEDS ORDERED: INSULIN ASPART PROTAM SQ SCH ×2 (10:00→18:00)
[2021-01-21] MEDS ORDERED: NON-FORMULARY EACH (Losartan [Cozaar] 100 MG Tablet) PO SCH (10:00)
--- NOTE | 2021-01-21 11:43 | Consultation ---
History of Present Illness Consult date: 01/21/21 Consult reason: chest pain History of present illness: 65-year-old female with h/o htn, prior CVA, and DM presented with episodes of mid sternal chest pain. Patient describes the chest pain 07/08 as feeling as though there is "an elephant sitting on my chest." Patient admits to shortness of breath and nausea/vomiting with this chest pain but denies diaphoresis. The patient states a few hours ago she developed dizziness and a headache. Patient denies any history of fever. Patient denies any new weakness. Patient has left-sided weakness from previous CVA. Of note patient has prior h/o chest pain and prior cardiac testing including M PIs (most recently 12/2018) has been unremarkable. ECG reveals SR and is otherwise unremarkable. Past History Past Medical History: diabetes, hypertension, stroke, other (Angina, vertigo, but cardiac arrest) Medications and Allergies Allergies Allergy/AdvReac Type Severity Reaction Status Date / Time MARIAN Inhibitors Allergy Angioedema Verified 03/08/19 09:37 esomeprazole magnesium Allergy Swelling Verified 03/08/19 09:37 [From Nexium] labetalol Allergy Itching Verified 03/08/19 09:37 Seafood Allergy Anaphylaxis Uncoded 03/08/19 09:37 Home Medications Medication Instructions Recorded Confirmed Last Taken Type Ferrous Sulfate [Feosol 325 MG tab] 325 mg PO QDAY 04/19/16 01/21/21 03/07/19 History Losartan [Cozaar] 100 mg PO QDAY #30 tablet 04/19/16 01/21/21 03/07/19 Rx metFORMIN [Glucophage] 1,000 mg PO BID 04/19/16 01/21/21 03/07/19 History Albuterol Sulfate [Ventolin HFA] 2 puff IH Q6HR PRN 12/23/18 01/21/21 03/07/19 History Aspirin [Aspirin BABY CHEW TAB] 81 mg PO QDAY #30 tab.chew 12/30/18 01/21/21 03/07/19 Rx Atorvastatin Calcium [Lipitor] 40 mg PO DAILY 01/01/19 01/21/21 03/07/19 History Furosemide [Lasix] 20 mg PO BID 01/01/19 01/21/21 03/07/19 History Ibuprofen [Motrin 600 MG tab] 600 mg PO Q8H PRN #30 tablet 01/10/19 01/21/21 03/07/19 Rx Hydralazine HCl 50 mg PO BID 03/08/19 01/21/21 03/07/19 History Furosemide [Lasix TAB] 40 mg PO DAILY #30 tablet 05/08/19 01/21/21 03/07/19 Rx Insulin Aspart Protam & Aspart 10 units SQ QPM 30 Days 05/08/19 01/21/21 03/07/19 Rx [NovoLOG Mix 70-30 Flexpen] Insulin Aspart Protam & Aspart 15 units SQ QAM 30 Days 05/08/19 01/21/21 03/07/19 Rx [NovoLOG Mix 70-30 Flexpen] carvediloL [Coreg] 12.5 mg PO BID #60 tablet 05/08/19 01/21/21 03/07/19 Rx Active Meds: Active Medications Acetaminophen (Acetaminophen 325 Mg Tab) 650 mg PO Q6H PRN PRN Reason: Pain, Mild (1-3) Albuterol (Albuterol 2.5 Mg/3 Ml Nebu) 2.5 mg IH Q4HRT PRN PRN Reason: Shortness Of Breath Aspirin (Aspirin 81 Mg Tab Chew) 81 mg PO QDAY [facility] Last Admin: 01/21/21 09:02 Dose: 81 mg Documented by: Atorvastatin Calcium (Atorvastatin 40 Mg Tab) 40 mg PO QHS [facility] Carvedilol (Carvedilol 12.5 Mg Tab) 12.5 mg PO BID [facility] Last Admin: 01/21/21 09:02 Dose: 12.5 mg Documented by: Ferrous Sulfate (Ferrous Sulfate 325 Mg Tab) 325 mg PO QDAY [facility] Last Admin: 01/21/21 09:02 Dose: 325 mg Documented by: Furosemide (Furosemide 40 Mg Tab) 40 mg PO DAILY [facility] Last Admin: 01/21/21 09:02 Dose: 40 mg Documented by: Heparin Sodium (Porcine) (Heparin 5,000 Unit/1 Ml Vial) 5,000 unit SUB-Q Q8HR [facility] Last Admin: 01/21/21 05:13 Dose: 5,000 unit Documented by: Hydralazine HCl (Hydralazine 20 Mg/1 Ml Inj) 10 mg IV Q6H PRN PRN Reason: htn Hydralazine HCl (Hydralazine 25 Mg Tab) 50 mg PO BID [facility] Last Admin: 01/21/21 09:03 Dose: 50 mg Documented by: Ibuprofen (Ibuprofen 600 Mg Tab) 600 mg PO Q8H PRN PRN Reason: PAIN Insulin Human Isoph/Insulin Regular (Insulin Nph/Regular 70/30 Inj) 10 unit SUB-Q QPMDIAB [facility] Insulin Human Isoph/Insulin Regular (Insulin Nph/Regular 70/30 Inj) 15 unit SUB-Q QAMDIAB [facility] Last Admin: 01/21/21 09:34 Dose: 15 unit Documented by: Losartan Potassium (Losartan 50 Mg Tab) 100 mg PO QDAY [facility] Last Admin: 01/21/21 09:02 Dose: 100 mg Documented by: Metformin HCl (Metformin 500 Mg Tab) 1,000 mg PO BIDDIAB [facility] Last Admin: 01/21/21 08:55 Dose: 1,000 mg Documented by: Morphine Sulfate (Morphine 2 Mg/1 Ml Inj) 2 mg IV Q4H PRN PRN Reason: Pain , Severe (7-10) Pantoprazole Sodium (Pantoprazole 40 Mg Tab) 40 mg PO QDAC [facility] Last Admin: 01/21/21 08:54 Dose: 40 mg Documented by: Sodium Chloride (Sodium Chloride 0.9% 10 Ml Flush Syringe) 10 ml IV PRN PRN PRN Reason: LINE FLUSH Tramadol HCl (Tramadol 50 Mg Tab) 50 mg PO Q6H PRN PRN Reason: Pain, Moderate (4-6) Last Admin: 01/21/21 03:19 Dose: 50 mg Documented by: Review of Systems All systems: negative (per hpi) Physical Examination Vital Signs Pulse Resp Pulse Ox 71 18 95 01/20/21 20:51 01/20/21 20:51 01/20/21 20:51 General appearance: no acute distress Cardiac: Positive: Reg Rate and Rhythm. Negative: Systolic Murmur Lungs: Positive: clear to auscultation Abdomen: Positive: Soft, Active Bowel Sounds Extremities: Absent: edema Results 01/20/21 22:13 01/21/21 05:34 Cardiac Enzymes 01/20/21 Range/Units 22:13 AST 27 (5-40) units/L CK-MB (CK-2) 1.2 (0.0-4.0) ng/mL Lipids 01/21/21 Range/Units 05:34 Triglycerides 73 (2-149) mg/dL Cholesterol 111 (50-199) mg/dL HDL Cholesterol 39 L (40-59) mg/dL Cholesterol/HDL Ratio 2.84 % CBC 01/20/21 Range/Units 22:13 WBC 10.5 (4.5-11.0) K/mm3 RBC 3.36 L (3.65-5.03) M/mm3 Hgb 9.7 L (10.1-14.3) gm/dl Hct 28.6 L (30.3-42.9) % Plt Count 295 (140-440) K/mm3 Lymph # (Auto) 1.1 L (1.2-5.4) K/mm3 [place] # (Auto) 0.4 (0.0-0.8) K/mm3 Eos # (Auto) 0.1 (0.0-0.4) K/mm3 Baso # (Auto) 0.0 (0.0-0.1) K/mm3 Comprehensive Metabolic Panel 01/20/21 01/21/21 Range/Units 22:13 05:34 Sodium 139 139 (137-145) mmol/L Potassium 4.3 3.5 L (3.6-5.0) mmol/L Chloride 100.5 101.7 (98-107) mmol/L Carbon Dioxide 28 25 (22-30) mmol/L BUN 10 10 (7-17) mg/dL Creatinine 0.8 1.0 (0.6-1.2) mg/dL Glucose 211 H 163 H (65-100) mg/dL Calcium 8.5 8.1 L (8.4-10.2) mg/dL AST 27 (5-40) units/L ALT 16 (7-56) units/L Alkaline Phosphatase 56 (35-129) units/L Total Protein 7.2 (6.3-8.2) g/dL Albumin 3.0 L (3.9-5) g/dL Assessment and Plan Recurrent chest pain - description of ongoing pain suggestive of angina. Negative MPI in 12/2018. Htn DM Prior CVA Recommend: Will repeat echocardiogram and MPI
[2021-01-21] MEDS: MORPHINE 2 MG/1 ML INJ IV PRN ×2 (11:45→15:40)
[2021-01-21] MEDS ORDERED: DEXTROSE 50% IN WATER (25GM) 50 ML SYRINGE IV PRN (11:53)
[2021-01-21 12:10] LABS: Bacteria,Urine 4+ /HPF (Negative); Bilirubin,Urine NEG (Negative); Blood,Urine MOD (Negative); Color,Urine Amber (Yellow); Hyaline Casts,Urine 5 /LPF; Mucus,Urine 1+ /HPF
[2021-01-21 15:01] LABS: Basophils % (Auto) 0.4 % (0.0-1.8); Eosinophils # (Auto) 0.2 K/mm3 (0.0-0.4); Eosinophils % (Auto) 2.7 % (0.0-4.3); Hematocrit 27.8 % (30.3-42.9); Hemoglobin 9.4 gm/dl (10.1-14.3); Lymphocytes # (Auto) 1.8 K/mm3 (1.2-5.4); Lymphocytes % (Auto) 21.5 % (13.4-35.0); Mean Corpuscular HGB Conc 34 % (30-34); Mean Corpuscular Volume 87 fl (79-97); Monocytes # (Auto) 0.6 K/mm3 (0.0-0.8); Monocytes % (Auto) 6.8 % (0.0-7.3); Platelet Count 284 K/mm3 (140-440); Red Blood Count 3.19 M/mm3 (3.65-5.03)
--- NOTE | 2021-01-21 15:58 | Event Note ---
Date: 01/21/21 Signout received from minnie Patient here with chest pain Troponin negative x3 Cardiology consulted Plan for stress test tomorrow N.p.o. after midnight
[2021-01-21] MEDS: INSULIN LISPRO 100 UNIT/ML SUB-Q SCH ×2 (16:44→22:00)
[2021-01-22] MEDS: HEPARIN 5,000 UNIT/1 ML VIAL SUB-Q SCH ×3 (05:27→22:50)
[2021-01-22] MEDS: traMADol 50 MG TAB PO PRN (05:48)
[2021-01-22] MEDS ORDERED: REGADENOSON 0.4 MG/5 ML INJ IV ONE (09:10)
[2021-01-22] MEDS: INSULIN LISPRO 100 UNIT/ML SUB-Q SCH ×3 (10:09→17:05)
--- NOTE | 2021-01-22 10:39 | Electrocardiograph Report ---
[facility] Test Date: 2021-01-21 Test Time: 00:08:15 Pat Name: RAMEZ GARZA Department: Room: A484 1 Gender: F [employer]: Karo TRINH : 1955 Requested By: ANNA LAIRD Order Number: [id number] Reading MD: Hayden Brumfield Measurements Intervals [place] Rate: 82 P: 54 MD: 142 QRS: 12 QRSD: 87 T: 73 QT: 405 QTc: 473 Interpretive Statements Sinus rhythm nonspecific st-t No previous ECG available for comparison Electronically Signed On 01-22-2021 10:39:01 EDT by Hayden Brumfield
[2021-01-22] MEDS: ASPIRIN 81 MG TAB CHEW PO SCH (13:04)
[2021-01-22] MEDS: LOSARTAN 50 MG TAB PO SCH (13:05)
[2021-01-22] MEDS: PANTOPRAZOLE 40 MG TAB PO SCH (13:05)
[2021-01-22] MEDS: metFORMIN 500 MG TAB PO SCH ×2 (13:05→17:05)
[2021-01-22] MEDS: carvediloL 12.5 MG TAB PO SCH ×2 (13:05→22:50)
[2021-01-22] MEDS: FERROUS SULFATE 325 MG TAB PO SCH (13:06)
[2021-01-22] MEDS: FUROSEMIDE 40 MG TAB PO SCH (13:06)
[2021-01-22] MEDS: INSULIN NPH/REGULAR 70/30 INJ SUB-Q SCH ×2 (13:12→17:10)
[2021-01-22] MEDS: hydrALAZINE 25 MG TAB PO SCH ×2 (13:12→22:50)
--- NOTE | 2021-01-22 13:34 | Progress Note ---
Assessment and Plan - Patient Problems (1) Chest pain Current Visit: Yes Status: Acute Plan to address problem: Patient presented with atypical chest pain, a Lexiscan thallium stress test was completed today, results are pending. Subjective Date of service: 01/22/21 Interval history: Patient completed a Lexiscan thallium stress test today, results are pending. No further cardiac complaints. Objective Vital Signs Temp Pulse Pulse Resp Resp BP BP 01/22/21 13:12 87 134/55 01/22/21 13:05 87 134/55 01/22/21 12:10 135/79 01/22/21 12:09 141/77 01/22/21 12:08 126/75 01/22/21 11:16 150/79 01/22/21 08:00 20 01/22/21 04:28 99.7 F H 93 H 20 129/66 01/22/21 02:00 88 20 01/21/21 23:27 99.2 F 88 20 138/60 01/21/21 21:59 88 131/55 01/21/21 21:58 88 131/55 01/21/21 19:57 98.9 F 86 20 131/55 01/21/21 18:00 78 01/21/21 16:18 84 18 01/21/21 16:10 14 01/21/21 15:40 15 01/21/21 15:34 98.1 F 80 17 110/51 Pulse Ox 01/22/21 13:12 01/22/21 13:05 01/22/21 12:10 01/22/21 12:09 01/22/21 12:08 01/22/21 11:16 01/22/21 08:00 01/22/21 04:28 95 01/22/21 02:00 01/21/21 23:27 95 01/21/21 21:59 01/21/21 21:58 01/21/21 19:57 95 01/21/21 18:00 01/21/21 16:18 01/21/21 16:10 01/21/21 15:40 01/21/21 15:34 98 - Physical Examination General: No Apparent Distress Neck: Positive: neck supple Cardiac: Positive: Reg Rate and Rhythm Lungs: Positive: Decreased Breath Sounds Neuro: Positive: Grossly Intact Abdomen: Positive: Soft, Active Bowel Sounds Skin: Positive: Clear Extremities: Absent: edema - Labs and Meds CBC 01/21/21 Range/Units 14:28 WBC 8.2 (4.5-11.0) K/mm3 RBC 3.19 L (3.65-5.03) M/mm3 Hgb 9.4 L (10.1-14.3) gm/dl Hct 27.8 L (30.3-42.9) % Plt Count 284 (140-440) K/mm3 Lymph # (Auto) 1.8 (1.2-5.4) K/mm3 [place] # (Auto) 0.6 (0.0-0.8) K/mm3 Eos # (Auto) 0.2 (0.0-0.4) K/mm3 Baso # (Auto) 0.0 (0.0-0.1) K/mm3
--- NOTE | 2021-01-22 14:21 | Nuclear Medicine Report ---
APPROVED REPORT Exam: [facility] Ht: 5 ft 5 in Wt: 240 lbs BSA: 2.14 m2 HR: 77 bpm BP: 150/79 mmHg BMI: 39.93 Rhythm: NSR Stress Test Details Stress Test: Pharmacologic stress testing performed using 0.4 mg of regadenoson per 5 mL given IV over 10 seconds. Reason for pharmacologic stress test: physical limitation. HR Resting HR: 77 bpmMax Heart Rate (APMHR): 156 bpm Max HR Achieved: 110 bpmTarget HR (85% APMHR): 132 bpm % of APMHR: 70 Recovery HR: 102 bpm BP Resting BP: 150/79 mmHg Max BP: 150/79 mmHg Recovery BP: 135/79 mmHg ECG Resting ECG: Sinus Rhythm Stress ECG: Sinus Rhythm ST Change: None Arrhythmia: None Recovery ECG: Sinus Rhythm Recovery ST Change: None Recovery Arrhythmia: None Stress ECG Conclusion No ST changes of ischemia with Lexiscan stress, thallium images are pending for final test interpretation. NM EXAM: Myocardial Perfusion REST/STRESS Resting Data Rest SPECT myocardial perfusion imaging was performed in supine position 45 minutes following the intravenous injection of 10 mCi of Tc-99m Myoview. Time of rest injection: 1030 Pharmacologic Stress Pharmacologic stress test was performed by injecting Regadenoson 0.4 mg IV push followed by the intravenous injection of 28 mCi of Tc-99m Myoview. Time of stress injection: 1215 Gated Stress SPECT was performed 30 minutes after stress injection. Comments The patient's left arm down rt arm up. Study Data TID = 1.07. Perfusion Wall Motion There is a small area of in the segment of the wall which is seen on . Nuclear Conclusion ECG Findings: negative for ischemia Clinical Findings: negative for ischemia Nuclear Findings: negative for ischemia Left Ventricular Function: normal Risk Study: low Small fixed basal inferior defect appears consistent with attenuation artifact. No reversible ischemia demonstrated on the study. Left ventricular systolic function is normal with ejection fraction calculated 72%. Clinical correlation is recommended. Conclusion No ST changes of ischemia with Lexiscan stress, thallium images are pending for final test interpretation.
--- NOTE | 2021-01-22 14:40 | Discharge Summary ---
Providers - Providers Date of Admission: 01/20/21 23:57 Date of discharge: 01/22/21 Attending physician: DEBORAH CAMPBELL 01/21/21 Consult to Cardiac Rehabilitation [CONS] Routine Reason For Exam: Phase I 01/21/21 00:41 Consult to Cardiology [CONS] Routine Consulting Provider: NAKITA HERMOSILLO Reason For Exam: Chest pain Primary care physician: BURRER MACHINE Hospitalization Condition: Stable Hospital course: 65-year-old female with past medical history of hypertension, history of CVA, diabetes angina vertigo was brought to the emergency room because of dizziness and substernal chest pain this morning and has been constant. Patient describes the chest pain 10/10 as feeling as though there is "an elephant sitting on my chest." Patient admits to shortness of breath and nausea/vomiting with this chest pain but denies diaphoresis. The patient states a few hours ago she developed dizziness and a headache. Patient denies any history of fever. Patient denies any new weakness. Patient has left-sided weakness from previous CVA and states this is unchanged. Patient states she is never had a cardiac catheterization In the emergency room initial cardiac enzyme is negative troponin is 0.010 Hospital course She was admitted for evaluation of chest pain. She had a stress test which showed no reversible ischemia. She will continue her medications and follow up with her pcp and cashier parking lot. She agrees with plan Disposition: DC-01 TO HOME OR SELFCARE Final Discharge Diagnosis (Prints w/discharge instructions): Chest pain Time spent for discharge: 25 mins - Discharge Diagnoses (1) Chest pain Status: Acute Core Measure Documentation - Palliative Care Palliative Care/ Comfort Measures: Not Applicable - Core Measures Any of the following diagnoses?: none Exam - Physical Exam Narrative exam: VITAL SIGNS: Reviewed. GENERAL: Awake HEAD: No signs of head trauma. EYES: Pupils are equal. Extraocular motions intact. MOUTH: Oropharynx is normal. NECK: No adenopathy, no JVD. CHEST: Chest with diminished breath sounds bilaterally. No wheezes, rales, or rhonchi. CARDIAC: normal S1 and S2, without murmurs, gallops, or rubs. ABDOMEN: Soft, non tender and non distended. No rebound or guarding, and no masses palpated. Bowel Sounds normal. MUSCULOSKELETAL: No edema NEUROLOGIC EXAM: Alert and oriented x3. No focal neurologic deficits SKIN: No obvious lesions - Constitutional Vitals: Temp Pulse Resp BP Pulse Ox 99.7 F H 87 20 134/55 95 01/22/21 04:28 01/22/21 13:12 01/22/21 08:00 01/22/21 13:12 01/22/21 04:28 Plan Diet: low fat, low cholesterol, low salt Plan of Treatment: Continue current medication Follow-up with PCP in 1 to 2 weeks Follow up with: PRIMARY CAREMD [Primary Care Provider] - 3-5 Days
[2021-01-22] MEDS: MORPHINE 2 MG/1 ML INJ IV PRN (17:08)
[2021-01-23 02:00] VITALS: BP 142/70
--- NOTE | 2021-01-25 10:29 | Electrocardiograph Report ---
[facility] Test Date: 2021-01-22 Test Time: 09:33:36 Pat Name: RAMEZ GARZA Department: Room: A484 1 Gender: F [employer]: JOSAFAT : 1955 Requested By: ANNA LAIRD Order Number: [id number] Reading MD: Tanner High Measurements Intervals [place] Rate: 82 P: 44 OR: 141 QRS: 6 QRSD: 73 T: 69 QT: 394 QTc: 461 Interpretive Statements Sinus rhythm Compared to ECG 01/21/2021 00:08:15 No significant changes Electronically Signed On 01-25-2021 10:29:22 EDT by Tanner High
--- NOTE | 2021-01-25 10:35 | Electrocardiograph Report ---
[facility] Test Date: 2021-01-22 Test Time: 16:07:30 Pat Name: RAMEZ GARZA Department: Room: A484 1 Gender: F Admitting Coordinator: [phone] : 1955 Requested By: ERIKA CALI Order Number: [id number] Reading MD: Tanner High Measurements Intervals [place] Rate: 92 P: 0 NE: 68 QRS: 8 QRSD: 87 T: 180 QT: 421 QTc: 521 Interpretive Statements Sinus rhythm Poor quality ECG Compared to ECG 01/22/2021 09:33:36 Electronically Signed On 01-25-2021 10:34:59 EDT by Tanner High
--- NOTE | 2021-01-25 10:39 | Treadmill Report ---
[facility] Test Date: 2021-01-23 Test Time: 05:13:53 Pat Name: RAMEZ GARZA Department: Room: A484 1 Gender: F [employer] Driver: Nery Lee : 1955 Requested By: EDUARDO KENNEDY Order Number: [id number] Reading MD: Tanner High Interpretive Statements See dictated report Electronically Signed On 01-25-2021 10:39:33 EDT by Tanner High
== END 2021-01-23 02:45 | disposition home or self-care (01) ==
LOC: ED 19:19 → 4A 23:57
PROVIDERS: ADMIT Hospitalist; ATTEND Internal Medicine
DX: R07.89 Other chest pain (principal); I10 Essential (primary) hypertension; E11.9 Type 2 diabetes mellitus without complications; E78.2 Mixed hyperlipidemia; F17.210 Nicotine dependence, cigarettes, uncomplicated; R51.9 Headache, unspecified; Z86.73 Personal history of transient ischemic attack (TIA), and cerebral infarction without residual deficits; Z79.82 Long term (current) use of aspirin; Z79.4 Long term (current) use of insulin; Z96.649 Presence of unspecified artificial hip joint; Z98.890 Other specified postprocedural states; Z98.891 History of uterine scar from previous surgery; Z79.899 Other long term (current) drug therapy
CPT/HCPCS: 36415; 70450; 71045; 78452; 80048; 80053; 80061; 81001; 82140; 82550; 82553; 82805; 82962; 83735; 84439; 84443; 84484; 85025; 87086; 93005; 93017; 93306; 94640; 96372; 96374; 96375; 96376; 99285; A9270; A9502; G0378; J1644; J2270; J2405; J2785; J3010; 80320; G0480; J1815